=== PATIENT | female | born 1955 | race Caucasian/White ===

== ENCOUNTER → 2017-05-10 | Outpatient (CLI) | payer BC ==
[~2017-05-10] MED LIST: AMB5 PO; AMT25 PO; ASPI81TA28 PO; BSP15 PO; LSN40 PO; METO100T44 PO; MISCCAP80 PO; MULT-506 PO; NRV5 PO; SIMV80TA2 PO; VTMB12100 PO
--- NOTE | 2017-05-11 15:08 | MAMMOGRAPHY REPORT ---
UNILATERAL LEFT DIGITAL DIAGNOSTIC MAMMOGRAM TOMOSYNTHESIS AND TARGETED LEFT ULTRASOUND: 05/10/2017 CLINICAL HISTORY: 61-year-old woman with a personal history of right breast cancer status post mastec perla and implant reconstruction. Also reduction mammoplasty of the left breast. She presents for rst follow-up in the left breast after surgery. TECHNIQUE: Left breast CC and MLO 2-D and tomosynthesis images were obtained. COMPARISON: Comparison is made to exams dated: 03/03/2016 mammogram, 03/03/2016 stereotactic biopsy, 1 04/23/2015 mammogram, 02/02/2016 mammogram, 01/29/2015 mammogram, and 01/27/2014 mammogram - [facility]. BREAST COMPOSITION: There are scattered areas of fibroglandular density in the left breast. FINDINGS: There are postsurgical changes from interval reduction mammoplasty of the left breast. Sc ar markers overlie the periareolar and inferior left breast. There is a circumscribed oval 5 x 4.5 m m mass in the central, slightly lateral left breast for which further characterization with ultrasoun d was performed. There is a 7.7 mm asymmetry in the superior posterior left breast on the MLO view t hat effaces on the corresponding tomosynthesis images and could simply represent scar tissue or shahrzad l overlapping tissue. Further evaluation with ultrasound was also performed in the superior breast. This may project laterally based on the tomosynthesis localizer bar. Targeted ultrasound was performed throughout the left breast. In the 1:00 axis, 2 cm from the nipple , there is a fusiform versus oval parallel hypoechoic solid versus cystic circumscribed mass measurin g 6.7 x 2.6 x 11.9 mm. In the 1:30 left breast, 8 cm from the nipple, there is an oval parallel circ umscribed hypoechoic solid appearing mass measuring 10.7 x 4.1 x 6.4 mm. Although these masses have benign sonographic features, definitive characterization with ultrasound guided cyst aspiration versu s core needle biopsy is recommended. There are no suspicious spiculated or irregular masses to corre late with the asymmetry and questionable architectural distortion in the superior posterior left [address] on the MLO view. This could simply represent scar tissue which is appreciated in the 3:00 far lat eral left breast. No other discrete solid or cystic mass is seen in the upper outer upper inner quad rant of the left breast on targeted ultrasound. IMPRESSION: ACR BI-RADS CATEGORY 4: SUSPICIOUS, TARGETED ULTRASOUND ACR BI-RADS CATEGORY 4: SUSPICIO US 1. There has been interval left reduction mammoplasty. 2. 2 indeterminate hypoechoic solid versus cystic masses are identified in the left breast at 1:00 a nd 1:30 for which ultrasound-guided cyst aspiration versus core needle biopsy is recommended. Correl ation with post procedure mammograms is recommended to assess if the mass in the 1:30 left breast, 8 cm from the nipple, may correlate with the asymmetry seen in the superior posterior breast on the MLO view. These results and recommendation were discussed with the patient at the time of the exam. She tentat ively scheduled the left breast biopsies prior to leaving our department. Approximately 10% of breast cancers are not detected with mammography. A negative mammographic report should not delay biopsy if a clinically suggestive mass is present. Giselle Alex M.D. ay/:05/10/2017 15:29:41 Neuroradiologist: Eun Estes, [facility] letter sent: Abnormal 4/5 BI-RADS Code: ACR BI-RADS Category 4: Suspicious Ultrasound BI-RADS: ACR BI-RADS Category 4: Suspici ous
== END | disposition home or self-care (01) ==
LOC: C.MAMM 14:08
PROVIDERS: ATTEND Surgery
DX: Z09 Encounter for follow-up examination after completed treatment for conditions other than malignant neoplasm (principal); R92.8 Other abnormal and inconclusive findings on diagnostic imaging of breast; Z98.890 Other specified postprocedural states; Z90.11 Acquired absence of right breast and nipple; Z85.3 Personal history of malignant neoplasm of breast

== ENCOUNTER → 2017-05-18 | Outpatient (CLI) | payer BC ==
--- NOTE | 2017-05-18 13:35 | Discharge Instructions ---
Discharge Instructions Procedure Procedure Date: May 18, 2017. Reason for visit: 2 Left Breast Masses. Discharge Discharge Date: May 18, 2017. Discharge Diagnosis: post left breast ultrasound guided core biopsy x 2 Instructions Activity Recommendations: Additional Limitations (see below) Return to School/Work: no limitations Recommended Home Diet: No Limitations Provider Instructions: ACTIVITY RECOMMENDATIONS: * No lifting, pushing, pulling or exercising the affected side for three days. RETURN TO SCHOOL/WORK: * You may return to work/school after the procedure, but do not perform any strenuous activities for 24 to 48 hours. MEDICATIONS: * Tylenol (two 325 mg) every four to six hours if needed for mild pain (if not allergic to Tylenol). DIET: * Resume previous diet. SPECIAL CARE INSTRUCTIONS: * Keep biopsy site dry for 24 hours. May shower after 24 hours, but do not soak (bathe) incision. * May remove Tegaderm (plastic patch) tomorrow AFTER showering. * Leave the steri-strips on for one week. Allow the steri-strips to fall off by themselves. If not off after one week, you may remove them. You may place a Bandaid crosswise over the strips, if desired. * Apply ice 10 minutes on and 10 minutes off as needed. * Wear a bra at bedtime to sleep more comfortably for 2-3 days. * Your referring physician should have the results after approximately 5 to 7 business days. * Call for unusual bleeding, fever, drainage, etc or if you have any questions call [phone] during normal business hours or after hours call Dr Alex, . FOLLOW UP VISIT: Follow-up with Referring Physician as scheduled. Allergies Coded Allergies: Clopidogrel (Verified Allergy, Intermediate, rash, 06/14/15) Fountain Oil (Unverified Allergy, Intermediate, STOMACH UPSET, 06/14/15) Ham (Unverified Allergy, Intermediate, STOMACH UPSET, 06/14/15) Leroy Child Recommendations: Call your doctor if: * Temperature above 101 degrees * Pain not relieved by pain medicine ordered * There is increased drainage or redness from any incision * You have any unanswered questions or concerns. Your Doctors Instructions noted above were prepared by provider Giselle Alex. Patient Signature Section: Patient Instructions Signature Page Saloni Pablo Patient (or Guardian) Signature/Date: I have read and understand the instructions given to me by my caregivers. Caregiver/RN/Doctor Signature/Date: The above-named patient and/or guardian has received patient instructions on this date. + Original Patient Signature Page (only) stays with chart. Please make copy for patient.
--- NOTE | 2017-05-18 14:02 | MAMMOGRAPHY REPORT ---
UNILATERAL LEFT DIGITAL DIAGNOSTIC MAMMOGRAM TOMOSYNTHESIS: 05/18/2017 CLINICAL HISTORY: Status post ultrasound guided core biopsy 2 in the left breast at 1:00 and 1:30. Patient has a history of right breast cancer status post mastectomy. Recent left reduction mammoplas ty. Please refer to the report from left breast ultrasound guided core biopsy performed at the same time for full detail. IMPRESSION: POST PROCEDURE IMAGING FOR MARKER PLACEMENT Please refer to the report from left breast ultrasound guided core biopsy performed at the same time for full detail. Approximately 10% of breast cancers are not detected with mammography. A negative mammographic report should not delay biopsy if a clinically suggestive mass is present. Giselle Alex M.D. ay/:05/18/2017 13:34:17 Structured Cabling Technician: Margaret CHRISTY)(M), [facility] BI-RADS Code: Post Procedure Imaging For Marker Placement
--- NOTE | 2017-05-19 14:41 | MAMMOGRAPHY REPORT ---
MULTIPLE ULTRASOUND GUIDED BIOPSIES LEFT BREAST: 05/18/2017 CLINICAL HISTORY: Two indeterminate circumscribed parallel hypoechoic solid appearing masses in the l eft breast at 1:00 and 1:30. Patient presents for ultrasound guided cyst aspiration versus core need le biopsy 2. Patient has a history of right breast cancer status post mastectomy, and recent left r eduction mammoplasty. COMPARISON: Comparison is made to exams dated: 05/10/2017 ultrasound, 05/10/2017 mammogram, 02/02/2016 mammogram, 01/29/2015 mammogram, 01/27/2014 mammogram, and 01/23/2013 mammogram - [facility]. PATIENT CONSENT: Procedures of ultrasound-guided cyst aspiration and ultrasound-guided core needle bi opsy were described to the patient. Both procedures risks and benefits were discussed with the patie nt and informed consent was obtained both verbally and in writing. Specific risks to this procedure include: bleeding, infection, puncture of adjacent structure, nontarget biopsy, sampling error, pain, metal allergy and medication reaction. PROCEDURE DESCRIPTION: First repeat targeted ultrasound was performed in the left breast at 1:00 and 1:30 to reevaluate the solid versus cystic masses seen on prior ultrasound. The fusiform parallel hy poechoic mass in the 1:00 left breast, 2 cm from the nipple is again identified. This is the first t argeted for attempted cyst aspiration versus core needle biopsy. The slightly larger oval circumscri bed parallel hypoechoic solid versus cystic mass in the 1:30 left breast, 8 cm from the nipple was al so identified. It appears more solid on the current exam and core needle biopsy will be attempted. A time out was performed and the left breast was agreed as the site of fine-needle aspiration versus core biopsy. The skin of the left breast was prepped and draped in the usual sterile fashion. Fusifo rm parallel mass in the 1:00 breast was identified and chosen as target for attempted cyst aspiration . 1% buffered lidocaine without epinephrine was administered as local anesthesia. A 22-gauge needle was advanced into the mass and aspiration was performed with multiple passes through the mass but it did not collapse, confirming solid nature. Therefore, core biopsy was performed. 3 core biopsy renny ples were obtained with a 14-gauge achieve biopsy device. A ribbon-shaped biopsy marker clip was anita jasmine within this mass after biopsy. Hemostasis was achieved after manual compression. The patient munir erated the procedure well and there was no immediate complication. Then the more solid appearing mass in the 1:30 left breast was identified and targeted for biopsy. A dditional 1% buffered lidocaine with and without epinephrine was administered as local anesthesia. A small skin incision was made. Through the incision, 2 samples were obtained with a 14-gauge achieve biopsy device. The third biopsy attempt was made but given the rapid 3 nature of this mass, a third core sample was not obtained and there was slight bleeding at the biopsy site. Therefore a wing sha ped metallic biopsy marker clip was placed in this mass, considering that the first 2 biopsy samples were considered adequate. Hemostasis was achieved after several minutes of manual compression. The patient tolerated the procedure well and there was no immediate complication. All of the samples wer e sent to the pathology department in an appropriately labeled containers. Postprocedure left CC, XCCL and ML tomosynthesis images were obtained. A new ribbon-shaped biopsy ma rker clip is identified in the 12:00 to 1:00 left breast, aligning with an oval mass seen mammographi radha. The possible second mass is less conspicuous and may have represented normal fibroglandular t issue. The wing shaped biopsy marker clip is seen on the MLO view. It does not align with the initi al asymmetry seen on 05/10/2017 although that asymmetry is less prominent and contiguous with conflue nt dense scar tissue on the current MLO view, suggesting it represented postsurgical scarring. IMPRESSION: ULTRASOUND GUIDED BIOPSY 1. Status post ultrasound guided core needle biopsy of 2 indeterminate solid masses in the left [address] at 1:00 and 1:30, with biopsy marker clips placed at each site. 2. Pending benign pathology results, would recommend follow-up left diagnostic tomosynthesis mammogr ams and possible ultrasound to ensure stability of probable scarring in the superior posterior left b reast on the MLO view, seen on the 05/10/2017 mammograms. The patient will receive notification of the biopsy results from her referring physician. Giselle Alex M.D. ay/:05/18/2017 14:22:53 Manager Strategy: Margaret CHRISTY)(Tam), [facility]
--- NOTE | 2017-05-19 14:41 | MAMMOGRAPHY REPORT ---
ULTRASOUND GUIDED BIOPSY: 05/18/2017 CLINICAL HISTORY: Two indeterminate circumscribed parallel hypoechoic solid appearing masses in the l eft breast at 1:00 and 1:30. Patient presents for ultrasound guided cyst aspiration versus core need le biopsy 2. Patient has a history of right breast cancer status post mastectomy, and recent left r eduction mammoplasty. Please refer to the report from left breast ultrasound guided core biopsy performed at the same time for full detail. IMPRESSION: ULTRASOUND GUIDED BIOPSY Please refer to the report from left breast ultrasound guided core biopsy performed at the same time for full detail. Giselle Alex M.D. ay/:05/18/2017 14:15:58 Clinic Business Manager: Margaret CHRISTY)(Tam), [facility]
== END | disposition home or self-care (01) ==
LOC: C.MAMM 12:40
PROVIDERS: ATTEND Surgery
DX: R92.0 Mammographic microcalcification found on diagnostic imaging of breast (principal); N63.10 Unspecified lump in the right breast, unspecified quadrant; N63.20 Unspecified lump in the left breast, unspecified quadrant

== ENCOUNTER 2021-03-27 16:51 | Inpatient (IN) ==
[~2021-03-27 16:51] MED LIST changes: -AMB5 PO; -AMT25 PO; -ASPI81TA28 PO; -BSP15 PO; +HEPARIN (PORCINE) 1000 UNIT/ML 10 ML (CATH LAB USE ONLY) ONE; -LSN40 PO; -METO100T44 PO; +MIDAZOLAM HCL 1 MG/ML 2ML VIAL ONE; -MISCCAP80 PO; -MULT-506 PO; +NITROGLYCERIN/D5W 100MCG/ML 20ML SYR ONE; -NRV5 PO; -SIMV80TA2 PO; -VTMB12100 PO; +fentaNYL citrate 100 MCG/2 ML VIAL ONE; +niCARdipine HCL INJ 2.5 MG/ML 10 ML AMP ONE
[2021-03-27] MEDS ORDERED: METOPROLOL TARTRATE 1 MG/ML VIAL IV STA (16:59)
[2021-03-27] MEDS ORDERED: SODIUM CHLORIDE 0.9% 500 ML IV ONE (17:02)
--- NOTE | 2021-03-27 17:03 | Emergency Department Note ---
Impression & Plan STEMI (ST elevation myocardial infarction), Chest pain, Elevated troponin, Abnormal EKG ED Provider Note NAME: CARISA DARBY AGE: 65 SEX: F : 1955 ARRIVES VIA: Ambulance INFORMANT: Patient ED PROVIDER(S): Tani Cohen DO CHIEF COMPLAINT: Chest pain HPI: Patient is a 65-year-old female with a past medical history of diabetes, hypertension and previous TX that presents to the ER for chest pain. Symptoms started after [employer] game she was walking around cleaning up the house and started to get midsternal chest pain. She admits to left arm pain associated with this. Denies any shortness of breath. Pain is currently a 1 out of 10. She is given 2 nitro and aspirin prior to arrival. She denies any belly pain but admits to some nausea. No vomiting or diarrhea. She was diaphoretic when this initially started. She called EMS and was brought in for further evaluation. ROS: See above HPI for pertinent positives & negatives. A total of 10 systems reviewed and were otherwise negative. PAST MEDICAL HISTORY:See Below PAST SURGICAL HISTORY:See Below FAMILY HISTORY:See Below SOCIAL HISTORY:See Below HOME MEDICATIONS:See Below ALLERGIES:See Below VITALS:See Below PHYSICAL EXAMINATION: GENERAL: Sitting up in bed, alert, anxious but disheveled EYE EXAM: normal conjunctiva. OROPHARYNX: no exudate, no erythema, lips, buccal mucosa, and tongue normal and mucous membranes are moist NECK: supple, no nuchal rigidity, no adenopathy, non-tender LUNGS: Clear to auscultation. Normal chest wall mechanics HEART: no murmurs, S1 normal and S2 normal ABDOMEN: abdomen soft, non-tender, normo-active bowel sounds, no masses, no rebound or guarding. UPPER EXTREMITIES: upper extremities are grossly normal. LOWER EXTREMITIES: No pitting edema. NEURO EXAM: Normal sensorium, cranial nerves II-XII grossly intact, normal speech, no gross weakness of arms, no gross weakness of legs. MEDICAL DECISION MAKING: Patient is a 65-year-old female who presents to the ER for chest pain. IV was established blood was obtained. Labs show no significant leukocytosis or anemia. INR was unremarkable. BMP on LFTs bilirubin was unremarkable. Troponin was elevated 1.6. Lipase is negative. EKGs do suggest STEMI. Heart alert was called. I received medical command and made it hard to let notification. Patient was given aspirin nitro prior to arrival. Pain was nearly completely abated upon arrival to the ER. Patient was placed on the monitor and pads were attached. Patient was evaluated by Dr. Karlo Chavira taken to the [facility] urgently. Did discuss with Karlo in regards to giving heparin and Brilinta while in the ER but he preferred to give it in the [facility] so as not to delay transfer. Triage Nursing notes reviewed. Limited review of prior medical records performed Vital Signs: reviewed and remarkable for HTN Differential diagnosis: Differential diagnoses includes but is not limited to acute coronary syndrome, myocardial infarction, pericarditis, pulmonary embolus, aortic dissection, pneumonia, pneumothorax, musculoskeletal, shingles, esophageal. ER treatment provided: See below Diagnostics interpreted by me: ECG: EKG #1 Per EMS sinus rhythm rate [address] segment elevations in V45 and 6 as well as the high lateral leads with ST depressions in the inferior leads EKG #2 ST segment elevations in the high lateral leads as well as V3 for with T wave inversion in V5 through V6 as well as the inferior leads with ST depressions EKG #3 performed here sinus rhythm [address] depressions in the inferior leads ST segment elevations in V1 through V4 QTC 556 New from old performed in 2019 Cardiac Monitoring: An order was placed for continuous cardiac monitoring. The monitor shows a rate of 95 with sinus rhythm. Laboratory studies: As stated above and show below. Imaging studies: See below Consultation(s): Patient was taken emergently to the [facility] by Dr. Karlo Chavira Procedures: none Critical Care: I have personally spent 31 minutes of critical care time in the direct management of this patient. This includes bedside care, interpretation of diagnostic studies, and testing, discussion with consultants, patient, and family members, and other required patient management activities. This 31 minutes is in excess of all separately billable procedures. Past Med/Surg History Medical History (Updated 03/27/21 @ 19:42 by Tani Cohen DO) DCIS (ductal carcinoma in situ) History of invasive breast cancer History of torn meniscus of left knee Hypertension Myocardial infarct Recurrent urinary tract infection Surgical History (Updated 09/26/18 @ 08:32 by Sheba Campbell, RN) H/O mastectomy H/O: hysterectomy History of reduction surgery of left breast S/P breast reconstruction, right Family History (Updated 09/26/18 @ 09:23 by Sheba Campbell RN) Mother , age 87 old age No problems noted. Father , age 90 CVA , also had H/o type 2 diabetes heart disease No problems noted. Brother Coronary heart disease Brother No problems noted. Brother No problems noted. Brother No problems noted. Daughter , 5 months trisomy 18 CHF No problems noted. Son No problems noted. Son No problems noted. Son No problems noted. 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 Other Information That Helps Us Care for You: No Feels Safe at Home: Yes Safety Concerns: Feels Safe At This Time Childhood Exposure to Second-Hand Smoke: Yes (once a week ) caffeine: Yes (fede occ) Dental Care, Regularly: Yes Physical Activity Frequency: Other Physical Activity Frequency Comment: rarely Sunscreen Use: Yes Assistive Devices: Glasses Allergies Allergies Allergy/AdvReac Type Severity Reaction Status Date / Time clopidogrel Allergy Intermediate rash Verified 01/30/19 17:33 corn Allergy Intermediate STOMACH Verified 01/30/19 17:33 UPSET Ham Allergy Intermediate STOMACH Uncoded 01/30/19 17:33 UPSET Home Meds Home Medications Medication Instructions Recorded Confirmed amitriptyline 25 mg tablet 25 mg PO HS 04/19/18 10/08/19 atorvastatin 40 mg tablet 40 mg PO HS 04/19/18 10/08/19 buspirone 15 mg tablet 15 mg PO BID 04/19/18 10/08/19 metoprolol succinate 100 mg 100 mg PO [facility] 04/19/18 10/08/19 tablet,extended release 24 hr aspirin 81 mg tablet,delayed 81 mg PO 04/24/18 10/08/19 release nitroglycerin 0.4 mg sublingual 0.4 mg SUBLINGUAL DIRECTED PRN 04/24/18 10/08/19 tablet cyanocobalamin (vitamin B-12) 1,000 mcg PO QAM 07/03/19 07/14/20 1,000 mcg capsule omeprazole 20 mg tablet,delayed 20 mg PO QAM 09/26/18 10/08/19 release bepotastine besilate 1.5 % eye 1 drops OPB TID PRN ml 10/15/18 10/08/19 drops (Bepreve) diltiazem HCl 120 mg 240 mg PO QAM 01/20/19 10/08/19 capsule,extended release 24 hr metoprolol succinate 100 mg 50 mg PO QPM 01/30/19 10/08/19 tablet,extended release 24 hr sacubitril 24 mg-valsartan 26 mg 1 tab PO BID 01/30/19 10/08/19 tablet (Entresto) Previous Rx's Medication Instructions Recorded lorazepam 0.5 mg tablet 0.5 mg SL TID PRN #9 tab 04/24/18 Results & Data (ED) Vital Signs Vital Signs - 24 hr 03/27/21 16:50 03/27/21 17:02 03/27/21 17:09 Temperature 36.8 C Temperature Source Oral Pulse Rate 96 H Pulse Rate [Apical] 88 Respiratory Rate 18 18 Blood Pressure 141/113 H Blood Pressure [Left Arm] 151/93 H Blood Pressure Mean 122 Blood Pressure Mean [Left Arm] 112 Pulse Oximetry 98 98 98 Oxygen Delivery Method Room Air Room Air Room Air Sepsis Recent Fever Within 48 Hours No Sepsis New/Unexplained Change in Mental Status No Sepsis Action Taken by Nursing No Action Required Laboratory Data Result diagrams: 03/27/21 16:25 03/27/21 16:25 Lab Results 03/27/21 03/27/21 03/27/21 Range/Units 16:25 16:25 16:25 WBC 6.97 (4.8-10.8) K/uL RBC 4.53 (4.2-5.4) M/uL Hgb 12.5 (12.0-16.0) g/dL Hct 39.2 (37-47) % MCV 86.5 (80-100) fL MCH 27.6 (25-34) pg MCHC 31.9 L (32-36) g/dL RDW Std Deviation 45.0 (36.4-46.3) fL RDW Coeff of Renard 14.2 (11.5-14.5) % Plt Count 306 (130-400) K/uL MPV 8.9 (7.4-10.4) fL Immature Gran % (Auto) 0.1 % Neut % (Auto) 52.6 % Lymph % (Auto) 35.4 % Dickens % (Auto) 7.7 % Eos % (Auto) 3.9 % Baso % (Auto) 0.3 % Neut # (Auto) 3.66 (1.4-6.5) K/uL Lymph # (Auto) 2.47 (1.2-3.4) K/uL Dickens # (Auto) 0.54 (0.11-0.59) K/uL Eos # (Auto) 0.27 (0-0.5) K/uL Baso # (Auto) 0.02 (0-0.2) K/uL Immature Gran # (Auto) 0.01 (0.00-0.02) K/uL PT 9.2 (9.0-12.0) Seconds INR 0.9 (0.9-1.1) APTT 21.9 (21.0-31.0) Seconds PTT Ratio 0.8 Sodium 138 (136-145) mmol/L Potassium 3.6 (3.5-5.1) mmol/L Chloride 105 (98-107) mmol/L Carbon Dioxide 30 (21-32) mmol/L Anion Gap 3.0 (3-11) BUN 13 (7-18) mg/dl Creatinine 0.98 (0.6-1.2) mg/dl Est Cr Clr Drug Dosing 71.7 ml/min Est GFR ( Amer) 70.2 ml/min Est GFR (Non-Af Amer) 60.5 ml/min BUN/Creatinine Ratio 13.5 (10-20) Glucose 141 H (70-99) mg/dl Calcium 9.6 (8.5-10.1) mg/dl Total Bilirubin 0.2 (0.2-1) mg/dl AST 21 (15-37) U/L ALT 36 (12-78) Alkaline Phosphatase 135 H (45-117) U/L Troponin I 1.640 H* (0-0.045) ng/ml Total Protein 7.7 (6.4-8.2) gm/dl Albumin 4.0 (3.4-5.0) gm/dl Globulin 3.7 (2.5-4.0) gm/dl Albumin/Globulin Ratio 1.1 (0.9-2) Lipase 136 (73-393) U/L SARS-CoV-2, RNA, NAAT (NEGATIVE) 03/27/21 Range/Units 16:50 WBC (4.8-10.8) K/uL RBC (4.2-5.4) M/uL Hgb (12.0-16.0) g/dL Hct (37-47) % MCV (80-100) fL MCH (25-34) pg MCHC (32-36) g/dL RDW Std Deviation (36.4-46.3) fL RDW Coeff of Renard (11.5-14.5) % Plt Count (130-400) K/uL MPV (7.4-10.4) fL Immature Gran % (Auto) % Neut % (Auto) % Lymph % (Auto) % Dickens % (Auto) % Eos % (Auto) % Baso % (Auto) % Neut # (Auto) (1.4-6.5) K/uL Lymph # (Auto) (1.2-3.4) K/uL Dickens # (Auto) (0.11-0.59) K/uL Eos # (Auto) (0-0.5) K/uL Baso # (Auto) (0-0.2) K/uL Immature Gran # (Auto) (0.00-0.02) K/uL PT (9.0-12.0) Seconds INR (0.9-1.1) APTT (21.0-31.0) Seconds PTT Ratio Sodium (136-145) mmol/L Potassium (3.5-5.1) mmol/L Chloride (98-107) mmol/L Carbon Dioxide (21-32) mmol/L Anion Gap (3-11) BUN (7-18) mg/dl Creatinine (0.6-1.2) mg/dl Est Cr Clr Drug Dosing ml/min Est GFR ( Amer) ml/min Est GFR (Non-Af Amer) ml/min BUN/Creatinine Ratio (10-20) Glucose (70-99) mg/dl Calcium (8.5-10.1) mg/dl Total Bilirubin (0.2-1) mg/dl AST (15-37) U/L ALT (12-78) Alkaline Phosphatase (45-117) U/L Troponin I (0-0.045) ng/ml Total Protein (6.4-8.2) gm/dl Albumin (3.4-5.0) gm/dl Globulin (2.5-4.0) gm/dl Albumin/Globulin Ratio (0.9-2) Lipase (73-393) U/L SARS-CoV-2, RNA, NAAT NEGATIVE (NEGATIVE) Administered Medications Heparin Sodium/Dextrose (Heparin Sodium/Dextrose) 25,000 units in 500 mls @ 29 mls/hr IV .[id number] [facility]; Protocol Stop: 04/26/21 18:29 Last Admin: 03/27/21 19:37 Dose: 1,450 units/hr, 29 mls/hr Documented by: [id number] Cosigned by: [id number] Discontinued Medications Adenosine (Adenosine Iv Soln 3 Mg/Ml 2 Ml Vial) Confirm Administered Dose 6 mg IV .STK-MED ONE Stop: 03/27/21 17:30 Last Admin: 03/27/21 19:11 Dose: Not Given Documented by: [id number] Fentanyl Citrate (Fentanyl Citrate 100 Mcg/2 Ml Vial) Confirm Administered Dose 100 mcg .ROUTE .STK-MED ONE Stop: 03/27/21 16:49 Last Admin: 03/27/21 19:10 Dose: Not Given Documented by: [id number] Heparin Sodium (Porcine) (Heparin (Porcine) 1000 Unit/Ml 10 Ml ([facility] Use Only)) Confirm Administered Dose 10,000 units .ROUTE .STK-MED ONE Stop: 03/27/21 16:49 Last Admin: 03/27/21 19:10 Dose: Not Given Documented by: [id number] Heparin Sodium/Dextrose (Heparin Iv Adult Wt-Based Standard *No* Bolus Protocol) 1 ea IV Q30M [facility]; Protocol Stop: 04/26/21 18:29 Last Admin: 03/27/21 19:16 Dose: Not Given Documented by: [id number] Heparin Sodium/Sodium Chloride (Heparin In Nss Infusion 1000 Unit/500 Ml (2 U/Ml) Bag) Confirm Administered Dose 3,000 units IV .STK-MED ONE Stop: 03/27/21 16:49 Last Admin: 03/27/21 19:10 Dose: Not Given Documented by: [id number] Sodium Chloride (Nss) 500 mls @ 999 mls/hr IV .Q31M ONE Stop: 03/27/21 17:32 Last Admin: 03/27/21 19:11 Dose: Not Given Documented by: [id number] Metoprolol Tartrate (Metoprolol Tartrate 1 Mg/Ml Vial) 2.5 mg IV NOW STA Stop: 03/27/21 17:00 Last Admin: 03/27/21 19:11 Dose: Not Given Documented by: [id number] Midazolam HCl (Midazolam Hcl 1 Mg/Ml 2ml Vial) Confirm Administered Dose 2 mg .ROUTE .STK-MED ONE Stop: 03/27/21 16:49 Last Admin: 03/27/21 19:10 Dose: Not Given Documented by: [id number] Nicardipine HCl (Nicardipine Hcl Inj 2.5 Mg/Ml 10 Ml Amp) Confirm Administered Dose 25 mg .ROUTE .STK-MED ONE Stop: 03/27/21 16:49 Last Admin: 03/27/21 19:10 Dose: Not Given Documented by: [id number] Nitroglycerin/Dextrose (Nitroglycerin/D5w 100mcg/Ml 20ml Syr) Confirm Administered Dose 2,000 mcg .ROUTE .STK-MED ONE Stop: 03/27/21 16:51 Last Admin: 03/27/21 19:11 Dose: Not Given Documented by: [id number] Imaging Data Radiologist's Impression: Chest X-Ray 03/27/21 16:40 XR chest 1V portable HISTORY: 65 years-old Female Chest Pain acute atypical chest pain COMPARISON: CTA chest 01/20/2019 TECHNIQUE: Portable AP view of the chest FINDINGS: Cardiomediastinal and hilar silhouettes are within normal limits. Asymmetric opacity of the right lung base is likely secondary to the right breast implant. No pneumothorax, pleural effusion, airspace consolidation or overt pulmonary edema. Degenerative changes of the shoulders and spine. IMPRESSION: No acute process. ACT 112: Negative or not required by law. The above report was generated using voice recognition software. It may contain grammatical, syntax or spelling errors. Electronically signed by: Hilton Adler M.D. 03/27/2021 5:06 PM Discharge Plan Visit Data Chief Complaint: Heart Alert ED Provider: Tani Cohen Discharge Problem: STEMI (ST elevation myocardial infarction), Chest pain, Elevated troponin, Abnormal EKG Discharge Instructions Interventions: ED Discharge Assessment Last Done: 03/27/21 17:09 Discharge Problem: STEMI (ST elevation myocardial infarction) Qualifiers: Involved coronary artery: unspecified coronary artery Qualified Code(s): I21.3 - ST elevation (STEMI) myocardial infarction of unspecified site Chest pain Qualifiers: Chest pain type: unspecified Qualified Code(s): R07.9 - Chest pain, unspecified
[2021-03-27 17:05] LABS: Basophils # (auto) 0.02 K/uL (0-0.2); Basophils % (auto) 0.3 %; Eosinophils # (auto) 0.27 K/uL (0-0.5); Eosinophils % (auto) 3.9 %; Hematocrit (blood only) 39.2 % (37-47); Hemoglobin 12.5 g/dL (12.0-16.0); Immature Granulocytes # (auto) 0.01 K/uL (0.00-0.02); Immature Granulocytes % (auto) 0.1 %; Lymphocytes # (auto) 2.47 K/uL (1.2-3.4); Lymphocytes % (auto) 35.4 %; Mean Corpuscular Hemoglobin 27.6 pg (25-34); Mean Corpuscular Hgb Conc 31.9 g/dL (32-36); Mean Corpuscular Volume 86.5 fL (80-100); Mean Platelet Volume 8.9 fL (7.4-10.4); Monocytes # (auto) 0.54 K/uL (0.11-0.59); Monocytes % (auto) 7.7 %; Neutrophils # (auto) 3.66 K/uL (1.4-6.5); Neutrophils % (auto) 52.6 %; Platelet Count 306 K/uL (130-400); RDW Coefficient of Variation 14.2 % (11.5-14.5); Red Blood Count 4.53 M/uL (4.2-5.4); White Blood Count 6.97 K/uL (4.8-10.8)
--- NOTE | 2021-03-27 17:08 | XRay Report ---
XR chest 1V portable HISTORY: 65 years-old Female Chest Pain acute atypical chest pain COMPARISON: CTA chest 01/20/2019 TECHNIQUE: Portable AP view of the chest FINDINGS: Cardiomediastinal and hilar silhouettes are within normal limits. Asymmetric opacity of the right maren g base is likely secondary to the right breast implant. No pneumothorax, pleural effusion, airspace c onsolidation or overt pulmonary edema. Degenerative changes of the shoulders and spine. IMPRESSION: No acute process. ACT 112: Negative or not required by law. The above report was generated using voice recognition software. It may contain grammatical, syntax o r spelling errors. Electronically signed by: Hilton Adler M.D. 03/27/2021 5:06 PM
[2021-03-27 17:24] LABS: BUN Creatinine Ratio 13.5 (10-20); Calcium 9.6 mg/dl (8.5-10.1); Creatinine Clr Calc Pharmacy 71.7 ml/min; Est GFR (African American) 70.2 ml/min; Est GFR (Non-African American) 60.5 ml/min; Potassium 3.6 mmol/L (3.5-5.1)
[2021-03-27] MEDS ORDERED: ADENOSINE IV SOLN 3 MG/ML 2 ML VIAL IV ONE (17:29)
[2021-03-27 17:38] LABS: Albumin Globulin Ratio 1.1 (0.9-2); Bilirubin,Total 0.2 mg/dl (0.2-1); Globulin 3.7 gm/dl (2.5-4.0); Total Protein 7.7 gm/dl (6.4-8.2); Troponin I 1.64 ng/ml (0-0.045)
--- NOTE | 2021-03-27 18:04 | Pre Anesthesia Assessment ---
Date of Service March 27, 2021 Pre Sedation Assessment Vital Signs Temp Pulse Pulse Resp BP BP Pulse Ox 03/27/21 17:09 88 18 151/93 H 98 03/27/21 17:02 98 03/27/21 16:50 98.2 F 96 H 18 141/113 H 98 Cardiovascular RRR, no murmur, no edema Respiratory normal respiratory effort, lungs clear to auscultation Pre-Sedation Airway Assessment Smoking Status: Never smoker Hx Sleep Apnea: No Hx Difficult Intubation: No Short, Thick Neck: No Thyromental Distance: > or= 3.5 Finger Breadths Oral Cavity: + WNL Mallampati Class: III ASA: ASA3 Procedure Planning Contraindications for Sedation: none Current Medications Reviewed: Yes Notes The planned sedation has been discussed with the patient. Informed Consent was obtained. I have identified the patient, determined the appropriateness of sedation and have assessed the patient immediately prior to the procedure. All medicine(s) and interventions are by my order.
--- NOTE | 2021-03-27 18:04 | Post Anesthesia Assessment ---
Date of Service March 27, 2021 Post Sedation Assessment Vital Signs Temp Pulse Pulse Resp BP BP Pulse Ox 03/27/21 17:09 88 18 151/93 H 98 03/27/21 17:02 98 03/27/21 16:50 98.2 F 96 H 18 141/113 H 98 Recovery Score Activity: Moves 4 extremities Respiration: Deep Breath/Cough Circulation: +/-20% PreAnes Value Consciousness: Fully Awake Oxygen Saturation: O2 needed for >90% Discharge Sedation Level of Care: Fast Track Phase II Post Sedation Plan On clinical assessment, the patient appears to have tolerated the sedation without complications. Patient is recovering as anticipated. Patient will continue to be monitored by nursing and may be discharged when sedation discharge criteria are met per below protocol. Upon Completions of procedure up to 15 minutes continue every 5 minute vital signs and the P.A.R. score; then discharge to a Phase I or Fast Track to Phase II per the following guidelines: * Discharge Patient to appropriate Phase II area if PAR is 8 or greater or return to pre- procedure baseline. The post - procedure orders will be as directed. * If PAR score is less than 8 or not return to pre-procedure baseline then patient will follow Phase I monitoring till PAR is reached for Phase II. The Phase I may be done in procedure room or may call to secure a Phase I area. * If naloxone or flumazenil are used for reversal, hold in Phase I for continued monitoring from when last reversal dose was given for a minimum of 60 minutes or longer pending the nurse and/or physician discretion of patient condition before discharge to Phase II. Please call the Sedation Physician to re-evaluate and complete post-note for discharge to Phase II area. Do NOT discharge from procedure sedation or Phase 1 until post- sedation evaluation note is complete by procedure /sedation MD Sedation Discharge Instructions to be given to the patient at discharge to home.
--- NOTE | 2021-03-27 18:08 | Cardiac Catheterization ---
[facility] Data: Supervisor Production Managing Cardiac Status Clinical evaluation leading to the procedure CAD Presenation: STEMI Anginal Classification: CCS IV Heart Failure: No Cardiogenic Shock within 24 Hours: No Cardiac Arrest within 24 Hours: No Imaging Studies Past 6 Months: No Stress Studies Past 6 Months: No Diagnostic Physicians Name: César Chavira MD Status: Emergency Closure Device Percutaneous Entry Location: Radial Closure Device: Radial Band Recommendations: Medical Therapy and/or Counseling Intraprocedure Events Significant Disection: No Perforation: No Cardiac Cath Procedure Full Procedure Date March 27, 2021 Pre-Procedure Diagnosis Pre-Procedure Diagnosis: STEMI AUC Score AUC Score: 9 Post-Procedure Diagnosis Post-Procedure Diagnosis: Moderate CAD and Elevated Intracardiac Pressures Procedure(s) Performed Procedure(s) Performed: Coronary Angiography, Left Heart Cath and LV Angiography Cargo Inspector César Chavira MD Dog Control Officer(s) Greg Estimated Blood Loss Estimated Blood Loss: 10 Medication(s) Medication(s): Adenosine, Fentanyl, Heparin, Lidocaine 1%, Nicardipine, Nitroglycerin and Versed Summary of Findings Indication: Acute chest pain with anterior ST elevations on ECG. History of prior apical LAD, cardiomyopathy. Access: 6 Fr right radial artery Catheters: [place], pigtail, EBU 3.5 guide Findings: LM -Short, normal caliber, no significant disease LAD -medium caliber, tortuous, diffuse moderate mid segment narrowing up to 40%, transient earlydistal distal segment narrowing/bridging 60 to 70%. Apical LAD normal caliber without disease wraps around apex. Moderate D1 without disease. Small bifurcating D2 with diffuse disease. LAD disease with minimal response to nitro, nicardipine. Distal LAD narrowing worse after adenosine but improved wi th time. Circumflex -moderate caliber, no significant disease. Medium caliber, tortuous OM 2 with diffuse proximal narrowing up to 70%. RCA -dominant, large caliber, no significant disease LVEDP -19 Arterial Closure: TR band Summary: 1. Moderate nonobstructive coronary artery disease -Diffuse mid to distal LAD up to 70%appearance most consistent with coronary vasospasm 70% narrowing proximal [id number] consistent with coronary vasospasm 2. Mildly elevated intracardiac filling pressure Recommendations: By time of catheterization patient chest pain-free, ST segments normal and had SINDY-3 flow throughout. Symptoms largely resolved with 2 sublingual nitroglycerin. Current images compared with coronary angiography from 09/2019. At that time essentially had clean coronaries with diffuse narrowing in apical LAD. Today has diffuse new narrowing in mid to distal LAD, small D2 and proximal OM2 (apical LAD appears normal). Appearance, history most consistent with coronary vasospasm. Recommend avoiding stenting at this time. Admit to telemetry Trend troponin, repeat echocardiogram in a.m. -- continue heparin drip. Responded to several nitroglycerin. Topical nitrates overnight further adjustment of outpatient coronary vasodilators for vasospasm per primary cardiology team Hemodynamics Rest Ao:: 156/104/142 Final Ao: 123/67/97 LV: 116/19 Recommendations Recommendations: Medical Therapy and/or Counseling Specimens Specimens: None Radiation Exposure (mGy) 1290 Contrast (mls) 135 Fluids (cc crystalloids) Fluids (cc crystalloids): 200 Drains Drains: none Anesthesia moderate [id number] Procedural Complication(s) None Disposition PCU I attest to the content of the Intraoperative Record and any orders documented therein. Any exceptions are noted below. [facility] Card Cath Procedure Codes Cardiac Catheterization Procedure 1: Cardiovascular Cath Procedures: 70688 Coronaries and LHC (+/-LV) Moderate Sedation Procedure 1: Sedation/Anesthesia: [id number] Mod Sedation by the same physician;Init15 Min Child Age 5 & Up PG Care Time/CCT Total # of Minutes Spent Total Time Spent with Patient: Total time spent is greater than 50% in coordination of care (as documented) at patient's floor/unit and/or counseling patient:
[2021-03-27] MEDS ORDERED: NITROGLYCERIN 2% OINTMENT 30GM TUBE EXT SCH (18:15)
[2021-03-27] MEDS ORDERED: Heparin IV Adult Wt-Based Standard *NO* Bolus Protocol IV SCH (18:30)
--- NOTE | 2021-03-27 19:03 | History & Physical Report ---
Date of Service March 27, 2021 Assessment & Plan (1) STEMI (ST elevation myocardial infarction): Plan: #. Chest pain #. STEMI Patient reports high anxiety going in the family in the last week due to family member starting Covid positive and she was anxious of getting Covid though she tested negative multiple times. Sudden onset chest pain at 3 PM after [place] came on 03/27 [on the day of arrival] Troponin elevated at presentation with acute ST and T changes in anterior and septal leads in the EKG Patient was STEMI alert, immediately taken to the cardiac cath, required no intervention Discussed with cardiology Dr. Chavira, likely due to spasm of LAD, could be contributed by high tension in the family as above, heparin drip and Nitropaste for overnight Cardiology consulted likely echo will defer to cardiology #. Other chronic medical conditions: HTN, HLD Resume home meds when able Heart healthy diet Full code Heparin drip Disposition: Likely discharge in next 1 to 2 days Admission and Anticipated Discharge Date Admission Date: March 27, 2021 History of Present Illness Chief Complaint: Chest pain Primary Care Provider: Ozzie Ann DO 65-year-old lady with past medical history of NH 2010 [no stent/surgery], recurrent right breast cancer [2016 diagnosis followed by mastectomy 2017; recurrence on the right side 2018 followed by chemo/surgery/radiation/immunotherapy 2019], HTN, HLD presented 03/27 to our ED with complaint of chest pain that onset 3 PM, sudden, radiating to left shoulder, relieved after receiving aspirin and nitro. Patient denies any fever/chills/palpitations/belly pain/acute changes in her bowel or bladder habits/other review of symptoms. Patient's troponin was elevated at presentation, there was acute ST or T changes in anterior/septal leads in the EKG, patient was taken to cardiac cath, no stents required/no intervention required. Per discussion with Dr. Chavira, likely spasm of LAD leading to elevation of troponin and EKG changes. For now continue to monitor in PCU with heparin drip and Nitropaste. Patient denies history of blood clot. No family history of cancer or blood clot. Family history of cardiac disease in father with multiple stents and bypass surgery. Patient does not smoke or drink alcohol or use illegal drug. Full code. Allergies Allergy/AdvReac Type Severity Reaction Status Date / Time clopidogrel Allergy Intermediate rash Verified 01/30/19 17:33 corn Allergy Intermediate STOMACH Verified 01/30/19 17:33 UPSET Ham Allergy Intermediate STOMACH Uncoded 01/30/19 17:33 UPSET Home Medications Medication Instructions Recorded Confirmed Type amitriptyline 25 mg tablet 25 mg PO HS 04/19/18 10/08/19 History atorvastatin 40 mg tablet 40 mg PO HS 04/19/18 10/08/19 History buspirone 15 mg tablet 15 mg PO BID 04/19/18 10/08/19 History metoprolol succinate 100 mg 100 mg PO QAM 04/19/18 10/08/19 History tablet,extended release 24 hr aspirin 81 mg tablet,delayed 81 mg PO HS 04/24/18 10/08/19 History release lorazepam 0.5 mg tablet 0.5 mg SL TID PRN #9 tab 04/24/18 10/08/19 Rx nitroglycerin 0.4 mg sublingual 0.4 mg SUBLINGUAL DIRECTED PRN 04/24/18 10/08/19 History tablet cyanocobalamin (vitamin B-12) 1,000 mcg PO QAM 09/26/18 10/08/19 History 1,000 mcg capsule omeprazole 20 mg tablet,delayed 20 mg PO QAM 09/26/18 10/08/19 History release bepotastine besilate 1.5 % eye 1 drops OPB TID PRN ml 10/15/18 10/08/19 History drops (Bepreve) diltiazem HCl 120 mg 240 mg PO QAM 01/20/19 10/08/19 History capsule,extended release 24 hr metoprolol succinate 100 mg 50 mg PO QPM 01/30/19 10/08/19 History tablet,extended release 24 hr sacubitril 24 mg-valsartan 26 mg 1 tab PO BID 01/30/19 10/08/19 History tablet (Entresto) Past Med/Surg History Medical History (Updated 03/27/21 @ 19:02 by lAisha Austin MD) DCIS (ductal carcinoma in situ) History of invasive breast cancer History of torn meniscus of left knee Hypertension Myocardial infarct Recurrent urinary tract infection Surgical History (Updated 09/26/18 @ 08:32 by Sheba Campbell RN) H/O mastectomy H/O: hysterectomy History of reduction surgery of left breast S/P breast reconstruction, right Family History (Updated 09/26/18 @ 09:23 by Sheba Campbell, RN) Mother , age 87 old age No problems noted. Father , age 90 CVA , also had H/o type 2 diabetes heart disease No problems noted. Brother Coronary heart disease Brother No problems noted. Brother No problems noted. Brother No problems noted. Daughter , 5 months trisomy 18 CHF No problems noted. Son No problems noted. Son No problems noted. Son No problems noted. 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 NAD, on RA. HEENT: No pallor, no icterus. Pupils equal, round and reactive to light. Oral mucosa moist. NECK: No JVD, no neck masses. HEART: S1 and S2 heard. Regular rate and rhythm. No murmur, no gallop. RESPIRATORY SYSTEM: Normal AP diameter. No accessory muscle use. No wheezing, no crackles. ABDOMEN: Soft, bowel sounds present, nontender, no distention. CENTRAL NERVOUS SYSTEM: No facial droop. Speech is clear. Obeys simple commands. Moves extremities. EXTREMITIES: No edema, no erythema seen. Results & Data Results & Data ([facility]) Vital Signs (Past 12 Hours) Vital Signs Temp Pulse Pulse Resp BP BP Pulse Ox 03/27/21 18:16 36.6 C 87 18 130/77 97 03/27/21 17:09 88 18 151/93 H 98 03/27/21 17:02 98 03/27/21 16:50 36.8 C 96 H 18 141/113 H 98 Code Status & VTE Plan VTE Prophylaxis Plan VTE Prophylaxis will be ordered: Yes
[2021-03-27 19:16] LABS: INR 0.9 (0.9-1.1); Partial Thromboplastin Ratio 0.8; Partial Thromboplastin Time 21.9 Seconds (21.0-31.0); Prothrombin Time 9.2 Seconds (9.0-12.0)
[2021-03-27] MEDS: HEPARIN SODIUM/DEXTROSE 25,000 UNITS/500 ML BAG IV SCH (19:37)
[2021-03-27] MEDS: ASPIRIN 81 MG ECTAB PO SCH (19:58)
[2021-03-27] MEDS: ATORVASTATIN 40 MG TAB PO SCH (19:58)
[2021-03-27] MEDS: NITROGLYCERIN 2% OINTMENT 30GM TUBE EXT SCH ×2 (19:59→23:41)
[2021-03-27] MEDS: VALSARTAN/SACUBITRIL 26/24MG TAB PO SCH (19:59)
[2021-03-27] MEDS: ACETAMINOPHEN 325 MG TAB PO PRN (20:56)
[2021-03-27] MEDS ORDERED: METOPROLOL SUCC 50MG EXT REL TAB PO SCH (21:00)
--- NOTE | 2021-03-27 22:39 | Cardiology Consultation ---
Date of Consultation March 27, 2021 Assessment & Plan (1) Chest pain: Presentation concerning for anterior STEMI and recommend proceeding with emergent cardiac catheterization and likely primary PCI. No apparent contraindications to procedure. Discussed risks, benefits, alternatives of procedure with patient and they are willing to proceed. Further recommendations pending findings of coronary angiography. History of Present Illness Attending Physician: Alisha Austin MD History of Present Illness 65-year-old woman here with acute chest pain and ECG concerning for acute LA. Patient seen emergently in the ED after heart alert activated en route. Past cardiac history remarkable for anterior STEMI in 2009 thought secondary to apical LAD occlusion managed medically, cardiomyopathy last EF 40% with apical wall motion abnormality, hypertension, dyslipidemia. Also with a history of type 2 diabetes, recurrent breast cancer. Reported clopidogrel allergy with rash. Last cardiac cath 09/2019 showed no significant obstructive disease although apical LAD was described to be very thin. Chest pain began approximately 1 hour prior to arrival while walking post [place]. Describes left-sided chest pain with severe left arm pain. Left arm pain more prominent than any pain she has had previously. Contacted EMS and ECG in route showed anterior ST elevations with ventricular ectopy/idioventricular rhythm. Given 2 sublingual nitro en route with chest pain down to a 1/10 at time of arrival. Allergies Allergy/AdvReac Type Severity Reaction Status Date / Time clopidogrel Allergy Intermediate rash Verified 01/30/19 17:33 corn Allergy Intermediate STOMACH Verified 01/30/19 17:33 UPSET Ham Allergy Intermediate STOMACH Uncoded 01/30/19 17:33 UPSET Home Medications Medication Instructions Recorded Confirmed Type amitriptyline 25 mg tablet 25 mg PO HS 04/19/18 10/08/19 History atorvastatin 40 mg tablet 40 mg PO HS 04/19/18 10/08/19 History buspirone 15 mg tablet 15 mg PO BID 04/19/18 10/08/19 History metoprolol succinate 100 mg 100 mg PO QAM 04/19/18 10/08/19 History tablet,extended release 24 hr aspirin 81 mg tablet,delayed 81 mg PO HS 04/24/18 10/08/19 History release lorazepam 0.5 mg tablet 0.5 mg SL TID PRN #9 tab 04/24/18 10/08/19 Rx nitroglycerin 0.4 mg sublingual 0.4 mg SUBLINGUAL DIRECTED PRN 04/24/18 10/08/19 History tablet cyanocobalamin (vitamin B-12) 1,000 mcg PO QAM 09/26/18 10/08/19 History 1,000 mcg capsule omeprazole 20 mg tablet,delayed 20 mg PO QAM 09/26/18 10/08/19 History release bepotastine besilate 1.5 % eye 1 drops OPB TID PRN ml 10/15/18 10/08/19 History drops (Bepreve) diltiazem HCl 120 mg 240 mg PO QAM 01/20/19 10/08/19 History capsule,extended release 24 hr metoprolol succinate 100 mg 50 mg PO QPM 01/30/19 10/08/19 History tablet,extended release 24 hr sacubitril 24 mg-valsartan 26 mg 1 tab PO BID 01/30/19 10/08/19 History tablet (Entresto) Patient History Medical History (Updated 03/27/21 @ 19:42 by Tani Cohen DO) DCIS (ductal carcinoma in situ) History of invasive breast cancer History of torn meniscus of left knee Hypertension Myocardial infarct Recurrent urinary tract infection Surgical History (Updated 09/26/18 @ 08:32 by Sheba Campbell, TIFF[place]) H/O mastectomy H/O: hysterectomy History of reduction surgery of left breast S/P breast reconstruction, right Family History (Updated 09/26/18 @ 09:23 by Sheba Campbell, TIFFANY) Mother , age 87 old age No problems noted. Father , age 90 CVA , also had H/o type 2 diabetes heart disease No problems noted. Brother Coronary heart disease Brother No problems noted. Brother No problems noted. Brother No problems noted. Daughter , 5 months trisomy 18 CHF No problems noted. Son No problems noted. Son No problems noted. Son No problems noted. 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 Other Information That Helps Us Care for You: No Feels Safe at Home: Yes Safety Concerns: Feels Safe At This Time Childhood Exposure to Second-Hand Smoke: Yes (once a week ) caffeine: Yes (fede occ) Dental Care, Regularly: Yes Physical Activity Frequency: Other Physical Activity Frequency Comment: rarely Sunscreen Use: Yes Assistive Devices: Glasses Review of Systems Review of Systems: not obtained in setting of emergent situation Physical Exam Constitutional: WD/WN, vitals as above Respiratory: normal respiratory effort, lungs clear to auscultation Cardiovascular: RRR, no murmur, no edema Skin: no rashes, warm and dry Psychiatric: A+Ox3, euthymic affect Results & Data ([facility]) Vital Signs (Past 12 Hours) Vital Signs Temp Pulse Pulse Resp BP BP Pulse Ox 03/27/21 22:00 97.9 F 87 17 127/79 96 03/27/21 20:57 97.9 F 86 19 135/67 96 03/27/21 19:57 97.7 F 82 18 133/81 96 03/27/21 19:27 97.9 F 83 18 132/70 98 03/27/21 19:10 98.1 F 82 17 133/82 97 03/27/21 18:57 82 18 120/71 98 03/27/21 18:27 98.1 F 87 18 134/68 98 03/27/21 18:16 97.9 F 87 18 130/77 97 03/27/21 17:09 88 18 151/93 H 98 03/27/21 17:02 98 03/27/21 16:50 98.2 F 96 H 18 141/113 H 98 PG Care Time/CCT Total # of Minutes Spent Total Time Spent with Patient: Total time spent is greater than 50% in coordination of care (as documented) at patient's floor/unit and/or counseling patient: Coding Level of Care Code 81233 Inpt Consult Level 3 Diagnoses Chest pain R07.9 Chest pain type: unspecified (1) Chest pain Chest pain type: unspecified Qualified Code(s): R07.9 - Chest pain, unspecified
[2021-03-28 02:13] LABS: Partial Thromboplastin Ratio 1.8; Partial Thromboplastin Time 46.1 Seconds (21.0-31.0)
[2021-03-28] MEDS ORDERED: traMADol HCL 50 MG TABLET PO PRN (04:19)
--- NOTE | 2021-03-28 04:20 | Communication Note ---
Date of Service: March 28, 2021 Nitropaste stopped as patient complaining of headache symptoms as per RN.
[2021-03-28] MEDS ORDERED: oxyCODONE HCL IR 5 MG TAB (IMMEDIATE RELEASE) PO PRN (04:22)
[2021-03-28] MEDS ORDERED: ACETAMINOPHEN W/CODEINE #3 1 TAB PO PRN (04:33)
[2021-03-28] MEDS ORDERED: HYDROmorphone HCL 2 MG TAB PO PRN (04:36)
[2021-03-28] MEDS: AMITRIPTYLINE HCL 25 MG TAB PO SCH ×2 (04:55→20:14)
--- NOTE | 2021-03-28 05:59 | CT Scan Report ---
CT SCAN OF THE BRAIN WITHOUT IV CONTRAST CLINICAL HISTORY: Headache. Dizziness. COMPARISON STUDY: CT of the brain dated 01/30/2019. TECHNIQUE: Unenhanced axial CT scan of the brain is performed from the vertex to the skull base. A d ose lowering technique was utilized adhering to the principles of ALARA. CT DOSE: 614.27 mGy.cm FINDINGS: Brain parenchyma: The brain parenchyma is normal in appearance. There is no hemorrhage, mass effect, or evidence of acute territorial ischemia by CT criteria. Mac-white matter differentiation is preser anatoly. No extra-axial fluid collection is seen. Ventricles, sulci, cisterns: Normal in configuration. Intracranial vasculature: The visualized intracranial vasculature at the skull base is normal in appe arance. Calvarium: Unremarkable. Sinuses and mastoids: There is mild mucosal thickening in the left frontal sinus. The remaining visua lized paranasal sinuses are clear. The mastoid air cells are well pneumatized. Orbits: The bony orbits are grossly intact. IMPRESSION: There is no hemorrhage, mass effect, or evidence of acute territorial ischemia by CT kol[place] bee. ACT 112: Negative or not required by law. Electronically signed by: Dick Go M.D. 03/28/2021 5:58 AM
[2021-03-28 06:58] LABS: Hematocrit (blood only) 36.3 % (37-47); Hemoglobin 11.5 g/dL (12.0-16.0); Mean Corpuscular Hemoglobin 26.9 pg (25-34); Mean Corpuscular Hgb Conc 31.7 g/dL (32-36); Mean Platelet Volume 8.6 fL (7.4-10.4); Platelet Count 257 K/uL (130-400); RDW Coefficient of Variation 14.2 % (11.5-14.5); Red Blood Count 4.27 M/uL (4.2-5.4); White Blood Count 9.36 K/uL (4.8-10.8)
[2021-03-28 07:31] LABS: BUN Creatinine Ratio 13.9 (10-20); Calcium 9.4 mg/dl (8.5-10.1); Creatinine Clr Calc Pharmacy 75.3 ml/min; Est GFR (African American) 76.7 ml/min; Est GFR (Non-African American) 66.2 ml/min; Magnesium 1.9 mg/dl (1.8-2.4); Potassium 3.9 mmol/L (3.5-5.1)
[2021-03-28] MEDS: VALSARTAN/SACUBITRIL 26/24MG TAB PO SCH ×2 (08:01→20:14)
[2021-03-28] MEDS: METOPROLOL SUCC 50MG EXT REL TAB PO SCH (08:01)
[2021-03-28] MEDS ORDERED: METOPROLOL SUCC 50MG EXT REL TAB PO SCH ×2 (09:00)
--- NOTE | 2021-03-28 09:07 | Cardiology Consultation ---
Date of Consultation March 28, 2021 Assessment & Plan (1) Chest pain: (2) Elevated troponin: (3) STEMI (ST elevation myocardial infarction): (4) Abnormal EKG: (5) Malignant neoplasm of lower-outer quadrant of right breast of female, estrogen receptor negative: The patient indicates to me that after her treatment for breast cancer, her chemotherapy was stopped because of a low ejection fraction. I will obtain an echocardiogram this admission. She continues to have mild left arm dis comfort but no additional chest pain. Going to place her on Imdur 30 mg daily and stop her Nitropaste. I think we should continue her heparin through today. History of Present Illness Attending Physician: Alisha Austin MD History of Present Illness This is a 65-year-old female who usually is followed by Dr. Howard and Terry Dunbar through our clinic. She has a history of coronary artery disease and in March [address] with an [address] segment elevation myocardial infarction and underwent a cardiac catheterization that showed an occluded distal LAD. Medical management was recommended. She has a history of a cardiomyopathy felt possibly due to ischemic or chemotherapy for breast cancer. She does have segmental wall motion abnormalities of the apex which would go along with her history. Her estimated left ventricular ejection fraction is 40%. She had a second heart catheterization in September 2019 where the LAD is described as being thin distally. Otherwise she had nonobstructive disease. According to our clinic records she has been doing well and exercising regularly. Yesterday she decided to go for a walk after the [place] game and began to have chest pain. She came into the emergency department and was noted to have ST segment eleva tion in the anterior precordial leads was taken to the cardiac catheterization lab. The findings were essentially unchanged in the previous cardiac catheterization and her clinical presentation was felt to be possibly due to coronary spasm or [place]'s. Medical management was recommended. Allergies Allergy/AdvReac Type Severity Reaction Status Date / Time clopidogrel Allergy Intermediate rash Verified 01/30/19 17:33 codeine AdvReac Mild GI upset Verified 03/28/21 04:36 oxycodone AdvReac gi upset Verified 03/28/21 04:33 Ham Allergy Intermediate STOMACH Uncoded 01/30/19 17:33 UPSET Home Medications Medication Instructions Recorded Confirmed Type amitriptyline 25 mg tablet 25 mg PO HS 04/19/18 10/08/19 History atorvastatin 40 mg tablet 40 mg PO HS 04/19/18 10/08/19 History buspirone 15 mg tablet 15 mg PO BID 04/19/18 10/08/19 History metoprolol succinate 100 mg 100 mg PO QAM 04/19/18 10/08/19 History tablet,extended release 24 hr aspirin 81 mg tablet,delayed 81 mg PO HS 04/24/18 10/08/19 History release lorazepam 0.5 mg tablet 0.5 mg SL TID PRN #9 tab 04/24/18 10/08/19 Rx nitroglycerin 0.4 mg sublingual 0.4 mg SUBLINGUAL DIRECTED PRN 04/24/18 10/08/19 History tablet cyanocobalamin (vitamin B-12) 1,000 mcg PO QAM 09/26/18 10/08/19 History 1,000 mcg capsule omeprazole 20 mg tablet,delayed 20 mg PO QAM 09/26/18 10/08/19 History release bepotastine besilate 1.5 % eye 1 drops OPB TID PRN ml 10/15/18 10/08/19 History drops (Bepreve) diltiazem HCl 120 mg 240 mg PO QAM 01/20/19 10/08/19 History capsule,extended release 24 hr metoprolol succinate 100 mg 50 mg PO QPM 01/30/19 10/08/19 History tablet,extended release 24 hr sacubitril 24 mg-valsartan 26 mg 1 tab PO BID 01/30/19 10/08/19 History tablet (Entresto) Patient History Medical History DCIS (ductal carcinoma in situ) History of invasive breast cancer History of torn meniscus of left knee Hypertension Myocardial infarct Recurrent urinary tract infection Surgical History H/O mastectomy H/O: hysterectomy History of reduction surgery of left breast S/P breast reconstruction, right Family History Mother , age 87 old age No problems noted. Father , age 90 CVA , also had H/o type 2 diabetes heart disease No problems noted. Brother Coronary heart disease Brother No problems noted. Brother No problems noted. Brother No problems noted. Daughter , 5 months trisomy 18 CHF No problems noted. Son No problems noted. Son No problems noted. Son No problems noted. 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 All other 10 point review of systems are negative. Physical Exam Physical Exam: General: no acute distress and stated age Head: normocephalic, no masses, lesions, tenderness or abnormalities Eyes: conjunctiva are pink and non-injected, sclera clear Neck: supple, no adenopathy, no bruits, normal jugular venous pulse, no hepatoju gular reflux Chest: normal shape and normal respiratory effort Lungs: clear to auscultation and percussion Cardiac Exam: - regular rate & rhythm, no murmurs gallops or rubs - normal S1, normal S2 Pulses: 2(+) throughout Abdomen: abdomen soft, non-tender, no abnormal masses and no hepatosplenomegaly Musculoskeletal: no gait disturbance, no joint inflammation, no deforming arthritis Extremities: no edema and no cyanosis Neuro: grossly normal exam Results & Data ([facility]) Vital Signs (Past 12 Hours) Vital Signs Temp Pulse Pulse Resp BP Pulse Ox 03/28/21 07:08 36.9 C 85 17 131/80 95 03/28/21 04:05 36.3 C L 94 H 17 132/73 95 03/28/21 01:59 36.8 C 90 17 132/78 96 03/27/21 23:57 36.7 C 85 20 118/77 96 03/27/21 23:09 84 03/27/21 22:57 36.8 C 84 18 122/74 95 03/27/21 22:00 36.6 C 87 17 127/79 96 Laboratory Results Laboratory Results - last 24 hr 03/27/21 03/27/21 03/27/21 16:25 16:25 16:25 WBC 6.97 RBC 4.53 Hgb 12.5 Hct 39.2 MCV 86.5 MCH 27.6 MCHC 31.9 L RDW Std Deviation 45.0 RDW Coeff of Renard 14.2 Plt Count 306 MPV 8.9 Immature Gran % (Auto) 0.1 Neut % (Auto) 52.6 Lymph % (Auto) 35.4 [place] % (Auto) 7.7 Eos % (Auto) 3.9 Baso % (Auto) 0.3 Neut # (Auto) 3.66 Lymph # (Auto) 2.47 [place] # (Auto) 0.54 Eos # (Auto) 0.27 Baso # (Auto) 0.02 Immature Gran # (Auto) 0.01 PT 9.2 INR 0.9 APTT 21.9 PTT Ratio 0.8 Sodium 138 Potassium 3.6 Chloride 105 Carbon Dioxide 30 Anion Gap 3.0 BUN 13 Creatinine 0.98 Est Cr Clr Drug Dosing 71.7 Est GFR ( Amer) 70.2 Est GFR (Non-Af Amer) 60.5 BUN/Creatinine Ratio 13.5 Glucose 141 H Calcium 9.6 Magnesium Total Bilirubin 0.2 AST 21 ALT 36 Alkaline Phosphatase 135 H Troponin I 1.640 H* Total Protein 7.7 Albumin 4.0 Globulin 3.7 Albumin/Globulin Ratio 1.1 Lipase 136 SARS-CoV-2, RNA, NAAT 03/27/21 03/28/21 03/28/21 16:50 01:34 06:18 WBC 9.36 RBC 4.27 Hgb 11.5 L Hct 36.3 L MCV 85.0 MCH 26.9 MCHC 31.7 L RDW Std Deviation 44.0 RDW Coeff of Renard 14.2 Plt Count 257 MPV 8.6 Immature Gran % (Auto) Neut % (Auto) Lymph % (Auto) [place] % (Auto) Eos % (Auto) Baso % (Auto) Neut # (Auto) Lymph # (Auto) [place] # (Auto) Eos # (Auto) Baso # (Auto) Immature Gran # (Auto) PT INR APTT 46.1 H* PTT Ratio 1.8 Sodium Potassium Chloride Carbon Dioxide Anion Gap BUN Creatinine Est Cr Clr Drug Dosing Est GFR ( Amer) Est GFR (Non-Af Amer) BUN/Creatinine Ratio Glucose Calcium Magnesium Total Bilirubin AST ALT Alkaline Phosphatase Troponin I Total Protein Albumin Globulin Albumin/Globulin Ratio Lipase SARS-CoV-2, RNA, NAAT NEGATIVE 03/28/21 06:18 WBC RBC Hgb Hct MCV MCH MCHC RDW Std Deviation RDW Coeff of Renard Plt Count MPV Immature Gran % (Auto) Neut % (Auto) Lymph % (Auto) [place] % (Auto) Eos % (Auto) Baso % (Auto) Neut # (Auto) Lymph # (Auto) [place] # (Auto) Eos # (Auto) Baso # (Auto) Immature Gran # (Auto) PT INR APTT PTT Ratio Sodium 137 Potassium 3.9 Chloride 104 Carbon Dioxide 27 Anion Gap 6.0 BUN 13 Creatinine 0.91 Est Cr Clr Drug Dosing 75.3 Est GFR ( Amer) 76.7 Est GFR (Non-Af Amer) 66.2 BUN/Creatinine Ratio 13.9 Glucose 157 H Calcium 9.4 Magnesium 1.9 Total Bilirubin AST ALT Alkaline Phosphatase Troponin I Total Protein Albumin Globulin Albumin/Globulin Ratio Lipase SARS-CoV-2, RNA, NAAT Medications Administered Current Inpatient Medications Acetaminophen (Acetaminophen 325 Mg Tab) 650 mg PO Q6H PRN PRN Reason: Fever/pain Stop: 04/26/21 20:22 Last Admin: 03/27/21 20:56 Dose: 650 mg Documented by: Amitriptyline HCl (Amitriptyline Hcl 25 Mg Tab) 25 mg PO [facility] Stop: 04/27/21 04:24 Last Admin: 03/28/21 04:55 Dose: 25 mg Documented by: Aspirin (Aspirin 81 Mg Ectab) 81 mg PO [facility] Stop: 04/26/21 20:59 Last Admin: 03/27/21 19:58 Dose: 81 mg Documented by: Atorvastatin Calcium (Atorvastatin 40 Mg Tab) 40 mg PO [facility] Stop: 04/26/21 20:59 Last Admin: 03/27/21 19:58 Dose: 40 mg Documented by: Hydromorphone HCl (Hydromorphone Hcl 2 Mg Tab) 2 mg PO QID PRN PRN Reason: Pain Stop: 04/11/21 04:35 Last Admin: 03/28/21 04:59 Dose: 2 mg Documented by: Heparin Sodium/Dextrose (Heparin Sodium/Dextrose) 25,000 units in 500 mls @ 29 mls/hr IV .[id number] [facility]; Protocol Stop: 04/26/21 18:29 Last Titration: 03/28/21 06:24 Dose: 1,450 units/hr, 29 mls/hr Documented by: Magnesium Oxide (Magnesium Oxide 400 Mg Tab) 400 mg PO BID [facility] Stop: 03/29/21 21:01 Metoprolol Succinate (Metoprolol Succ 50mg Ext Rel Tab) 225 mg PO QAM [facility] Stop: 04/27/21 08:59 Last Admin: 03/28/21 08:01 Dose: 225 mg Documented by: Nitroglycerin (Nitroglycerin 2% Ointment 30gm Tube) 1 inch EXT Q6H [facility] Stop: 04/26/21 18:14 Last Admin: 03/27/21 23:41 Dose: 1 inch Documented by: Sacubitril/Valsartan (Valsartan/Sacubitril 26/24mg Tab) 1 tab PO BID [facility] Stop: 04/26/21 20:59 Last Admin: 03/28/21 08:01 Dose: 1 tab Documented by: (1) STEMI (ST elevation myocardial infarction) Involved coronary artery: unspecified coronary artery Qualified Code(s): I21.3 - ST elevation (STEMI) myocardial infarction of unspecified site (2) Chest pain Chest pain type: unspecified Qualified Code(s): R07.9 - Chest pain, unspecified
--- NOTE | 2021-03-28 12:22 | Hospitalist Progress Note ---
Date of Service March 28, 2021 Assessment & Plan (1) STEMI (ST elevation myocardial infarction): Plan: 65-year-old lady with past medical history of NH 2010 [no stent/surgery], recurrent right breast cancer [2016 diagnosis followed by mastectomy 2017; recurrence on the right side 2018 followed by chemo/surgery/radiation/immunotherapy 2019], HTN, HLD presented 03/27 to our ED with complaint of chest pain that onset 3 PM the day of arrival 03/27/20, sudden, radiating to left shoulder, relieved after receiving aspirin and nitro. She is being managed for the following: #. Chest pain #. STEMI #. Likely Patient reports high anxiety going in the family in the last week due to family member starting Covid positive and she was anxious of getting Covid though she tested negative multiple times. Sudden onset chest pain at 3 PM after [place] came on 03/27 [on the day of arrival] Troponin elevated at presentation with acute ST and T changes in anterior and septal leads in the EKG Patient was STEMI alert, immediately taken to the cardiac cath, required no intervention 03/27/[address] Chavira, likely due to spasm of LAD, could be contributed by high tension in the family as above, heparin drip and Nitropaste for overnight 03/28 echo: EF 40 to 45%, septal akinesis, apical akinesis, no significant valvular pathology. Patient had headache from nitro paste, currently Imdur 30 mg daily started. Continue with heparin. Complains of mild left arm pain, no further chest pain. Cardiology on board, appreciate recommendation. Continue telemetry monitoring. #. Other chronic medical conditions: HTN, HLD Resume home meds when able Heart healthy diet Full code Heparin drip Disposition: Likely discharge tomorrow with card recs. Admission and Anticipated Discharge Date Admission Date: March 27, 2021 Subjective Patient was lying in bed, on room air, NAD, overnight patient had headache from Nitropaste and hence it was discontinued. Patient also complained of left arm pain which was relieved with Dilaudid. At bedside, patient denies any further headache, also denies fever/chills/chest pain/palpitations/belly pain/other review of symptoms. Patient reports eating and moving bowels okay. Physical Exam 2 Physical Exam: GENERAL: Alert and oriented x3. NAD, on RA. HEENT: No pallor, no icterus. Pupils equal, round and reactive to light. Oral mucosa moist. NECK: No JVD, no neck masses. HEART: S1 and S2 heard. Regular rate and rhythm. No murmur, no gallop. RESPIRATORY SYSTEM: Normal AP diameter. No accessory muscle use. No wheezing, no crackles. ABDOMEN: Soft, bowel sounds present, nontender, no distention. CENTRAL NERVOUS SYSTEM: No facial droop. Speech is clear. Obeys simple commands. Moves extremities. EXTREMITIES: No edema, no erythema seen. Results & Data Results & Data ([facility]) Vital Signs (Past 12 Hours) Vital Signs Temp Pulse Resp BP Pulse Ox 03/28/21 10:21 36.8 C 76 19 114/70 96 03/28/21 07:08 36.9 C 85 17 131/80 95 03/28/21 04:05 36.3 C L 94 H 17 132/73 95 03/28/21 01:59 36.8 C 90 17 132/78 96 (1) STEMI (ST elevation myocardial infarction) Involved coronary artery: unspecified coronary artery Qualified Code(s): I21.3 - ST elevation (STEMI) myocardial infarction of unspecified site
[2021-03-28] MEDS: MAGNESIUM OXIDE 400 MG TAB PO SCH ×2 (12:26→20:14)
[2021-03-28 12:32] LABS: Partial Thromboplastin Ratio 1.5; Partial Thromboplastin Time 40.6 Seconds (21.0-31.0)
[2021-03-28] MEDS: ISOSORBIDE MONO EXTENDED REL 30 MG TABCR PO SCH (12:58)
[2021-03-28] MEDS: HEPARIN SODIUM/DEXTROSE 25,000 UNITS/500 ML BAG IV SCH (13:02)
[2021-03-28] MEDS: ATORVASTATIN 40 MG TAB PO SCH (20:14)
[2021-03-28] MEDS: ASPIRIN 81 MG ECTAB PO SCH (20:14)
[2021-03-28 20:25] LABS: Partial Thromboplastin Ratio 1.9
[2021-03-28 20:29] LABS: Partial Thromboplastin Time 50.7 Seconds (21.0-31.0)
[2021-03-29] MEDS: HEPARIN SODIUM/DEXTROSE 25,000 UNITS/500 ML BAG IV SCH (04:49)
--- NOTE | 2021-03-29 07:32 | Electrocardiogram Report ---
Test Reason : Blood Pressure : / mmHG Vent. Rate : 092 BPM Atrial Rate : 088 BPM P-R Int : 000 ms QRS Dur : 148 ms QT Int : 450 ms P-R-T Axes : 000 125 -37 degrees QTc Int : 556 ms Junctional rhythm Right bundle branch block Left posterior fascicular block Bifascicular block Anteroseptal infarct , possibly acute ACUTE RI / STEMI Abnormal ECG When compared with ECG of 30-JAN-2019 16:28, Anteroseptal infarct is new Confirmed by Jose Tello ([id number]) on 03/29/2021 7:32:35 AM Referred By: REFERRED SELF Confirmed By:Jsoe Tello
[2021-03-29 07:33] LABS: Partial Thromboplastin Ratio 2.1
[2021-03-29] MEDS: MAGNESIUM OXIDE 400 MG TAB PO SCH (08:14)
[2021-03-29] MEDS: METOPROLOL SUCC 50MG EXT REL TAB PO SCH (08:14)
[2021-03-29] MEDS: ISOSORBIDE MONO EXTENDED REL 30 MG TABCR PO SCH (08:14)
[2021-03-29] MEDS: ACETAMINOPHEN 325 MG TAB PO PRN (08:14)
[2021-03-29] MEDS: VALSARTAN/SACUBITRIL 26/24MG TAB PO SCH (08:15)
[2021-03-29 09:04] LABS: BUN Creatinine Ratio 17.6 (10-20); Calcium 9.3 mg/dl (8.5-10.1); Creatinine Clr Calc Pharmacy 68.2 ml/min; Est GFR (African American) 66.8 ml/min; Est GFR (Non-African American) 57.7 ml/min
[2021-03-29 10:52] VITALS: BP 108/68; PULSE 78; TEMP 97.9; O2SAT 96
--- NOTE | 2021-03-29 12:49 | Cardiology Progress Note ---
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 Howard who indicated that the patient does not do well if she is not on a calcium channel willa. She has episodes of coronary spasm which are helped by a CCB. Previously she had been on diltiazem and according to the patient it was stopped several months ago I believe during her chemotherapy. She did find some relief in her chest pain with the Imdur however isosorbide mono nitrate can be limited in that the patient can develop tolerance. I do not believe that diltiazem is a good drug for her due to her cardiomyopathy. She had taken amlodipine in the past but as the dosage was titrated she developed some lower extremity edema and this medication was discontinued. She is however willing to start amlodipine at a lower dose and today I started amlodipine 5 mg daily. I will discontinue her heparin. If everyone is in agreement I think that she can be discharged to outpatient follow-up. Admission and Anticipated Discharge Date Admission Date: March 27, 2021 Subjective The patient had an uneventful night. No additional chest pain. Review of Systems Review of Systems: Review of Systems: See HPI for pertinent positives. All other 10 point review of systems are negative. Physical Exam Physical Exam: General: no acute distress and stated age Head: normocephalic, no masses, lesions, tenderness or abnormalities Eyes: conjunctiva are pink and non-injected, sclera clear Neck: supple, no adenopathy, no bruits, normal jugular venous pulse, no hepatojugular reflux Chest: normal shape and normal respiratory effort Lungs: clear to auscultation and percussion Cardiac Exam: - regular rate & rhythm, no murmurs gallops or rubs - normal S1, normal S2 Pulses: 2(+) throughout Abdomen: abdomen soft, non-tender, no abnormal masses and no hepatosplenomegaly Musculoskeletal: no gait disturbance, no joint inflammation, no deforming arthritis Extremities: no edema and no cyanosis Neuro: grossly normal exam Results & Data ([facility]) Vital Signs (Past 12 Hours) Vital Signs Temp Pulse Pulse Resp BP Pulse Ox 03/29/21 10:52 36.6 C 78 19 108/68 96 03/29/21 08:00 80 03/29/21 07:36 36.7 C 84 19 106/65 95 03/29/21 03:38 37.1 C 83 18 113/73 94 Laboratory Results Laboratory Results - last 24 hr 03/28/21 03/28/21 03/29/21 11:53 19:32 06:32 APTT 50.7 H* PTT Ratio 1.9 Sodium 136 Potassium 4.0 Chloride 102 Carbon Dioxide 25 Anion Gap 9.0 BUN 18 Creatinine 1.02 Est Cr Clr Drug Dosing 68.2 Est GFR ( Amer) 66.8 Est GFR (Non-Af Amer) 57.7 BUN/Creatinine Ratio 17.6 Glucose 141 H Calcium 9.3 Troponin I 44.200 H* 03/29/21 06:32 APTT 56.0 H* PTT Ratio 2.1 Sodium Potassium Chloride Carbon Dioxide Anion Gap BUN Creatinine Est Cr Clr Drug Dosing Est GFR ( Amer) Est GFR (Non-Af Amer) BUN/Creatinine Ratio Glucose Calcium Troponin I Medications Administered Current Inpatient Medications Acetaminophen (Acetaminophen 325 Mg Tab) 650 mg PO Q6H PRN PRN Reason: Fever/pain Stop: 04/26/21 20:22 Last Admin: 03/29/21 08:14 Dose: 650 mg Documented by: Amitriptyline HCl (Amitriptyline Hcl 25 Mg Tab) 25 mg PO [facility] Stop: 04/27/21 04:24 Last Admin: 03/28/21 20:14 Dose: 25 mg Documented by: Amlodipine Besylate (Amlodipine Besylate 5 Mg Tab) 5 mg PO [facility] Stop: 04/29/21 08:59 Aspirin (Aspirin 81 Mg Ectab) 81 mg PO [facility] Stop: 04/26/21 20:59 Last Admin: 03/28/21 20:14 Dose: 81 mg Documented by: Atorvastatin Calcium (Atorvastatin 40 Mg Tab) 40 mg PO [facility] Stop: 04/26/21 20:59 Last Admin: 03/28/21 20:14 Dose: 40 mg Documented by: Hydromorphone HCl (Hydromorphone Hcl 2 Mg Tab) 2 mg PO QID PRN PRN Reason: Pain Stop: 04/11/21 04:35 Last Admin: 03/28/21 04:59 Dose: 2 mg Documented by: Magnesium Oxide (Magnesium Oxide 400 Mg Tab) 400 mg PO BID [facility] Stop: 03/29/21 21:01 Last Admin: 03/29/21 08:14 Dose: 400 mg Documented by: Metoprolol Succinate (Metoprolol Succ 50mg Ext Rel Tab) 225 mg PO QAM [facility] Stop: 04/27/21 08:59 Last Admin: 03/29/21 08:14 Dose: 225 mg Documented by: Sacubitril/Valsartan (Valsartan/Sacubitril 26/24mg Tab) 1 tab PO BID [facility] Stop: 04/26/21 20:59 Last Admin: 03/29/21 08:15 Dose: 1 tab Documented by: (1) Chest pain Chest pain type: unspecified Qualified Code(s): R07.9 - Chest pain, unspecified (2) STEMI (ST elevation myocardial infarction) Involved coronary artery: unspecified coronary artery Qualified Code(s): I21.3 - ST elevation (STEMI) myocardial infarction of unspecified site
--- NOTE | 2021-03-29 13:54 | Discharge Summary ---
Date of Service March 29, 2021 Admission HPI Per Admitting Provider 65-year-old lady with past medical history of MS 2010 [no stent/surgery], recurrent right breast cancer [2016 diagnosis followed by mastectomy 2017; recurrence on the right side 2018 followed by chemo/surgery/radiation /immunotherapy 2019], HTN, HLD presented 03/27 to our ED with complaint of chest pain that onset 3 PM, sudden, radiating to left shoulder, relieved after receiving aspirin and nitro. Patient denies any fever/chills/palpitations/belly pain/acute changes in her bowel or bladder habits/other review of symptoms. Patient's troponin was elevated at presentation, there was acute ST or T changes in anterior/septal leads in the EKG, patient was taken to cardiac cath, no stents required/no intervention required. Per discussion with Dr. Chavira, likely spasm of LAD leading to elevation of troponin and EKG changes. For now continue to monitor in PCU with heparin drip and Nitropaste. Patient denies history of blood clot. No family history of cancer or blood clot. Family history of cardiac disease in father with multiple stents and bypass surgery. Patient does not smoke or drink alcohol or use illegal drug. Full code. Admission Exam Per Admitting Provider GENERAL: Alert and oriented x3. NAD, on RA. HEENT: No pallor, no icterus. Pupils equal, round and reactive to light. Oral mucosa moist. NECK: No JVD, no neck masses. HEART: S1 and S2 heard. Regular rate and rhythm. No murmur, no gallop. RESPIRATORY SYSTEM: Normal AP diameter. No accessory muscle use. No wheezing, no crackles. ABDOMEN: Soft, bowel sounds present, nontender, no distention. CENTRAL NERVOUS SYSTEM: No facial droop. Speech is clear. Obeys simple commands. Moves extremities. EXTREMITIES: No edema, no erythema seen. Principal Diagnosis Chest pain STEMI Discharge Exam GENERAL: Alert and oriented x3. NAD, on RA. HEENT: No pallor, no icterus. Pupils equal, round and reactive to light. Oral mucosa moist. NECK: No JVD, no neck masses. HEART: S1 and S2 heard. Regular rate and rhythm. No murmur, no gallop. RESPIRATORY SYSTEM: Normal AP diameter. No accessory muscle use. No wheezing, no crackles. ABDOMEN: Soft, bowel sounds present, nontender, no distention. CENTRAL NERVOUS SYSTEM: No facial droop. Speech is clear. Obeys simple commands. Moves extremities. EXTREMITIES: No edema, no erythema seen. Discharge Data Allergies Allergy/AdvReac Type Severity Reaction Status Date / Time clopidogrel Allergy Intermediate rash Verified 01/30/19 17:33 codeine AdvReac Mild GI upset Verified 03/28/21 04:36 oxycodone AdvReac gi upset Verified 03/28/21 04:33 Ham Allergy Intermediate STOMACH Uncoded 01/30/19 17:33 UPSET Consultations 03/27/21 17:24 ED Decision to Admit Stat 03/27/21 23:10 Consult Cardiology Routine Procedures Performed Operation Date: 03/27/21 17:00 Actual Procedures p Cath, Left with Cors and Vent - Prasanna Chavira MD Ordered Studies 03/27/21 16:40 CL Cath Imgs for PACS use only Stat 03/28/21 04:19 CT head/brain wo con Urgent Hospital Course (1) STEMI (ST elevation myocardial infarction): 65-year-old lady with past medical history of MS 2010 [no stent/surgery], recurrent right breast cancer [2016 diagnosis followed by mastectomy 2017; recurrence on the right side 2018 followed by chemo/surge ry/radiation/immunotherapy 2019], HTN, HLD presented 03/27 to our ED with complaint of chest pain that onset 3 PM the day of arrival 03/27/20, sudden, radiating to left shoulder, relieved after receiving aspirin and nitro. She was managed for the following: #. Chest pain #. STEMI #. Likely Patient reports high anxiety going in the family in the last week due to family member starting Covid positive and she was anxious of getting Covid though she tested negative multiple times. Sudden onset chest pain at 3 PM after [place] came on 03/27 [on the day of arrival] Troponin elevated at presentation with acute ST and T changes in anterior and septal leads in the EKG Patient was STEMI alert, immediately taken to the cardiac cath, required no intervention 03/27/[address] Chavira, likely due to spasm of LAD, could be contributed by high tension in the family as above, heparin drip and Nitropaste for overnight /2 echo: EF 40 to 45%, septal akinesis, apical akinesis, no significant valvular pathology. Patient was on diltiazem in the past which helped her with chest pain, which was stopped during her chemotherapy in the recent past. Patient had headache from nitro paste, patient was transiently on Imdur and was chest pain-free while in hospital. Patient is being discharged on amlodipine per cardiology. Imdur being discontinued at discharge. Cardiology okay with discharging patient. #. Other chronic medical conditions: HTN, HLD Resume home meds when able Heart healthy diet Full code Patient being discharged home with following instruction at the point of discharge Follow-up with your primary care physician within a week time. Follow-up with your cardiology in 1 to 2 weeks time. Cardiology evaluated you while inpatient. You have been started on low-dose of amlodipine. If you have any further chest pain, contact your primary care physician or emergency immediately. Total Time Total Time Spent Total Time Spent (In Minutes): 35 Discharge Plan Discharge Items Patient Disposition: Home - Self-Care Reason For Visit: CHEST PAIN Discharge Diagnosis: Chest pain STEMI Activity: Resume your previous activity Non-emergency contact: Primary Care Provider Call non-emergency contact if: you have any medication questions, your symptoms worsen, your pain is not controlled, your pain is worsening, your pain is unusual for you, your pain is concerning for you and your temperature is above 101 Follow-up/Referrals: Heron Lemus DO [Boardinghouse Keeper] - (Date & Time 03/30/2021 4:00 PM Provider Heron Lemus DO Department Cardiology, [facility] ) Ozzie Ann DO [Primary Care Provider] - (Date & Time 04/02/2021 12:20 PM Provider Mattie Flores PA-C Department [facility] ) Diet: Heart Healthy Addtl Attending Provider Instructions: Follow-up with your primary care physician within a week time. Follow-up with your cardiology in 1 to 2 weeks time. Cardiology evaluated you while inpatient. You have been started on low-dose of amlodipine. If you have any further chest pain, contact your primary care physician or emergency immediately. Pending Studies at Discharge: No Stand-Alone Forms: [employer], Smoking Cessation Medications and DC Order Prescriptions: New metoprolol succinate 50 mg Tablet Extended Release 24 Hr 225 mg PO QAM Qty: 135 RF: 0 amlodipine [Norvasc] 5 mg Tablet 5 mg PO QAM Qty: 30 RF: 0 Continued omeprazole 20 mg tablet,delayed release (DR/EC) 20 mg PO QAM RF: 0 cyanocobalamin (vitamin B-12) 1,000 mcg capsule 1,000 mcg PO QAM RF: 0 Bepreve 1.5 % drops 1 drops OPB TID PRN (Reason: Itching eyes) RF: 0 Entresto 24-26 mg tablet 1 tab PO BID RF: 0 atorvastatin 40 mg Tablet 40 mg PO HS RF: 0 amitriptyline 25 mg Tablet 25 mg PO HS RF: 0 buspirone 15 mg Tablet 15 mg PO BID RF: 0 aspirin 81 mg Tablet,Delayed Release (Dr/Ec) 81 mg PO HS RF: 0 nitroglycerin 0.4 mg Tablet, Sublingual 0.4 mg Sublingual DIRECTED PRN (Reason: Chest Pain) RF: 0 lorazepam 0.5 mg tablet 0.5 mg SL TID PRN (Reason: anxiety) Qty: 9 RF: 0 Discontinued metoprolol succinate 100 mg tablet extended release 24 hr 50 mg PO QPM RF: 0 metoprolol succinate 100 mg Tablet Extended Release 24 Hr 100 mg PO QAM RF: 0 diltiazem HCl 120 mg capsule,extended release 24hr 240 mg PO QAM RF: 0 Discharge Orders: Discharge Order (Routine); Ordered 03/29/21 Ordered By: Alisha Austin Admission Data Admit Date/Time: 03/27/21 18:06 Attending Provider: Alisha Austin Admit Provider: Alisha Austin Primary Care Provider: Ozzie Ann Other Providers: Faby Sorto ; Gunnar Dodd
[2021-03-30] MEDS ORDERED: amLODIPine BESYLATE 5 MG TAB PO SCH (09:00)
== END 2021-03-29 15:35 | disposition home or self-care (01) | DRG 282 ==
LOC: ED 16:51 → CC 17:09 → 2S 17:09

== ENCOUNTER 2023-05-18 20:17 | Observation (INO) ==
[2023-05-18 21:26] LABS: Albumin Globulin Ratio 1.5 (0.9-2); Albumin Level 4.6 gm/dl (3.4-5.0); BUN Creatinine Ratio 26.6 (10-20); Bilirubin,Total 0.4 mg/dl (0.2-1.0); Creatinine Clr Calc Pharmacy 83.3 ml/min; Est GFR (African American) 89.8 ml/min; Est GFR (Non-African American) 77.5 ml/min; Globulin 3.1 gm/dl (2.5-4.0); Potassium 3.6 mmol/L (3.5-5.1); Total Protein 7.7 gm/dl (6.0-8.3)
[2023-05-18 21:31] LABS: Troponin I High Sensitivity 11.3 pg/ml (0-14)
[2023-05-18 21:36] LABS: Appearance Urine Clear (Clear); Bacteria Urine Automated 1+ (Negative); Bilirubin Urine Negative (Negative); Blood Urine Trace (Negative); Cast Urine Automated 0 /lpf (0-5); Color Urine Yellow; Epithelial Cell Urine Auto 20-30 /lpf (0-5); Glucose Urine UA 3+ (Negative); Ketones Urine Trace (Negative); Leukocyte Esterase Urine Negative (Negative); Nitrite Urine Negative (Negative); Protein Urine Trace (Negative); Specific Gravity Urine 1.032 (1.000-1.030); Urobilinogen Urine Negative (Negative); pH Urine 6.5 (4.5-7.5)
[2023-05-18 21:41] LABS: INR 0.9 (0.9-1.1); Partial Thromboplastin Time 27 Seconds (21-31); Prothrombin Time 10.1 Seconds (9.0-12.0)
[2023-05-18 22:01] LABS: Basophils # (auto) 0.04 K/uL (0.00-0.20); Basophils % (auto) 0.4 %; Eosinophils # (auto) 0.21 K/uL (0.00-0.50); Hematocrit (blood only) 45.6 % (37.0-47.0); Hemoglobin 14.7 g/dl (12.0-16.0); Immature Granulocytes # (auto) 0.04 K/uL (0.01-0.20); Immature Granulocytes % (auto) 0.4 %; Lymphocytes % (auto) 15.5 %; Mean Corpuscular Hemoglobin 27.6 pg (25.0-34.0); Mean Corpuscular Hgb Conc 32.2 g/dL (32.0-36.0); Mean Corpuscular Volume 85.7 fL (80.0-100.0); Mean Platelet Volume 9.2 fL (9.4-12.4); Monocytes # (auto) 0.41 K/uL (0.11-0.59); Neutrophils # (auto) 8.02 K/uL (1.40-6.50); Neutrophils % (auto) 77.7 %; Platelet Count 276 K/uL (130-400); RDW Coefficient of Variation 13.5 % (11.5-14.5); RDW Standard Deviation 41.6 fL (36.4-46.3); Red Blood Count 5.32 M/uL (4.20-5.40); White Blood Count 10.32 K/ul (4.8-10.8)
--- NOTE | 2023-05-18 23:19 | Emergency Department Note ---
Impression & Plan RUQ abdominal pain, Nausea, Gall stones, Biliary colic ED Provider Note NAME: CARISA DARBY AGE: 67 SEX: F : 1955 ARRIVES VIA: Walk-In INFORMANT: [Patient] ED PROVIDER(S): [Dick Tarango MD] CHIEF COMPLAINT: Abdominal pain HISTORY OF PRESENT ILLNESS: The patient is a 67-year-old female who noticed some left upper quadrant abdominal pain intermittently a few days ago. It was minimal discomfort and she did discuss the pain with her oncologist. Several hours ago, she suddenly developed pain in the upper abdomen that was diffuse and intense and fairly severe. She does think the pain has improved some since arriving at the ER. The patient was nauseated, no vomiting. There has been no chest pain or shortness of breath. No cough or cold or congestion. No diarrhea, no fever. She has had no urinary complaints. PMHx/PSHx/Social Hx: See Below PHYSICAL EXAM: GENERAL: Patient is in no acute distress. HEENT: No acute trauma, normocephalic atraumatic, mucous membranes moist, no nasal congestion. NECK: No stridor, no adenopathy, no meningismus, trachea is midline. LUNGS: Clear to auscultation bilaterally, no wheeze, no rhonchi, breath sounds equal. HEART: Without murmurs gallops or rubs, regular rate and rhythm. ABDOMEN: Soft, moderately tender in the right upper quadrant. No lower abdominal tenderness. EXTREMITIES: No cyanosis, full range of motion of all the joints without pain or difficulty. NEUROLOGIC: Oriented x 3, no acute motor or sensory deficits, no focal weakness. SKIN: No jaundice, no diaphoresis. DIFFERENTIAL DIAGNOSIS: Biliary colic, pancreatitis, gastritis, ulcer, renal colic, UTI, diverticulitis, bowel obstruction, among others. EMERGENCY DEPARTMENT PROCEDURES: MEDICAL DECISION MAKING: There is no leukocytosis or concerning anemia. There is a normal platelet count. No coagulopathy. No renal failure or significant electrolyte abnormality. No concerning liver enzyme elevation. No evidence for pancreatitis. ECG shows a normal sinus rhythm, no obvious acute ischemia. Cardiac enzyme testing x 1 was not consistent with acute cardiac injury. Urinalysis shows some glucose, no obvious infection. Chest film does not show mediastinal widening, pneumonia or free air. Abdominal and pelvis CT shows gallstones without findings of acute cholecystitis or ductal dilatation. On exam, the patient was tender in the right upper quadrant. She was not febrile or toxic. Patient was given IV saline for hydration. She received IV Zofran for nausea, she was written for IV morphine for pain. She was ordered for IV Pepcid and IV Tylenol. The patient has persistent right upper quadrant discomfort on exam. She feels better than she felt when the pain first began however, the pain has not completely resolved. I spoke with general surgery. Patient will be hospitalized, she likely will have gallbladder surgery tomorrow. I did speak with the patient and case management, the on-call hospitalist was consulted. Prior/Outside records/notes reviewed: None. ECG per my interpretation: Indication was upper abdominal pain. The ECG shows a normal sinus rhythm with a rate of 86. There is evidence for an old lateral infarct. LVH is present. There is no acute ST elevation. No PVCs. QTc is 490. Continuous Cardiac Monitoring per my interpretation: An order was placed for continuous cardiac monitoring. The monitor shows a rate of 71 with normal sinus rhythm. Imaging/x-ray results per my interpretation: Chest x-ray does not show free air, pneumonia or pneumothorax. There was no mediastinal widening. Chronic Medical/Social conditions affecting care: History of breast cancer Care/Management discussed with: General surgery-Dr. Burleson. Case management and the on-call hospitalist. Level of care consideration(s): After review of the information above and other included data: --I believe the patient requires escalation of care to admission DISPOSITION: Admission Past Med/Surg History Medical History History of torn meniscus of left knee Recurrent urinary tract infection Myocardial infarct Hypertension History of invasive breast cancer DCIS (ductal carcinoma in situ) Surgical History H/O mastectomy H/O: hysterectomy History of reduction surgery of left breast S/P breast reconstruction, right Family History Mother , age 87 old age No problems noted. Father , age 90 CVA , also had H/o type 2 diabetes heart disease No problems noted. Brother Coronary heart disease Brother No problems noted. Brother No problems noted. Brother No problems noted. Daughter , 5 months trisomy 18 CHF No problems noted. Son No problems noted. Son No problems noted. Son No problems noted. Other No significant family history Social History Smoking Status: Never smoker Hx Alcohol Use: No Hx Substance Use: No Preferred Language: Omani Communication Ability: Effective Visual Impairment: No Limitations Hearing Ability: Normal Playground Monitor Required: No Beliefs That Will Affect Care: None marital status: Current Living Situation: Spouse Current Living Situation Comment: Lives with current occupation: Retired Feels Safe at Home: Yes Childhood Exposure to Second-Hand Smoke: Yes (once a week ) caffeine: Yes (fede occ) Dental Care, Regularly: Yes Physical Activity Frequency: Other Physical Activity Frequency Comment: rarely Sunscreen Use: Yes Assistive Devices: None Allergies Allergies Allergy/AdvReac Type Severity Reaction Status Date / Time clopidogrel Allergy Intermediate rash Verified 01/30/19 17:33 codeine AdvReac Mild GI upset Verified 03/28/21 04:36 oxycodone AdvReac gi upset Verified 03/28/21 04:33 Ham Allergy Intermediate STOMACH Uncoded 01/30/19 17:33 UPSET Home Meds Home Medications Medication Instructions Recorded Confirmed amitriptyline 25 mg tablet 25 mg PO HS 04/19/18 10/08/19 atorvastatin 40 mg tablet 40 mg PO HS 04/19/18 10/08/19 buspirone 15 mg tablet 15 mg PO BID 04/19/18 10/08/19 aspirin 81 mg tablet,delayed 81 mg PO HS 04/24/18 10/08/19 release nitroglycerin 0.4 mg sublingual 0.4 mg sublingual DIRECTED PRN 04/24/18 10/08/19 tablet Chest Pain cyanocobalamin (vitamin B-12) 1,000 mcg PO QAM 09/26/18 10/08/19 1,000 mcg capsule omeprazole 20 mg tablet,delayed 20 mg PO QAM 09/26/18 10/08/19 release bepotastine besilate 1.5 % eye 1 drops OPB TID PRN Itching eyes 10/15/18 10/08/19 drops (Bepreve) sacubitril 24 mg-valsartan 26 mg 1 tab PO BID 01/30/19 10/08/19 tablet (Entresto) Previous Rx's Medication Instructions Recorded lorazepam 0.5 mg tablet 0.5 mg sublingual TID PRN anxiety 04/24/18 #9 tabs metoprolol succinate 50 mg 225 mg (4.5 x 50 mg) PO QAM #135 03/29/21 tablet,extended release 24 hr tabs Results & Data (ED) Vital Signs Vital Signs - 24 hr 05/18/23 20:23 05/18/23 20:56 05/18/23 21:20 Temperature 36.5 C Temperature Source Temporal Artery Scan Pulse Rate 87 79 Pulse Rate [Apical] Respiratory Rate 16 Respiratory Effort / Characteristics Non-Labored Spontaneous Respiratory Depth Normal Blood Pressure 146/87 H Blood Pressure [Right Arm] Blood Pressure Mean 106 Blood Pressure Mean [Right Arm] Blood Pressure Position Sitting Pulse Oximetry 96 95 Oxygen Delivery Method Room Air Room Air Sepsis Recent Fever Within 48 Hours No Sepsis New/Unexplained Change in Mental Status N/A Sepsis Action Taken by Nursing No Action Required 05/18/23 23:01 05/19/23 00:52 Temperature Temperature Source Pulse Rate Pulse Rate [Apical] 71 95 H Respiratory Rate 15 14 Respiratory Effort / Characteristics Non-Labored Spontaneous Non-Labored Spontaneous Respiratory Depth Normal Normal Blood Pressure Blood Pressure [Right Arm] 142/102 H 130/79 Blood Pressure Mean Blood Pressure Mean [Right Arm] 115 96 Blood Pressure Position Pulse Oximetry 95 98 Oxygen Delivery Method Room Air Room Air Sepsis Recent Fever Within 48 Hours Sepsis New/Unexplained Change in Mental Status Sepsis Action Taken by [place] Medications Current Medication List: was personally reviewed by me Laboratory Data Attestation: I reviewed the patient's lab results. 05/18/23 20:39 05/18/23 20:39 Lab Results 05/18/23 05/18/23 Range/Units 20:39 20:41 WBC 10.32 (4.8-10.8) K/ul RBC 5.32 (4.20-5.40) M/uL Hgb 14.7 (12.0-16.0) g/dl Hct 45.6 (37.0-47.0) % MCV 85.7 (80.0-100.0) fL MCH 27.6 (25.0-34.0) pg MCHC 32.2 (32.0-36.0) g/dL RDW Std Deviation 41.6 (36.4-46.3) fL RDW Coeff of Renard 13.5 (11.5-14.5) % Plt Count 276 (130-400) K/uL MPV 9.2 L (9.4-12.4) fL Immature Gran % (Auto) 0.4 % Neut % (Auto) 77.7 % Lymph % (Auto) 15.5 % [place] % (Auto) 4.0 % Eos % (Auto) 2.0 % Baso % (Auto) 0.4 % Neut # (Auto) 8.02 H (1.40-6.50) K/uL Lymph # (Auto) 1.60 (1.20-3.40) K/uL [place] # (Auto) 0.41 (0.11-0.59) K/uL Eos # (Auto) 0.21 (0.00-0.50) K/uL Baso # (Auto) 0.04 (0.00-0.20) K/uL Immature Gran # (Auto) 0.04 (0.01-0.20) K/uL PT 10.1 (9.0-12.0) Seconds INR 0.9 (0.9-1.1) APTT 27 (21-31) Seconds PTT Ratio 1.0 Sodium 137 (136-145) mmol/L Potassium 3.6 (3.5-5.1) mmol/L Chloride 102 (98-107) mmol/L Carbon Dioxide 27 (21-32) mmol/L Anion Gap 8 (3-11) BUN 21 (6-23) mg/dl Creatinine 0.79 (0.6-1.2) mg/dl Est Cr Clr Drug Dosing 83.3 ml/min Est GFR ( Amer) 89.8 ml/min Est GFR (Non-Af Amer) 77.5 ml/min BUN/Creatinine Ratio 26.6 H (10-20) Glucose 172 H (70-99(Fasting)) mg/dl Calcium 10.0 (8.6-10.3) mg/dl Total Bilirubin 0.4 (0.2-1.0) mg/dl AST 21 (13-39) U/L ALT 26 (7-52) U/L Alkaline Phosphatase 110 H (34-104) U/L Troponin I High Sens 11.3 (0-14) pg/ml Total Protein 7.7 (6.0-8.3) gm/dl Albumin 4.6 (3.4-5.0) gm/dl Globulin 3.1 (2.5-4.0) gm/dl Albumin/Globulin Ratio 1.5 (0.9-2) Lipase 8 L (11-82) U/L Urine Color Yellow Urine Appearance Clear (Clear) Urine pH 6.5 (4.5-7.5) Ur Specific [place] 1.032 H (1.000-1.030) Urine Protein Trace H (Negative) Urine Glucose (UA) 3+ H (Negative) Urine Ketones Trace H (Negative) Urine Blood Trace H (Negative) Urine Nitrite Negative (Negative) Urine Bilirubin Negative (Negative) Urine Urobilinogen Negative (Negative) Ur Leukocyte Esterase Negative (Negative) Urine WBC (Auto) 1-5 (0-5) /hpf Urine RBC (Auto) 5-10 H (0-4) /hpf U Hyaline Cast (Auto) 0 (0-5) /lpf U Epithel Cells (Auto) 20-30 H (0-5) /lpf Urine Bacteria (Auto) 1+ H (Negative) Administered Medications Sodium Chloride (Nss) 1,000 mls @ 100 mls/hr IV .Q10H ONE Stop: 05/19/23 10:32 Last Admin: 05/19/23 00:41 Dose: 999 mls/hr Documented By: ROMAN Discontinued Medications Acetaminophen (Ofirmev) 1,000 mg in 100 mls @ 400 mls/hr IV NOW STA Stop: 05/19/23 00:38 Last Infusion: 05/19/23 01:00 Dose: Infused Documented By: Admin: 05/19/23 00:41 Dose: 400 mls/hr Documented By: ROMAN Famotidine (Pepcid 20mg Iv Push) 20 mg in 5 mls @ 2.5 mls/min IV NOW STA Stop: 05/19/23 00:26 Last Admin: 05/19/23 00:41 Dose: 2.5 mls/min Documented By: ROMAN Ioversol (Optiray 320 500ml) 100 ml IV ONCE ONE Stop: 05/18/23 23:31 Last Admin: 05/18/23 23:30 Dose: 85 ml Documented By: RACHEL Ondansetron HCl (Ondansetron Inj 2 Mg/Ml 2 Ml Vial) 4 mg IV NOW STA Stop: 05/19/23 00:25 Last Admin: 05/19/23 00:41 Dose: 4 mg Documented By: ROMAN Imaging Data Radiologist's Impression: Abdomen/Pelvis CT 05/18/23 23:12 Exam(s): CT ABDOMEN + PELVIS With Contrast IV Amt: 85 ML OPTIRAY 320 EXAM: CT Abdomen and Pelvis With Intravenous Contrast CLINICAL HISTORY: Upper Abdominal pain. TECHNIQUE: Axial computed tomography images of the abdomen and pelvis with intravenous contrast. CTDI is 27.14 mGy and DLP is 1405.55 mGy-cm. Automated exposure control was utilized for the study. A dose lowering technique was utilized adhering to the principles of ALARA. CONTRAST: Patient received 85 ML OPTIRAY 320 of IV contrast COMPARISON: CT abdomen and pelvis 04/05/2018 FINDINGS: Lung bases: Unremarkable. No mass. No consolidation. ABDOMEN: Liver: Unremarkable. No mass. Gallbladder and bile ducts: Cholelithiasis. No ductal dilation. Pancreas: Unremarkable. No mass. No ductal dilation. Spleen: Unremarkable. No splenomegaly. Adrenals: Unremarkable. No mass. Kidneys and ureters: Unremarkable. No solid mass. No hydronephrosis. Stomach and bowel: Diverticulosis. No obstruction. No mucosal thickening. PELVIS: Appendix: Normal appendix. Bladder: Unremarkable. No mass. Reproductive: Unremarkable as visualized. ABDOMEN and PELVIS: Intraperitoneal space: Unremarkable. No free air. No significant fluid collection. Bones/joints: There are degenerative changes of the spine. No acute fracture. No dislocation. Soft tissues: Unremarkable. Vasculature: Mild atherosclerosis. No abdominal aortic aneurysm. Lymph nodes: Unremarkable. No enlarged lymph nodes. IMPRESSION: Cholelithiasis. Electronically signed by: Trista Munguia MD 05/18/23 23:59 PM Discharge Plan Visit Data Chief Complaint: Abdominal Pain Stated Complaint: ABD PAIN ED Provider: Dick Tarango Discharge Problem: RUQ abdominal pain, Nausea, Gall stones, Biliary colic Patient Disposition: Admitted As Inpatient Condition: Fair Forms Stand Alone Forms: [facility] [employer] Prescriptions Prescriptions: No Action omeprazole 20 mg tablet,delayed release (DR/EC) 20 mg PO QAM cyanocobalamin (vitamin B-12) 1,000 mcg capsule 1,000 mcg PO QAM Patient Comments: 100 mcg PO DAILY; Bepreve 1.5 % drops 1 drops OPB TID PRN (Reason: Itching eyes) Entresto 24-26 mg tablet 1 tab PO BID atorvastatin 40 mg Tablet 40 mg PO HS amitriptyline 25 mg Tablet 25 mg PO HS buspirone 15 mg Tablet 15 mg PO BID aspirin 81 mg Tablet,Delayed Release (Dr/Ec) 81 mg PO HS nitroglycerin 0.4 mg Tablet, Sublingual 0.4 mg Sublingual DIRECTED PRN (Reason: Chest Pain) Rx Instructions: take 1 tab under the tongue as needed for chest pain may repeat x 3 if chest pain continues call 911 lorazepam 0.5 mg tablet 0.5 mg SL TID PRN (Reason: anxiety) Qty: 9 0RF metoprolol succinate 50 mg Tablet Extended Release 24 Hr 225 mg PO QAM Qty: 135 0RF Rx Instructions: take 225 mg tablet daily. Referrals Referrals: Ozzie Ann DO [Primary Care Provider] -
[2023-05-18] MEDS: OPTIRAY 320 500ml IV ONE (23:30)
--- NOTE | 2023-05-19 | CT Scan Report ---
Exam(s): CT ABDOMEN + PELVIS With Contrast IV Amt: 85 ML OPTIRAY 320 EXAM: CT Abdomen and Pelvis With Intravenous Contrast CLINICAL HISTORY: Upper Abdominal pain. TECHNIQUE: Axial computed tomography images of the abdomen and pelvis with intravenous contrast. CTDI is 27.14 mGy and DLP is 1405.55 mGy-cm. Automated exposure control was utilized for the study. A dose lowering technique was utilized adhering to the principles of ALARA. CONTRAST: Patient received 85 ML OPTIRAY 320 of IV contrast COMPARISON: CT abdomen and pelvis 04/05/2018 FINDINGS: Lung bases: Unremarkable. No mass. No consolidation. ABDOMEN: Liver: Unremarkable. No mass. Gallbladder and bile ducts: Cholelithiasis. No ductal dilation. Pancreas: Unremarkable. No mass. No ductal dilation. Spleen: Unremarkable. No splenomegaly. Adrenals: Unremarkable. No mass. Kidneys and ureters: Unremarkable. No solid mass. No hydronephrosis. Stomach and bowel: Diverticulosis. No obstruction. No mucosal thickening. PELVIS: Appendix: Normal appendix. Bladder: Unremarkable. No mass. Reproductive: Unremarkable as visualized. ABDOMEN and PELVIS: Intraperitoneal space: Unremarkable. No free air. No significant fluid collection. Bones/joints: There are degenerative changes of the spine. No acute fracture. No dislocation. Soft tissues: Unremarkable. Vasculature: Mild atherosclerosis. No abdominal aortic aneurysm. Lymph nodes: Unremarkable. No enlarged lymph nodes. IMPRESSION: Cholelithiasis. Electronically signed by: Trista Munguia MD 05/18/23 23:59 PM
[2023-05-19] MEDS ORDERED: MoRPHine SULFATE 2 MG/ML CARP IV PRN ×2 (00:24→14:40)
[2023-05-19] MEDS: SODIUM CHLORIDE 0.9% 1,000 ML IV ONE (00:41)
[2023-05-19] MEDS: ONDANSETRON INJ 2 MG/ML 2 ML VIAL IV STA (00:41)
[2023-05-19] MEDS: FAMOTIDINE 20MG IV PUSH 20 MG/5 ML SYR IV STA (00:41)
[2023-05-19] MEDS: ACETAMINOPHEN 1,000 MG/100 ML VIAL IV STA (00:41)
[2023-05-19] MEDS ORDERED: PROMETHAZINE HCL 12.5 MG in SODIUM CHLORIDE 0.9% 50 ML IV PRN (00:51)
[2023-05-19] MEDS ORDERED: MoRPHine SULFATE 4 MG/ML 1 ML CARP\\VIAL IV PRN ×2 (00:51→14:40)
[2023-05-19] MEDS ORDERED: LORazepam 0.5 MG TAB PO PRN (00:52)
--- NOTE | 2023-05-19 01:32 | History & Physical Report ---
Date of Service May 19, 2023 Assessment & Plan (1) Biliary colic: Plan: No sepsis for now Left-sided abdominal subcutaneous tumor possible neuroma chronic systolic heart failure (EF 40%, TTE 2022), patient euvolemic hx nonobstructive CAD hypertension, stable hyperlipidemia, on statin Rx recurrent breast cancer right status post surgery/reconstruction/chemoradiation, currently in remission DM 2 on oral medications, reasonable control as of recent hemoglobin A1c of 7.28 January 2023 anxiety/mood disorder, at baseline OBS [facility] General Surgery consult Re: Biliary colic and left-sided abdominal subcutaneous tumor (ER provider already in touch with Dr. Burleson who recommends n.p.o. status in anticipation of cholecystectomy in a.m.) Basal bolus insulin adjusted for n.p.o. status, ISS BSG goal 1 10-1 40 DVT prophylaxis. SCDs Re: Possible surgery Recommend pharmacologic anticoagulation with Lovenox SQ once bleeding risk is deemed to be minimal and negligible following General surgery evaluation. Full code Text document was generated using Replise voice recognition software. It may contain grammatical or spelling errors. Kindly contact undersigned for clarification of any documentation item in question. History of Present Illness Chief Complaint: Abdominal pain Primary Care Provider: Ozzie Ann DO History obtained from patient and records. Medical history significant for chronic systolic heart failure (EF 40%, TTE 2022), nonobstructive CAD, hypertension, hyperlipidemia, recurrent breast cancer right status post surgery/reconstruction/chemoradiation, DM 2 on oral medications, anxiety/mood disorder, fibromyalgia. Last confinement March 2021 for STEMI attributed to LAD vasospasm. Nonocclusive CAD on cardiac catheterization. EF 40 to 45% on echo. Patient noted a painful small lump on the left abdomen about 2 days ago. No recollection of trauma. No fever, no chills. No other symptoms. Patient mentioned left abdominal lump to [facility] Oncology provider on follow-up yesterday. Outpatient CT abdomen pelvis requested. Patient noted achy right-sided abdominal pain with nausea symptoms after a cheese sandwich and chips meal yesterday. No fever, no chills. No chest pain, no SOB. No prior episodes. Patient consulted ER for evaluation. 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 Allergies Allergy/AdvReac Type Severity Reaction Status Date / Time clopidogrel Allergy Intermediate rash Verified 01/30/19 17:33 Pork/Porcine Containing AdvReac Intermediate ham causes Verified 05/19/23 01:15 Products GI upset codeine AdvReac Mild GI upset Verified 03/28/21 04:36 oxycodone AdvReac gi upset Verified 03/28/21 04:33 Home Medications Medication Instructions Recorded Confirmed Type amitriptyline 25 mg tablet 25 mg PO HS 04/19/18 05/19/23 History atorvastatin 40 mg tablet 40 mg PO QAM 04/19/18 05/19/23 History buspirone 15 mg tablet 15 mg PO AMHS 04/19/18 05/19/23 History aspirin 81 mg tablet,delayed 81 mg PO HS 04/24/18 05/19/23 History release nitroglycerin 0.4 mg sublingual 0.4 mg sublingual DIRECTED PRN 04/24/18 05/19/23 History tablet Chest Pain omeprazole 20 mg tablet,delayed 20 mg PO QAM 09/26/18 05/19/23 History release sacubitril 24 mg-valsartan 26 mg 1 tab PO AMHS 01/30/19 05/19/23 History tablet (Entresto) amlodipine 2.5 mg tablet 2.5 mg PO AMHS 05/19/23 05/19/23 History cholecalciferol (vitamin D3) 50 50 mcg PO QDD 05/19/23 05/19/23 History mcg (2,000 unit) tablet (Vitamin D3) cyanocobalamin (vitamin B-12) 100 100 mcg PO DAILY 05/19/23 05/19/23 History mcg tablet docusate sodium 100 mg capsule 100 mg PO HS 05/19/23 05/19/23 History empagliflozin 10 mg tablet 10 mg PO QAM 05/19/23 05/19/23 History (Jardiance) iron,carbonyl 65 mg-vitamin C 125 1 tab PO 3XWK 05/19/23 05/19/23 History mg tablet,delayed release (Vitron-C) metoprolol succinate 200 mg 200 mg PO QAM 05/19/23 05/19/23 History tablet,extended release 24 hr metoprolol succinate 25 mg 25 mg PO QAM 05/19/23 05/19/23 History tablet,extended release 24 hr spironolactone 25 mg tablet 12.5 mg PO 3XWK 05/19/23 05/19/23 History Past Med/Surg History Medical History History of torn meniscus of left knee Recurrent urinary tract infection Myocardial infarct Hypertension History of invasive breast cancer DCIS (ductal carcinoma in situ) Surgical History H/O mastectomy H/O: hysterectomy History of reduction surgery of left breast S/P breast reconstruction, right Family History Mother , age 87 old age No problems noted. Father , age 90 CVA , also had H/o type 2 diabetes heart disease No problems noted. Brother Coronary heart disease Brother No problems noted. Brother No problems noted. Brother No problems noted. Daughter , 5 months trisomy 18 CHF No problems noted. Son No problems noted. Son No problems noted. Son No problems noted. 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 Beliefs That Will Affect Care: None marital status: Current Living Situation: Spouse Current Living Situation Comment: Lives with current occupation: Retired Feels Safe at Home: Yes Childhood Exposure to Second-Hand Smoke: Yes (once a week ) caffeine: Yes (fede occ) Dental Care, Regularly: Yes Physical Activity Frequency: Other Physical Activity Frequency Comment: rarely Sunscreen Use: Yes Assistive Devices: None Review of Systems Review of Systems: As per HPI, all other systems reviewed and negative Physical Exam Physical Exam: GENERAL: Comfortable, obese, pleasant, no respiratory distress SKIN: Normal color, warm HEENT: [place] palpebral conjunctivae, no ptosis, dry buccal mucosa NECK : Supple, no tenderness CHEST : CTA, no tenderness HEART : RRR, no obvious murmurs ABDOMEN: Some distention, minimal right upper quadrant tenderness, tender movable nodule left upper quadrant EXTREMITIES : Bilateral LE swelling, no LE tenderness, no other conspicuous deformities noted NEUROLOGIC : Coherent, no facial asymmetry, no other gross focality Results & Data Results & Data Vital Signs (Past 12 Hours) Vital Signs Temp Pulse Pulse Resp BP BP Pulse Ox 05/19/23 00:52 95 H 14 130/79 98 05/18/23 23:01 71 15 142/102 H 95 05/18/23 21:20 79 05/18/23 20:56 95 05/18/23 20:23 36.5 C 87 16 146/87 H 96 O2 Del Method 05/19/23 00:52 Room Air 05/18/23 23:01 Room Air 05/18/23 21:20 05/18/23 20:56 Room Air 05/18/23 20:23 Room Air Laboratory Results Laboratory Results WBC 10.32 K/ul (4.8-10.8) 05/18/23 20:39 RBC 5.32 M/uL (4.20-5.40) 05/18/23 20:39 Hgb 14.7 g/dl (12.0-16.0) 05/18/23 20:39 Hct 45.6 % (37.0-47.0) 05/18/23 20:39 MCV 85.7 fL (80.0-100.0) 05/18/23 20:39 MCH 27.6 pg (25.0-34.0) 05/18/23 20:39 MCHC 32.2 g/dL (32.0-36.0) 05/18/23 20:39 RDW Std Deviation 41.6 fL (36.4-46.3) 05/18/23 20:39 RDW Coeff of Renard 13.5 % (11.5-14.5) 05/18/23 20:39 Plt Count 276 K/uL (130-400) 05/18/23 20:39 MPV 9.2 fL (9.4-12.4) L 05/18/23 20:39 Immature Gran % (Auto) 0.4 % 05/18/23 20:39 Neut % (Auto) 77.7 % 05/18/23 20:39 Lymph % (Auto) 15.5 % 05/18/23 20:39 [place] % (Auto) 4.0 % 05/18/23 20:39 Eos % (Auto) 2.0 % 05/18/23 20:39 Baso % (Auto) 0.4 % 05/18/23 20:39 Neut # (Auto) 8.02 K/uL (1.40-6.50) H 05/18/23 20:39 Lymph # (Auto) 1.60 K/uL (1.20-3.40) 05/18/23 20:39 [place] # (Auto) 0.41 K/uL (0.11-0.59) 05/18/23 20:39 Eos # (Auto) 0.21 K/uL (0.00-0.50) 05/18/23 20:39 Baso # (Auto) 0.04 K/uL (0.00-0.20) 05/18/23 20:39 Immature Gran # (Auto) 0.04 K/uL (0.01-0.20) 05/18/23 20:39 PT 10.1 Seconds (9.0-12.0) 05/18/23 20:39 INR 0.9 (0.9-1.1) 05/18/23 20:39 APTT 27 Seconds (21-31) 05/18/23 20:39 PTT Ratio 1.0 05/18/23 20:39 Sodium 137 mmol/L (136-145) 05/18/23 20:39 Potassium 3.6 mmol/L (3.5-5.1) 05/18/23 20:39 Chloride 102 mmol/L (98-107) 05/18/23 20:39 Carbon Dioxide 27 mmol/L (21-32) 05/18/23 20:39 Anion Gap 8 (3-11) 05/18/23 20:39 BUN 21 mg/dl (6-23) 05/18/23 20:39 Creatinine 0.79 mg/dl (0.6-1.2) 05/18/23 20:39 Est Cr Clr Drug Dosing 83.3 ml/min 05/18/23 20:39 Est GFR ( Amer) 89.8 ml/min 05/18/23 20:39 Est GFR (Non-Af Amer) 77.5 ml/min 05/18/23 20:39 BUN/Creatinine Ratio 26.6 (10-20) H 05/18/23 20:39 Glucose 172 mg/dl (70-99(Fasting)) H 05/18/23 20:39 Calcium 10.0 mg/dl (8.6-10.3) 05/18/23 20:39 Total Bilirubin 0.4 mg/dl (0.2-1.0) 05/18/23 20:39 AST 21 U/L (13-39) 05/18/23 20:39 ALT 26 U/L (7-52) 05/18/23 20:39 Alkaline Phosphatase 110 U/L (34-104) H 05/18/23 20:39 Troponin I High Sens 11.3 pg/ml (0-14) 05/18/23 20:39 Total Protein 7.7 gm/dl (6.0-8.3) 05/18/23 20:39 Albumin 4.6 gm/dl (3.4-5.0) 05/18/23 20:39 Globulin 3.1 gm/dl (2.5-4.0) 05/18/23 20:39 Albumin/Globulin Ratio 1.5 (0.9-2) 05/18/23 20:39 Lipase 8 U/L (11-82) L 05/18/23 20:39 Urine Color Yellow 05/18/23 20:41 Urine Appearance Clear (Clear) 05/18/23 20:41 Urine pH 6.5 (4.5-7.5) 05/18/23 20:41 Ur Specific [place] 1.032 (1.000-1.030) H 05/18/23 20:41 Urine Protein Trace (Negative) H 05/18/23 20:41 Urine Glucose (UA) 3+ (Negative) H 05/18/23 20:41 Urine Ketones Trace (Negative) H 05/18/23 20:41 Urine Blood Trace (Negative) H 05/18/23 20:41 Urine Nitrite Negative (Negative) 05/18/23 20:41 Urine Bilirubin Negative (Negative) 05/18/23 20:41 Urine Urobilinogen Negative (Negative) 05/18/23 20:41 Ur Leukocyte Esterase Negative (Negative) 05/18/23 20:41 Urine WBC (Auto) 1-5 /hpf (0-5) 05/18/23 20:41 Urine RBC (Auto) 5-10 /hpf (0-4) H 05/18/23 20:41 U Hyaline Cast (Auto) 0 /lpf (0-5) 05/18/23 20:41 U Epithel Cells (Auto) 20-30 /lpf (0-5) H 05/18/23 20:41 Urine Bacteria (Auto) 1+ (Negative) H 05/18/23 20:41 Impressions Abdomen/Pelvis CT 05/18/23 23:12 Exam(s): CT ABDOMEN + PELVIS With Contrast IV Amt: 85 ML OPTIRAY 320 EXAM: CT Abdomen and Pelvis With Intravenous Contrast CLINICAL HISTORY: Upper Abdominal pain. TECHNIQUE: Axial computed tomography images of the abdomen and pelvis with intravenous contrast. CTDI is 27.14 mGy and DLP is 1405.55 mGy-cm. Automated exposure control was utilized for the study. A dose lowering technique was utilized adhering to the principles of ALARA. CONTRAST: Patient received 85 ML OPTIRAY 320 of IV contrast COMPARISON: CT abdomen and pelvis 04/05/2018 FINDINGS: Lung bases: Unremarkable. No mass. No consolidation. ABDOMEN: Liver: Unremarkable. No mass. Gallbladder and bile ducts: Cholelithiasis. No ductal dilation. Pancreas: Unremarkable. No mass. No ductal dilation. Spleen: Unremarkable. No splenomegaly. Adrenals: Unremarkable. No mass. Kidneys and ureters: Unremarkable. No solid mass. No hydronephrosis. Stomach and bowel: Diverticulosis. No obstruction. No mucosal thickening. PELVIS: Appendix: Normal appendix. Bladder: Unremarkable. No mass. Reproductive: Unremarkable as visualized. ABDOMEN and PELVIS: Intraperitoneal space: Unremarkable. No free air. No significant fluid collection. Bones/joints: There are degenerative changes of the spine. No acute fracture. No dislocation. Soft tissues: Unremarkable. Vasculature: Mild atherosclerosis. No abdominal aortic aneurysm. Lymph nodes: Unremarkable. No enlarged lymph nodes. IMPRESSION: Cholelithiasis. Electronically signed by: Trista Munguia MD 05/18/23 23:59 PM Diagnostic Findings EKG as per my interpretation : Rate 85, NSR, LAD, LAFB, LVH, no ischemia
[2023-05-19] MEDS ORDERED: DEXTROSE 50% 50 ML SYRINGE IV PRN (01:35)
[2023-05-19] MEDS ORDERED: GLUCOSE 40% GEL 15 GM TUBE PO PRN (01:35)
[2023-05-19] MEDS ORDERED: GLUCAGON FOR INJ 1 MG VIAL SQ PRN (01:35)
[2023-05-19] MEDS ORDERED: GLUCOSE 10 TAB/TUBE PO PRN (01:35)
[2023-05-19] MEDS ORDERED: CARBOHYDRATES FOR HYPOGLYCEMIA PO PRN (01:35)
[2023-05-19] MEDS: INSULIN ASPART PER UNIT CHARGE SC SCH ×2 (02:40→17:27)
[2023-05-19] MEDS ORDERED: NITROGLYCERIN SL 0.4 MG/TAB TAB SL PRN (02:59)
--- NOTE | 2023-05-19 07:07 | XRay Report ---
XR chest 1V portable CLINICAL HISTORY: Chest pain, nonspecific. COMPARISON STUDY: Chest CT January 20, 2019. Chest radiograph March 27, 2021. FINDINGS: Lung volumes are normal. Lungs are clear. There is no pneumothorax or pleural effusion. Car diac size is normal. Mediastinal contours are normal. There is no evidence for pulmonary edema. IMPRESSION: No acute cardiopulmonary findings. ACT 112: Negative or not required by law. Electronically signed by: Armando Khanna M.D. 05/19/2023 7:06 AM
[2023-05-19 07:32] LABS: Basophils # (auto) 0.03 K/uL (0.00-0.20); Basophils % (auto) 0.4 %; Eosinophils # (auto) 0.24 K/uL (0.00-0.50); Eosinophils % (auto) 3.1 %; Hematocrit (blood only) 38.4 % (37.0-47.0); Hemoglobin 12.6 g/dl (12.0-16.0); Immature Granulocytes # (auto) 0.02 K/uL (0.01-0.20); Immature Granulocytes % (auto) 0.3 %; Lymphocytes # (auto) 2.27 K/uL (1.20-3.40); Lymphocytes % (auto) 29.4 %; Mean Corpuscular Hemoglobin 27.5 pg (25.0-34.0); Mean Corpuscular Hgb Conc 32.8 g/dL (32.0-36.0); Mean Corpuscular Volume 83.7 fL (80.0-100.0); Mean Platelet Volume 9.1 fL (9.4-12.4); Monocytes # (auto) 0.59 K/uL (0.11-0.59); Monocytes % (auto) 7.7 %; Neutrophils # (auto) 4.56 K/uL (1.40-6.50); Neutrophils % (auto) 59.1 %; Platelet Count 219 K/uL (130-400); RDW Coefficient of Variation 13.6 % (11.5-14.5); RDW Standard Deviation 41.5 fL (36.4-46.3); Red Blood Count 4.59 M/uL (4.20-5.40); White Blood Count 7.71 K/ul (4.8-10.8)
[2023-05-19 07:55] LABS: Albumin Globulin Ratio 1.6 (0.9-2); Albumin Level 3.9 gm/dl (3.4-5.0); BUN Creatinine Ratio 26.1 (10-20); Bilirubin,Total 0.5 mg/dl (0.2-1.0); Calcium 8.9 mg/dl (8.6-10.3); Creatinine Clr Calc Pharmacy 94.9 ml/min; Est GFR (African American) 104.4 ml/min; Est GFR (Non-African American) 90.1 ml/min; Globulin 2.4 gm/dl (2.5-4.0); Potassium 3.5 mmol/L (3.5-5.1); Total Protein 6.3 gm/dl (6.0-8.3)
[2023-05-19] MEDS: CYANOCOBALAMIN (B-12) 100 MCG TABLET PO SCH (07:57)
[2023-05-19] MEDS: busPIRone 15 MG TAB PO SCH (07:58)
[2023-05-19] MEDS: amLODIPine BESYLATE 5 MG TAB PO SCH (07:58)
[2023-05-19] MEDS: VALSARTAN/SACUBITRIL 26/24MG TAB PO SCH (07:58)
[2023-05-19] MEDS: PANTOprazole 40 MG TAB PO SCH (07:58)
[2023-05-19] MEDS: METOPROLOL SUCC 50MG EXT REL TAB PO SCH (07:58)
[2023-05-19] MEDS: METOPROLOL SUCC 25MG EXT REL TAB PO SCH (07:59)
[2023-05-19] MEDS: EMPAGLIFLOZIN 10 MG TAB PO SCH (07:59)
--- NOTE | 2023-05-19 07:59 | Electrocardiogram Report ---
Test Reason : Blood Pressure : / mmHG Vent. Rate : 086 BPM Atrial Rate : 086 BPM P-R Int : 136 ms QRS Dur : 112 ms QT Int : 410 ms P-R-T Axes : 038 -40 057 degrees QTc Int : 490 ms Normal sinus rhythm Left axis deviation Moderate voltage criteria for LVH, may be normal variant Poor R wave progression, consider anterior IA vs. lead placement vs. LVH Abnormal ECG When compared with ECG of 27-MAR-2021 16:55, Sinus rhythm has replaced Junctional rhythm (RBBB and left posterior fascicular block) is no longer Present Confirmed by César Wong ([id number]) on 05/19/2023 7:58:41 AM Referred By: REFERRED SELF Confirmed By:Edin Wong
[2023-05-19] MEDS ORDERED: Nursing to Pharmacy Communication SCH ×2 (08:15→15:30)
--- NOTE | 2023-05-19 08:28 | Anesthesiology Consultation ---
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 History Surgery Operation Date: 05/19/23 08:25 Proposed Procedures p Laparoscopic Cholecystectomy - Gunnar Burleson MD Height/Weight Height: 5 ft 8 in Weight: 94.2 kg Allergies Allergy/AdvReac Type Severity Reaction Status Date / Time clopidogrel Allergy Intermediate rash Verified 01/30/19 17:33 Pork/Porcine Containing AdvReac Intermediate ham causes Verified 05/19/23 01:15 Products GI upset codeine AdvReac Mild GI upset Verified 03/28/21 04:36 oxycodone AdvReac gi upset Verified 03/28/21 04:33 Medications Home Medications Medication Instructions Recorded Confirmed Last Taken amitriptyline 25 mg tablet 25 mg PO HS 04/19/18 05/19/23 01/29/19 atorvastatin 40 mg tablet 40 mg PO QAM 04/19/18 05/19/23 01/29/19 buspirone 15 mg tablet 15 mg PO [facility] 04/19/18 05/19/23 01/30/19 aspirin 81 mg tablet,delayed 81 mg PO HS 04/24/18 05/19/23 01/29/19 release nitroglycerin 0.4 mg sublingual 0.4 mg sublingual DIRECTED PRN 04/24/18 05/19/23 Unknown tablet Chest Pain omeprazole 20 mg tablet,delayed 20 mg PO QAM 09/26/18 05/19/23 01/30/19 release sacubitril 24 mg-valsartan 26 mg 1 tab PO AMHS 01/30/19 05/19/23 01/30/19 tablet (Entresto) amlodipine 2.5 mg tablet 2.5 mg PO [facility] 05/19/23 05/19/23 Unknown cholecalciferol (vitamin D3) 50 50 mcg PO QDD 05/19/23 05/19/23 Unknown mcg (2,000 unit) tablet (Vitamin D3) cyanocobalamin (vitamin B-12) 100 100 mcg PO DAILY 05/19/23 05/19/23 Unknown mcg tablet docusate sodium 100 mg capsule 100 mg PO HS 05/19/23 05/19/23 Unknown empagliflozin 10 mg tablet 10 mg PO QAM 05/19/23 05/19/23 Unknown (Jardiance) iron,carbonyl 65 mg-vitamin C 125 1 tab PO 3XWK 05/19/23 05/19/23 Unknown mg tablet,delayed release (Vitron-C) metoprolol succinate 200 mg 200 mg PO QAM 05/19/23 05/19/23 Unknown tablet,extended release 24 hr metoprolol succinate 25 mg 25 mg PO QAM 05/19/23 05/19/23 Unknown tablet,extended release 24 hr spironolactone 25 mg tablet 12.5 mg PO 3XWK 05/19/23 05/19/23 Unknown Active Medications Generic Name Dose Route Start Last Admin Trade Name Jamesq PRN Reason Stop Dose Admin Amlodipine Besylate 2.5 mg 05/19/23 09:00 05/19/23 07:58 Amlodipine Besylate 5 Mg Tab PO 06/18/23 08:59 2.5 mg AMHS GLORIA Administration Buspirone HCl 15 mg 05/19/23 09:00 05/19/23 07:58 Buspirone 15 Mg Tab PO 06/18/23 08:59 15 mg AMHS GLORIA Administration Cyanocobalamin 100 mcg 05/19/23 09:00 05/19/23 07:57 Cyanocobalamin (B-12) 100 Mcg Tablet PO 06/18/23 08:59 100 mcg DAILY GLORIA Administration Empagliflozin 10 mg 05/19/23 09:00 05/19/23 07:59 Empagliflozin 10 Mg Tab PO 06/18/23 08:59 10 mg QAM GLORIA Administration Sodium Chloride 1,000 mls @ 100 mls/hr 05/19/23 00:33 05/19/23 02:03 Nss IV 05/19/23 10:32 Infused .Q10H ONE Infusion Insulin Aspart 0 units 05/19/23 02:00 05/19/23 06:27 Insulin Aspart Per Unit Charge SC 06/18/23 01:59 Not Given Q6 GLORIA Metoprolol Succinate 200 mg 05/19/23 09:00 05/19/23 07:58 Metoprolol Succ 50mg Ext Rel Tab PO 06/18/23 08:59 200 mg QAM GLORIA Administration Metoprolol Succinate 25 mg 05/19/23 09:00 05/19/23 07:59 Metoprolol Succ 25mg Ext Rel Tab PO 06/18/23 08:59 25 mg QAM GLORIA Administration Pantoprazole Sodium 40 mg 05/19/23 09:00 02/23/24 07:58 Pantoprazole 40 Mg Tab PO 06/18/23 08:59 40 mg QAM GLORIA Administration Sacubitril/Valsartan 1 tab 05/19/23 09:00 05/19/23 07:58 Valsartan/Sacubitril 26/24mg Tab PO 06/18/23 08:59 1 tab AMHS GLORIA Administration Past Medical History Medical History History of torn meniscus of left knee Recurrent urinary tract infection Myocardial infarct Hypertension History of invasive breast cancer DCIS (ductal carcinoma in situ) Past Family History Family History Mother , age 87 old age No problems noted. Father , age 90 CVA , also had H/o type 2 diabetes heart disease No problems noted. Brother Coronary heart disease Brother No problems noted. Brother No problems noted. Brother No problems noted. Daughter , 5 months trisomy 18 CHF No problems noted. Son No problems noted. Son No problems noted. Son No problems noted. Other No significant family history Past Surgical History Surgical History History of reduction surgery of left breast S/P breast reconstruction, right H/O mastectomy H/O: hysterectomy Social History Smoking Status: Never smoker Hx Alcohol Use: No Hx Substance Use: No substance use type: does not use Physical Exam Vital Signs Last Vital Signs Temp 97.7 F 05/19/23 06:04 Pulse 77 05/19/23 07:51 Resp 16 05/19/23 06:04 BP 116/72 05/19/23 07:51 Pulse Ox 94 05/19/23 06:04 O2 Del Method Room Air 05/19/23 06:04 Testing Laboratory Results 05/19/23 06:56 05/19/23 06:56 PT 10.1 Seconds (9.0-12.0) 05/18/23 20:39 INR 0.9 (0.9-1.1) 05/18/23 20:39 APTT 27 Seconds (21-31) 05/18/23 20:39 Urine Color Yellow 05/18/23 20:41 Urine Appearance Clear (Clear) 05/18/23 20:41 Urine pH 6.5 (4.5-7.5) 05/18/23 20:41 Ur Specific [place] 1.032 (1.000-1.030) H 05/18/23 20:41 Urine Protein Trace (Negative) H 05/18/23 20:41 Urine Glucose (UA) 3+ (Negative) H 05/18/23 20:41 Urine Ketones Trace (Negative) H 05/18/23 20:41 Urine Nitrite Negative (Negative) 05/18/23 20:41 Ur Leukocyte Esterase Negative (Negative) 05/18/23 20:41 Urine WBC (Auto) 1-5 /hpf (0-5) 05/18/23 20:41 Urine RBC (Auto) 5-10 /hpf (0-4) H 05/18/23 20:41 U Hyaline Cast (Auto) 0 /lpf (0-5) 05/18/23 20:41 U Epithel Cells (Auto) 20-30 /lpf (0-5) H 05/18/23 20:41 Urine Bacteria (Auto) 1+ (Negative) H 05/18/23 20:41 05/19/23 05/19/23 06:19 02:08 POC Glucose 103 H 105 H Electrocardiogram Date: 05/18/23 Normal sinus rhythm, rate 86 bpm Left axis deviation Moderate voltage criteria for LVH, may be normal variant Poor R wave progression, consider anterior NM vs. lead placement vs. LVH Abnormal ECG When compared with ECG of 27-MAR-2021 16:55, Sinus rhythm has replaced Junctional rhythm (RBBB and left posterior fascicular block) is no longer Present Confirmed by César Wong ([id number]) on 05/19/2023 7:58:41 AM Chest X-Ray Date: 05/18/23 Findings: + NAD Echocardiogram Date: 05/18/23 No significant valvular pathology LV is normal in size There is septal akinesis/apical akinesis EF 40-45% RV systolic function is normal LA/RA size is normal
[2023-05-19] MEDS ORDERED: ATORVASTATIN 40 MG TAB PO SCH (09:00)
[2023-05-19] MEDS: cefTRIAXone SODIUM 2,000 MG in DEXTROSE 5 % MINI-B 50 ML IV SCH (10:35)
[2023-05-19] MEDS: SODIUM CHLORIDE 0.9% 1,000 ML IV SCH (10:36)
--- NOTE | 2023-05-19 10:38 | Surgery Consultation ---
Date of Consultation May 19, 2023 Assessment & Plan (1) Gall stones: persistent pain will plan lap emiliano this AM risks explained and consent obtained History of Present Illness Attending Physician: Taj Fields MD History of Present Illness This is a 67YO female admitted with persistent abdominal pain after ED interventions for symptomatic cholelithiasis. She has had nausea but no vomiting. CT scan shows gallstones without signs of obvious inflammation. Allergies Allergy/AdvReac Type Severity Reaction Status Date / Time clopidogrel Allergy Intermediate rash Verified 01/30/19 17:33 Pork/Porcine Containing AdvReac Intermediate ham causes Verified 05/19/23 01:15 Products GI upset codeine AdvReac Mild GI upset Verified 03/28/21 04:36 oxycodone AdvReac gi upset Verified 03/28/21 04:33 Home Medications Medication Instructions Recorded Confirmed Type amitriptyline 25 mg tablet 25 mg PO HS 04/19/18 05/19/23 History atorvastatin 40 mg tablet 40 mg PO QAM 04/19/18 05/19/23 History buspirone 15 mg tablet 15 mg PO AMHS 04/19/18 05/19/23 History aspirin 81 mg tablet,delayed 81 mg PO HS 04/24/18 05/19/23 History release nitroglycerin 0.4 mg sublingual 0.4 mg sublingual DIRECTED PRN 04/24/18 05/19/23 History tablet Chest Pain omeprazole 20 mg tablet,delayed 20 mg PO QAM 09/26/18 05/19/23 History release sacubitril 24 mg-valsartan 26 mg 1 tab PO AMHS 01/30/19 05/19/23 History tablet (Entresto) amlodipine 2.5 mg tablet 2.5 mg PO AMHS 05/19/23 05/19/23 History cholecalciferol (vitamin D3) 50 50 mcg PO QDD 05/19/23 05/19/23 History mcg (2,000 unit) tablet (Vitamin D3) cyanocobalamin (vitamin B-12) 100 100 mcg PO DAILY 05/19/23 05/19/23 History mcg tablet docusate sodium 100 mg capsule 100 mg PO HS 05/19/23 05/19/23 History empagliflozin 10 mg tablet 10 mg PO QAM 05/19/23 05/19/23 History (Jardiance) iron,carbonyl 65 mg-vitamin C 125 1 tab PO 3XWK 05/19/23 05/19/23 History mg tablet,delayed release (Vitron-C) metoprolol succinate 200 mg 200 mg PO QAM 05/19/23 05/19/23 History tablet,extended release 24 hr metoprolol succinate 25 mg 25 mg PO QAM 05/19/23 05/19/23 History tablet,extended release 24 hr spironolactone 25 mg tablet 12.5 mg PO 3XWK 05/19/23 05/19/23 History Patient History Medical History History of torn meniscus of left knee Recurrent urinary tract infection Myocardial infarct Hypertension History of invasive breast cancer DCIS (ductal carcinoma in situ) Surgical History History of reduction surgery of left breast S/P breast reconstruction, right H/O mastectomy H/O: hysterectomy Family History Mother , age 87 old age No problems noted. Father , age 90 CVA , also had H/o type 2 diabetes heart disease No problems noted. Brother Coronary heart disease Brother No problems noted. Brother No problems noted. Brother No problems noted. Daughter , 5 months trisomy 18 CHF No problems noted. Son No problems noted. Son No problems noted. Son No problems noted. Other No significant family history Social History Smoking Status: Never smoker Hx Alcohol Use: No Hx Substance Use: No Preferred Language: Kyrgyz Communication Ability: Effective Visual Impairment: No Limitations Hearing Ability: Normal Plastics Scientist Required: No Beliefs That Will Affect Care: None marital status: Current Living Situation: Spouse Current Living Situation Comment: with current occupation: Retired Other Information That Helps Us Care for You: No Feels Safe at Home: Yes Safety Concerns: Feels Safe At This Time Childhood Exposure to Second-Hand Smoke: Yes (once a week ) caffeine: Yes (fede occ) Dental Care, Regularly: Yes Physical Activity Frequency: Other Physical Activity Frequency Comment: rarely Sunscreen Use: Yes Assistive Devices: None Review of Systems Constitutional: + anorexia; no fever and no chills Eyes: no problem reported Ear, Nose, Mouth, Throat: no problem reported Respiratory: no cough and no dyspnea Cardiovascular: no chest pain Gastrointestinal: + abdominal pain and + nausea; no vomiti ng and no change in bowel habits Genitourinary: no dysuria Musculoskeletal: no back pain Neurologic: no localized weakness and no generalized weakness Psychiatric: no behavioral changes Hematologic / Lymphatic: no easy bleeding and no easy bruising Physical Exam Constitutional: WD/WN, vitals as above Eyes: PERRL, conjunctivae normal, anicteric sclerae Neck: trachea midline Respiratory: normal respiratory effort, lungs clear to auscultation Cardiovascular: RRR, no murmur, no edema Gastrointestinal (Abdomen): Inspection/Auscultation: abdomen normal to inspection and normal bowel sounds; abdomen not distended Percussion/Palpation: + abdomen tender and abdomen soft; no guarding and abdomen not rigid Musculoskeletal: Head/Neck/Chest: normocephalic and head atraumatic Skin: no rashes, warm and dry Results & Data Vital Signs (Past 12 Hours) Vital Signs Temp Pulse Pulse Pulse Resp BP BP 05/19/23 08:15 05/19/23 07:51 77 116/72 05/19/23 06:04 36.5 C 75 16 05/19/23 03:30 36.7 C 73 16 05/19/23 03:00 91 H 16 131/66 05/19/23 01:47 78 05/19/23 00:52 95 H 14 05/18/23 23:01 71 15 BP Pulse Ox O2 Del Method 05/19/23 08:15 Room Air 05/19/23 07:51 05/19/23 06:04 96/65 L 94 Room Air 05/19/23 03:30 123/80 95 Room Air 05/19/23 03:00 98 Room Air 05/19/23 01:47 05/19/23 00:52 130/79 98 Room Air 05/18/23 23:01 142/102 H 95 Room Air Laboratory Results EXAM: CT Abdomen and Pelvis With Intravenous Contrast CLINICAL HISTORY: Upper Abdominal pain. TECHNIQUE: Axial computed tomography images of the abdomen and pelvis with intravenous contrast. CTDI is 27.14 mGy and DLP is 1405.55 mGy-cm. Automated exposure control was utilized for the study. A dose lowering technique was utilized adhering to the principles of ALARA. CONTRAST: Patient received 85 ML OPTIRAY 320 of IV contrast COMPARISON: CT abdomen and pelvis 04/05/2018 FINDINGS: Lung bases: Unremarkable. No mass. No consolidation. ABDOMEN: Liver: Unremarkable. No mass. Gallbladder and bile ducts: Cholelithiasis. No ductal dilation. Pancreas: Unremarkable. No mass. No ductal dilation. Spleen: Unremarkable. No splenomegaly. Adrenals: Unremarkable. No mass. Kidneys and ureters: Unremarkable. No solid mass. No hydronephrosis. Stomach and bowel: Diverticulosis. No obstruction. No mucosal thickening. PELVIS: Appendix: Normal appendix. Bladder: Unremarkable. No mass. Reproductive: Unremarkable as visualized. ABDOMEN and PELVIS: Intraperitoneal space: Unremarkable. No free air. No significant fluid collection. Bones/joints: There are degenerative changes of the spine. No acute fracture. No dislocation. Soft tissues: Unremarkable. Vasculature: Mild atherosclerosis. No abdominal aortic aneurysm. Lymph nodes: Unremarkable. No enlarged lymph nodes. IMPRESSION: Cholelithiasis.
[2023-05-19] MEDS ORDERED: ONDANSETRON INJ 2 MG/ML 2 ML VIAL IV PRN ×2 (11:12→14:40)
[2023-05-19] MEDS ORDERED: ATROPINE SULFATE 0.1 MG/ML 10ML SYR IV PRN (11:12)
[2023-05-19] MEDS ORDERED: fentaNYL citrate PF 100 MCG/2 ML VIAL IV PRN (11:12)
[2023-05-19] MEDS ORDERED: ePHEDrine sulfate 50 MG/ML AMP IV PRN (11:12)
[2023-05-19] MEDS: SCOPOLAMINE 1 MG TDSY TD ONE (11:21)
[2023-05-19] MEDS ORDERED: ROCURONIUM BROMIDE 10 MG/ML 5 ML VIAL IV ONE (11:51)
[2023-05-19] MEDS ORDERED: fentaNYL citrate PF 100 MCG/2 ML VIAL ONE (11:51)
[2023-05-19] MEDS ORDERED: GLYCOPYRROLATE 0.2 MG/ML VIAL ONE (11:51)
[2023-05-19] MEDS ORDERED: LIDOCAINE 2% 2 ML VIAL/AMP(20MG/ML) INFIL ONE (11:51)
[2023-05-19] MEDS ORDERED: DEXAMETHASONE SOD INJ 4 MG/ML VIAL ONE (11:51)
[2023-05-19] MEDS ORDERED: NEOSTIGMINE METHYLSULFATE 1 MG/ML 10ML VIAL ONE (11:51)
[2023-05-19] MEDS ORDERED: ONDANSETRON INJ 2 MG/ML 2 ML VIAL ONE (11:51)
[2023-05-19] MEDS ORDERED: PROPOFOL IV EMULSION 10 MG/ML 20 ML VIAL IV ONE (11:51)
[2023-05-19] MEDS ORDERED: MIDAZOLAM HCL 1 MG/ML 2ML VIAL ONE (11:52)
[2023-05-19] MEDS ORDERED: SUGAMMADEX SODIUM 200 MG/2 ML VIAL IV ONE (13:07)
[2023-05-19] MEDS: BUPIVACAINE/EPINEPHRINE 0.5% MPF 1:200,000 30 ML VIAL ONE (13:11)
--- NOTE | 2023-05-19 13:22 | Post Operative Brief Note ---
Immediate Post Op Note v1 Date of Surgery May 19, 2023 Pre & Post Diagnosis Operation Date: 05/19/23 08:25 Pre-Op Diagnosis: Gall Stones Post-Op Diagnosis: Gall Stones I identified the patient and participated in the time-out.: Yes Procedure Operation Date: 05/19/23 08:25 Actual Procedures p Laparoscopic Cholecystectomy(Not Applicable) - Gunnar Burleson MD Surgeon Gunnar Burleson MD Head Buyer Tobacco none Estimated Blood Loss 10 Findings Consistent with Post-Op Diagnosis
--- NOTE | 2023-05-19 13:26 | Operative Report ---
Post Operative Report Pre & Post Diagnosis Operation Date: 05/19/23 08:25 Pre-Op Diagnosis: Gall Stones Post-Op Diagnosis: Gall Stones I identified the patient and participated in the time-out.: Yes Procedure Operation Date: 05/19/23 08:25 Actual Procedures p Laparoscopic Cholecystectomy(Not Applicable) - Gunnar Burleson MD Surgeon Gunnar Burleson MD Research Laboratory Technician none Estimated Blood Loss 10 Findings Consistent with Post-Op Diagnosis Mild inflammatory changes of the gallbladder. Specimens Gallbladder to pathology. Drains None Anesthesia Type General Complications None. Indications This is a 67-year-old female admitted to the ED with acute right abdominal pain. She had a CT scan showing gallstones. Her pain could not be controlled she was therefore admitted. I talked in detail about these findings and recommended laparoscopic cholecystectomy. We over the risks in detail and obtained consent for the surgery. Description of Procedure The patient was taken the OR and underwent excellent general endotracheal anesthesia. Their abdomen is prepped and draped normal sterile fashion. Transverse supraumbilical incision was made and dissection was taken down to identify the anterior fascia. Two Vicryl's were placed on either side of the midline and his midline was then incised. The peritoneal cavity was entered bluntly with Trinidad clamp. A 12mm East trocar was then inserted and secured. Good pneumoperitoneum was achieved to 15 mmHg pressure. Patient is placed in head up and rolled to the left. A 11mm subxiphoid and two 5mm lateral ports were placed in the normal fashion. The gallbladder was identified was acutely inflamed. The fundus of the gallbladder was then retracted superiorly. The neck of the gallbladder was grasped and then retracted laterally. This splayed open the Hepatocystic triangle. Attention was then to taking down the peritoneal attachments to identify the cystic duct and cystic artery. Once these were skeletonized and a medial and lateral window was created between the gallbladder fossa and the duct, thereby ensuring the critical view. Three clips were then placed distally on cystic duct 1 proximally the cystic duct was transected. Two clips were then placed approximately cystic artery one distally, the cystic artery was transected. An electrocautery hook was then used to move the gallbladder off the gallbladder fossa. There was some bile spillage but no stones were spilled. The gallbladder was then placed into an Endobag and brought out through the supraumbilical incision. The pneumoperitoneum was re- established and abdomen was irrigated out until the suction fluid was clear. There were some areas on the gallbladder fossa which were raw and were cauterize d. No bleeding was seen at the end of the procedure. The ports were then removed and the abdomen decompressed. The fascia of the supraumbilical incision was closed with Vicryls. 0.5% Marcaine with epinephrine local was to create a local field block. Interrupted Vicryl was used to close the skin. Steri-Strips and benzoin were used to reinforce the incisions. Sterile dressings were applied. Patient tolerated the procedure without complication and sent to the postop recovery period of observation. She will then be sent to the floor for the rest of his care. I attest to the content of the Intraoperative Record and any orders documented therein. Any exceptions are noted below.
[2023-05-19] MEDS: DROPERIDOL 5 MG/2 ML VIAL IV PRN (13:58)
[2023-05-19] MEDS: DROPERIDOL 5 MG/2 ML VIAL ONE (13:58)
--- NOTE | 2023-05-19 14:18 | Anesthesiology Progress Note ---
Date of Service May 19, 2023 Anesthesia Post Procedure Vital Signs Vital Signs: Temp Pulse Pulse Pulse Resp BP BP 05/19/23 14:05 36.7 C 70 9 L 107/61 05/19/23 13:55 36.7 C 71 16 118/64 05/19/23 13:45 70 15 120/68 05/19/23 13:35 66 17 126/70 05/19/23 13:25 36.0 C L 75 8 L 118/64 05/19/23 10:59 37.1 C 68 20 112/68 05/19/23 08:15 05/19/23 07:51 77 116/72 05/19/23 06:04 36.5 C 75 16 05/19/23 03:30 36.7 C 73 16 05/19/23 03:00 91 H 16 131/66 05/19/23 01:47 78 05/19/23 00:52 95 H 14 05/18/23 23:01 71 15 05/18/23 21:20 79 05/18/23 20:56 05/18/23 20:23 36.5 C 87 16 146/87 H BP Pulse Ox O2 Del Method O2 Flow Rate 05/19/23 14:05 98 Nasal Cannula 2 05/19/23 13:55 95 Nasal Cannula 2 05/19/23 13:45 96 Oxymask 1 05/19/23 13:35 98 Oxymask 3 05/19/23 13:25 93 Oxymask 5 05/19/23 10:59 97 Room Air 05/19/23 08:15 Room Air 05/19/23 07:51 05/19/23 06:04 96/65 L 94 Room Air 05/19/23 03:30 123/80 95 Room Air 05/19/23 03:00 98 Room Air 05/19/23 01:47 05/19/23 00:52 130/79 98 Room Air 05/18/23 23:01 142/102 H 95 Room Air 05/18/23 21:20 05/18/23 20:56 95 Room Air 05/18/23 20:23 96 Room Air Transfer of Care Handoff Completed per policy Notes Mental Status: alert / awake / arousable Patient Amnestic to Procedure: Yes Nausea / Vomiting: adequately controlled Pain: adequately controlled Airway Patency, RR, SpO2: stable & adequate BP & HR: stable & adequate Hydration State: stable & adequate Anesthetic Complications: no major complications apparent
[2023-05-19] MEDS ORDERED: HYDROmorphone HCL 2 MG TAB PO PRN (14:40)
--- NOTE | 2023-05-19 15:26 | Hospitalist Progress Note ---
Date of Service May 19, 2023 Assessment & Plan (1) Biliary colic: Plan: Symptomatic cholelithiasis Biliary colic --S/P laparoscopic cholecystectomy by Dr. York on 05/19/2023 --CT ABD: Showed cholelithiasis, no ductal dilatation, unremarkable liver, pa ncreas, spleen, adrenals, kidneys and ureters. Diverticulosis noted. Normal LFTs Clear liquid diet Pain control Appreciate surgery input Abnormal urinalysis Rule out UTI Urine culture pending Empirically on IV Rocephin Left-sided abdominal subcutaneous tumor Possible neuroma Follow-up as outpatient Chronic systolic heart failure EF 40%, TTE 2022 Patient euvolemic Continue metoprolol, Entresto Also on Jardiance Resume Aldactone as able Nonobstructive CAD Continue aspirin, statin, metoprolol Hypertension Continue home medications with holding parameters Monitor BP Hyperlipidemia on statin Recurrent R breast cancer S/P surgery/reconstruction/chemoradiation, currently in remission DM II Last HbA1c 7.4 Hold p.o. medications Continue insulin while hospitalized Monitor BGs Anxiety/mood disorder Continue home medication DVT Px: SCDs for now Code Status Full code Admission and Anticipated Discharge Date Admission Date: May 19, 2023 Subjective Patient is seen and examined at bedside States having abdominal discomfort at surgical site Also reports nausea but no vomiting Denies any chest pain, dyspnea, dizziness No other complaints Review of Systems Review of Systems: All systems reviewed & are unremarkable except as noted in Subjective Physical Exam Physical Exam: Physical Exam: Vitals signs as noted above General Appearance:Obese, no apparent distress Head: normocephalic, Atraumatic Eyes: normal inspection, EOMI Neck: supple, Trachea midline Respiratory/Chest: Normal breath sounds, CTA, No accessory muscle use Cardiovascular: S1, S2, No murmur Abdomen/GI:Soft, mild tender, protuberant, surgical site in dressing, bowel sounds present Extremities/Musculoskeletal:normal inspection, Trace edema Neurologic/Psych:AAOX3, grossly no focal neurological deficits Skin: normal color, warm Results & Data Results & Data Vital Signs (Past 12 Hours) Vital Signs Temp Pulse Pulse Resp BP BP Pulse Ox 05/19/23 15:01 36.5 C 66 15 106/68 96 05/19/23 14:30 36.4 C L 66 14 101/60 96 05/19/23 14:15 36.7 C 64 22 112/64 98 05/19/23 14:05 36.7 C 70 9 L 107/61 98 05/19/23 13:55 36.7 C 71 16 118/64 95 05/19/23 13:45 70 15 120/68 96 05/19/23 13:35 66 17 126/70 98 05/19/23 13:25 36.0 C L 75 8 L 118/64 93 05/19/23 10:59 37.1 C 68 20 112/68 97 05/19/23 08:15 05/19/23 07:51 77 116/72 05/19/23 06:04 36.5 C 75 16 96/65 L 94 05/19/23 03:30 36.7 C 73 16 123/80 95 O2 Del Method O2 Flow Rate 05/19/23 15:01 Room Air, Nasal Cannula 2 05/19/23 14:30 Room Air, Nasal Cannula 2 05/19/23 14:15 Nasal Cannula 2 05/19/23 14:05 Nasal Cannula 2 05/19/23 13:55 Nasal Cannula 2 05/19/23 13:45 Oxymask 1 05/19/23 13:35 Oxymask 3 05/19/23 13:25 Oxymask 5 05/19/23 10:59 Room Air 05/19/23 08:15 Room Air 05/19/23 07:51 05/19/23 06:04 Room Air 05/19/23 03:30 Room Air Laboratory Results Short CBC 05/18/23 05/19/23 Range/Units 20:39 06:56 WBC 10.32 7.71 (4.8-10.8) K/ul Hgb 14.7 12.6 (12.0-16.0) g/dl Hct 45.6 38.4 (37.0-47.0) % Plt Count 276 219 (130-400) K/uL BMP 05/18/23 05/19/23 20:39 06:56 Sodium 137 139 Potassium 3.6 3.5 Chloride 102 107 Carbon Dioxide 27 27 BUN 21 18 Creatinine 0.79 0.69 Glucose 172 H 113 H Calcium 10.0 8.9 Liver Function 05/18/23 05/19/23 Range/Units 20:39 06:56 Total Bilirubin 0.4 0.5 (0.2-1.0) mg/dl AST 21 15 (13-39) U/L ALT 26 19 (7-52) U/L Alkaline Phosphatase 110 H 84 (34-104) U/L Albumin 4.6 3.9 (3.4-5.0) gm/dl Urine 05/18/23 Range/Units 20:41 Urine Color Yellow Urine Appearance Clear (Clear) Urine pH 6.5 (4.5-7.5) Ur Specific [place] 1.032 H (1.000-1.030) Urine Protein Trace H (Negative) Urine Glucose (UA) 3+ H (Negative)
[2023-05-19] MEDS: CHECK SCOPOLAMINE PATCH PLACEMENT SCH (15:27)
[2023-05-19] MEDS: traMADol HCL 50 MG TABLET PO PRN (15:57)
[2023-05-19] MEDS: AMITRIPTYLINE HCL 25 MG TAB PO SCH (20:20)
[2023-05-19] MEDS: DOCUSATE SODIUM 100 MG CAP PO SCH (20:23)
[2023-05-19] MEDS: ASPIRIN 81 MG ECTAB PO SCH (20:24)
[2023-05-19] MEDS: ATORVASTATIN 40 MG TAB PO SCH (20:24)
[2023-05-19] MEDS: ACETAMINOPHEN 325 MG TAB PO PRN (23:14)
--- OUTSIDE RECORDS SUMMARY | 2023-05-19 23:40 | External Medical Summary ---
Author Name Unknown Address Unknown Organization [id number]:[facility] [place] [address] Laboratory Report Ordering Provider Test Date Status SCOTT ZUÑIGA 05/15/2023 14:53:04 Final Observation Date Value Abnormality Reference (Units ) Status WBC, Total 05/15/2023 14:53:04 7.79 4.00-10.8 0 (K/uL) Final RBC 05/15/2023 14:53:04 4.85 3.85-5.15 (M/uL) Final Hemoglobin 05/15/2023 14:53:04 13.4 12.0-15.3 (g/dL) Final HCT 05/15/2023 14:53:04 42.4 36.0-45.2 (%) Final MCV 05/15/2023 14:53:04 87.4 81.5-97.5 (fL) Final MCH 05/15/2023 14:53:04 27.6 27.0-34.0 (pg) Final MCHC 05/15/2023 14:53:04 31.6 32.0-36.0 (g/dL) Final RDW 05/15/2023 14:53:04 13.9 11.5-15.5 (%) Final Platelets 05/15/2023 14:53:04 240 140-400 (K /uL) Final MPV 05/15/2023 14:53:04 8.6 6.6-11.1 ( fL) Final Performing Location [facility] [place] [address]
--- OUTSIDE RECORDS SUMMARY | 2023-05-19 23:40 | External Medical Summary | Summary of Care ---
Author Name Unknown Organization [facility] Address [address] [place] [address] Phone [phone] Care Team Providers Care Port Captain Name Role Phone Ozzie Ann DO Primary Care Provider [phone] Reason for Visit * Reason Onset Date Comments Health Maintenance 04/28/2023 Encounter Details Date Type Department Care Team (Late st Contact Info) Description 04/28/2023 Telephone Family Practice [facility] [address] [place] [address] Ozzie Ann DO [address] [place] [address] Health Maintenance Allergies Active Allergy Reactions Criticality Noted Date Comments [place] Oil High 01/30/2019 Other reaction(s): STOMACH UPSET It is not corn oil--- Just plain [place] Ham High 02/13/2019 Other reaction(s): STOMACH UPSET Clopidogrel Bisulfate Rash 04/22/2009 Rash on Plavix-per Dr. Eldridge documented as of this encounter (statuses as of 04/28/2023) Medications Medication Sig Dispensed Refills Start Date End Date Status ASPIRIN EC 81 MG PO TBECIndications:Acute anterolateral myocardial infarction (HCC) Take by mouth at bedtime. 100 3 0 Active Cyanocobalamin (B-12) 100 MCG TABS Take by mouth 1 Tablet daily . 0 6 Active triamcinolone acetonide (ARISTOCORT) 0.1 % ointmentIndications:Folli culitis Apply topically to affected area 2 times a day. To affected area. 15 g 5 9 Active Docusate Sodium 100 MG Oral Capsule Take 1 Capsule by mouth at bedtime. 0 Active Ventolin HFA 108 (90 Base) MCG/ACT Inhalation Aerosol SolutionIndications:Cough Inhale 2 Puffs by mouth 4 times a day as needed for Wheezing. 18 g 1 1 Active Nitroglycerin 0.4 MG Sublingual Tablet Sublingual (Nitrostat) One tablet under tongue if needed for chest pain. May repeat 3 times. If chest pain continues, call 911 25 Tablet 11 2 Active Additional Information Patient not taking.Reported on 11/23/2022 Iron-Vitamin C 65-125 MG Oral Tablet Take 1 Tablet by mouth once a day on Monday, , and Monday only. evenings 0 Active OneTouch Ultra 2 w/Device KitIndications:Diabetes mellitus without complication (HCC) Use to check blood sugar once daily. 1 Kit 0 2 Active Vitamin D3 50 MCG (2000 UT) Oral Capsule Take 1 Capsule by mouth daily with dinner. 0 Active Benzonatate 100 MG Oral CapsuleIndications:Acute non-recurrent maxillary sinusitis Take 1 Capsule by mouth 3 times a day as needed for Cough. 30 Capsule 1 3 Active Omeprazole 20 MG Oral Capsule Delayed Release (PriLOSEC)Indications:Gas troesophageal reflux disease with esophagitis without hemorrhage Take 1 Capsule by mouth in the morning. 90 Capsule 3 3 Active Spironolactone 25 MG Oral Tablet (Aldactone)Indications:HT N, goal below 140/90 Take 0.5 Tablets by mouth once a day on Monday, Monday, and Monday only. 45 Tablet 3 3 Active amLODIPine Besylate 2.5 MG Oral Tablet (Norvasc)Indications:HTN, goal below 140/90,History of [place] (myocardial infarction),Acute ST elevation myocardial infarction (STEMI) of anterolateral wall (HCC),Coronary artery disease involving [place] heart without angina pectoris, unspecified vessel or lesion type Take 1 Tablet by mouth in the morning and 1 Tablet before bedtime. 180 Tablet 3 3 Active Amitriptyline HCl 25 MG Oral Tablet (Elavil)Indications:Anxie ty state Take 1 Tablet by mouth at bedtime. 90 Tablet 3 06/12/202 3 Active OneTouch Ultra In Vitro Strip (Glucose Blood)Indications:Diabete s mellitus without complication (HCC) Use to test blood sugar once daily 100 Strip 3 3 Active OneTouch Delica Lancets 33GIndications:Diabetes mellitus without complication (HCC) Use to check blood sugar once daily. 100 Each 3 3 Active Atorvastatin Calcium 40 MG Oral Tablet (Lipitor)Indications:Card iomyopathy, unspecified type (HCC),Pure hypercholesterolemia Take 1 Tablet by mouth in the morning. 90 Tablet 3 3 Active Entresto 24-26 MG Oral Tablet (sacubitril-valsartan 24-26 mg per tab)Indications:HTN, goal below 140/90,History of [place] (myocardial infarction) Take 1 Tablet by mouth in the morning and 1 Tablet before bedtime. 180 Tablet 3 3 Active Empagliflozin 10 MG Oral Tablet (Jardiance) Take 1 Tablet by mouth in the morning. 90 Tablet 3 3 Active busPIRone HCl 15 MG Oral Tablet (Buspar)Indications:Anxie ty state Take 1 Tablet by mouth in the morning and 1 Tablet before bedtime. 180 Tablet 1 3 Active Metoprolol Succinate ER 25 MG Oral Tablet Extended Release 24 Hour (Toprol XL) Take 1 Tablet by mouth in the morning. Take in addition to 200mg tablet for total dose of 225mg/day.. 90 Tablet 1 3 Active Metoprolol Succinate ER 200 MG Oral Tablet Extended Release 24 HourIndications:Cardiomyo sara secondary to drug (HCC),HTN, goal below 140/90,Coronary artery disease involving [place] heart without angina pectoris, unspecified vessel or lesion type,Acute ST elevation myocardial infarction (STEMI) of anterolateral wall (HCC) Take 1 Tablet by mouth in the morning. 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 History of breast cancer 01/31/2019 Pure hypercholesterolemia 12/21/2017 History of [place] (myocardial infarction) 03/10/2017 Transient global amnesia 03/02/2016 HTN, goal below 140/90 12/16/2005 DIFFUS CYSTIC MASTOPATHY 10/10/2001 FIBROMYALGIA 04/04/1997 documented as of this encounter (statuses as of 04/28/2023) Resolved Problems Problem Noted Date Diagnosed Date Resolved Date Type 2 diabetes mellitus wit h stage 3a chronic kidney disease, without long-term current use of insulin 05/09/2022 03/08/2023 Type 2 diabetes mellitus wit h stage 3a chronic kidney disease, without long-term current use of insulin 04/02/2021 04/08/2021 ST elevation myocardial infarction (STEMI) 04/02/2021 09/16/2021 Overview: H/O Chronic kidney disease, stage 3a 09/08/2020 03/08/2023 Overview: Per CKD protocol Type 2 diabetes mellitus wit h stage 3a chronic kidney disease 08/04/2020 03/08/2023 Overview: Per CKD protocol Diabetes mellitus with stage 3 chronic kidney disease 02/03/2020 08/06/2020 Overview: Per CKD protocol Recurrent breast cancer, right 04/12/2019 01/25/2022 Gastroesophageal reflux dise ase without esophagitis 04/12/2019 01/25/2022 Malignant neoplasm of lower- outer quadrant of right breast of female, estrogen receptor negative 03/30/2018 09/16/2021 Cancer Staging:Clinical stage from 05/29/2018:Stage IIA(cT2, cN0, cM0, G2, ER: Negative, FL: Negative, HER2: Positive) - Signed by Jamil Marques MD on 05/29/2018 Overview: H/O 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 Goiter 06/06/2002 01/20/2021 PREMENSTRUAL TENSION 04/04/1997 019 documented as of this encounter (statuses as of 04/28/2023) Immunizations Name Administration Dates Next Due COVID-19 mRNA, LNP-s, No Pre serve, 2-Dose Series (Moderna) 12/24/2022,01/22/2021,06/01/2020,04/28 COVID-19, mRNA, LNP-s, PF, B ooster, 100mcg/0.5mg (Moderna) 10/08/2021 COVID-19, mRNA, LNR-S, Bival ent, PF, 10mcg/0.2 ml (Moderna) 6m to 5 years 03/01/2022 H1N1 2009 Influenza, IM 07/28/2009 Pneumococcal Conjugate Vacci ne, 20-valent ([id number]) 01/25/2022 Pneumococcal Polysaccharide PPV23 (Pneumovax) 07/20/2020,04/01/2009 Seasonal Influenza, PF, 6 M & above, IM , (FluLaval or Fluzone) 01/17/2020,12/24/2018,12/21/2017,03/10 Seasonal Influenza, Quadriva lent Hd (Fluzone Hd) 12/21/2022,01/25/2022,12/30/2020 Seasonal Influenza, Quadriva lent, No Preserve, IM 03/02/2016 Seasonal Influenza, Split, I IV3, With Preserve, Inj 04/15/2014,03/08/2013,02/23/2012,02/07,02/04/2010 TDAP (age 10 and older)(Boostrix) 07/20/2020 TDAP (age 11 and older)(Adacel) 02/04/2010 Varicella Zoster Vaccine (Adult) 03/10/2017 documented as of this encounter Social History Tobacco Use Types Packs/Day Years Used Date Smoking Tobacco: Never Smokeless Tobacco: Never Alcohol Use Standard Drinks/Week Comments No 0 (1 standard drink = 0.6 oz pur e alcohol) PHQ-2 Answer Date Recorded PHQ-2 Score 2 04/12/2019 Hunger Vital Sign Answer Date Recorded Worried About Running Out of Food in the Last Ye ar Never true 11/02/2018 Ran Out of Food in the Last Year Never true 11/02/2018 Sex and Gender Information Value Date Recorded Sex Assigned at Female 11/02/2018 3:27 PM EDT Gender Identity Female 11/02/2018 3:27 PM EDT Sexual Orientation Straight 11/02/2018 3: 27 PM EDT Job Start Date Occupation Industry Not on file Not on file Not on file documented as of this encounter Miscellaneous Notes * Telephone Encounter - Nell Bojorquez LPN - 04/28/2023 2:32 PM EST Care Gaps Comprehensive Care Outreach Last Office/Telemedicine Visit: 03/08/2023 (in office), 08/29/2019 (telemedicine) Next Office Visit: 10/04/2023 Hemoglobin AIC Results: Lab Results Component Value Date/Time HEMOGLOBIN A1C - [facility] 7.4 (H) 03/06/2023 11:30 AM HEMOGLOBIN A1C - [facility] 6.8 (H) 08/03/2022 10:56 AM HEMOGLOBIN A1C - [facility] 6.8 (H) 01/14/2022 11:15 AM HEMOGLOBIN A1C - [facility] 6.8 (H) 01/15/2020 11:40 AM HEMOGLOBIN A1C - [facility] 7.3 (H) 08/26/2019 11:27 AM BP Readings from Last 1 Encounters: 04/06/23 135/72 Reviewed Health Maintenance below: Health Maintenance Topic Date Due Hepatitis B (1 of 3 - Risk 3-dose series) Never done Zoster Vaccines (2 of 3) 05/05/2017 Depression Screening 04/12/2020 COVID-19 Vaccine ( season) 2023 Diabetic Eye Exam 05/02/2023 DXA Scan 05/26/2023 Albumin/Creatinine Ratio 08/04/2023 B-12 08/04/2023 HbA1c 09/05/2023 Awv scheduled Eye nittany eye requested Dexa may scheduled Labs summer add b12 Care Gap Outreach Action Taken: Spoke to patient documented in this encounter Plan of Treatment Upcoming Encounters Date Type Department Care Team (Late st Contact Info) Description 05/18/2023 2:00 PM EST Office Visit Hematology/Oncology [facility] [address] [place] [address] Martha Elizabeth CRNP [address] [place] [address] 05/22/2023 2:00 PM EST Nurse Only Ancillary [facility] [address] [facility] [place] [address] Im, Nurse Annual Wellness [facility] [address] [facility] [place] [address] 07/31/2023 3:30 PM EDT Imaging Radiology, [address] [place] [address] 10/04/2023 10:20 AM EDT Office Visit Family Practice [facility] [address] [facility] [place] [address] Ozzie Ann, DO [address] [facility] [place] [address] 04/01/2024 10:00 AM EST Imaging Radiology [address] [facility] [place] [address] Scheduled Orders Name Type Priority Associated Diagnoses Orde r Schedule DEXA SCAN/BONE MINERAL AXIAL Medical Imaging Routine Osteoporosis Expected: 04/28/2023, Expires: 04/28/2024 VITAMIN B12 Lab Routine On longterm drug therapy Expected: 08/26/2023, Expires: 04/28/2024 Scheduled Procedures Name Priority Associated Diagnoses Date/Ti me COLONOSCOPY FLEXIBLE PROXIMA L DIAGNOSTIC Recall Family history of colon cancer History of breast cancer Health Maintenance Due Date Last Done Comments Hepatitis B (1 of 3 - Risk 3-dose series) 2015 Zoster Vaccines (2 of 3) 05/05/2017 03/10/2017 Depression Screening 04/12/2020 04/12/2019 COVID-19 Vaccine ( - 2022-24 season) 2023 12/24/2022, 03/01/2022, 10/08/2021, Additional history exists Diabetic Eye Exam 05/02/2023 05/02/2022, , 04/01/2020 DXA Scan 05/26/2023 05/25/2016, 02/22/2011 Albumin/Creatinine Ratio 08/04/2023 023, 07/21/2021, 05/22/2020 B-12 08/04/2023 08/03/2022, 01/13/2021 HbA1c 09/05/2023 03/06/2023, 07/25, 01/14/2022, Additional history exists GFR 03/06/2024 03/06/2023, 01/25, 08/03/2022, Additional history exists Diabetic Foot Exam 03/08/2024 03/08/2023, 09/24/2021 COLONOSCOPY-EVERY 5 YRS AGES 18-100 12/24/2024 12/25/2019, 12/25/2019, 11/27/2013, Additional history exists DTaP,Tdap,and Td Vaccines (3 - Td or Tdap) 07/20/2030 07/20/2020, 02/04/2010, 08/26/2004, Additional history exists Pneumococcal Vaccine: 65+ Years Completed 01/25/2022, 07/20/2020, 04/01/2009 Influenza Vaccine (FLU shot) Completed , 01/25/2022, 01/25/2022, Additional history exists GARDASIL-HPV IMMUNIZATION SERIES Aged Out No longer eligible based on patient's age to complete this topic MENINGOCOCCAL (MENACTRA/MENVEO) Aged Out No longer eligible based on patient's age to complete this topic documented as of this encounter Medical Devices Implanted Type Area Business Services Manager Device Identifier Shelf Expiration Date Model / Serial / Lot Cpx 4 Med Height Paint Pourer Implanted:Qty: 1 on 04/13/2016 by César Oro MD at OR [facility] Right: Breast MENTOR KEE 04/13/2016 [id number] / [id number] / [id number] Breast Implant Smooth Round Moderate Profile Implanted:Qty: 1 on 11/15/2016 by César Oro MD at OR [facility] [employer]ERGAN 05/05/2021 [facility]-685 / [id number] / [id number] Port Power Mri W/8fr Cath - [id number] Implanted:Qty: 1 on 04/04/2018 by Janis Brito MD at OR [facility] Left: Chest CR BARD : PERIPHERAL VASCULAR 04/26/2019 [id number] / / [id number] Description:left subclavian documented as of this encounter Visit Diagnoses Diagnosis Osteoporosis- Primary Osteoporosis, unspecified On longterm drug therapy documented in this encounter Advance Directives Latest Code Status on File Code Status Date Activated Date Inactivated Comments Full Code 10/19/2022 7:58 AM 10/19/2022 4:37 PM This order reflects the patients wishes and were consensually agreed upon. Question Answer Comments Discussion of Advance Directives occurred with: Patient Does the patient have a Living Will? No Does the patient have Health Care Power of Breakfast Bar Attendant? No Code Status History Code Status Date Activated Date Inactivated Comments Full Code 11/15/2016 8:29 AM 11/16/2016 3:18 PM Question Answer Comments Discussion of Advance Directives occurred with: Not Discussed Full Code 04/13/2016 10:29 AM 04/15/2016 4:08 PM This order reflects the patients wishes and were consensually agreed upon. Care Teams Port Captain Relationship Specialty Start Date End Date Ozzie Ann DO [address] [facility], [place] [address] PCP - General Family Medicine 09/09/16 documented as of this encounter
--- OUTSIDE RECORDS SUMMARY | 2023-05-19 23:40 | External Medical Summary ---
Author Name Unknown Address Unknown Organization K09:[facility] [address] [place] [address] Laboratory Report Ordering Provider Test Date Status SCOTT ZUÑIGA 05/15/2023 14:53:04 Final Observation Date Value Abnormality Reference (Units ) Status BUN 05/15/2023 14:53:04 23 Above high normal 6-20 (mg/dL) Final Creatinine 05/15/2023 14:53:04 0.8 0.5-1.0 (mg/dL) Final Glomerular filtration rate/1.73 sq M.predicted [Volume Rate/Area] in Serum, Plasma or Blood by Creatinine-based formula (CKD-EPI) 05/15/2023 14:53:04 78 >=60 (mL/min) Final eGFR is calculated based on the CKD-EPI 2020 equation SODIUM 05/15/2023 14:53:04 139 135-146 (m mol/L) Final Potassium 05/15/2023 14:53:04 3.8 3.5-5.1 (m mol/L) Final Cl 05/15/2023 14:53:04 102 98-107 (mm ol/L) Final CO2 05/15/2023 14:53:04 25 22-32 (mmo l/L) Final Anion gap 05/15/2023 14:53:04 12 7-15 (mmol /L) Final Glucose 05/15/2023 14:53:04 132 Above high normal 70 -120 (mg/dL) Final Albumin 05/15/2023 14:53:04 4.2 3.8-5.0 (g /dL) Final AST (Aspartate aminotransferase) 05/15/2023 14:53:04 20 10-35 (U/L) Fin al Alk Phos 05/15/2023 14:53:04 106 35-130 (U/ L) Final Bilirubin, Total 05/15/2023 14:53:04 0.3 <=1 .2 (mg/dL) Final Calcium 05/15/2023 14:53:04 10.0 8.4-10.2 ( mg/dL) Final Protein 05/15/2023 14:53:04 6.8 6.0-8.3 (g /dL) Final ALT (Alanine aminotransferase) 05/15/2023 14:53:04 18 10-35 (U/L) Qasim dunn Performing Location [facility] [address] [place] [address]
--- OUTSIDE RECORDS SUMMARY | 2023-05-19 23:40 | External Medical Summary | Summary of Care ---
Author Name Unknown Organization [facility] Address [address] [place] [facility] [place] [address] Phone [phone] Care Team Providers Care Planner Scheduler Name Role Phone Ozzie Ann DO Primary Care Provider [phone] Encounter Details Date Type Department Care Team (Late st Contact Info) Description 05/02/2023 Orders Only Family Practice [facility] [address] [place] [address] Ozzie Ann DO [address] [place] [address] Allergies Active Allergy Reactions Criticality Noted Date Comments [place] Oil High 01/30/2019 Other reaction(s): STOMACH UPSET It is not corn oil--- Just plain [place] Ham High 02/13/2019 Other reaction(s): STOMACH UPSET Clopidogrel Bisulfate Rash 04/22/2009 Rash on Plavix-per Dr. Eldridge documented as of this encounter (statuses as of 05/02/2023) Medications Medication Sig Dispensed Refills Start Date [...] , and Monday only. evenings 0 Active Vubiquity Ultra 2 w/Device KitIndications:Diabetes mellitus without complication [...] Oral Tablet (Norvasc)Indications:HTN, goal below 140/90,History of [place] (myocardial infarction),Acute ST elevation myocardial infarction (STEMI) of anterolateral wall (HCC),Coronary artery disease involving [place] heart without angina pectoris, unspecified vessel or lesion type Take 1 Tablet by mouth in the morning and 1 Tablet before bedtime. 180 Tablet 3 3 Active Amitriptyline HCl 25 MG Oral Tablet (Elavil)Indications:Anxie ty state Take 1 Tablet by mouth at bedtime. 90 Tablet 3 3 Active OneTouch Ultra In Vitro Strip [...] mg per tab)Indications:HTN, goal below 140/90,History of [place] (myocardial infarction) Take 1 Tablet by mouth [...] (HCC),HTN, goal below 140/90,Coronary artery disease involving [place] heart without angina pectoris, unspecified vessel or lesion type,Acute ST elevation myocardial infarction (STEMI) of anterolateral wall (HCC) Take 1 Tablet by mouth in the morning. 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 History of breast cancer 01/31/2019 Pure hypercholesterolemia 12/21/2017 History of [place] (myocardial infarction) 03/10/2017 Transient global amnesia 03/02/2016 HTN, goal below 140/90 12/16/2005 DIFFUS CYSTIC MASTOPATHY 10/10/2001 FIBROMYALGIA 04/04/1997 documented as of this encounter (statuses as of 05/02/2023) Resolved Problems Problem Noted Date Diagnosed Date [...] 05/29/2018:Stage IIA(cT2, cN0, cM0, G2, ER: Negative, MD: Negative, HER2: Positive) - Signed by Jamil Marques MD on 05/29/2018 Overview: 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 Goiter 06/06/2002 01/20/2021 PREMENSTRUAL TENSION 04/04/1997 019 documented as of this encounter (statuses as of 05/02/2023) Immunizations Name Administration Dates Next Due COVID-19 mRNA, LNP-s, No Pre serve, 2-Dose Series (Moderna) 12/24/2022,01/22/2021,06/01/2020,04/28 COVID-19, mRNA, LNP-s, PF, B ooster, 100mcg/0.5mg (Moderna) 10/08/2021 COVID-19, mRNA, LNR-S, Bival ent, PF, 10mcg/0.2 ml (Moderna) 6m to 5 years 03/01/2022 H1N1 2009 Influenza, IM 07/28/2009 Pneumococcal Conjugate Vacci ne, 20-valent ([id number]) 01/25/2022 Pneumococcal Polysaccharide PPV23 (Pneumovax) 07/20/2020,04/01/2009 Seasonal [...] on file documented as of this encounter Plan of Treatment Upcoming Encounters Date Type Department Care Team (Late st Contact Info) Description 05/18/2023 2:00 PM EST Office Visit Hematology/Oncology [facility] 200 [facility] [place] [address] Martha Elizabeth CRNP [address] [facility] [place] [address] 05/22/2023 2:00 PM EST Nurse Only Ancillary [facility] [address] [place] [address] Im, Nurse Annual Wellness [facility] [address] [place] [address] 07/31/2023 3:30 PM EDT Imaging Radiology[address] [place] [address] 10/04/2023 10:20 AM EDT Office Visit Family Practice [facility] [address] [place] [address] Ozzie Ann, DO [address] [facility] [place] [address] 04/01/2024 10:00 AM EST Imaging Radiology [address] [facility] [place] [address] Scheduled Procedures Name Priority Associated Diagnoses Date/Ti me COLONOSCOPY FLEXIBLE PROXIMA L DIAGNOSTIC Recall Family history of colon cancer History of breast cancer Health Maintenance Due Date Last Done Comments Hepatitis B (1 of 3 - Risk 3-dose series) 2015 Zoster Vaccines (2 of 3) 05/05/2017 03/10/2017 Depression Screening 04/12/2020 04/12/2019 COVID-19 Vaccine ( - season) 2023 12/24/2022, 03/01/2022, 10/08/2021, Additional history exists DXA Scan 05/26/2023 05/25/2016, 02/22/2011 Albumin/Creatinine Ratio 08/04/2023 023, 07/21/2021, 05/22/2020 B-12 08/04/2023 08/03/2022, 01/13/2021 HbA1c 09/05/2023 03/06/2023, 07/25, 01/14/2022, Additional history exists GFR 03/06/2024 03/06/2023, 01/25, 08/03/2022, Additional history exists Diabetic Foot Exam 03/08/2024 03/08/2023, 09/24/2021 Diabetic Eye Exam 05/02/2024 05/02/2022, , 04/29/2021, Additional history exists COLONOSCOPY-EVERY 5 YRS AGES 18-100 12/24/2024 12/25/2019, [...] this encounter Medical Devices Implanted Type Area Human Relations Professor Device Identifier Shelf Expiration Date Model / Serial / Lot Cpx 4 Med Height Pari Mutuel Ticket Cashier Implanted:Qty: 1 on 04/13/2016 by César Oro MD at OR [facility] Right: Breast MENTOR KEE 04/13/2016 [id number] / [id number] / [id number] Breast Implant Smooth Round Moderate Profile Implanted:Qty: 1 on 11/15/2016 by César Oro MD at OR [facility] [employer]ERGAN 05/05/2021 [id number]-685 / [id number] / [id number] Port Power Mri W/8fr Cath - [id number] Implanted:Qty: 1 on 04/04/2018 by Janis Brito MD at OR [facility] Left: Chest CR BARD : PERIPHERAL VASCULAR 04/26/2019 [id number] / / [id number] Description:left subclavian documented as of this encounter Procedures Procedure Name Priority Date/Time Associated Diagnosis Comments DIABETIC EYE EXAM Routine 05/02/2022 documented in this encounter Results * DIABETIC EYE EXAM (05/02/2022) 05/02/2022 Cassidy Ioana Pedro PADILLA OTHER OUTSIDE LAB (SEE SCANNED REPORT) documented in this encounter Advance Directives Latest Code Status on File Code Status Date Activated Date Inactivated Comments Full Code 10/19/2022 7:58 AM 10/19/2022 4:37 PM This order reflects the patients wishes and were consensually agreed upon. Question Answer Comments Discussion of Advance Directives occurred with: Patient Does the patient have a Living Will? No Does the patient have Health Care Power of Feather Separator? No Code Status History Code Status Date Activated Date Inactivated Comments Full Code 11/15/2016 8:29 AM 11/16/2016 3:18 PM Question Answer Comments Discussion of Advance Directives occurred with: Not Discussed Full Code 04/13/2016 10:29 AM 04/15/2016 4:08 PM This order reflects the patients wishes and were consensually agreed upon. Care Teams Planner Scheduler Relationship Specialty Start Date End Date Ozzie Ann DO [address] [facility] [place] [address] PCP - General Family Medicine 09/09/16 documented as of this encounter
--- OUTSIDE RECORDS SUMMARY | 2023-05-19 23:40 | External Medical Summary | Summary of Care ---
Author Name Unknown Organization [facility] Address [address] [place] [address] Phone [phone] Care Team Providers Care Neighborhood Planner Name Role Phone Seth Ozzie Chang DO Primary Care Provider [phone] Reason for Visit * Reason Comments Outpatient Testing Encounter Details Date Type Department Care Team (Late st Contact Info) Description 05/15/2023 2:40 PM EST Laboratory Laboratory [facility] [address] [place] [address] [facility] [address] [place] [address] History of breast cancer Allergies Active Allergy Reactions Criticality Noted Date Comments [place] Oil High 01/30/2019 Other reaction(s): STOMACH UPSET It is not corn oil--- Just plain [place] Ham High 02/13/2019 Other reaction(s): STOMACH UPSET Clopidogrel Bisulfate Rash 04/22/2009 Rash on Plavix-per Dr. Eldridge documented as of this encounter (statuses as of 05/15/2023) Medications Medication Sig Dispensed Refills Start Date [...] Oral Tablet (Norvasc)Indications:HTN, goal below 140/90,History of [place] (myocardial infarction),Acute ST elevation myocardial infarction (STEMI) of anterolateral wall (HCC),Coronary artery disease involving cowl[place] heart without angina pectoris, unspecified vessel or [...] mg per tab)Indications:HTN, goal below 140/90,History of [place] (myocardial infarction) Take 1 Tablet by mouth [...] (HCC),HTN, goal below 140/90,Coronary artery disease involving cowl[place] heart without angina pectoris, unspecified vessel or lesion type,Acute ST elevation myocardial infarction (STEMI) of anterolateral wall (HCC) Take 1 Tablet by mouth in the morning. 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 History of breast cancer 01/31/2019 Pure hypercholesterolemia 12/21/2017 History of [place] (myocardial infarction) 03/10/2017 Transient global amnesia 03/02/2016 HTN, goal below 140/90 12/16/2005 DIFFUS CYSTIC MASTOPATHY 10/10/2001 FIBROMYALGIA 04/04/1997 documented as of this encounter (statuses as of 05/15/2023) Resolved Problems Problem Noted Date Diagnosed Date [...] 05/29/2018:Stage IIA(cT2, cN0, cM0, G2, ER: Negative, SD: Negative, HER2: Positive) - Signed by Jamil Marques MD on 05/29/2018 Overview: 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 Goiter 06/06/2002 01/20/2021 PREMENSTRUAL TENSION 04/04/1997 019 documented as of this encounter (statuses as of 05/15/2023) Immunizations Name Administration Dates Next Due COVID-19 mRNA, LNP-s, No Pre serve, 2-Dose Series (Moderna) 12/24/2022,01/22/2021,06/01/2020,04/28 COVID-19, mRNA, LNP-s, PF, B ooster, 100mcg/0.5mg (Moderna) 10/08/2021 COVID-19, mRNA, LNR-S, Bival ent, PF, 10mcg/0.2 ml (Moderna) 6m to 5 years 03/01/2022 H1N1 2009 Influenza, IM 07/28/2009 Pneumococcal Conjugate Vacci ne, 20-valent ([id number]) 01/25/2022 Pneumococcal Polysaccharide PPV23 (Pneumovax) 07/20/2020,04/01/2009 Seasonal [...] 05/18/2023 2:00 PM EST Office Visit Hematology/Oncology [facility] [address] [place] [phone] Martha Elizabeth CRNP [address] [place] [address] [place] [address] 05/22/2023 2:00 PM EST Nurse Only Ancillary [facility] [address] [place] [address] Im, Nurse Annual Wellness [facility] [address] [place] [address] 07/31/2023 3:30 PM EDT Imaging Radiology[address] [place] [address] 10/04/2023 10:20 AM EDT Office Visit Family Practice [facility] Sabrina [place] [address] [place] [address] Ozzie Ann, [address] [facility] [place] [address] 04/01/2024 10:00 AM EST Imaging Radiology [address] [facility] [place] [address] Pending Results Name Type Priority Associated Diagnoses Date /Time COMPREHENSIVE METABOLIC PANEL Lab STAT History of breast cancer 05/15/2023 2:53 PM EST Scheduled Procedures Name Priority Associated Diagnoses Date/Ti me COLONOSCOPY FLEXIBLE PROXIMA L DIAGNOSTIC Recall Family history of colon cancer History of breast cancer Health Maintenance Due Date Last Done Comments Zoster Vaccines (2 of 3) 05/05/2017 03/10/2017 Depression Screening 04/12/2020 04/12/2019 COVID-19 Vaccine ( season) 2023 12/24/2022, 03/01/2022, 10/08/2021, Additional history exists Diabetic Eye Exam 05/02/2023 05/02/2022, , 04/29/2021, Additional history exists DXA Scan 05/26/2023 05/25/2016, [...] on patient's age to complete this topic Hepatitis B Aged Out No longer eligi ble based on patient's age to complete this topic MENINGOCOCCAL (MENACTRA/MENVEO) Aged Out No longer eligible based on patient's age to complete this topic documented as of this encounter Medical Devices Implanted Type Area Liner Helper Device Identifier Shelf Expiration Date Model / Serial / Lot Graft Allomax 1.0 8x16cm - [id number] - [id number] Implanted:Qty: 1 on 04/13/2016 by César Oro MD at OR [facility] Right: Breast CR BARD : DAVOL 04/13/2016 [id number] / [id number] / [id number] Cpx 4 Med Height American History Teacher Implanted:Qty: 1 on 04/13/2016 by César Oro MD at OR [facility] Right: Breast MENTOR KEE 04/13/2016 [id number] / [id number] / [id number] Breast Implant Smooth Round Moderate Profile Implanted:Qty: 1 on 11/15/2016 by César Oro MD at OR [facility] ALLERGAN 05/05/2021 [id number] / [id number] / [id number] Port Power Mri W/8fr Cath - [id number] Implanted:Qty: 1 on 04/04/2018 by Janis Brito MD at OR [facility] Left: Chest CR BARD : PERIPHERAL VASCULAR 04/26/2019 [id number] / / [id number] Description:left subclavian documented as of this encounter Procedures Procedure Name Priority Date/Time Associated Diagnosis Comments DIFFERENTIAL, AUTOMATED STAT 05/15/2023 2:53 PM EST History of breast cancer CBC STAT 05/15/2023 2:53 PM EST History of breast cancer CBC STAT 05/15/2023 2:53 PM EST History of breast cancer documented in this encounter Results * DIFFERENTIAL, AUTOMATED (05/15/2023 2:53 PM EST) WBC 7.79 4.00 - 10.80 K/uL 05/15/2023 2:58 PM EST [facility] 56-02 Neutrophils % 64.6 40.0 - 75.0 % 05/15/2023 2:58 PM EST [facility] 56-02 Lymphocytes % 24.8 18.0 - 42.0 % 05/15/2023 2:58 PM EST [facility] 56-02 Monocytes % 6.3 1.0 - 11.0 % 05/15/2023 2:58 PM EST [facility] 56-02 Eosinophils % 4.0 0.0 - 6.0 % 05/15/2023 2:58 PM EST [facility] 56-02 Basophils % 0.3 0.0 - 2.0 % 05/15/2023 2:58 PM EST [facility] 56-02 Absolute Neutrophils 5.04 1.80 - 7.70 K/uL 05/15/2023 2:58 PM EST [facility] 56-02 Absolute Lymphocytes 1.93 1.00 - 4.80 K/ul 05/15/2023 2:58 PM EST [facility] 56-02 Absolute Monocytes 0.49 0.00 - 1.10 K/uL 05/15/2023 2:58 PM EST [facility] 56- Absolute Eosinophils 0.31 0.00 - 0.70 K/uL 05/15/2023 2:58 PM [facility] 56-02 Absolute Basophils 0.02 0.00 - 0.20 K/uL 05/15/2023 2:58 PM [facility] 56- Blood Venous blood specimen / Unknown Venipuncture / Unknown 05/15/2023 2:53 PM EST 05/15/2023 2:53 PM EST Martha CM LAB BLOOD ORDER CIRO [facility] [address]- [address] [place] [address] * CBC (05/15/2023 2:53 PM EST) [facility] WBC 7.79 4.00 - 10.80 K/uL 05/15/2023 2:58 PM EST [facility] 56-02 RBC 4.85 3.85 - 5.15 M/uL 05/15/2023 2:58 PM [facility] 56-02 HGB 13.4 12.0 - 15.3 g/dL 05/15/2023 2:58 PM [facility] 56- HCT 42.4 36.0 - 45.2 % 05/15/2023 2:58 PM EST [facility] 56- MCV 87.4 81.5 - 97.5 fL 05/15/2023 2:58 PM EST [facility] 56-02 MCH 27.6 27.0 - 34.0 pg 05/15/2023 2:58 PM EST [facility] 56-02 MCHC 31.6 32.0 - 36.0 g/dL 05/15/2023 2:58 PM EST [facility] 56- RDW 13.9 11.5 - 15.5 % 05/15/2023 2:58 PM EST [facility] 56- PLT 240 140 - 400 K/uL 05/15/2023 2:58 PM [facility] 56- MPV 8.6 6.6 - 11.1 fL 05/15/2023 2:58 PM EST [facility] 56-02 Blood Venous blood specimen / Unknown Venipuncture / Unknown 05/15/2023 2:53 PM EST 05/15/2023 2:53 PM EST Martha CM LAB BLOOD ORDER CIRO [facility] [address] [place] [address] documented in this encounter Visit Diagnoses Diagnosis History of breast cancer Personal history of malignant neoplasm of breast documented in this encounter Advance Directives Latest Code Status on File Code Status Date Activated Date Inactivated Comments Full Code 10/19/2022 7:58 AM 10/19/2022 4:37 PM This order reflects the patients wishes and were consensually agreed upon. Question Answer Comments Discussion of Advance Directives occurred with: Patient Does the patient have a Living Will? No Does the patient have Health Care Power of Yard Loader Operator? No Code Status History Code Status Date Activated Date Inactivated Comments Full Code 11/15/2016 8:29 AM 11/16/2016 3:18 PM Question Answer Comments Discussion of Advance Directives occurred with: Not Discussed Full Code 04/13/2016 10:29 AM 04/15/2016 4:08 PM This order reflects the patients wishes and were consensually agreed upon. Care Teams Neighborhood Planner Relationship Specialty Start Date End Date Ozzie Ann DO [address] [place] [address] PCP - General Family Medicine 09/09/16 documented as of this encounter
--- OUTSIDE RECORDS SUMMARY | 2023-05-19 23:40 | External Medical Summary | Summary of Care ---
Author Name Unknown Organization [facility] Address [address] [facility] [address] Phone [phone] Care Team Providers Care Engineering Aid Name Role Phone Ozzie Ann DO Primary Care Provider [phone] Encounter Details Date Type Department Care Team (Late st Contact Info) Description 05/16/2023 Orders Only Family Practice [facility] [address] [place] [address] Ozzie Ann DO [address] [place] [address] Allergies Active Allergy Reactions Criticality Noted Date Comments [place] Oil High 01/30/2019 Other reaction(s): STOMACH UPSET It is not corn oil--- Just plain [place] Ham High 02/13/2019 Other reaction(s): STOMACH UPSET Clopidogrel Bisulfate Rash 04/22/2009 Rash on Plavix-per Dr. Eldridge documented as of this encounter (statuses as of 05/16/2023) Medications Medication Sig Dispensed Refills Start Date [...] , and Monday only. evenings 0 Active [employer] Ultra 2 w/Device KitIndications:Diabetes mellitus without complication [...] Oral Tablet (Norvasc)Indications:HTN, goal below 140/90,History of [place] (myocardial infarction),Acute ST elevation myocardial infarction (STEMI) of anterolateral wall (HCC),Coronary artery disease involving lummi heart without angina pectoris, unspecified vessel or [...] mg per tab)Indications:HTN, goal below 140/90,History of [place] (myocardial infarction) Take 1 Tablet by mouth [...] (HCC),HTN, goal below 140/90,Coronary artery disease involving lummi heart without angina pectoris, unspecified vessel or lesion type,Acute ST elevation myocardial infarction (STEMI) of anterolateral wall (HCC) Take 1 Tablet by mouth in the morning. 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 History of breast cancer 01/31/2019 Pure hypercholesterolemia 12/21/2017 History of [place] (myocardial infarction) 03/10/2017 Transient global amnesia 03/02/2016 HTN, goal below 140/90 12/16/2005 DIFFUS CYSTIC MASTOPATHY 10/10/2001 FIBROMYALGIA 04/04/1997 documented as of this encounter (statuses as of 05/16/2023) Resolved Problems Problem Noted Date Diagnosed Date [...] 05/29/2018:Stage IIA(cT2, cN0, cM0, G2, ER: Negative, [place]: Negative, HER2: Positive) - Signed by Jamil Marques MD on 05/29/2018 Overview: 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 Goiter 06/06/2002 01/20/2021 PREMENSTRUAL TENSION 04/04/1997 019 documented as of this encounter (statuses as of 05/16/2023) Immunizations Name Administration Dates Next Due COVID-19 mRNA, LNP-s, No Pre serve, 2-Dose Series (Moderna) 12/24/2022,01/22/2021,06/01/2020,04/28 COVID-19, mRNA, LNP-s, PF, B ooster, 100mcg/0.5mg (Moderna) 10/08/2021 COVID-19, mRNA, LNR-S, Bival ent, PF, 10mcg/0.2 ml (Moderna) 6m to 5 years 03/01/2022 H1N1 2009 Influenza, IM 07/28/2009 Pneumococcal Conjugate Vacci ne, 20-valent ([id number]) 01/25/2022 Pneumococcal Polysaccharide PPV23 (Pneumovax) 07/20/2020,04/01/2009 Seasonal [...] 05/18/2023 2:00 PM EST Office Visit Hematology/Oncology [facility] [address] [place] [phone] Martha Elizabeth CRNP [address] [facility] [place] [address] 05/22/2023 2:00 PM EST Nurse Only Ancillary [facility] [address] [place] [address] Im, Nurse Annual Wellness [facility] [address] [place] [address] 07/31/2023 3:30 PM EDT Imaging Radiology[address] [place] [address] 10/04/2023 10:20 AM EDT Office Visit Family Practice [facility] [address] [place] [address] Ozzie Ann, DO [address] [place] [address] 04/01/2024 10:00 AM EST Imaging Radiology [address] 132 [facility] [place] [address] Scheduled Procedures Name Priority Associated Diagnoses Date/Ti me COLONOSCOPY FLEXIBLE PROXIMA L DIAGNOSTIC Recall Family history of colon cancer History of breast cancer Health Maintenance Due Date Last Done Comments Zoster Vaccines (2 of 3) 05/05/2017 03/10/2017 Depression Screening 04/12/2020 04/12/2019 COVID-19 Vaccine ( - 2022- season) 2023 12/24/2022, 03/01/2022, 10/08/2021, Additional history exists DXA Scan 05/26/2023 05/25/2016, 02/22/2011 Albumin/Creatinine Ratio 08/04/2023 023, 07/21/2021, 05/22/2020 B-12 08/04/2023 08/03/2022, 01/13/2021 HbA1c 09/05/2023 03/06/2023, 07/25, 01/14/2022, Additional history exists Diabetic Foot Exam 03/08/2024 03/08/2023, 09/24/2021 Diabetic Eye Exam 05/04/2024 05/04/2023, , 05/02/2022, Additional history exists GFR 05/15/2024 05/15/2023, 02/24, 02/07/2023, Additional history exists COLONOSCOPY-EVERY 5 YRS AGES [...] this encounter Medical Devices Implanted Type Area Straw Hat Brim Cutter Operator Device Identifier Shelf Expiration Date Model / Serial / Lot Graft Allomax 1.0 8x16cm - [id number] - [id number] Implanted:Qty: 1 on 04/13/2016 by César Oro MD at OR [facility] Right: Breast CR BARD : DAVOL 04/13/2016 [id number] / [id number] / [id number] Cpx 4 Med Height Section Maintainer Implanted:Qty: 1 on 04/13/2016 by César Oro MD at OR [facility] Right: Breast MENTOR KEE 04/13/2016 [id number] / [id number] / [id number] Breast Implant Smooth Round Moderate Profile Implanted:Qty: 1 on 11/15/2016 by César Oro MD at OR [facility] ALLERGAN 05/05/2021 SRM-685 / [id number] / [id number] Port Power Mri W/8fr Cath - [id number] Implanted:Qty: 1 on 04/04/2018 by Janis Brito MD at OR [facility] Left: Chest CR BARD : PERIPHERAL VASCULAR 04/26/2019 [id number] / / [id number] Description:left subclavian documented as of this encounter Procedures Procedure Name Priority Date/Time Associated Diagnosis Comments DIABETIC EYE EXAM Routine 05/04/2023 documented in this encounter Results * DIABETIC EYE EXAM (05/04/2023) 05/04/2023 Cassidy Ioana Vasquez OD OTHER OUTSIDE LAB (SEE SCANNED REPORT) documented [...] the patient have Health Care Power of Senior Sas Developer? No Code Status History Code Status Date Activated Date Inactivated Comments Full Code 11/15/2016 8:29 AM 11/16/2016 3:18 PM Question Answer Comments Discussion of Advance Directives occurred with: Not Discussed Full Code 04/13/2016 10:29 AM 04/15/2016 4:08 PM This order reflects the patients wishes and were consensually agreed upon. Care Teams Engineering Aid Relationship Specialty Start Date End Date Ozzie Ann DO [address] [place] [address] PCP - General Family Medicine 09/09/16 documented as of this encounter
--- OUTSIDE RECORDS SUMMARY | 2023-05-19 23:40 | External Medical Summary | Summary of Care ---
Author Name Unknown Organization [facility] Address [address] [place] [address] Phone [phone] Care Team Providers Care Dental Hygiene Teacher Name Role Phone GoodOzzie tellez Primary Care Provider [phone] Encounter Details Date Type Department Care Team (Late st Contact Info) Description 04/06/2023 Population Health External Data Unspecified Department Allergies Active Allergy Reactions Criticality Noted Date Comments [place] Oil High 01/30/2019 Other reaction(s): STOMACH UPSET It is not corn oil--- Just plain [place] Ham High 02/13/2019 Other reaction(s): STOMACH UPSET Clopidogrel Bisulfate Rash 04/22/2009 Rash on Plavix-per Dr. Eldridge documented as of this encounter (statuses as of 04/10/2023) Medications Medication Sig Dispensed Refills Start Date [...] , and Monday only. evenings 0 Active [employer] Ultra 2 w/Device KitIndications:Diabetes mellitus without complication (HCC) Use to check blood sugar once daily. 1 Kit 0 2 Active Vitamin D3 50 MCG (1999 [place]) Oral Capsule Take 1 Capsule by [...] Oral Tablet (Norvasc)Indications:HTN, goal below 140/90,History of [place] (myocardial infarction),Acute ST elevation myocardial infarction (STEMI) of anterolateral wall (HCC),Coronary artery disease involving [place]sp[place] heart without angina pectoris, unspecified vessel or lesion type Take 1 Tablet by mouth in the morning and 1 Tablet before bedtime. 180 Tablet 3 3 Active Amitriptyline HCl 25 MG Oral Tablet (Elavil)Indications:Anxie ty state Take 1 Tablet by mouth at bedtime. 90 Tablet 3 3 Active [employer] Ultra In Vitro Strip (Glucose Blood)Indications:Diabete s mellitus without complication (HCC) Use to test blood sugar once daily 100 Strip 3 3 Active Property[employer]Touch Delica Lancets 33GIndications:Diabetes mellitus without complication (HCC) Use to check blood sugar once daily. 100 Each 3 3 Active Atorvastatin Calcium 40 MG Oral Tablet (Lipitor)Indications:Card iomyopathy, unspecified type (HCC),Pure hypercholesterolemia Take 1 Tablet by mouth in the morning. 90 Tablet 3 3 Active Entresto 24-26 MG Oral Tablet (sacubitril-valsartan 24-26 mg per tab)Indications:HTN, goal below 140/90,History of [place] (myocardial infarction) Take 1 Tablet by mouth [...] (HCC),HTN, goal below 140/90,Coronary artery disease involving [place]-sparks heart without angina pectoris, unspecified vessel or lesion type,Acute ST elevation myocardial infarction (STEMI) of anterolateral wall (HCC) Take 1 Tablet by mouth in the morning. 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 03/03/2016 ACUTE ANTEROLATERAL MYOCARDI AL INFARCTION- 03/31/2009 04/01/2009 03/10/2017 ADVANCE DIRECTIVE INFORMATION 08/27/2008 03/10/2017 Overview: No, Advance Directive brochure given to patient. Goiter 06/06/2002 01/20/2021 PREMENSTRUAL TENSION 04/04/1997 019 documented as of this encounter (statuses as of 04/10/2023) Immunizations Name Administration Dates Next Due COVID-19 mRNA, LNP-s, No Pre serve, 2-Dose Series (Moderna) 12/24/2022,01/22/2021,06/01/2020,04/28 COVID-19, mRNA, LNP-s, PF, B ooster, 100mcg/0.5mg (Moderna) 10/08/2021 COVID-19, mRNA, LNR-S, Bival ent, PF, 10mcg/0.2 ml (Moderna) 6m to 5 years 03/01/2022 H1N1 2009 Influenza, IM 07/28/2009 Pneumococcal Conjugate Vacci ne, 20-valent ([id number]) 01/25/2022 Pneumococcal Polysaccharide PPV23 (Pneumovax) 07/20/2020,04/01/2009 Seasonal [...] 05/18/2023 2:00 PM EST Office Visit Hematology/Oncology [facility] [address] [facility] [place] [address] Martha Elizabeth CRNP [address] [facility] [place] [address] 10/04/2023 10:20 AM EDT Office Visit Family Practice [facility] [address] [facility] [place] [address] Ozzie Ann, [address] [facility] [place] [address] 04/01/2024 10:00 AM EST Imaging Radiology [address] 132 [facility] [place] [address] Scheduled Procedures Name Priority Associated Diagnoses Date/Ti me COLONOSCOPY FLEXIBLE PROXIMA L DIAGNOSTIC Recall Family history of colon cancer History of breast cancer Health Maintenance Due Date Last Done Comments Hepatitis B (1 of 3 - Risk 3-dose series) 2015 Zoster Vaccines (2 of 3) 05/05/2017 03/10/2017 Depression Screening 04/12/2020 04/12/2019 Diabetic Eye Exam 04/01/2021 04/01/2020 COVID-19 Vaccine ( season) 2023 12/24/2022, 03/01/2022, [...] this encounter Medical Devices Implanted Type Area Optimization Engineer Device Identifier Shelf Expiration Date Model / Serial / Lot Cpx 4 Med Height Tender Labor Implanted:Qty: 1 on 04/13/2016 by César Oro MD at [place] [facility] Right: Breast MENTOR KEE 04/13/2016 [id number] / [id number] / [id number] Breast Implant Smooth Round Moderate Profile Implanted:Qty: 1 on 11/15/2016 by César Oro MD at [place] [facility] ALLERGAN 05/05/2021 SRM-685 / [id number] / [id number] Port Power Mri W/8fr Cath - [id number] Implanted:Qty: 1 on 04/04/2018 by Janis Brito MD at OR [facility] Left: Chest CR BARD : PERIPHERAL VASCULAR 04/26/2019 [id number] / / [id number] Description:left subclavian documented as of this encounter Advance Directives Latest Code Status on File Code Status Date Activated Date Inactivated Comments Full Code 10/19/2022 7:58 AM 10/19/2022 4:37 PM This order reflects the patients wishes and were consensually agreed upon. Question Answer Comments Discussion of Advance Directives occurred with: Patient Does the patient have a Living Will? No Does the patient have Health Care Power of Bridge Crane Operator? No Code Status History Code Status Date Activated Date Inactivated Comments Full Code 11/15/2016 8:29 AM 11/16/2016 3:18 PM Question Answer Comments Discussion of Advance Directives occurred with: Not Discussed Full Code 04/13/2016 10:29 AM 04/15/2016 4:08 PM This order reflects the patients wishes and were consensually agreed upon. Care Teams Dental Hygiene Teacher Relationship Specialty Start Date End Date Ozzie Ann DO [address] [place] [address] PCP - General Family Medicine 09/09/16 documented as of this encounter
--- OUTSIDE RECORDS SUMMARY | 2023-05-19 23:40 | External Medical Summary | Summary of Care ---
Author Name Unknown Organization [facility] Address [address] [place] [address] Phone [phone] Care Team Providers Care Signal System Testing Maintainer Name Role Phone Ozzie Ann DO Primary Care Provider [phone] Reason for Visit * Reason Onset Date Comments Advice 04/14/2023 Encounter Details Date Type Department Care Team (Late st Contact Info) Description 04/14/2023 Telephone Family Practice [facility] [address] [place] [address] Ozzie Ann DO [address] [place] [address] Advice Allergies Active Allergy Reactions Criticality Noted Date Comments [place] Oil High 01/30/2019 Other reaction(s): STOMACH UPSET It is not corn oil--- Just plain [place] Ham High 02/13/2019 Other reaction(s): STOMACH UPSET Clopidogrel Bisulfate Rash 04/22/2009 Rash on Plavix-per Dr. Eldridge documented as of this encounter (statuses as of 04/14/2023) Medications Medication Sig Dispensed Refills Start Date [...] Oral Tablet (Norvasc)Indications:HTN, goal below 140/90,History of [place] (myocardial infarction),Acute ST elevation myocardial infarction (STEMI) of anterolateral wall (HCC),Coronary artery disease involving lime heart without angina pectoris, unspecified vessel or [...] mg per tab)Indications:HTN, goal below 140/90,History of [place] (myocardial infarction) Take 1 Tablet by mouth [...] (HCC),HTN, goal below 140/90,Coronary artery disease involving lime heart without angina pectoris, unspecified vessel or lesion type,Acute ST elevation myocardial infarction (STEMI) of anterolateral wall (HCC) Take 1 Tablet by mouth in the morning. 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 History of breast cancer 01/31/2019 Pure hypercholesterolemia 12/21/2017 History of [place] (myocardial infarction) 03/10/2017 Transient global amnesia 03/02/2016 HTN, goal below 140/90 12/16/2005 DIFFUS CYSTIC MASTOPATHY 10/10/2001 FIBROMYALGIA 04/04/1997 documented as of this encounter (statuses as of 04/14/2023) Resolved Problems Problem Noted Date Diagnosed Date [...] 05/29/2018:Stage IIA(cT2, cN0, cM0, G2, ER: Negative, [place]: Negative, HER2: Positive) - Signed by Jamil Marques MD on 05/29/2018 Overview: 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 Goiter 06/06/2002 01/20/2021 PREMENSTRUAL TENSION 04/04/1997 019 documented as of this encounter (statuses as of 04/14/2023) Immunizations Name Administration Dates Next Due COVID-19 mRNA, LNP-s, No Pre serve, 2-Dose Series (Moderna) 12/24/2022,01/22/2021,06/01/2020,04/28 COVID-19, mRNA, LNP-s, PF, B ooster, 100mcg/0.5mg (Moderna) 10/08/2021 COVID-19, mRNA, LNR-S, Bival ent, PF, 10mcg/0.2 ml (Moderna) 6m to 5 years 03/01/2022 H1N1 2009 Influenza, IM 07/28/2009 Pneumococcal Conjugate Vacci ne, 20-valent ([id number]) 01/25/2022 Pneumococcal Polysaccharide PPV23 (Pneumovax) 07/20/2020,04/01/2009 Seasonal [...] encounter Miscellaneous Notes * Telephone Encounter - Nadine Posada LPN - 04/14/2023 2:22 PM EST Patient called. Informed of message. Verbalized understanding. * Telephone Encounter - Ozzie Ann DO - 04/14/2023 11:48 AM EST Please call Saloni - if she does not feel very sick I would not recommend putting her on Paxlovid. Ihope she is all better soon. * Telephone Encounter - Charu Narayanan LPN - 04/14/2023 11:34 AM EST FYI * Telephone Encounter - Ajay Aragon OSA - 04/14/2023 11:14 AM EST Patient called into to inform her pcp that she has tested positive for covid. She isn't feeling sick just was being informative. Please follow up with the patient. documented in this encounter Plan of Treatment Upcoming Encounters Date Type Department Care Team (Late st Contact Info) Description 05/18/2023 2:00 PM EST Office Visit Hematology/Oncology [facility] [address] [facility] [place] [address] Martha Elizabeth CRNP [address] [facility] [place] [address] 10/04/2023 10:20 AM EDT Office Visit Family Practice [facility] [place] [address] [facility] [place] [address] Ozzie Ann DO [address] [facility] [place] [address] 04/01/2024 10:00 AM EST Imaging Radiology [address], [place] [address] [facility] [place] [address] Scheduled Procedures Name Priority Associated Diagnoses Date/Ti [...] this encounter Medical Devices Implanted Type Area Life Assurance Representative Device Identifier Shelf Expiration Date Model / Serial / Lot Cpx 4 Med Height Director Multimedia Implanted:Qty: 1 on 04/13/2016 by César Oro MD at [place] [facility] [place] Right: Breast MENTOR KEE 04/13/2016 [id number] / [id number] / [id number] Breast Implant Smooth Round Moderate Profile Implanted:Qty: 1 on 11/15/2016 by César Oro MD at [facility] [place] 05/05/2021 [id number]-685 / [id number] / [id number] Port Power Mri W/8fr Cath - [id number] Implanted:Qty: 1 on 04/04/2018 by Janis Brito MD at OR [facility] Left: Chest CR BARD : PERIPHERAL VASCULAR 04/26/2019 [id number] / / [id number] Description:left subclavian documented as of this encounter [...] the patient have Health Care Power of Channel Marketing Specialist? No Code Status History Code Status Date Activated Date Inactivated Comments Full Code 11/15/2016 8:29 AM 11/16/2016 3:18 PM Question Answer Comments Discussion of Advance Directives occurred with: Not Discussed Full Code 04/13/2016 10:29 AM 04/15/2016 4:08 PM This order reflects the patients wishes and were consensually agreed upon. Care Teams Signal System Testing Maintainer Relationship Specialty Start Date End Date Ozzie Ann DO [address] [place] [address] PCP - General Family Medicine 09/09/16 documented as of this encounter
--- OUTSIDE RECORDS SUMMARY | 2023-05-19 23:40 | External Medical Summary ---
Author Name Unknown Address Unknown Organization K09:[facility] [place] [address] Laboratory Report Ordering Provider Test Date Status SCOTT ZUÑIGA 05/15/2023 14:53:04 Final Observation Date Value Abnormality Reference (Units ) Status SYNC LEUKOCYTES IN BLOOD BY AUTOMATED COUNT 05/15/2023 14:53:04 7.79 4.00-10.80 (K/uL) Final Segs 05/15/2023 14:53:04 64.6 40.0-75.0 (%) Final Lymphs % 05/15/2023 14:53:04 24.8 18.0-42.0 (%) Final Monos 05/15/2023 14:53:04 6.3 1.0-11.0 (%) Final Eosinophils 05/15/2023 14:53:04 4.0 0.0-6.0 (%) Final Basos 05/15/2023 14:53:04 0.3 0.0-2.0 (%) Final Absolute Segs 05/15/2023 14:53:04 5.04 1.80-7.70 (K/uL) Final Lymphs, absolute 05/15/2023 14:53:04 1.93 1.00-4.80 (K/ul) Final Monos, Abs 05/15/2023 14:53:04 0.49 0.00-1.10 (K/uL) Final Eos, Abs 05/15/2023 14:53:04 0.31 0.00-0.70 (K/uL) Final Basos, Abs 05/15/2023 14:53:04 0.02 0.00-0.20 (K/uL) Final Performing Location [facility] [address]
--- OUTSIDE RECORDS SUMMARY | 2023-05-19 23:40 | External Medical Summary | Summary of Care ---
Author Name Unknown Organization [facility] Address [address] [place] [address] Phone [phone] Care Team Providers Care Automotive General Sales Manager Name Role Phone LoriOzzie bryson Primary Care Provider [phone] Encounter Details Date Type Department Care Team (Late st Contact Info) Description 05/16/2023 Population Health External Data Unspecified Department Allergies Active Allergy Reactions Criticality Noted Date Comments [place] Oil High 01/30/2019 Other reaction(s): STOMACH UPSET It is not corn oil--- Just plain [place] Ham High 02/13/2019 Other reaction(s): STOMACH UPSET Clopidogrel Bisulfate Rash 04/22/2009 Rash on Plavix-per Dr. Eldridge documented as of this encounter (statuses as of 05/17/2023) Medications Medication Sig Dispensed Refills Start Date [...] , and Monday only. evenings 0 Active [employer] Corporationuch Ultra 2 w/Device KitIndications:Diabetes mellitus without complication [...] Oral Tablet (Norvasc)Indications:HTN, goal below 140/90,History of [place] (myocardial infarction),Acute ST elevation myocardial infarction (STEMI) of anterolateral wall (HCC),Coronary artery disease involving [place] heart without angina pectoris, unspecified vessel or lesion type Take 1 Tablet by mouth in the morning and 1 Tablet before bedtime. 180 Tablet 3 3 Active Amitriptyline HCl 25 MG Oral Tablet (Elavil)Indications:Anxie ty state Take 1 Tablet by mouth at bedtime. 90 Tablet 3 3 Active Mapidy Ultra In Vitro Strip (Glucose Blood)Indications:Diabete s mellitus without complication (HCC) Use to test blood sugar once daily 100 Strip 3 3 Active [place]60.comTouch Delica Lancets 33GIndications:Diabetes mellitus without complication (HCC) Use to check blood sugar once daily. 100 Each 3 3 Active Atorvastatin Calcium 40 MG Oral Tablet (Lipitor)Indications:Card iomyopathy, unspecified type (HCC),Pure hypercholesterolemia Take 1 Tablet by mouth in the morning. 90 Tablet 3 3 Active Entresto 24-26 MG Oral Tablet (sacubitril-valsartan 24-26 mg per tab)Indications:HTN, goal below 140/90,History of [place] (myocardial infarction) Take 1 Tablet by mouth [...] (HCC),HTN, goal below 140/90,Coronary artery disease involving [place] heart without angina pectoris, unspecified vessel or lesion type,Acute ST elevation myocardial infarction (STEMI) of anterolateral wall (HCC) Take 1 Tablet by mouth in the morning. 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 History of breast cancer 01/31/2019 Pure hypercholesterolemia 12/21/2017 History of [place] (myocardial infarction) 03/10/2017 Transient global amnesia 03/02/2016 HTN, goal below 140/90 12/16/2005 DIFFUS CYSTIC MASTOPATHY 10/10/2001 FIBROMYALGIA 04/04/1997 documented as of this encounter (statuses as of 05/17/2023) Resolved Problems Problem Noted Date Diagnosed Date [...] 05/29/2018:Stage IIA(cT2, cN0, cM0, G2, ER: Negative, [place]: Negative, HER2: Positive) - Signed by Jamil Marques MD on 05/29/2018 Overview: 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 Goiter 06/06/2002 01/20/2021 PREMENSTRUAL TENSION 04/04/1997 019 documented as of this encounter (statuses as of 05/17/2023) Immunizations Name Administration Dates Next Due COVID-19 mRNA, LNP-s, No Pre serve, 2-Dose Series (Moderna) 12/24/2022,01/22/2021,06/01/2020,04/28 COVID-19, mRNA, LNP-s, PF, B ooster, 100mcg/0.5mg (Moderna) 10/08/2021 COVID-19, mRNA, LNR-S, Bival ent, PF, 10mcg/0.2 ml (Moderna) 6m to 5 years 03/01/2022 H1N1 2009 Influenza, IM 07/28/2009 Pneumococcal Conjugate Vacci ne, 20-valent (Kpriirf70) 01/25/2022 Pneumococcal Polysaccharide PPV23 (Pneumovax) 07/20/2020,04/01/2009 Seasonal [...] 05/18/2023 2:00 PM EST Office Visit Hematology/Oncology [facility] [address] [facility] [place] [address] Martha Elizabeth CRNP [address] [facility] [place] [address] 05/22/2023 2:00 PM EST Nurse Only Ancillary [facility] [address] [place] [address] Im, Nurse Annual Wellness [facility] [address] [facility] [place] [address] 07/31/2023 3:30 PM EDT Imaging Radiology, [facility] [address] [facility] [place] [address] 10/04/2023 10:20 AM EDT Office Visit Family Practice [facility] [address] [place] [address] Ozzie Ann, DO [address] [facility] [place] [address] 04/01/2024 10:00 AM EST Imaging Radiology [address] [facility] [place] [address] Scheduled Procedures Name Priority Associated Diagnoses Date/Ti [...] this encounter Medical Devices Implanted Type Area Men'S Custom Hair Piece Consultant Device Identifier Shelf Expiration Date Model / Serial / Lot Graft Allomax 1.0 8x16cm - [id number] - [id number] Implanted:Qty: 1 [place] 04/13/2016 [place]ésar [place] [facility] [facility] [place]: Breast CR BARD : DAVOL 04/13/2016 [id number] / [id number] / [id number] Cpx 4 Med Height Acquisition Consultant Implanted:Qty: 1 on 04/13/2016 [place] César Oro [place] [facility] [place] [facility] [place]: Breast M[employer]OR KEE 04/13/2016 [id number] / [id number] / [id number] Breast Implant Smooth Round Moderate Profile Implanted:Qty: 1 on 11/15/2016 by César Oro [place] [facility] [place] [facility] [place] 05/05/2021 [facility]-685 / [id number] / [id number] Port Power Mri W/8fr Cath - [id number] Implanted:Qty: 1 on 04/04/2018 by Janis Brito MD at OR [facility] Left: Chest CR BARD : PERIPHERAL VASCULAR 04/26/2019 [id number] / / [id number] Description:left subclavian documented as of this encounter [...] the patient have Health Care Power of Mortgage Loan Processing Clerk? No Code Status History Code Status Date Activated Date Inactivated Comments Full Code 11/15/2016 8:29 AM 11/16/2016 3:18 PM Question Answer Comments Discussion of Advance Directives occurred with: Not Discussed Full Code 04/13/2016 10:29 AM 04/15/2016 4:08 PM This order reflects the patients wishes and were consensually agreed upon. Care Teams Automotive General Sales Manager Relationship Specialty Start Date End Date Ozzie Ann DO [address] [place] [address] PCP - General Family Medicine 09/09/16 documented as of this encounter
--- OUTSIDE RECORDS SUMMARY | 2023-05-19 23:41 | External Medical Summary | Summary of Care ---
Author Name Unknown Organization [facility] Address [address] [place] [address] Phone [phone] Care Team Providers Care Wafer Slicer Name Role Phone Seth Ozzie Chang DO Primary Care Provider [phone] Reason for Visit * Reason Comments Outpatient Testing Encounter Details Date Type Department Care Team (Latest Contact Info) Description 03/06/2023 11:30 AM EST Laboratory Laboratory [facility] [address] [place] [address] [facility] [place] [address] Type 2 diabetes mellitus with stage 3a chronic kidney disease, without long-term current use of insulin (HCC); Pure hypercholesterolemia Allergies Active Allergy Reactions Criticality Noted Date Comments [place] Oil High 01/30/2019 Other reaction(s): STOMACH UPSET It is not corn oil--- Just plain [place] Ham High 02/13/2019 Other reaction(s): STOMACH UPSET Clopidogrel Bisulfate Rash 04/22/2009 Rash on Plavix-per Dr. Eldridge documented as of this encounter (statuses as of 03/06/2023) Medications Medication Sig Dispensed Refills Start Date [...] affected area. 15 g 5 9 Active fluticasone (FLONASE) 50 MCG/ACT nasal spray Administer 2 Sprays into each nostril daily. opp hand 1 Bottle 11 9 Active Docusate Sodium 100 MG Oral [...] , and Monday only. evenings 0 Active [place] Ultra 2 w/Device KitIndications:Diabetes mellitus without complication (HCC) Use to check blood sugar once daily. 1 Kit 0 2 Active Vitamin D3 50 MCG (2000 UT) Oral Capsule Take 1 Capsule by mouth daily with dinner. 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),HTN, goal below 140/90,Coronary artery disease involving [place] heart without angina pectoris, unspecified vessel or lesion type,Acute ST elevation myocardial infarction (STEMI) of anterolateral wall (HCC) Take 1 Tablet by mouth in the morning. 90 Tablet 3 3 Active Benzonatate 100 MG Oral CapsuleIndications:Acute non-recurrent [...] Oral Tablet (Norvasc)Indications:HTN, goal below 140/90,History of [place] (myocardial infarction),Acute ST elevation myocardial infarction (STEMI) of anterolateral wall (HCC),Coronary artery disease involving [place] heart without angina pectoris, unspecified vessel or lesion type Take 1 Tablet by mouth in the morning and 1 Tablet before bedtime. 180 Tablet 3 3 Active metFORMIN HCl ER 500 MG Oral Tablet Extended Release 24 Hour (Glucophage XR)Indications:Diabetes mellitus without complication (HCC) Take 1 Tablet by mouth in the morning. 90 Tablet 1 3 Active Additional Information Patient taking differently:500 mg OralDINNER, Reported on 10/13/2022 Amitriptyline HCl 25 MG Oral Tablet (Elavil)Indications:Anxie ty state Take 1 Tablet by mouth at bedtime. 90 Tablet 3 3 Active ElepagoTouch Ultra In Vitro Strip (Glucose Blood)Indications:Diabete s mellitus without complication (HCC) Use to test blood sugar once daily 100 Strip 3 3 Active OneTouch Delica Lancets 33GIndications:Diabetes mellitus without complication (HCC) Use to check blood sugar once daily. 100 Each 3 3 Active HYDROmorphone HCl 2 MG Oral Tablet (Dilaudid) Take 1 Tablet by mouth every 4 hours as needed for Pain, Moderate. 5 Tablet 0 3 Active Atorvastatin Calcium 40 MG Oral Tablet (Lipitor)Indications:Card iomyopathy, unspecified type (HCC),Pure hypercholesterolemia Take 1 Tablet by mouth in the morning. 90 Tablet 3 3 Active Entresto 24-26 MG Oral Tablet (sacubitril-valsartan 24-26 mg per tab)Indications:HTN, goal below 140/90,History of [place] (myocardial infarction) Take 1 Tablet by mouth [...] of 225mg/day.. 90 Tablet 1 3 Active Sodium Hyaluronate 60 MG/3ML Intra-articular Prefilled Syringe (Durolane) Inject 60mg into the joint of right knee once 3 mL 0 3 Active documented as of this encounter (statuses as of 03/06/2023) Active Problems Problem Noted Date Diagnosed Date Acute ST elevation myocardia l infarction (STEMI) of anterolateral wall 08/08/2022 Heart failure 05/09/2022 Type 2 diabetes mellitus wit h stage 3a chronic kidney disease, without long-term current use of insulin 05/09/2022 Ischemic cardiomyopathy 05/09/2022 Gastroesophageal reflux dise ase with esophagitis without hemorrhage 04/02/2021 Anxiety state 01/20/2021 Chronic kidney disease, stage 3a 09/08/2020 Overview: Per CKD protocol Type 2 diabetes mellitus wit h stage 3a chronic kidney disease 08/04/2020 Overview: Per CKD protocol Diabetes mellitus without complication 0 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 History of breast cancer 01/31/2019 Pure hypercholesterolemia 12/21/2017 History of [place] (myocardial infarction) 03/10/2017 Transient global amnesia 03/02/2016 HTN, goal below 140/90 12/16/2005 DIFFUS CYSTIC MASTOPATHY 10/10/2001 FIBROMYALGIA 04/04/1997 documented as of this encounter (statuses as of 03/06/2023) Resolved Problems Problem Noted Date Diagnosed Date Resolved Date Type 2 diabetes mellitus wit h stage 3a chronic kidney disease, without long-term current use of insulin 04/02/2021 04/08/2021 ST elevation myocardial infarction (STEMI) 04/02/2021 09/16/2021 Overview: H/O Diabetes mellitus with stage 3 chronic kidney disease 02/03/2020 08/06/2020 Overview: Per CKD protocol Recurrent breast cancer, right 04/12/2019 01/25/2022 Gastroesophageal reflux dise ase without esophagitis 04/12/2019 01/25/2022 Malignant neoplasm of lower- outer quadrant of right breast of female, estrogen receptor negative 03/30/2018 09/16/2021 Cancer Staging:Clinical stage from 05/29/2018:Stage IIA(cT2, cN0, cM0, G2, ER: Negative, [place]: Negative, HER2: Positive) - Signed by Jamil Marques MD on 05/29/2018 Overview: H/O 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 Goiter 06/06/2002 01/20/2021 PREMENSTRUAL TENSION 04/04/1997 019 documented as of this encounter (statuses as of 03/06/2023) Immunizations Name Administration Dates Next Due COVID-19 mRNA, LNP-s, No Pre serve, 2-Dose Series (Moderna) 01/22/2021,06/01/2020,04/28/2020 COVID-19, mRNA, LNP-s, PF, B ooster, 100mcg/0.5mg (Moderna) 10/08/2021 H1N1 2009 Influenza, IM 07/28/2009 Pneumococcal Conjugate Vacci ne, 20-valent ([id number]) 01/25/2022 Pneumococcal Polysaccharide PPV23 (Pneumovax) 07/20/2020,04/01/2009 SEASONAL INFLUENZA, PF, 6 M & Above, IM , (FLULAVAL or FLUZONE) 01/17/2020,12/24/2018,12/21/2017,03/10 Seasonal Influenza, Quadriva lent Hd (Fluzone [...] Care Team (Late st Contact Info) Description 03/08/2023 10:00 AM EST Office Visit Family Practice [facility] [address] [place] [address] Ozzie Ann, DO [address] [facility] [place] [address] 03/13/2023 9:00 AM EST Imaging Radiology [facility] [address] [place] [address] 04/06/2023 10:00 AM EST Office Visit [facility] [address] [facility] [place] [address] Janis Brito MD [address] [facility] [place] [address] 05/18/2023 2:00 PM EST Office Visit Hematology/Oncology [address] [place] [address] [facility], [place] [address] Martha Elizabeth CRNP [address] [place] [address] Pending Results Name Type Priority Associated Diagnoses Date /Time HEMOGLOBIN A1C Lab Routine Type 2 diabetes mellitus with stage 3a chronic kidney disease, without long-term current use of insulin (HCC) 03/06/2023 11:30 AM EST COMPREHENSIVE METABOLIC PANEL Lab Routine Type 2 diabetes mellitus with stage 3a chronic kidney disease, without long-term current use of insulin (HCC) Pure hypercholesterolemia 03/06/2023 11:30 AM EST Scheduled Procedures Name Priority Associated Diagnoses Date/Ti me COLONOSCOPY FLEXIBLE PROXIMA L DIAGNOSTIC Recall Family history of colon cancer History of breast cancer Health Maintenance Due Date Last Done Comments Hepatitis B (1 of 3 - Risk 3-dose series) 2015 Zoster Vaccines (2 of 3) 05/05/2017 03/10/2017 Depression Screening 04/12/2020 04/12/2019 Diabetic Eye Exam 04/01/2021 04/01/2020 CKD PHOS USE SMARTSET 94270 01/13/2022 01/13/2021, 0 10/10/2019 Diabetic Foot Exam 09/24/2022 09/24/2021 COVID-19 Vaccine ( season) 2022 10/08/2021, 01/22/2021, 06/01/2020, Additional history exists HbA1c 02/03/2023 08/03/2022, 12/26, 07/21/2021, Additional history exists CKD HGB USE SMARTSET 59574 05/18/202305/18, 05/18/2022, 06/04/2021, Additional history exists DXA Scan 05/26/2023 05/25/2016, 02/22/2011 Albumin/Creatinine Ratio 08/04/2023 023, 07/21/2021, 05/22/2020 B-12 08/04/2023 08/03/2022, 01/13/2021 GFR 08/08/2023 02/07/2023, 07/25, 05/18/2022, Additional history exists COLONOSCOPY-EVERY 5 YRS AGES [...] this encounter Medical Devices Implanted Type Area Community Arts Officer Device Identifier Shelf Expiration Date Model / Serial / Lot Cpx 4 Med Height Lumber Scaler Implanted:Qty: 1 on 04/13/2016 by César Oro MD at OR [facility] Right: Breast MENTOR KEE 04/13/2016 [id number] / [id number] / [id number] Breast Implant Smooth Round Moderate Profile Implanted:Qty: 1 on 11/15/2016 by César Oro MD at OR [facility] ALLERGAN 05/05/2021 [id number] / [id number] / [id number] Port Power Mri W/8fr Cath - [id number] Implanted:Qty: 1 on 04/04/2018 by Janis Brito MD at OR [facility] Left: Chest CR BARD : PERIPHERAL VASCULAR 04/26/2019 [id number] / / [id number] Description:left subclavian documented as of this encounter Visit Diagnoses Diagnosis Type 2 diabetes mellitus with stage 3a chronic kidney disease, without long-term current use of insulin (HCC) Pure hypercholesterolemia documented in this encounter Advance Directives Latest Code Status on File Code Status Date Activated Date Inactivated Comments Full Code 10/19/2022 7:58 AM 10/19/2022 4:37 PM This order reflects the patients wishes and were consensually agreed upon. Question Answer Comments Discussion of Advance Directives occurred with: Patient Does the patient have a Living Will? No Does the patient have Health Care Power of Rolling Machine Operator Automatic? No Code Status History Code Status Date Activated Date Inactivated Comments Full Code 11/15/2016 8:29 AM 11/16/2016 3:18 PM Question Answer Comments Discussion of Advance Directives occurred with: Not Discussed Full Code 04/13/2016 10:29 AM 04/15/2016 4:08 PM This order reflects the patients wishes and were consensually agreed upon. Care Teams Wafer Slicer Relationship Specialty Start Date End Date Ozzie Ann DO [address] [place] [address] PCP - General Family Medicine 09/09/16 documented as of this encounter
--- OUTSIDE RECORDS SUMMARY | 2023-05-19 23:41 | External Medical Summary | Summary of Care ---
Author Name Unknown Organization [facility] Address [address] [place] [address] Phone [phone] Care Team Providers Care Podiatry Professor Name Role Phone Ozzie Ann DO Primary Care Provider [phone] Reason for Visit * Reason Comments Re-Check Encounter Details Date Type Department Care Team (Late st Contact Info) Description 03/08/2023 10:00 AM EST Office Visit [facility] [address] [place] [address] Ozzie Ann DO [address] [place] [address] Routine medical exam*; Pure hypercholesterolemia; Diabetes mellitus without complication (HCC); HTN, goal below 140/90; Gastroesophageal reflux disease with esophagitis without hemorrhage; Chronic heart failure, unspecified heart failure type (HCC) Allergies Active Allergy Reactions Criticality Noted Date Comments Fillmore Oil High 01/30/2019 Other reaction(s): STOMACH UPSET It is not corn oil--- Just plain Fillmore Ham High 02/13/2019 Other reaction(s): STOMACH UPSET Clopidogrel Bisulfate Rash 04/22/2009 Rash on Plavix-per Dr. Eldridge documented as of this encounter (statuses as of 03/08/2023) Medications Medication Sig Dispensed Refills Start Date End Date Status ASPIRIN EC 81 MG PO TBECIndications:Acute anterolateral myocardial infarction (HCC) Take by mouth at bedtime. 100 3 0 Active Cyanocobalamin (B-12) 100 MCG TABS Take by mouth 1 Tablet daily . 0 6 Active triamcinolone acetonide (ARISTOCORT) 0.1 % ointmentIndications:Foll iculitis Apply topically to affected area 2 times a day. To affected area. 15 g 5 9 Active Docusate Sodium 100 MG Oral Capsule Take 1 Capsule by mouth at bedtime. 0 Active Ventolin HFA 108 (90 Base) MCG/ACT Inhalation Aerosol SolutionIndications:Coug h Inhale 2 Puffs by mouth 4 times [...] , and Monday only. evenings 0 Active Revelation Ultra 2 w/Device KitIndications:Diabetes mellitus without complication (HCC) Use to check blood sugar once daily. 1 Kit 0 2 Active Vitamin D3 50 MCG (1999 UT) Oral Capsule Take 1 Capsule by mouth daily with dinner. 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 90 Capsule 3 3 Active Spironolactone 25 MG Oral Tablet (Aldactone)Indications:H TN, goal below 140/90 Take 0.5 Tablets by mouth once a day on Monday, Monday, and Monday only. 45 Tablet 3 3 Active amLODIPine Besylate 2.5 MG Oral Tablet (Norvasc)Indications:HTN , goal below 140/90,History of MA (myocardial infarction),Acute ST elevation myocardial infarction (STEMI) of anterolateral wall (HCC),Coronary artery disease involving [place] heart without angina pectoris, unspecified vessel or lesion type Take 1 Tablet by mouth in the morning and 1 Tablet before bedtime. 180 Tablet 3 3 Active Amitriptyline HCl 25 MG Oral Tablet (Elavil)Indications:Anxi ety state Take 1 Tablet by mouth at bedtime. 90 Tablet 3 3 Active OneTouch Ultra In Vitro Strip (Glucose Blood)Indications:Diabet es mellitus without complication (HCC) Use to test blood sugar once daily 100 Strip 3 3 Active OneTouch Delica Lancets 33GIndications:Diabetes mellitus without complication (HCC) Use to check blood sugar once daily. 100 Each 3 3 Active Atorvastatin Calcium 40 MG Oral Tablet (Lipitor)Indications:Car diomyopathy, unspecified type (HCC),Pure hypercholesterolemia Take 1 Tablet by mouth in the morning. 90 Tablet 3 3 Active Entresto 24-26 MG Oral Tablet (sacubitril-valsartan 24-26 mg per tab)Indications:HTN, goal below 140/90,History of MA (myocardial infarction) Take 1 Tablet by mouth in the morning and 1 Tablet before bedtime. 180 Tablet 3 3 Active Empagliflozin 10 MG Oral Tablet (Jardiance) Take 1 Tablet by mouth in the morning. 90 Tablet 3 3 Active busPIRone HCl 15 MG Oral Tablet (Buspar)Indications:Anxi ety state Take 1 Tablet by mouth in the morning and 1 Tablet before bedtime. 180 Tablet 1 3 Active Metoprolol Succinate ER 25 MG Oral Tablet Extended Release 24 Hour (Toprol XL) Take 1 Tablet by mouth in the morning. Take in addition to 200mg tablet for total dose of 225mg/day.. 90 Tablet 1 3 Active fluticasone (FLONASE) 50 MCG/ACT nasal spray Administer 2 Sprays into each nostril daily. opp hand 1 Bottle 11 9 023 Discontin ued(Patie nt preferenc e/discont inuation) metFORMIN HCl ER 500 MG Oral Tablet Extended Release 24 Hour (Glucophage XR)Indications:Diabetes mellitus without complication (HCC) Take 1 Tablet by mouth in the morning. 90 Tablet 1 3 023 Discontin ued(Patie nt preferenc e/discont inuation) HYDROmorphone HCl 2 MG Oral Tablet (Dilaudid) Take 1 Tablet by mouth every 4 hours as needed for Pain, Moderate. 5 Tablet 0 3 023 Discontin ued(Patie nt preferenc e/discont inuation) Sodium Hyaluronate 60 MG/3ML Intra-articular Prefilled Syringe (CinemaNow) Inject 60mg into the joint of right knee once 3 mL 0 3 023 Discontin ued(Patie nt preferenc e/discont inuation) documented as of this encounter (statuses as of 03/08/2023) Active Problems Problem Noted Date Diagnosed Date Acute ST elevation myocardia l infarction (STEMI) of anterolateral wall 08/08/2022 Heart failure 05/09/2022 Ischemic cardiomyopathy 05/09/2022 Gastroesophageal reflux dise ase with esophagitis without hemorrhage 04/02/2021 Anxiety state 01/20/2021 Diabetes mellitus without complication 0 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 History of breast cancer 01/31/2019 Pure hypercholesterolemia 12/21/2017 History of MA (myocardial infarction) 03/10/2017 Transient global amnesia 03/02/2016 HTN, goal below 140/90 12/16/2005 DIFFUS CYSTIC MASTOPATHY 10/10/2001 FIBROMYALGIA 04/04/1997 documented as of this encounter (statuses as of 03/08/2023) Resolved Problems Problem Noted Date Diagnosed Date [...] 05/29/2018:Stage IIA(cT2, cN0, cM0, G2, ER: Negative, [place]: Negative, HER2: Positive) - Signed by Jamil Marques MD on 05/29/2018 Overview: H/O 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 Goiter 06/06/2002 01/20/2021 PREMENSTRUAL TENSION 04/04/1997 019 documented as of this encounter (statuses as of 03/08/2023) Immunizations Name Administration Dates Next Due COVID-19 mRNA, LNP-s, No Pre serve, 2-Dose Series (Moderna) 12/24/2022,01/22/2021,06/01/2020,04/28 COVID-19, mRNA, LNP-s, PF, B ooster, 100mcg/0.5mg (Moderna) 10/08/2021 COVID-19, mRNA, LNR-S, Bival ent, PF, 10mcg/0.2 ml (Moderna) 6m to 5 years 03/01/2022 H1N1 2009 Influenza, IM 07/28/2009 Pneumococcal Conjugate Vacci ne, 20-valent ([id number]) 01/25/2022 Pneumococcal Polysaccharide PPV23 (Pneumovax) 07/20/2020,04/01/2009 Seasonal [...] Date Smoking Tobacco: Never Smokeless Tobacco: Never Tobacco Cessation:Counseling Given: Not Answered Alcohol Use Standard Drinks/Week Comments No 0 [...] on file documented as of this encounter Last Filed Vital Signs Vital Sign Reading Time Taken Comments Blood Pressure 103/68 03/08/2023 10:02 AM EST Pulse 78 03/08/2023 10:02 AM EST Temperature 36.5 C (97.7 F) 03/08/2023 10:[address] Respiratory Rate 16 03/08/2023 10:02 AM EST Oxygen Saturation - - Inhaled Oxygen Concentration - - Weight 94.8 kg (209 lb) 03/08/2023 10:02 AM EST Height - - Body Mass Index 31.78 10/19/2022 8:10 AM EDT documented in this encounter Patient Instructions * Patient Instructions* Adali Martin RN - 03/08/2023 10:19 AM EST Diabetes: Keeping Feet Healthy Inspect your feet every day for signs of a problem. Diabetes can damage nerves in your feet and cause neuropathy. This condition makes it hard for you to feel injuries or sore spots. Diabetes can also change blood flow, making it harder for small problems, like a blister, to heal properly. In fact, minor injuries can quickly become serious infections that send you to the hospital. Practice self-care to protect your feet and keep them healthy. Take Special Care Inspect your feet daily for problems such as redness, blisters, cracks, dry skin, or numbness. Use a mirror to see the bottoms of your feet. Or, ask for help. Manage your diabetes. Monitor and control your blood sugar. Take all your medications as prescribed. Avoid walking barefoot, even indoors. Wash your feet with warm water and mild soap. Dry well, especially between toes. Dont treat corns or calluses yourself. Talk to your doctor or product development (a doctor who specializes in foot care) if you need assistance trimming your toenails. Use moisturizing cream or lotion if you have dry skin, but dont use it between toes. Dont use heating pads on your feet. If you have neuropathy, you could get a burn and not feel it. Stop smoking. Smoking restricts blood flow and can make it harder for wounds to heal. Have Regular Checkups Foot problems can develop quickly. So be sure to follow your healthcare teams schedule for regular checkups. During office visits, take off your shoes and socks as soon as you get in the exam room. Ask your healthcare provider to examine your feet for problems. This will make it easier to find and treat small skin irritations before they get worse. Regular checkups can also help keep track of the blood flow and feeling in your feet. If you have neuropathy, you may need to have checkups more often. Wear Proper Footwear Wearing proper footwear is very important. If areas of your feet have been damaged by too much pressure, your healthcare provider may recommend changing your footwear. In some cases, avoiding high heels or tight work boots may be all thats needed. Or, your healthcare provider may recommend special shoes or custom inserts. These help protect your feet and keep existing irritations from getting worse. If you need special footwear, ask your healthcare provider if you qualify for [employer] diabetic shoe program. Make Sure Shoes and Socks Fit Any pair of shoes--new or old--should feel comfortable as soon as you put them on. There shouldnt be any rubbing when you walk. Wear the right shoe for any activity. For instance, a running shoe is designed to keep your feet injury-free while jogging. Buy shoes at the end of the day, when your feet are larger. Make sure they provide support without feeling too loose. Make sure your socks fit, t oo. Wear soft, seamless, well-padded socks for activity. Cotton or microfiber socks are best to help to absorb sweat. To protect your feet, avoid shoes that are open-toed or open-heeled. If you have questions about what kinds of shoes and socks are best, talk to your healthcare team. Get Regular Exercise Regular exercise improves blood flow in your feet. It also increases foot strength and flexibility.Gentle exercises, like walking or riding a stationary bicycle, are best. You can also do special foot exercises. Just be sure to talk with your healthcare provider before starting any exercise program. Also mention if any exercise causes pain, redness, or other signs of foot problems. Note: If you have any kind of break in the skin of your foot or ankle, keep the area clean. Then call your doctor--especially if the area doesnt appear to be healing. [id number] [employer], [address] [place] [address], [place] [address]. All rights reserved. This information is not intended as a substitute for professional medical care. Always follow your healthcare professional's instructions. documented in this encounter Progress Notes * Ozzie Ann, DO - 03/08/2023 10:24 AM EST Subjective: Saloni Pablo is a 67 year old female. Chief Complaint Patient presents with Re-Check HPI: Pt here for a physical. PMHx, PSHx, SHx, FHx, Medications, and Allergies fully reviewed Surgery went well, no complications. Some discomfort when she touches it. Not near as uncomfortableas when she had the implant. BP excellent today. Switched from Metformin to Jardiance and A1C up from 6.8 to 7.4. Not exercising as much because of her R knee. She did PT and an injection. IT helped but still not great. She is using [facility]. Considering knee replacment. They found grants for Entresto and Jardiance. We discussed options of higher JArdiance, adding back on MEtformin or working on diet. She does notthink she had side effects on MEtformin. Wants to work on diet for now. She saw her numbers creeping up once she stopped exercising as much. Diet discussed. Planning to see the eye doctor soon. Flu shot done in late November. IT swelled some and got red with itchiness. Went away after weeks.Still some itch. Held off on shingles and RSV shot. 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 100 3 Cyanocobalamin (B-12) 100 MCG TABS Take by mouth 1 Tablet daily . triamcinolone acetonide (ARISTOCORT) 0.1 % ointment Apply topically to affected area 2 times a day.To affected area. 15 g 5 Docusate Sodium 100 MG Oral Capsule Take 1 Capsule by mouth at bedtime. Ventolin HFA 108 (90 Base) MCG/ACT Inhalation Aerosol Solution Inhale 2 Puffs by mouth 4 times a day as needed for Wheezing. 18 g 1 Nitroglycerin 0.4 MG Sublingual Tablet Sublingual (Nitrostat) One tablet under tongue if needed forchest pain. May repeat 3 times. If chest pain continues, call 911 (Patient not taking: Reported on 11/23/2022) 25 Tablet 11 Iron-Vitamin C 65-125 MG Oral Tablet Take 1 Tablet by mouth once a day on Monday, , and Monday only. evenings OneTouch Ultra 2 w/Device Kit Use to check blood sugar once daily. 1 Kit 0 Vitamin D3 50 MCG (1999 UT) Oral Capsule Take 1 Capsule by mouth daily with dinner. Metoprolol Succinate ER 200 MG Oral Tablet Extended Release 24 Hour Take 1 Tablet by mouth in the morning. 90 Tablet 3 Benzonatate 100 MG Oral Capsule Take 1 Capsule by mouth 3 times a day as needed for Cough. 30 Capsule 1 Omeprazole 20 MG Oral Capsule Delayed Release (PriLOSEC) Take 1 Capsule by mouth in the morning. 90Capsule 3 Spironolactone 25 MG Oral Tablet (Aldactone) Take 0.5 Tablets by mouth once a day on Monday, Monday, and Monday only. 45 Tablet 3 amLODIPine Besylate 2.5 MG Oral Tablet (Norvasc) Take 1 Tablet by mouth in the morning and 1 Tabletbefore bedtime. 180 Tablet 3 Amitriptyline HCl 25 MG Oral Tablet (Elavil) Take 1 Tablet by mouth at bedtime. 90 Tablet 3 CHORDTouch Ultra In Vitro Strip (Glucose Blood) Use to test blood sugar once daily 100 Strip 3 Rated Peopleuch Delica Lancets 33G Use to check blood sugar once daily. 100 Each 3 Atorvastatin Calcium 40 MG Oral Tablet (Lipitor) Take 1 Tablet by mouth in the morning. 90 Tablet 3 Entresto 24-26 MG Oral Tablet (sacubitril-valsartan 24-26 mg per tab) Take 1 Tablet by mouth in themorning and 1 Tablet before bedtime. 180 Tablet 3 Empagliflozin 10 MG Oral Tablet (Jardiance) Take 1 Tablet by mouth in the morning. 90 Tablet 3 busPIRone HCl 15 MG Oral Tablet (Buspar) Take 1 Tablet by mouth in the morning and 1 Tablet before bedtime. 180 Tablet 1 Metoprolol Succinate ER 25 MG Oral Tablet Extended Release 24 Hour (Toprol XL) Take 1 Tablet by mouth in the morning. Take in addition to 200mg tablet for total dose of 225mg/day.. 90 Tablet 1 No current facility-administered medications for this visit. Review of patient's allergies indicates: Allergen Reactions Fillmore Oil Other reaction(s): STOMACH UPSET It is not corn oil--- Just plain Fillmore Ham Other reaction(s): STOMACH UPSET Plavix [Clopidogrel Bisulfate] Rash Rash on Plavix-per Dr. Eldridge OBJECTIVE: BP 103/68 | Pulse 78 | Temp 36.5 C (97.7 F) | Resp 16 | Wt 94.8 kg (209 lb) | LMP 12/23/2000 | BMI 31.78 kg/m | BSA 2.13 m Estimated body mass index is 31.78 kg/m as calculated from the following: Height as of 10/19/22: 1.727 m (5' 8"). Weight as of this encounter: 94.8 kg (209 lb). BP Readings from Last 3 Encounters: 03/08/23 103/68 11/23/22 100/66 10/19/22 102/61 Wt Readings from Last 3 Encounters: 03/08/23 94.8 kg (209 lb) 11/23/22 95.4 kg (210 lb 6.4 oz) 10/19/22 95.3 kg (210 lb) ROS: General: No change in weight, No weakness, No fatigue and No fevers, sweats, or chills Head: No significant headache and No recent significant head injury Eyes: No recent significant change in vision, No eye pain, redness, discharge, or excessive tearing, No diplopia and No h/o cataracts or glaucoma Ears: No recent change in hearing, No tinnitus or vertigo, No ear pain and No ear discharge Nose: No h/o frequent colds or sinusitis, No nasal stuffiness, No h/o hay fever and No significant epistaxis Throat/Oropharynx: No teeth or gum problems, No bleeding gums, No tongue complaints, No sore throatand No recent change in voice or hoarseness Neck: No complaint of lumps in neck, No swollen glands, No recent swelling in thyroid area and No significant pain in neck Breast: No new breast lumps, No severe breast pain, No nipple discharge, No recent change in shape/contor and Patient does perform monthly self breast exam Respiratory: No cough, sputum, or hemoptysis, No wheezing, No shortness of breath and No recent change in breathing Cardiac: No chest pain, No shortness of breath, No dyspnea on exertion, No orthopnea, No paroxysmalnocturnal dyspnea, No edema, No palpitations and No syncope Gastrointestinal: Some occasional nausea Urinary: No urinary frequency, No dysuria, No hematuria, No urinary urgency, No polyuria, No nocturia, No incontinence, No hesitancy and No sensation of incomplete voiding Musculoskeletal: No joint pain or stiffness, No arthritis, No backache, No muscle pains or cramps and No joint swelling Hematologic: No anemia, No easy bruising or abnormal bleeding and No history of transfusion Neurologic: No fainting or blackouts, No seizures, No paralysis or focal weakness, No numbness or tingling, No tremors and No significant problems with memory PHYSICAL EXAM: General: alert, healthy and no distress Head: Normocephalic, No masses, lesions, tenderness or abnormalities Ears: External ears normal, Canals clear, TM's Normal Nose: no mucosal erythema, no mucosal edema, no purulent discharge Oropharynx: no exudate, no erythema, lips, buccal mucosa, and tongue normal and mucous membranes are moist Neck: supple, no adenopathy, no bruits, thyroid normal size, non-tender, without nodularity Heart: regular rate & rhythm, no murmurs and no gallops Lungs: chest symmetric with normal AP diameter, no chest deformities noted, no chest wall tenderness, lungs clear to auscultation Abdomen: abdomen soft, non-tender, normal bowel sounds and no masses or organomegaly Extremities: less than 2 second capillary refill, no joint deformities, effusion, or inflammation ASSESSMENT/Plan Routine medical exam (Primary) Pure hypercholesterolemia - LIPID PANEL WITH DIRECT LDL IF TG IS HIGH; Future; Expected date: 09/07/2023 Diabetes mellitus without complication (HCC) - HEMOGLOBIN A1C; Future; Expected date: 09/07/2023 - DIABETES FOOT EXAM HTN, goal below 140/90 Gastroesophageal reflux disease with esophagitis without hemorrhage Chronic heart failure, unspecified heart failure type (HCC) I spent a total of 30 minutes on the date of service in preparation, delivery, and documentation ofthe care provided to this patient, excluding any time spent on the performance of any procedure or separately billable services. Dental and sun care discussed along with weight. Mirella is not doing as well as Metformin for her thus far. Will work on diet in the new year butif no progress by May range will consider more Jardiance, adding back Metformin or seeing a brush polisher. The above was discussed and understanding was expressed. Ozzie Ann DO * Adali Martin RN - 03/08/2023 10:02 AM EST Pt will schedule eye exam for early next year.Socks and Shoes Removed for Annual Diabetic Foot Screening RIGHT FOOT: No Reddened, Cracking, Or Open Areas Noted. RIGHT Dorsalis Pedis Pulse: Palpable RIGHT Posterior Tibial Pulse: Palpable RIGHT Monofilament:Patient reports feeling monofilament pressure on plantar surface of foot LEFT FOOT: No Reddened, Cracking or Open Areas Noted. LEFT Dorsalis Pedis Pulse: Palpable LEFT Posterior Tibial Pulse: Palpable LEFT Monofilament:Patient reports feeling monofilament pressure on plantar surface of foot documented in this encounter Plan of Treatment Upcoming Encounters Date Type Department Care Team (Late st Contact Info) Description 03/13/2023 9:00 AM EST Imaging Radiology [address], [address] [address] 04/06/2023 10:00 AM EST Office Visit General Surgery, [facility] [address] [place] [address] Janis Brito MD [address] [place] [address] 05/18/2023 2:00 PM EST Office Visit Hematology/Oncology [facility] [address] [place] [address] Martha Elizabeth CRNP [address] [facility] [place] [address] 10/04/2023 10:20 AM EDT Office Visit Family Practice [facility] [address] [place] [address] Ozzie Ann, [address] [facility] [place] [address] Scheduled Orders Name Type Priority Associated Diagnoses Orde r Schedule HEMOGLOBIN A1C Lab Routine Diabetes mellitus without complication (HCC) Expected: 09/07/2023 (Approximate), Expires: 03/08/2024 LIPID PANEL WITH DIRECT LDL IF TG IS HIGH Lab Routine Pure hypercholesterolemia Expected: 09/07/2023, Expires: 03/08/2024 Scheduled Procedures Name Priority Associated Diagnoses Date/Ti [...] this encounter Medical Devices Implanted Type Area [employer] [address] Stenographer Device Identifier Shelf Expiration Date Model / Serial / Lot Cpx 4 Med Height Manager School Implanted:Qty: 1 on 04/13/2016 by César Oro MD at [place] [facility] Right: Breast [employer] 04/13/2016 [id number] / [id number] / [id number] Breast Implant Smooth Round Moderate Profile Implanted:Qty: 1 on 11/15/2016 by César Oro MD at [place] [facility] [place] 05/05/2021 [id number]-[id number] / [id number] / [id number] Port Power Mri W/8fr Cath - [id number] Implanted:Qty: 1 on 04/04/2018 by Janis Brito MD at [facility] Left: Chest CR BARD : PERIPHERAL VASCULAR 04/26/2019 [id number] / / [id number] Description:left subclavian documented as of this encounter Visit Diagnoses Diagnosis Routine medical exam- Primary Routine general medical examination at a health care facility Pure hypercholesterolemia Diabetes mellitus without complication (HCC) Type II or unspecified type diabetes mellitus without mention of complication, not stated as uncontrolled HTN, goal below 140/90 Unspecified essential hypertension Gastroesophageal reflux disease with esophagitis without hemorrhage Chronic heart failure, unspecified heart failure type (HCC) documented in this encounter Advance Directives Latest Code Status on File Code Status Date Activated Date Inactivated Comments Full Code 10/19/2022 7:58 AM 10/19/2022 4:37 PM This order reflects the patients wishes and were consensually agreed upon. Question Answer Comments Discussion of Advance Directives occurred with: Patient Does the patient have a Living Will? No Does the patient have Health Care Power of Drawing In Hand? No Code Status History Code Status Date Activated Date Inactivated Comments Full Code 11/15/2016 8:29 AM 11/16/2016 3:18 PM Question Answer Comments Discussion of Advance Directives occurred with: Not Discussed Full Code 04/13/2016 10:29 AM 04/15/2016 4:08 PM This order reflects the patients wishes and were consensually agreed upon. Care Teams Podiatry Professor Relationship Specialty Start Date End Date Ozzie Ann DO [address] [place], [place] [address] [address] PCP - General Family Medicine 09/09/16 documented as of this encounter
--- OUTSIDE RECORDS SUMMARY | 2023-05-19 23:41 | External Medical Summary ---
Author Name Unknown Address Unknown Organization [id number]:[facility] [place] [address] Laboratory Report Ordering Provider Test Date Status MACRINA LANDRY 03/06/2023 11:30:50 Final Observation Date Value Abnormality Reference (Units ) Status BUN 03/06/2023 11:30:50 15 6-20 (mg/dL) Final Creatinine 03/06/2023 11:30:50 0.8 0.5-1.0 (mg/dL) Final Glomerular filtration rate/1.73 sq M.predicted [Volume Rate/Area] in Serum, Plasma or Blood by Creatinine-based formula (CKD-EPI) 03/06/2023 11:30:50 80 >=60 (mL/min) Final eGFR is calculated based on the CKD-EPI 2020 equation SODIUM 03/06/2023 11:30:50 142 135-146 (m mol/L) Final Potassium 03/06/2023 11:30:50 3.9 3.5-5.1 (m mol/L) Final Cl 03/06/2023 11:30:50 105 98-107 (mm ol/L) Final CO2 03/06/2023 11:30:50 25 22-32 (mmo l/L) Final Anion gap 03/06/2023 11:30:50 12 7-15 (mmol /L) Final Glucose 03/06/2023 11:30:50 110 70-120 (mg /dL) Final Albumin 03/06/2023 11:30:50 4.3 3.8-5.0 (g /dL) Final AST (Aspartate aminotransferase) 03/06/2023 11:30:50 24 10-35 (U/L) Final Alk Phos 03/06/2023 11:30:50 123 35-130 (U/ L) Final Bilirubin, Total 03/06/2023 11:30:50 0.3 <=1 .2 (mg/dL) Final Calcium 03/06/2023 11:30:50 9.1 8.4-10.2 ( mg/dL) Final Protein 03/06/2023 11:30:50 6.3 6.0-8.3 (g /dL) Final ALT (Alanine aminotransferase) 03/06/2023 11:30:50 35 10-35 (U/L) Final Performing Location [facility] [address] [place] [address]
--- OUTSIDE RECORDS SUMMARY | 2023-05-19 23:41 | External Medical Summary | Summary of Care ---
Author Name Unknown Organization [facility] Address [address] [place] [address] Phone [phone] Care Team Providers Care Truck Driver Helper Name Role Phone Seth Ozzie Chang DO Primary Care Provider [phone] Encounter Details Date Type Department Care Team ([facility] st Contact Info) Description 02/28/2023 Specialty Pharmacy [facility] [address] Refill, [address] [address] Allergies Active Allergy Reactions Criticality Noted Date Comments [place] Oil High 01/30/2019 Other reaction(s): STOMACH UPSET It is not corn oil--- Just plain [place] Ham High 02/13/2019 Other reaction(s): STOMACH UPSET Clopidogrel Bisulfate Rash 04/22/2009 Rash on Plavix-per Dr. Eldridge documented as of this encounter (statuses as of 02/28/2023) Medications Medication Sig Dispensed Refills Start Date [...] , and Monday only. evenings 0 Active Airborne Mobile Ultra 2 w/Device KitIndications:Diabetes mellitus without complication (HCC) Use to check blood sugar once daily. 1 Kit 0 2 Active Vitamin D3 50 MCG (2000 UT) Oral Capsule Take 1 Capsule by mouth daily with dinner. 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),HTN, goal below 140/90,Coronary artery disease involving [place] heart without angina pectoris, unspecified vessel or [...] Oral Tablet (Norvasc)Indications:HTN, goal below 140/90,History of [place] (myocardial infarction),Acute ST elevation myocardial infarction (STEMI) of anterolateral wall (HCC),Coronary artery disease involving [place] heart without angina pectoris, unspecified vessel or [...] at bedtime. 90 Tablet 3 3 Active 5skillsTouch Ultra In Vitro Strip (Glucose Blood)Indications:Diabete s [...] mg per tab)Indications:HTN, goal below 140/90,History of [place] (myocardial infarction) Take 1 Tablet by mouth [...] as of this encounter (statuses as of 02/28/2023) Active Problems Problem Noted Date Diagnosed Date [...] cancer 01/31/2019 Pure hypercholesterolemia 12/21/2017 History of [place] (myocardial infarction) 03/10/2017 Transient global amnesia 03/02/2016 HTN, goal below 140/90 12/16/2005 DIFFUS CYSTIC MASTOPATHY 10/10/2001 FIBROMYALGIA 04/04/1997 documented as of this encounter (statuses as of 02/28/2023) Resolved Problems Problem Noted Date Diagnosed Date [...] 05/29/2018:Stage IIA(cT2, cN0, cM0, G2, ER: Negative, NC: Negative, HER2: Positive) - Signed by Jamil Marques MD on 05/29/2018 Overview: H/O 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 Goiter 06/06/2002 01/20/2021 PREMENSTRUAL TENSION 04/04/1997 019 documented as of this encounter (statuses as of 02/28/2023) Immunizations Name Administration Dates Next Due COVID-19 mRNA, LNP-s, No Pre serve, 2-Dose Series (Moderna) 01/22/2021,06/01/2020,04/28/2020 COVID-19, mRNA, LNP-s, PF, B ooster, 100mcg/0.5mg (Moderna) 10/08/2021 H1N1 2009 Influenza, IM 07/28/2009 Pneumococcal Conjugate Vacci ne, 20-valent ([id number]) 01/25/2022 Pneumococcal Polysaccharide PPV23 (Pneumovax) 07/20/2020,04/01/2009 SEASONAL [...] on file documented as of this encounter Progress Notes * Mago Vo property insurance agent - 02/28/2023 4:09 PM EST Durolane is a one time fill to office Mago Vo fisheries technician [facility] specialty pharmacy 02/28/2023 4:09 PM documented in this encounter Plan of Treatment Upcoming Encounters Date Type Department Care Team (Late st Contact Info) Description 03/08/2023 10:00 AM EST Office Visit Family [facility] [address] [place] [address] Ozzie Ann, [address] [place] [address] 03/13/2023 9:00 AM EST Imaging Radiology [address] [facility] [place] [address] 04/06/2023 10:00 AM EST Office Visit General Surgery, [facility] [address] [place] [address] Janis Brito MD [address] [place] [address] 05/18/2023 2:00 PM EST Office Visit Hematology/Oncology [facility] [address] [place], [place] [address] Martha Elizabeth CRNP [address] [place] [address] Scheduled Procedures Name Priority Associated Diagnoses Date/Ti me COLONOSCOPY FLEXIBLE PROXIMA L DIAGNOSTIC Recall Family history of colon cancer History of breast cancer Health Maintenance Due Date Last Done Comments Hepatitis B (1 of 3 - Risk 3-dose series) 2015 Zoster Vaccines (2 of 3) 05/05/2017 03/10/2017 Depression Screening 04/12/2020 04/12/2019 Diabetic Eye Exam 04/01/2021 04/01/2020 CKD PHOS USE SMARTSET 26860 01/13/2022 01/13/2021, 0 10/10/2019 Diabetic Foot Exam 09/24/2022 09/24/2021 COVID-19 Vaccine ( season) 2022 10/08/2021, 01/22/2021, 06/01/2020, Additional history exists HbA1c 02/03/2023 08/03/2022, 12/26, 07/21/2021, Additional history exists CKD HGB USE SMARTSET 76812 05/18/202305/18, 05/18/2022, 06/04/2021, Additional history exists DXA [...] this encounter Medical Devices Implanted Type Area Aircraft Magneto Mechanic Device Identifier Shelf Expiration Date Model / Serial / Lot Cpx 4 Med Height Digital Sales Planner Implanted:Qty: 1 on 04/13/2016 by César Oro MD at [place] [facility] Right: Breast MENTOR KEE 04/13/2016 [id number] / [id number] / [id number] Breast Implant Smooth Round Moderate Profile Implanted:Qty: 1 on 11/15/2016 by César Oro MD at [facility] 05/05/2021 SRM-685 / [id number] / [id number] Port Power Mri W/8fr Cath - [id number] Implanted:Qty: 1 on 04/04/2018 by Janis Brito MD at OR [facility] Left: Chest CR BARD : PERIPHERAL VASCULAR 04/26/2019 [id number] / / [id number] Description:left subclavian documented as of this encounter [...] the patient have Health Care Power of Multimedia Designer? No Code Status History Code Status Date Activated Date Inactivated Comments Full Code 11/15/2016 8:29 AM 11/16/2016 3:18 PM Question Answer Comments Discussion of Advance Directives occurred with: Not Discussed Full Code 04/13/2016 10:29 AM 04/15/2016 4:08 PM This order reflects the patients wishes and were consensually agreed upon. Care Teams Truck Driver Helper Relationship Specialty Start Date End Date Ozzie Ann DO [address] [place] [address] PCP - General Family Medicine 09/09/16 documented as of this encounter
--- OUTSIDE RECORDS SUMMARY | 2023-05-19 23:41 | External Medical Summary ---
Author Name Unknown Address Unknown Organization K01:[facility] [place] [address] [facility] [address] Laboratory Report Ordering Provider Test Date Status MACRINA LANDRY 03/06/2023 11:30:50 Final Observation Date Value Abnormality Reference (Units ) Status HbA1C 03/06/2023 11:30:50 7.4 Above high normal 4. 0-5.6 (%) Final The use of HbA1c to monitor glycemic status is based on normal hemoglobin and HbA composition. This test should not be used in patients with abnormal hemoglobin that affects the half life of the red blood cell or the in vivo glycation rates. Glucose, estimated average 03/06/2023 11:30:50 166 Above high normal <126 (mg/dL) Qasim dunn Performing Location [facility] [place] [address] [facility] [address]
--- OUTSIDE RECORDS SUMMARY | 2023-05-19 23:41 | External Medical Summary | Summary of Care ---
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 Eldridge documented as of this encounter (statuses as of 03/29/2023) Medications Medication Sig Dispensed Refills Start Date [...] , and Monday only. evenings 0 Active Appcelerator Ultra 2 w/Device KitIndications:Diabetes mellitus without complication [...] Tablet (Norvasc)Indications:HTN , goal below 140/90,History of [place] (myocardial infarction),Acute ST elevation myocardial infarction (STEMI) of anterolateral wall (HCC),Coronary artery disease involving [place] heart without angina pectoris, unspecified vessel or [...] mg per tab)Indications:HTN, goal below 140/90,History of [place] (myocardial infarction) Take 1 Tablet by mouth [...] (HCC),HTN, goal below 140/90,Coronary artery disease involving [place] heart without angina pectoris, unspecified vessel or lesion type,Acute ST elevation myocardial infarction (STEMI) of anterolateral wall (HCC) Take 1 Tablet by mouth in the morning. 90 Tablet 3 4 Active Metoprolol Succinate ER 200 MG Oral Tablet Extended Release 24 HourIndications:Cardiomy opathy secondary to drug (HCC),HTN, goal below 140/90,Coronary artery disease involving [place] heart without angina pectoris, unspecified vessel or lesion type,Acute ST elevation myocardial infarction (STEMI) of anterolateral wall (HCC) Take 1 Tablet by mouth in the morning. 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 History of breast cancer 01/31/2019 Pure hypercholesterolemia 12/21/2017 History of [place] (myocardial infarction) 03/10/2017 Transient global amnesia 03/02/2016 HTN, goal below 140/90 12/16/2005 DIFFUS CYSTIC MASTOPATHY 10/10/2001 FIBROMYALGIA 04/04/1997 documented as of this encounter (statuses as of 03/29/2023) Resolved Problems Problem Noted Date Diagnosed Date [...] 05/29/2018:Stage IIA(cT2, cN0, cM0, G2, ER: Negative, UT: Negative, HER2: Positive) - Signed by Jamil [...] as of this encounter (statuses as of 03/29/2023) Immunizations Name Administration Dates Next Due COVID-19 mRNA, LNP-s, No Pre serve, 2-Dose Series (Moderna) 12/24/2022,01/22/2021,06/01/2020,04/28 COVID-19, mRNA, LNP-s, PF, B ooster, 100mcg/0.5mg (Moderna) 10/08/2021 COVID-19, mRNA, LNR-S, Bival ent, PF, 10mcg/0.2 ml (Moderna) 6m to 5 years 03/01/2022 H1N1 2009 Influenza, IM 07/28/2009 Pneumococcal Conjugate Vacci ne, 20-valent ([id number]) 01/25/2022 Pneumococcal Polysaccharide PPV23 (Pneumovax) 07/20/2020,04/01/2009 Seasonal [...] encounter Miscellaneous Notes * Telephone Encounter - Loraine Gonzales CRNP - 03/29/2023 3:42 PM EST Signed Prescriptions: Disp Refills Metoprolol Succinate ER 200 MG Oral Tablet*90 Tab*3 Sig: Take 1 Tablet by mouth in the morning. Authorizing Provider: LORAINE GONZALES * Telephone Encounter - Eva Moreno LPN - 03/29/2023 3:19 PM ESTPending Prescriptions: Disp Refills Metoprolol Succinate ER 200 MG Oral Tablet*90 Tab*3 Sig: Take 1 Tablet by mouth in the morning. * Telephone Encounter - Eva Moreno LPN - 03/29/2023 3:19 PM EST Pending Prescriptions: Disp Refills Metoprolol Succinate ER 200 MG Oral Table*90 Tab*3 Sig: Take 1 Tablet by mouth in the morning. documented in this encounter Plan of Treatment Upcoming Encounters Date Type Department Care Team (Late st Contact Info) Description 04/06/2023 10:00 AM EST Office Visit General Surgery, [facility] [address] [facility] [place] [address] Janis Brito MD [address] [facility] [place] [address] 05/18/2023 2:00 PM EST Office Visit Hematology/Oncology [address] [place] [address] Martha Elizabeth CRNP [address] [facility] [place] [address] 10/04/2023 10:20 AM EDT Office Visit Family Practice [facility] [address] [facility] [place] [address] Ozzie Ann DO [address] [facility] [place] [address] Scheduled Procedures Name Priority Associated Diagnoses Date/Ti [...] this encounter Medical Devices Implanted Type Area Marine Steamfitter Device Identifier Shelf Expiration Date Model / Serial / Lot Cpx 4 Med Height Author'S Agent Implanted:Qty: 1 on 04/13/2016 by César Oro MD at OR [facility] [place] Right: Breast MENTOR KEE 04/13/2016 [id number] / [id number] / [id number] Breast Implant Smooth Round Moderate Profile Implanted:Qty: 1 on 11/15/2016 by César Oro MD at 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 No Code Status History Code Status Date Activated Date Inactivated Comments Full Code 11/15/2016 8:29 AM 11/16/2016 3:18 PM Question Answer Comments Discussion of Advance Directives occurred with: Not Discussed Full Code 04/13/2016 10:29 AM 04/15/2016 4:08 PM This order reflects the patients wishes and were consensually agreed upon. Care Teams Back Shoe Operator Relationship Specialty Start Date End Date Ozzie Ann DO [address] [place] [address] PCP - General Family Medicine 09/09/16 documented as of this encounter
--- OUTSIDE RECORDS SUMMARY | 2023-05-19 23:41 | External Medical Summary | Summary of Care ---
Author Name Unknown Organization [facility] Address [address] [address] Phone [phone] Care Team Providers Care Teaching Young Name Role Phone SethOzzie Bernardo ARMSTRONG Primary Care Provider [phone] Reason for Visit * Reason Comments Follow Up Hx of breast cancer Encounter Details Date Type Department Care Team (Late st Contact Info) Description 04/06/2023 10:00 AM EST Office Visit General Surgery, [facility] [address] [place] [id number] Janis Brito MD [address] [place] [id number] History of breast cancer*; Encounter for screening mammogram for breast cancer Allergies Active Allergy Reactions Criticality Noted Date Comments [place] Oil High 01/30/2019 Other reaction(s): STOMACH UPSET It is not corn oil--- Just plain [place] Ham High 02/13/2019 Other reaction(s): STOMACH UPSET Clopidogrel Bisulfate Rash 04/22/2009 Rash on Plavix-per Dr. Eldridge documented as of this encounter (statuses as of 04/06/2023) Medications Medication Sig Dispensed Refills Start Date [...] Oral Tablet (Norvasc)Indications:HTN, goal below 140/90,History of [place] (myocardial infarction),Acute ST elevation myocardial infarction (STEMI) of anterolateral wall (HCC),Coronary artery disease involving [place] heart without angina pectoris, unspecified vessel or lesion type Take 1 Tablet by mouth in the morning and 1 Tablet before bedtime. 180 Tablet 3 3 Active Amitriptyline HCl 25 MG Oral Tablet (Elavil)Indications:Anxie ty state Take 1 Tablet by mouth at bedtime. 90 Tablet 3 3 Active OneTouch Ultra In Vitro Strip (Glucose Blood)Indications:Diabete s mellitus without complication ([facility]) Use to test blood sugar once daily 100 Strip 3 3 Active OneTouch Delica Lancets 33GIndications:Diabetes mellitus without complication ([facility]) Use to check blood sugar once daily. 100 Each 3 3 Active Atorvastatin Calcium 40 MG Oral Tablet (Lipitor)Indications:Card iomyopathy, unspecified type ([facility]),Pure hypercholesterolemia Take 1 Tablet by mouth in [...] (HCC),HTN, goal below 140/90,Coronary artery disease involving [place] heart without angina pectoris, unspecified vessel or lesion type,Acute ST elevation myocardial infarction (STEMI) of anterolateral wall (HCC) Take 1 Tablet by mouth in the morning. 90 Tablet 3 4 Active documented as of this encounter (statuses as of 04/06/2023) Active Problems Problem Noted Date Diagnosed Date [...] as of this encounter (statuses as of 04/06/2023) Resolved Problems Problem Noted Date Diagnosed Date [...] right breast 03/07/2016 01/25/2022 Overview: Biopsy at [facility] 03/03/2016 ACUTE ANTEROLATERAL MYOCARDI AL INFARCTION- 03/31/2009 04/01/2009 03/10/2017 ADVANCE DIRECTIVE INFORMATION 08/27/2008 03/10/2017 Overview: No, Advance Directive brochure given to patient. Goiter 06/06/2002 01/20/2021 PREMENSTRUAL TENSION 04/04/1997 019 documented as of this encounter (statuses as of 04/06/2023) Immunizations Name Administration Dates Next Due COVID-19 mRNA, LNP-s, No Pre serve, 2-Dose Series (Moderna) 12/24/2022,01/22/2021,06/01/2020,04/28 COVID-19, mRNA, LNP-s, PF, B ooster, 100mcg/0.5mg (Moderna) 10/08/2021 COVID-19, mRNA, LNR-S, Bival ent, PF, 10mcg/0.2 ml (Moderna) 6m to 5 years 03/01/2022 H1N1 2009 Influenza, IM 07/28/2009 Pneumococcal Conjugate Vacci ne, 20-valent ([id number]) 01/25/2022 Pneumococcal Polysaccharide PPV23 (Pneumovax) 07/20/2020,04/01/2009 Seasonal [...] Sign Reading Time Taken Comments Blood Pressure 135/72 04/06/2023 10:09 AM EST Pulse 74 04/06/2023 10:09 AM EST Temperature 35.8 C (96.4 F) 04/06/2023 1 0:09 AM EST Respiratory Rate - - Oxygen Saturation - - Inhaled Oxygen Concentration - - Weight 95.2 kg (209 lb 12.8 oz) 024 10:09 AM EST Height - - Body Mass Index 31.9 10/19/2022 8:10 AM EDT documented in this encounter Progress Notes * Janis Brito MD - 04/06/2023 10:31 AM EST [facility] BREAST CLINIC NOTES SUBJECTIVE: Saloni Pablo is a 67 year old female with a history of right recurrent breast cancer following right mastectomy - now almost 4.5 yrs from recurrence. She is also s/p removal of her right implant andrevision of mastectomy on 10/19/22. Feels better without the implant but is noticing some thickeningunder the incision. Range of motion is good but does feel tight when she reaches a certain point. Notes that wearing the prosthetic can be uncomfortable at times but she likes how she looks the best with the prosthetic and mastectomy bra. She has a history of coronary artery disease - last hospitalization was at [facility] in Mar 2021 for coronary vasospasm. Follows with Dr Lemus - plans for continued medical therapy. Pathology: 10/19/22: A. Breast, Right, revision of right mastectomy- short stitch superior, long stitch lateral, reduction mammoplasty: Breast tissue with focal fibrosis and focal histiocytic reaction. Skin with focal seborrheic keratosis. B. Breast, Right, right breast explant, removal, gross only: Foreign body, right breast explant. 09/05/2018: wide local excision of recurrent right breast cancer following mastectomy. Underwent neoadjuvant chemotherapy prior to the surgery; final result showed pathologic complete response. Scalpcyst also removed. A. Skin, scalp cyst, excision: Pilar cyst. B. Right axilla, sentinel node #1, excisional biopsy: One lymph node, negative for metastatic carcinoma (0/1). C. Right breast, 6:00 oclock, wide local excision: Benign fibrofatty breast tissue with previous biopsy site changes and post- treatment changes. No evidence of residual invasive carcinoma identified. History: Date of treatment: 04/13/16, 09/05/18 (recurrent 2.6 cm er/pr neg, [id number] positive invasive cancer right 6:00 - treated with neoadjuvant chemo with path complete response Breast cancer treated: 04/12: a high grade non-invasive ductal Pathologic Stage 0 Carcinoma [place] nodes were negative x2, 08/2018: grade 2 no specific type invasive ca, path complete response after chemo, 1 sln negative Primary tumor: estrogen receptor and progesterone receptor positive. Tumor size multifocal and multicentric, span on imaging was 8.9x3.5x1.7 cm; Margins were negative. Pathology showed only a small amount of residual disease. 09/12: er/pr neg, [id number] positive Surgical procedure performed: Right simple masectomy and sentinel node biopsy; Skin sparing: Yes; Nipple sparing: No; Nipple reconstruction: No 09/12: wide local excision and sln biopsy - implant removed in September 2022 Radiation history: No radiation first time, with recurrence: 5130c cGY to reconstructed right breast, completed 11/09/2018 Chemotherapy history: Yes, hormonal therapy - tried exemestane (5 months) under the care of Dr. Marques. Stopped in Oct 2016. Second cancer was hormone negative. 11/15/2016: reduction on the left side and revision/ exchange of implant on the right with Dr. Oro 05/24/17: US guided core biopsies x 2 in the left breast - findings of fibrocystic change and a fibroadenoma. 02/2018: noticed a right breast mass - imaging showed a 2.6 cm mass worrisome for malignancy with skin thickening and questionable pec muscle involvement. US core biopsy done and shows a grade 2 no specific type invasive carcinoma at 6:00, measures 1.1 cm on biopsy, ER/[place] negative, [id number] positive. Treated with neoadjuvant chemotherapy- TCH x 6 cycels (Taxotere, cyclophosphamide, Herceptin) started on 04/17/2018 - pertuzumab not given because of ejection fraction 45%. Herceptin was stopped early (after 14 treatments) due to decrease in EF. Breast Imagin03/13/23 Result MAMMOGRAM SCREENING ROSELINE LEFT History History of breast cancer The patient has no documented relevant family history. Films Compared 03/11/2022 MAMMOGRAM SCREENING ROSELINE LEFT, 03/11/2021 MAMMOGRAM SCREENING ROSELINE LEFT, 03/02/2020 MAMMOGRAM DIAGNOSTIC ROSELINE LEFT, 02/27/2019 MAMMOGRAM DIAGNOSTIC ROSELINE LEFT, and 08/23/2018 MAMMOGRAM DIAGNOSTIC ROSELINE LEFT Findings The left breast has scattered areas of fibroglandular density. Tissue marker indicative of prior image guided biopsy with benign histology is unchanged. No new dominant mass or clustered microcalcifications suspicious for malignancy are identified. Impression No mammographic evidence of malignancy in the left breast. Prior right mastectomy for carcinoma. BI-RADS Category: 2 - Benign. Recommendation Screening mammogram in 1 year is recommended for the left breast. I personally viewed and interpreted the mammographic films and concur with the above. Past Medical History: Diagnosis Date Acute anterolateral myocardial infarction (HCC) 03/31/2009 Breast cancer ([facility]) 03/2016 Right breast DCIS and LCIS Breast cancer ([facility]) 02/2018 right breast invasive ductal carcinoma grade 2, at 6 o'clock, hormonal negative, Her2/Phu--> Positive Ductal carcinoma in situ (DCIS) of right breast 03/07/2016 Biopsy at [facility] 03/03/2016 Family history of malignant neoplasm of gastrointestinal tract Malignant neoplasm of lower-outer quadrant of right breast of female, estrogen receptor negative 03/30/2018 H/O Recurrent breast cancer, right ([facility]) 04/12/2019 ST elevation myocardial infarction (STEMI) ([facility]) 04/02/2021 H/O Past Surgical History: Procedure Laterality Date (EKG) TRACING ONLY BIOPSY OF BREAST, OPEN 1993 -- 1994 Bilat- benign BREAST LESION,OTHER,EXCISION Right 02/2016 BREAST LESION,OTHER,EXCISION Right 09/05/2018 EXCISION OF CYST OR TUMOR BREAST performed by Janis Brito MD at OR [facility] BREAST RECONSTRUCTION W/MALT HOUSE OPERATOR Right 04/13/2016 BREAST RECONSTRUCTION WITH TISSUE MALT HOUSE OPERATOR performed by César Oro MD at OR [facility] BX LYMPH NODE DEEP AXIL Right 04/13/2016 BIOPSY LYMPH NODE DEEP AXILLARY OPEN performed by Janis Brito MD at OR [facility] BX LYMPH NODE DEEP AXIL Right 09/05/2018 BIOPSY LYMPH NODE DEEP AXILLARY OPEN performed by Janis Brito MD at OR [facility] CARDIAC CATH-CARDIOLOGY ONLY 03/31/2009 EF- 55%; right dominant coronary with 30% occlusion mid segment; distal LAD with mild atheromata; circum flex- clear; no interventions CHEMOTHERAPY Right 04/17/18-08/01/18 6 cycles of TCH CHEMOTHERAPY 08/22/2018-12/26/2018 Herceptin maintenance every 3 weekly COLONOSCOPY, DIAGNOSTIC (RECTUM) 10/01/2003 [facility] by Dr. Jerez- negative- repeat in 5-10 years COLONOSCOPY, DIAGNOSTIC (RECTUM) 10/31/2008 repeat in 5 years COLONOSCOPY, DIAGNOSTIC (RECTUM) 11/27/2013 diverticulosis, repeat 5 yrs/COLONOSCOPY FLEXIBLE PROXIMAL DIAGNOSTIC performed by Radha Iqbal DO at ENDOSCOPY [facility] COLONOSCOPY, DIAGNOSTIC (RECTUM) 12/25/2019 diverticulosis, repeat 5 yrs / COLONOSCOPY FLEXIBLE PROXIMAL DIAGNOSTIC performed by Radha Iqbal DO at ENDOSCOPY [facility] EXCISE BENIGN LESION, TRUNK, ARM, LEG, 0.5 CM OR LESS Right 09/05/2018 EXCISION BENIGN LESION EXCEPT SKIN TAG TRUNK ARMS LEGS LESS THAN .5CM performed by Janis Brito MD at OR [facility] FACE/SCALP SUBQ TUMOR REMOVAL, 2 CM OR MORE Right 09/05/2018 EXCISION FACE/SCALP SUBQ TUMOR, 2 CM OR MORE performed by Janis Brito MD at OR [facility] IDENTIFY SENTINEL NODE, RADIOACTIVE TRACER Right 09/05/2018 INJECTION PROCEDURE FOR IDENTIFICATION SENTINEL NODE performed by Janis Brito MD at [facility] IMPLANT, BIOLOGIC, SOFT TISSUE REINFORCE Right 04/13/2016 IMPLANT, BIOLOGIC, SOFT TISSUE REINFORCE performed by César Oro MD at OR [facility] INSER TUNN ACC DEV;5 YRS/OLDER 04/04/2018 INSERT TUNNELED CENTRAL VENOUS ACCESS WITH SUBQ PORT performed by Janis Brito MD at OR [facility] MASTECTOMY, SIMPLE, COMPLETE Right 04/13/2016 MASTECTOMY SIMPLE COMPLETE performed by Janis Brito MD at OR [facility] RADIATION THERAPY Right 09/2018 REDUCTION OF BREAST Left 11/15/2016 REDUCTION MAMMOPLASTY performed by César Oro MD at [facility] REMOVAL OF BREAST IMPLANT Right 10/19/2022 REMOVAL OF INTACT BREAST IMPLANT performed by Jansi Brito MD at OR [facility] REPLACE TISSUE MALT HOUSE OPERATOR Right 11/15/2016 REPLACEMENT EXPANDERS WITH PERMANENT PROSTHESIS performed by César Oro MD at OR [facility] REVISION OF BREAST RECONSTRUCTION Right 11/15/2016 REVISION OF BREAST RECONSTRUCTION performed by César Oro MD at OR [facility] SENTINAL LYMPH NODE IDENTIFICATION, INTRAOP Right 04/13/2016 SENTINAL LYMPH NODE IDENTIFICATION, INTRAOP performed by Janis Brito MD at OR [facility] STEREOTACTIC BREAST BIOPSY PANEL Right 03/03/2016 03/03/2016 right stereotactic - - dx DCIS - [facility] TOTAL ABD HYSTERECTOMY W/WO REMOVAL OF TUBE(S) 2000 TOTAL HYSTERECTOMY 02/27/2001 ABIGAIL/BSO- Dr. Layne US GUIDED BREAST ASPIRATION RIGHT Right 03/15/2018 03/15/2018 right breast , 6:00 palpable mass, core biopsy [place] - dx; invasive carcinoma , no special l US GUIDED BREAST BIOPSY LEFT Left 05/18/2017 05/18/2017 ultrasounded left core biopsy [facility] - left breast 1 o'clock , ultrasound -guoided core bxa. fibrocystic change 2. negative for DCIS and invasive carcinoma B. left 1:30 , ultrasound bx dx fibroadenoma with associated microcalcification 2. focal foreign body giat cell reaction suggestive of previous surgery 3. negative for DCIS and invasive carcinoma Current Outpatient Medications Medication Sig Dispense Refill [...] as needed for Wheezing. 18 g 1 Iron-Vitamin C 65-125 MG Oral Tablet Take 1 Tablet by mouth once a day on Monday, , and Monday only. evenings OneTouch Ultra 2 w/Device Kit Use to check blood sugar once daily. 1 Kit 0 Vitamin D3 50 MCG (2000 UT) Oral Capsule Take 1 Capsule by mouth daily with dinner. Benzonatate 100 MG Oral Capsule Take 1 [...] by mouth at bedtime. 90 Tablet 3 [employer] Ultra In Vitro Strip (Glucose Blood) Use to test blood sugar once daily 100 Strip 3 [employer] Delica Lancets 33G Use to check blood [...] total dose of 225mg/day.. 90 Tablet 1 Metoprolol Succinate ER 200 MG Oral Tablet Extended Release 24 Hour Take 1 Tablet by mouth in the morning. 90 Tablet 3 Nitroglycerin 0.4 MG Sublingual Tablet Sublingual (Nitrostat) One tablet under tongue if needed forchest pain. May repeat 3 times. If chest pain continues, call 911 (Patient not taking: Reported on 11/23/2022) 25 Tablet 11 No current facility-administered medications for this visit. Allergies as of 04/06/2023 - Reviewed 04/06/2023 Allergen Reaction Noted [place] oil 01/30/2019 Ham 02/13/2019 Plavix [clopidogrel bisulfate] Rash 04/22/2009 Family History Problem Relation Age of Onset Hypertension Father Heart Disorder Father s/p 4 CABG- age 80 Stroke Father age 90- CVA Heart Disorder Mother CHF, age 87 Social History Tobacco Use Smoking status: Never Smokeless tobacco: Never Vaping Use Vaping Use: Never used Substance Use Topics Alcohol use: No Drug use: No ROS: GEN: no weight loss, fever, fatigue HEENT: no changes in vision or hearing, no sinus problems, no sore throat, no hoarseness RESPIRATORY: no cough, wheezing, change in SOB or change in breathing CARDIOVASCULAR: no chest pain at rest, no exertional chest pain, dyspnea, denies palpitations or angina GI: no melena, hemetemesis, no vomiting or diarrhea. : no dysuria, hematuria, frequency MUSCULOSKELETAL: no change in joint pains, no new arthritis PSYCHIATRIC: no significant anxiety or depression, unchanged sleep pattern HEME: no bleeding tendency, no clotting tendency NEURO: no significant headache, no seizures , no tremors SKIN: no new rashes, no itching PHYSICAL EXAMINATION: BP 135/72 | Pulse 74 | Temp 35.8 C (96.4 F) | Wt 95.2 kg (209 lb 12.8 oz) | LMP 12/23/2000 | BMI 31.90 kg/m | BSA 2.14 m Constitutional: alert, healthy Head: normocephalic, atraumatic Eyes: conjunctiva non-injected, sclera white Ears: pinna normal shape and color Neck: supple, no adenopathy Back: normal curvature, normal ROM Extremities: no edema, Neuro: alert, gait normal, motor normal BREAST EXAMINATION: Right Breast: Right breast is surgically absent. More tissue superiorly than inferiorly. Highly radiated skin has been removed. The scar itself is well healed. There is thickening consistent with scar tissue along and inferior to the scar. Skin: Skin retraction: No Peau d'orange: No Telangectasia: No Scar(s) present: yes, mastectomy scar Other changes: No Right Lymph Nodes: Arm edema: No Palpable axillary adenopathy: No Palpable supraclavicular adenopathy: No Previous axillary incision: Yes, well healed Left Breast: Left Breast: Masses noted: No Post XRT edema: No Post XRT erythema: No Other palpable abnormality: No Skin: Skin retraction: No Peau d'orange: No Telangectasia: No Scar(s) present: Yes, from reduction Other changes: No Left Nipple: Nipple inversion: No Pagets: No Nipple discharge: No Left Lymph Nodes: Arm edema: No Palpable axillary adenopathy: No Palpable supraclavicular adenopathy: No Previous axillary incision: No IMPRESSION: 67 yr old woman now almost 4.5 yrs out from treatment of recurrent right breast cancer following mastectomy for stage 0 disease initially - recurrence was hormone negative, [id number] positive, node negative treated with neoadjuvant chemotherapy with complete pathologic response at time ofresection, chest wall radiation therapy, and 14 cycles of herceptin (stopped due to decrease in cardiac function). Cardiac function has now stabilized with last EF of 40-45% in Mar 2021. She is now status post implant removal and overall doing well. She still notes anxiety regarding the possibility of recurrence. However, her clinical exam is stable and imaging on the left breast looks normal. She was reassured that the areas she is noticing are all consistent with scar tissue. Shehas been doing massage to the area and that does appear to be slowly helping. Next left mammogram ordered for 02/2024 Plan: Left mammogram 02/2024 - order placed. F/u 1 yr. Janis Brito M.D. 04/06/2023 12:01 PM documented in this encounter Nursing Notes * Cherry Stafford LPN - 04/06/2023 10:12 AM EST Chief Complaint Patient presents with Follow Up Hx of breast cancer Patient is here for check up, she gets some discomfort sometimes and she doesn't know what is scar tissue and what isnt. documented in this encounter Plan of Treatment Upcoming Encounters Date Type Department Care Team (Late st Contact Info) Description 05/18/2023 2:00 PM EST Office Visit Hematology/Oncology [facility] [address] [place] [address] Martha Elizabeth CRNP [address] [place] [address] 10/04/2023 10:20 AM EDT Office Visit Family Practice [facility] [address] [place] [address] Ozzie Ann DO [address] [facility] [place] [address] 04/01/2024 10:00 AM EST Imaging Radiology [address] [facility] [place] [address] Scheduled Orders Name Type Priority Associated Diagnoses Orde r Schedule MAMMOGRAM SCREENING ROSELINE LEFT Medical Imaging Routine Encounter for screening mammogram for breast cancer Expected: 03/14/2024 (Approximate), Expires: 05/07/2024 Scheduled Procedures Name Priority Associated Diagnoses Date/Ti [...] this encounter Medical Devices Implanted Type Area Clam Grower Device Identifier Shelf Expiration Date Model / Serial / Lot Cpx 4 Med Height Data Keyer Implanted:Qty: 1 on 04/13/2016 by César Oro MD at OR [facility] Right: Breast MENTOR KEE 04/13/2016 [id number] / [id number] / [id number] Breast Implant Smooth Round Moderate Profile Implanted:Qty: 1 on 11/15/2016 by César Oro MD at OR [facility] ALLERGAN 05/05/2021 [id number]-685 / [id number] / [id number] Port Power Mri W/8fr Cath - [id number] Implanted:Qty: 1 on 04/04/2018 by Janis Brito MD at OR [facility] Left: Chest CR BARD : PERIPHERAL VASCULAR 04/26/2019 [id number] / / [id number] Description:left subclavian documented as of this encounter Visit Diagnoses Diagnosis History of breast cancer- Primary Personal history of malignant neoplasm of breast Encounter for screening mammogram for breast cancer documented in this encounter Advance Directives Latest Code Status on File Code Status Date Activated Date Inactivated Comments Full Code 10/19/2022 7:58 AM 10/19/2022 4:37 PM This order reflects the patients wishes and were consensually agreed upon. Question Answer Comments Discussion of Advance Directives occurred with: Patient Does the patient have a Living Will? No Does the patient have Health Care Power of Poultry Husbandry Worker? No Code Status History Code Status Date Activated Date Inactivated Comments Full Code 11/15/2016 8:29 AM 11/16/2016 3:18 PM Question Answer Comments Discussion of Advance Directives occurred with: Not Discussed Full Code 04/13/2016 10:29 AM 04/15/2016 4:08 PM This order reflects the patients wishes and were consensually agreed upon. Care Teams Teaching Young Relationship Specialty Start Date End Date Ozzie Ann DO [address] [place] [address] PCP - General Family Medicine 09/09/16 documented as of this encounter"
--- OUTSIDE RECORDS SUMMARY | 2023-05-19 23:42 | External Medical Summary | Summary of Care ---
Author Name Unknown Organization [facility] Address [address] [place] [address] Phone [phone] Care Team Providers Care Moth Proofer Name Role Phone SethOzzie Bernardo ARMSTRONG Primary Care Provider [phone] Reason for Visit * Reason Comments Follow Up Encounter Details Date Type Department Care Team Description 11/23/2022 [facility] Visit [facility] [address] [facility] [place] [address] Loraine Jenkins CRNP [address] [facility] [address] Coronary artery disease involving rosebud heart without angina pectoris, unspecified vessel or lesion type*; Ischemic cardiomyopathy; HTN, goal below 140/90; Dyslipidemia, goal LDL below 70; Diabetes mellitus without complication (HCC) Allergies Active Allergy Reactions Severity Noted Date Comments [place] Oil High 01/30/2019 Other reaction(s): STOMACH UPSET It is not corn oil--- Just plain [place] Ham High 02/13/2019 Other reaction(s): STOMACH UPSET Clopidogrel Bisulfate Rash 04/22/2009 Rash on Plavix-per Dr. Eldridge documented as of this encounter (statuses as of 11/23/2022) Medications Medication Sig Dispensed Refills Start Date [...] , and Monday only. evenings 0 Active [employer] Ultra 2 w/Device KitIndications:Diabetes mellitus without complication (HCC) Use to check blood sugar once daily. 1 Kit 0 2 Active Vitamin D3 50 MCG (1999 UT) Oral Capsule Take 1 Capsule by mouth daily with dinner. 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),HTN, goal below 140/90,Coronary artery disease involving rosebud heart without angina pectoris, unspecified vessel or [...] Oral Tablet (Norvasc)Indications:HTN, goal below 140/90,History of RI (myocardial infarction),Acute ST elevation myocardial infarction (STEMI) of anterolateral wall (HCC),Coronary artery disease involving rosebud heart without angina pectoris, unspecified vessel or lesion type Take 1 Tablet by mouth in the morning and 1 Tablet before bedtime. 180 Tablet 3 3 Active busPIRone HCl 15 [...] of 225mg/day.. 90 Tablet 1 3 Active metFORMIN HCl ER 500 MG Oral Tablet Extended Release 24 Hour (Glucophage XR)Indications:Diabetes mellitus without complication (HCC) Take 1 Tablet by mouth in the morning. 90 Tablet 1 3 Active Additional Information Patient taking differently:500 mg OralDINNER, Reported on 10/13/2022 Amitriptyline HCl 25 MG Oral Tablet (Elavil)Indications:Anxie ty state Take 1 Tablet by mouth at bedtime. 90 Tablet 3 3 Active SecondHomeTouch Ultra In Vitro Strip (Glucose Blood)Indications:Diabete s mellitus without complication (HCC) Use to test blood sugar once daily 100 Strip 3 3 Active OneTouch Delica Lancets 33GIndications:Diabetes mellitus without complication (HCC) Use to check blood sugar once daily. 100 Each 3 3 Active Entresto 24-26 MG Oral Tablet (sacubitril-valsartan 24-26 mg per tab)Indications:HTN, goal below 140/90,History of RI (myocardial infarction) Take 1 Tablet by mouth in the morning and 1 Tablet before bedtime. 180 Tablet 3 3 Active HYDROmorphone HCl 2 MG Oral Tablet (Dilaudid) Take 1 Tablet by mouth every 4 hours as needed for Pain, Moderate. 5 Tablet 0 3 Active Atorvastatin Calcium 40 MG Oral Tablet (Lipitor)Indications:Card iomyopathy, unspecified type (HCC),Pure hypercholesterolemia Take 1 Tablet by mouth in the morning. 90 Tablet 3 3 Active documented as of this encounter (statuses as of 11/23/2022) Active Problems Problem Noted Date Acute ST elevation myocardial infarction (STEMI) of anterolateral wall 08/08/2022 Heart failure 05/09/2022 Type 2 diabetes mellitus wit h stage 3a chronic kidney disease, without long-term current use of insulin 05/09/2022 Ischemic cardiomyopathy 05/09/2022 Gastroesophageal reflux disease with eso phagitis without hemorrhage 04/02/2021 Anxiety state 01/20/2021 Chronic kidney disease, stage 3a 021 Overview: Per CKD protocol Type 2 diabetes mellitus with stage 3a c hronic kidney disease 08/04/2020 Overview: Per CKD protocol Diabetes mellitus without complication 0 08/29/2019 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 020 History of breast cancer 01/31/2019 Pure hypercholesterolemia 12/21/2017 History of RI (myocardial infarction) Transient global amnesia 03/02/2016 HTN, goal below 140/90 12/16/2005 DIFFUS CYSTIC MASTOPATHY 10/10/2001 FIBROMYALGIA 04/04/1997 documented as of this encounter (statuses as of 11/23/2022) Resolved Problems Problem Noted Date Resolved Date Type 2 diabetes mellitus wit h stage 3a chronic kidney disease, without long-term current use of insulin 04/02/202103/27 ST elevation myocardial infarction (STEMI) 04/0209/16/2021 Overview: H/O Diabetes mellitus with stage 3 chronic kidney di sease 02/03/2020 08/06/2020 Overview: Per CKD protocol Recurrent breast cancer, right 04/12/2019 1 03/27/2021 Gastroesophageal reflux disease without esophagi tis 04/12/2019 01/25/2022 Malignant neoplasm of lower- outer quadrant of right breast of female, estrogen receptor negative 03/30/2018 09/16/2021 Cancer Staging:Clinical stage from 05/29/2018:Stage IIA(cT2, cN0, cM0, G2, ER: Negative, VT: Negative, HER2: Positive) - Signed by Jamil Marques MD on 05/29/2018 Overview: H/O Ductal carcinoma in situ (DCIS) of right breast 03/07/2016 01/25/2022 Overview: Biopsy at [facility] 03/03/2016 ACUTE ANTEROLATERAL MYOCARDIAL INFARCTION- 010 04/01/2009 03/10/2017 ADVANCE DIRECTIVE INFORMATION 08/27/2008 Overview: No, Advance Directive brochure given to patient. Goiter 06/06/2002 01/20/2021 PREMENSTRUAL TENSION 04/04/1997 04/27/2018 documented as of this encounter (statuses as of 11/23/2022) Immunizations Name Administration Dates Next Due COVID-19 mRNA, LNP-s, No Pre serve, 2-Dose Series (Moderna) 01/22/2021,06/01/2020,04/28/2020 Covid-19 Mrna, Lnp-s, No Pre serve, Booster (Moderna) 10/08/2021 H1N1 2009 Influenza, IM 07/28/2009 Pneumococcal Conjugate Vacci ne, 20-valent ([id number]) 01/25/2022 Pneumococcal Polysaccharide PPV23 (Pneumovax) 07/20/2020,04/01/2009 Seasonal Influenza, PF, 6 mo ns & Above, IM , (Flulaval) 01/17/2020,12/24/2018,12/21/2017,03/10 Seasonal Influenza, Quadriva lent Hd (Fluzone Hd) 01/25/2022,12/30/2020 Seasonal Influenza, Quadriva lent, No Preserve, IM [...] drink = 0.6 oz pur e alcohol) Food Insecurity Answer Date Recorded Within the past 12 months, y ou worried that your food would run out before you got money to buy more. Never true 11/02/2018 Within the past 12 months, t he food you bought just didn't last and you didn't have money to get more. Never true 11/02/2018 Sex Assigned at Date Recorded Female 11/02/2018 3:27 PM E DT Job Start Date Occupation Industry Not on file Not on file Not on file documented as of this encounter Last Filed Vital Signs Vital Sign Reading Time Taken Comments Blood Pressure 100/66 11/23/2022 1:27 PM EDT Pulse 88 11/23/2022 1:27 PM EDT Temperature - - Respiratory Rate 18 11/23/2022 1:27 PM EDT Oxygen Saturation - - Inhaled Oxygen Concentration - - Weight 95.4 kg (210 lb 6.4 oz) 11/23/2022 1:27 P M EDT Height - - Body Mass Index 31.99 10/19/2022 8:10 AM EDT documented in this encounter Progress Notes * TOI Ambriz - 11/23/2022 1:30 PM EDT 11/23/2022 Cardiology Follow Up Primary Slot Ambassador: Dr. Lemus Cardiac Problems: ASCVD. History of anterior wall ST segment elevation myocardial infarction in March 2009. Cardiac catheterization by Dr. Eldridge revealed a subtotal occlusion of the distal LAD coronary artery. The vessel had been small and was not amenable to PCI. She was found to have nonobstructive disease elsewhere andmedical management was therefore pursued. March 2021 anterior RI, focal vasospasm noted on coronary angiography, perhaps a variant of stress-induced cardiomyopathy Ischemic cardiomyopathy with left ventricular ejection fraction 45-49%. , LVEF 39% CMRI Clopidogrel allergy, rash Difficult to control hypertension, longstanding, well controlled Dyslipidemia Type 2 diabetes mellitus History of recurrent breast carcinoma with right-sided reconstructive surgery HPI: Saloni Pablo is a 67 year old female presents for routine cardiology follow up. She presents feeling well today, offers no concerns and complaints. CAD: Denies any chest pain, pressure or angina equivilent. Denies any changes or decrease in functional capacity. Remains compliant on Toprol xl, Atorvastatin, ASA, Amlodipine. Ischemic cardiomyopathy: Recent echocardiogram stable. Shows EF 40% and mild mitral regurgitation, unchanged from prior. Denies any change in functional capacity, no shortness of breath, dyspnea on exertion and denies swelling of the lower extremities. Dyslipidemia: Most recent labs July 2022. Stable. Taking Atorvastatin. DM: Recent A1C 6.8%, currently on Metformin. Considering adding Jardiance. PACE/PACENET Prescription Assistance Program (Program of All-Inclusive Care for the Elderly) [facility] prescription assistance programs for older adults offer low-cost prescription medication to qualified residents, age 65 and older. This is a free program. There is no cost to apply. Call to apply. If you do not qualify, please reach out to our office so we can investigate other options for you. [employer] Income Limits: Single: $33,500 : $41,500 Patient advised that with income base plus assets that she would not qualify. REVIEW OF SYSTEMS: See HPI for pertinent positives. All others negative other than those noted in the HPI. CONSTITUTIONAL: No change in weight, No weakness, No fatigue and No fevers, No sweats or chills. PULMONARY: No cough, sputum, or hemoptysis, No wheezing, No shortness or breath and No recent change in breathing. CARDIOVASCULAR: No chest pain, No dyspnea on exertion, No edema, No palpitations and No syncope. GASTROINTESTINAL: No abdominal pain, No change in bowel habits, No significant heartburn, No nausea, No vomiting, No diarrhea, No constipation, No blood in stools or black tarry stools. No dysphagia. HEMATOLOGIC: No abnormal bleeding and No bruising. NEUROLOGICAL: Normal balance, No headaches and No weakness. Review of patient's allergies indicates: Allergen Reactions [place] Oil Other reaction(s): STOMACH UPSET It is not corn oil--- Just plain [place] Ham Other reaction(s): STOMACH UPSET Plavix [Clopidogrel Bisulfate] Rash Rash on Plavix-per Dr. Zoda Current Outpatient Medications Medication Sig Dispense Refill ASPIRIN EC 81 MG PO TBEC Take by mouth at bedtime. 100 3 Cyanocobalamin (B-12) 100 MCG TABS Take by mouth 1 Tablet daily . triamcinolone acetonide (ARISTOCORT) 0.1 % ointment Apply topically to affected area 2 times a day.To affected area. 15 g 5 fluticasone (FLONASE) 50 MCG/ACT nasal spray Administer 2 Sprays into each nostril daily. opp hand 1 Bottle 11 Docusate Sodium 100 MG Oral Capsule Take 1 Capsule by mouth at bedtime. Ventolin HFA 108 (90 Base) MCG/ACT Inhalation Aerosol Solution Inhale 2 Puffs by mouth 4 times a day as needed for Wheezing. 18 g 1 Iron-Vitamin C 65-125 MG Oral Tablet Take 1 Tablet by mouth once a day on Monday, , and Monday only. evenings [employer] Ultra 2 w/Device Kit Use to check [...] and 1 Tabletbefore bedtime. 180 Tablet 3 busPIRone HCl 15 MG Oral Tablet (Buspar) Take 1 Tablet by mouth in the morning and 1 Tablet before bedtime. 180 Tablet 1 Metoprolol Succinate ER 25 MG Oral Tablet Extended Release 24 Hour (Toprol XL) Take 1 Tablet by mouth in the morning. Take in addition to 200mg tablet for total dose of 225mg/day.. 90 Tablet 1 metFORMIN HCl ER 500 MG Oral Tablet Extended Release 24 Hour (Glucophage XR) Take 1 Tablet by mouthin the morning. (Patient taking differently: Take 1 Tablet by mouth daily with dinner.) 90 Tablet 1 Amitriptyline HCl 25 MG Oral Tablet (Elavil) Take 1 Tablet by mouth at bedtime. 90 Tablet 3 OneTouch Ultra In Vitro Strip (Glucose Blood) Use to test blood sugar once daily 100 Strip 3 OneTouch Delica Lancets 33G Use to check blood sugar once daily. 100 Each 3 Entresto 24-26 MG Oral Tablet (sacubitril-valsartan 24-26 mg per tab) Take 1 Tablet by mouth in themorning and 1 Tablet before bedtime. 180 Tablet 3 HYDROmorphone HCl 2 MG Oral Tablet (Dilaudid) Take 1 Tablet by mouth every 4 hours as needed for Pain, Moderate. 5 Tablet 0 Atorvastatin Calcium 40 MG Oral Tablet (Lipitor) Take 1 Tablet by mouth in the morning. 90 Tablet 3 Nitroglycerin 0.4 MG Sublingual Tablet Sublingual (Nitrostat) One tablet under tongue if needed forchest pain. May repeat 3 times. If chest pain continues, call 911 (Patient not taking: Reported on 11/23/2022) 25 Tablet 11 No current facility-administered medications for this visit. Past Medical History: Diagnosis Date Acute anterolateral myocardial infarction (HCC) 03/31/2009 Breast cancer ([facility]) 03/2016 Right breast DCIS and LCIS Breast cancer ([facility]) 02/2018 right breast invasive ductal carcinoma grade 2, at 6 o'clock, hormonal negative, Her2/Phu--> Positive Ductal carcinoma in situ (DCIS) of right breast 03/07/2016 Biopsy at [facility] 03/03/2016 Family history of malignant neoplasm of gastrointestinal tract Malignant neoplasm of lower-outer quadrant of right breast of female, estrogen receptor negative ([facility]) 03/30/2018 H/O Recurrent breast cancer, right ([facility]) 04/12/2019 ST elevation myocardial infarction (STEMI) ([facility]) 04/02/2021 H/O Family History Problem Relation Age of Onset Hypertension Father Heart Disorder Father s/p 4 CABG- age 80 Stroke Father age 90- CVA Heart Disorder Mother CHF, age 87 Social History Socioeconomic History Marital status: Spouse name: Alpesh Number of children: 3 Tobacco Use Smoking status: Never Smokeless tobacco: Never Vaping Use Vaping Use: Never used Substance and Sexual Activity Alcohol use: No Drug use: No Sexual activity: Yes OBJECTIVE/PHYSICAL EXAMINATION: BP 100/66 | Pulse 88 | Resp 18 | Wt 95.4 kg (210 lb 6.4 oz) | LMP 12/23/2000 | BMI 31.99 kg/m | BSA 2.14 m General: No acute distress. A+Ox3. HEENT: Normocephalic. Atraumatic. PERRL. EOMI. Conjunctiva and sclera clear. NECK: No carotid bruits. No JVD. Carotid upstrokes are brisk. Heart: RRR. S1 and S2 noted. No murmur. No rubs or gallops. PMI non displaced. Lungs: Clear to auscultation. No wheezes.No rhonchi. No rales. Abdomen: Normal bowel sounds. Soft. Nontender. No masses or organomegaly. No abdominal bruits. Extremities: No edema. No clubbing or cyanosis. Pulses: radial=2/4, posterior tibial=2/4, dorsalis pedis = 2/4. NEURO: No focal deficits. PSYCH: Appropriate affect and insight. DATA Labs & Imaging Reviewed Below: Echocardiogram 11/02/2022 The examination is adequate to evaluate the referral indication. The wall thickness is mildly increased in segments with normal wall motion. There is a moderate sized apical wall motion abnormality with akinesis of the segments. The left ventricular systolic function is mildly reduced. Qualitative LV ejection Fraction = 40%. The left ventricular diastolic function is mildly abnormal (grade I). Mild aortic valve sclerosis is present. Mild mitral regurgitation is present. There is no evidence of pulmonary hypertension. Compared to the prior study, there has been no significant change. EKG 08/11/2022 Normal sinus rhythm Anterolateral infarct , age undetermined Abnormal ECG Compared to the prior tracing dated March 30, 2021, the age undetermined anterolateral infarct is a chronic finding. Ventricular Rate: 67 EKG performed 03/30/2021, sinus rhythm at 91 beats per minute, age undetermined anterior infarct pattern. Summary of preliminary report, cardiac MRI 11/24/21: 1. Cardiac MRI findings of moderately reduced left ventricular systolic function. There is near transmural to transmural scar noted in the apical anterior, anteroseptum, infero septum, inferior and inferolateral wall and true apex suggestive of prior myocardial infarction. 2. The left ventricular systolic function is moderately reduced. The calculated LV ejection fraction is 39%. 3. The right ventricular systolic function is normal. The right ventricle is normal in size. The calculated RV ejection fraction is 55%. Summary of transthoracic echocardiogram performed 03/28/2021, amount any: There is septal akinesis There is apical akinesis LVEF 40-45% No significant valvular pathology. Summary of Zio patch monitor worn for 14 days September,: There were a patient triggered events that correlated with sinus rhythm ranging from 74 beats per minute to 91 beats per minute. Patient triggered events predominantly correlated with sinus rhythm with sensed premature ventricular contractions and sensed premature atrial contractions. On further analysis, the 16 beat run of wide complex tachycardia, has a morphology and rate consistent with supraventricular tachycardia with aberrant conduction. The 5 beat run of wide complex tachycardia has morphology consistent with ventricular tachycardia. Summary: Predominant rhythm is sinus rhythm. Brief asymptomatic episodes of supraventricular tachycardia observed. One 5 beat episode of wide complex tachycardia consistent with ventricular tachycardia. Patient triggered events correlate with premature atrial contractions and premature ventricular contractions. Patient triggered events were not associated with runs of supraventricular tachycardia or ventricular tachycardia. ASSESSMENT/PLAN: 67 year old year old female 1. Coronary artery disease involving rosebud heart without angina pectoris, unspecified vessel or lesion type - Remains asymptomatic. -Continue Atorvastatin 40mg QD, Toprol xl 225mg QD, ASA 81mg and Entresto 46/26mg QD 2. Ischemic cardiomyopathy -Recent echo stable. No change or decrease in functional capacity. -Continue HF regimen with [id number]/26, Toprol xl, Spironolactone 12.5mg QD 3. HTN, goal below 140/90 -At target. Continue Toprol xl, Entresto, Spironolactone, and Norvasc 2.5mg BID 4. Dyslipidemia, goal LDL below 70 -High risk s/t CAD and DM -Most recent labs stable. -Continue high intensity statin with Atorvastatin 5. Diabetes mellitus without complication (HCC) -Managed by PCP -Currently on metformin. Recommend adding Jardiance to her regimen. Expresses concern for UTI's, but more so with regards to cost. Will reach out to [facility] phamacy for insight. DISPOSITION: Follow up 6 months or if symptoms worsen/fail to improve. All questions were answered to the patients satisfaction. Patient advised to report to ED with any and all emergencies. The patient agrees to the above plan and will call with additional questions or concerns. TOI [facility], [address] [place] [address] I spent a total of 30 minutes on the date of service in preparation, delivery, and documentation ofthe care provided to Saloni Pablo excluding any time spent in the performance of separately billedservices. This chart was completed in part utilizing [employer] Speech Voice Recognition Software. Grammatical errors, random word insertions, pronoun errors, and incomplete sentences are an occasional consequence of this system due to software limitations, ambient noise, and hardware issues. Any formal questions or concerns about the content, text, or information contained within the body of this dictation should be directly addressed to the provider for clarification. documented in this encounter Nursing Notes * Daniella Salcedo LPN - 11/23/2022 1:27 PM EDT Examination Room: 7 Name: Saloni Pablo Date of : (1955) Reason for Visit: Follow up Interim Hospitalization(s): Denies Problems/Concerns: Denies Chest Pain/SOB: Denies My [facility] is a way you can talk to your provider online through e-mail. Would you like to sign up? I can activate it for you? ALREADY ACTIVE Patient was instructed to not get up on the exam table until directed and assisted by their provider; patient is to remain seated in the chair/ wheelchair/ exam table for fall prevention and safety reasons. Patient is aware to have assistance to step down off exam table with personnel. Patient voiced full comprehension of instructions. documented in this encounter Plan of Treatment Upcoming Encounters Date Type Specialty Care Team Description 03/08/2023 Office Visit Family Medicine Ozzie Ann, DO [address] [facility] [place] [address] 03/13/2023 Imaging Radiology 03/13/2023 Imaging Radiology 04/06/2023 Office Visit General Surgery Janis Brito MD [address] [facility] [place] [address] 05/18/2023 Office Visit Hematology Oncology Martha Elizabeth CRNP [address] [place] [address] Scheduled Procedures Name Priority Associated Diagnoses Date/Ti me COLONOSCOPY FLEXIBLE PROXIMA L DIAGNOSTIC Recall Family history of colon cancer History of breast cancer Health Maintenance Due Date Last Done Comments Zoster Vaccines (2 of 3) 05/05/2017 03/10/2017 Depression Screening, Annual for Pts 12 and Over 04/12/2020 04/12/2019 DIABETES-EYE EXAM 04/01/2021 04/01/2020 COVID-19 Vaccine (5 - Moderna series) 12/03/2021 10/08/2021, 01/22/2021, 06/01/2020, Additional history exists CKD PHOS USE SMARTSET 14860 01/13/2022 01/13/2021, 0 10/10/2019 DIABETES-FOOT EXAM 09/24/2022 09/24/2021 Influenza Vaccine (FLU shot) (#1) 2022 01/25/2022, 01/25/2022, 12/30/2020, Additional history exists GFR 02/03/2023 08/03/2022, 04/28, 11/09/2021, Additional history exists HbA1c 02/03/2023 08/03/2022, 12/26, 07/21/2021, Additional history exists CKD HGB USE SMARTSET 97656 05/18/202305/18, 05/18/2022, 06/04/2021, Additional history exists DXA Scan 05/26/2023 05/25/2016, 02/22/2011 Albumin/Creatinine Ratio 08/04/2023 023, 07/21/2021, 05/22/2020 B-12 08/04/2023 08/03/2022, 01/13/2021 COLONOSCOPY-EVERY 5 YRS AGES 18-100 12/24/2024 12/25/2019, 12/25/2019, 11/27/2013, Additional history exists DTaP,Tdap,and Td Vaccines (3 - Td or Tdap) 07/20/2030 07/20/2020, 02/04/2010, 08/26/2004, Additional history exists Pneumococcal Vaccine: 65+ Years Completed 01/25/2022, 07/20/2020, 04/01/2009 GARDASIL-HPV IMMUNIZATION SERIES Aged Out No longer eligible based on patient's age to complete this topic Hepatitis B Aged Out No longer eligi ble based on patient's age to complete this topic MENINGOCOCCAL (MENACTRA/MENVEO) Aged Out No longer eligible based on patient's age to complete this topic documented as of this encounter Medical Devices Implanted Type Area Bill Distributor Device Identifier Shelf Expiration Date Model / Serial / Lot Cpx 4 Med Height Granite Fabricator Implanted:Qty: 1 on 04/13/2016 by César [place] [facility] [place]: Breast MENTOR KEE 04/13/2016 [id number] / [id number] / [id number] Breast Implant Smooth Round Moderate Profile Implanted:Qty: 1 on 11/15/2016 by César Oro [place] [facility] [employer] 05/05/2021 [id number] / [id number] / [id number] Port Power Mri W/8fr Cath - [id number] Implanted:Qty: 1 on 04/04/2018 by Janis Brito MD at [place] [facility] Left: Chest CR BARD : PERIPHERAL VASCULAR 04/26/2019 [id number] / / [id number] Description:left subclavian documented as of this encounter Visit Diagnoses Diagnosis Coronary artery disease involving rosebud heart without angina pectoris, unspecified vessel or lesion type- Primary Ischemic cardiomyopathy Other specified forms of chronic ischemic heart disease HTN, goal below 140/90 Unspecified essential hypertension Dyslipidemia, goal LDL below 70 Other and unspecified hyperlipidemia Diabetes mellitus without complication (HCC) Type II or unspecified type diabetes mellitus without mention of complication, not stated as uncontrolled documented in this encounter Advance Directives Latest Code Status on File Code Status Date Activated Date Inactivated Comments Full Code 10/19/2022 7:58 AM 10/19/2022 4:37 PM This order reflects the patients wishes and were consensually agreed upon. Question Answer Comments Discussion of Advance Directives occurred with: Patient Does the patient have a Living Will? No Does the patient have Health Care Power of Processing Tech? No Code Status History Code Status Date Activated Date Inactivated Comments Full Code 11/15/2016 8:29 AM 11/16/2016 3:18 PM Question Answer Comments Discussion of Advance Directives occurred with: Not Discussed Full Code 04/13/2016 10:29 AM 04/15/2016 4:08 PM This order reflects the patients wishes and were consensually agreed upon. Care Teams Moth Proofer Relationship Specialty Start Date End Date Ozzie Ann, DO [address] [facility] [place] [address] PCP - General Family Medicine 09/09/16 documented as of this encounter"
--- OUTSIDE RECORDS SUMMARY | 2023-05-19 23:42 | External Medical Summary | Summary of Care ---
Author Name Unknown Organization [facility] Address [address] [place] [address] Phone [phone] Care Team Providers Care Manufacturing Planner Name Role Phone Seth Ozzie Bernardo ARMSTRONG Primary Care Provider [phone] Encounter Details Date Type Department Care Team ([facility] st Contact Info) Description 02/01/2023 Specialty Pharmacy [facility], [address] [address] Medication, [place] Specialty Refill, [address] [address] Allergies Active Allergy Reactions Criticality Noted Date Comments [place] Oil High 01/30/2019 Other reaction(s): STOMACH UPSET It is not corn oil--- Just plain [place] Ham High 02/13/2019 Other reaction(s): STOMACH UPSET Clopidogrel Bisulfate Rash 04/22/2009 Rash on Plavix-per Dr. Eldridge documented as of this encounter (statuses as of 02/01/2023) Medications Medication Sig Dispensed Refills Start Date [...] , and Monday only. evenings 0 Active XM Radio Ultra 2 w/Device KitIndications:Diabetes mellitus without complication (HCC) Use to check blood sugar once daily. 1 Kit 0 2 Active Vitamin D3 50 MCG (1999 UT) Oral Capsule Take 1 Capsule by mouth daily with dinner. 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 Goiter 06/06/2002 01/20/2021 PREMENSTRUAL TENSION 04/04/1997 019 documented as of this encounter (statuses as of 02/01/2023) Immunizations Name Administration Dates Next Due COVID-19 mRNA, LNP-s, No Pre serve, 2-Dose Series (Moderna) 01/22/2021,06/01/2020,04/28/2020 COVID-19, mRNA, LNP-s, PF, B ooster, 100mcg/0.5mg (Moderna) 10/08/2021 H1N1 2009 Influenza, IM 07/28/2009 Pneumococcal Conjugate Vacci ne, 20-valent ([id number]) 01/25/2022 Pneumococcal Polysaccharide PPV23 (Pneumovax) 07/20/2020,04/01/2009 SEASONAL [...] as of this encounter Progress Notes * Nabila Karimi CPhT - 02/01/2023 1:58 PM EST Prescribed medication: Medication: Durolane Shipment date: 02/02 Delivery method: Specialty Mail Location Medication Delivered too? OFFICE: [address] [place] [address], [place] [address] Nabila Karimi CPhT [facility] 02/01/2023,1:58 PM documented in this encounter Plan of Treatment Upcoming Encounters Date Type Department Care Team (Late st Contact Info) Description 03/08/2023 10:00 AM EST Office Visit Family Practice [facility] [place] [address] [place] [address] Ozzie Ann DO [address] [place] [address] 03/13/2023 9:00 AM EST Imaging Radiology [facility] [address] [place] [address] [address] [place] [address] 03/13/2023 10:30 AM EST Imaging Radiology [address] [facility] [place] [address] 04/06/2023 10:00 AM EST Office Visit General Surgery, Health system [address] [facility] [place] [address] Janis Brito MD [address] [facility] [place] [address] 05/18/2023 2:00 PM EST Office Visit Hematology/Oncology [facility] [address] [facility] [place] [address] Martha Elizabeth CRNP 400 [facility] [place] [address] Scheduled Procedures Name Priority Associated Diagnoses Date/Ti me COLONOSCOPY FLEXIBLE PROXIMA L DIAGNOSTIC Recall Family history of colon cancer History of breast cancer Health Maintenance Due Date Last Done Comments Hepatitis B (1 of 3 - Risk 3-dose series) 2015 Zoster Vaccines (2 of 3) 05/05/2017 03/10/2017 Depression Screening 04/12/2020 04/12/2019 Diabetic Eye Exam 04/01/2021 04/01/2020 CKD PHOS USE SMARTSET 87443 01/13/2022 01/13/2021, 0 10/10/2019 Diabetic Foot Exam 09/24/2022 09/24/2021 COVID-19 Vaccine ( season) 2022 10/08/2021, 01/22/2021, 06/01/2020, Additional history exists GFR 02/03/2023 08/03/2022, 04/28, 11/09/2021, Additional history exists HbA1c 02/03/2023 08/03/2022, 12/26, 07/21/2021, Additional history exists CKD HGB USE SMARTSET 42280 05/18/202305/18, 05/18/2022, 06/04/2021, Additional history exists DXA [...] this encounter Medical Devices Implanted Type Area Road Test Examiner Device Identifier Shelf Expiration Date Model / Serial / Lot Cpx 4 Med Height Employment Interviewer Implanted:Qty: 1 on 04/13/2016 by César Oro MD at OR [facility] Right: Breast MENTOR KEE 04/13/2016 [id number] / [id number] / [id number] Breast Implant Smooth Round Moderate Profile Implanted:Qty: 1 on 11/15/2016 by César Oro MD at OR [facility] [employer] 05/05/2021 SRM-685 / [id number] / [id number] Port Power Mri W/8fr Cath - [id number] Implanted:Qty: 1 on 04/04/2018 by Janis Brito MD at OR [facility] Left: Chest CR BARD : PERIPHERAL VASCULAR 04/26/2019 [id number] / / [id number] Description:left subclavian documented as of this encounter [...] the patient have Health Care Power of Sole Stapler [place]? No Code Status History Code Status Date Activated Date Inactivated Comments Full Code 11/15/2016 8:29 AM 11/16/2016 3:18 PM Question Answer Comments Discussion of Advance Directives occurred with: Not Discussed Full Code 04/13/2016 10:29 AM 04/15/2016 4:08 PM This order reflects the patients wishes and were consensually agreed upon. Care Teams Manufacturing Planner Relationship Specialty Start Date End Date Ozzie Ann DO [address] [place] [address] PCP - General Family Medicine 09/09/16 documented as of this encounter
--- OUTSIDE RECORDS SUMMARY | 2023-05-19 23:42 | External Medical Summary | Summary of Care ---
Author Name Unknown Organization [facility] Address [address] [place] [address] Phone [phone] Care Team Providers Care Pharmacist Manager Name Role Phone SethOzzie Bernardo ARMSTRONG Primary Care Provider [phone] Encounter Details Date Type Department Care Team Description 12/21/2022 Immunization Ancillary [facility] [address] [place] [address] Sp, Flu Shot Clinic [address] [place] [address] Arrived Allergies Active Allergy Reactions Severity Noted Date Comments [place] Oil High 01/30/2019 Other reaction(s): STOMACH UPSET It is not corn oil--- Just plain [place] Ham High 02/13/2019 Other reaction(s): STOMACH UPSET Clopidogrel Bisulfate Rash 04/22/2009 Rash on Plavix-per Dr. Eldridge documented as of this encounter (statuses as of 12/21/2022) Medications Medication Sig Dispensed Refills Start Date [...] , and Monday only. evenings 0 Active AGV Media Ultra 2 w/Device KitIndications:Diabetes mellitus without complication (HCC) Use to check blood sugar once daily. 1 Kit 0 2 Active Vitamin D3 50 MCG (1999 UT) Oral Capsule Take 1 Capsule by mouth daily with dinner. 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 180 Tablet 3 3 Active Empagliflozin 10 MG Oral Tablet (Jardiance) Take 1 Tablet by mouth in the morning. 90 Tablet 3 3 Active documented as of this encounter (statuses as of 12/21/2022) Active Problems Problem Noted Date Acute ST [...] cancer 01/31/2019 Pure hypercholesterolemia 12/21/2017 History of AR (myocardial infarction) Transient global amnesia 03/02/2016 HTN, goal below 140/90 12/16/2005 DIFFUS CYSTIC MASTOPATHY 10/10/2001 FIBROMYALGIA 04/04/1997 documented as of this encounter (statuses as of 12/21/2022) Resolved Problems Problem Noted Date Resolved Date [...] 05/29/2018:Stage IIA(cT2, cN0, cM0, G2, ER: Negative, DC: Negative, HER2: Positive) - Signed by Jamil Marques MD on 05/29/2018 Overview: H/O Ductal carcinoma in situ (DCIS) of right breast 03/07/2016 01/25/2022 Overview: Biopsy at [facility] 03/03/2016 ACUTE ANTEROLATERAL MYOCARDIAL INFARCTION- 010 04/01/2009 03/10/2017 ADVANCE DIRECTIVE INFORMATION 08/27/2008 Overview: No, Advance Directive brochure given to patient. Goiter 06/06/2002 01/20/2021 PREMENSTRUAL TENSION 04/04/1997 04/27/2018 documented as of this encounter (statuses as of 12/21/2022) Immunizations Name Administration Dates Next Due COVID-19 mRNA, LNP-s, No Pre serve, 2-Dose Series (Moderna) 01/22/2021,06/01/2020,04/28/2020 COVID-19, mRNA, LNP-s, PF, B ooster, 100mcg/0.5mg (Moderna) 10/08/2021 H1N1 2009 Influenza, IM 07/28/2009 Pneumococcal Conjugate Vacci ne, 20-valent ([id number]) 01/25/2022 Pneumococcal Polysaccharide PPV23 (Pneumovax) 07/20/2020,04/01/2009 Seasonal [...] Visit Family Medicine Ozzie Ann, DO 200 [place] [address] 03/13/2023 Imaging Radiology 03/13/2023 Imaging Radiology 04/06/2023 Office Visit General Surgery Janis Brito MD [address] [place] [address] 05/18/2023 Office Visit Hematology Oncology Martha Elizabeth CRNP [address] [place] [address] Scheduled Procedures Name Priority Associated Diagnoses Date/Ti me COLONOSCOPY FLEXIBLE PROXIMA L DIAGNOSTIC Recall Family history of colon cancer History of breast cancer Health Maintenance Due Date Last Done Comments Zoster Vaccines (2 of 3) 05/05/2017 03/10/2017 Depression Screening 04/12/2020 04/12/2019 DIABETES-EYE EXAM 04/01/2021 04/01/2020 COVID-19 Vaccine (5 - Moderna series) 12/03/2021 10/08/2021, 01/22/2021, 06/01/2020, Additional history exists CKD PHOS USE SMARTSET 07205 01/13/2022 01/13/2021, 0 10/10/2019 Diabetic Foot Exam 09/24/2022 09/24/2021 Influenza Vaccine (FLU shot) (#1) 2022 12/21/2022, 01/25/2022, 01/25/2022, Additional history exists GFR 02/03/2023 08/03/2022, 04/28, 11/09/2021, Additional history exists HbA1c 02/03/2023 08/03/2022, 12/26, 07/21/2021, Additional history exists CKD HGB USE SMARTSET 02569 05/18/202305/18, 05/18/2022, 06/04/2021, Additional history exists DXA [...] this encounter Medical Devices Implanted Type Area Wardrobe Mistress Device Identifier Shelf Expiration Date Model / Serial / Lot Cpx 4 Med Height Vice President Of Consulting Services Implanted:Qty: 1 on 04/13/2016 by César Oro MD at OR [facility] Right: Breast MENTOR KEE 04/13/2016 [id number] / [id number] / [id number] Breast Implant Smooth Round Moderate Profile Implanted:Qty: 1 on 11/15/2016 by César Oro MD at OR [facility] [employer]GAN 05/05/2021 [facility]-685 / [id number] / [id number] Port Power Mri W/8fr Cath - [id number] Implanted:Qty: 1 on 04/04/2018 by Janis Brito MD at OR [facility] Left: Chest CR BARD : PERIPHERAL VASCULAR 04/26/2019 [id number] / / [id number] Description:left subclavian documented as of this encounter [...] patient have Health Care Power of Senior Group Manager? No Code Status History Code Status Date Activated Date Inactivated Comments Full Code 11/15/2016 8:29 AM 11/16/2016 3:18 PM Question Answer Comments Discussion of Advance Directives occurred with: Not Discussed Full Code 04/13/2016 10:29 AM 04/15/2016 4:08 PM This order reflects the patients wishes and were consensually agreed upon. Care Teams Pharmacist Manager Relationship Specialty Start Date End Date Ozzie Ann, DO [address] [place] [address] PCP - General Family Medicine 09/09/16 documented as of this encounter
--- OUTSIDE RECORDS SUMMARY | 2023-05-19 23:42 | External Medical Summary | Summary of Care ---
Author Name Unknown Organization [facility] Address [address] [place] [address] Phone [phone] Care Team Providers Care Mixing Machine Feeder Name Role Phone GoodOzzie tellez Bernardo ARMSTRONG Primary Care Provider [phone] Reason for Visit * Reason Onset Date Comments Pre Op Discussion 10/11/2022 Encounter Details Date Type Department Care Team Description 10/11/2022 Telephone OR [facility], Operating Room [facility] [address] [place] [address] Janis Brito MD [address] [place] [address] Pre Op Discussion Allergies Active Allergy Reactions Severity Noted Date Comments [place] Oil High 01/30/2019 Other reaction(s): STOMACH UPSET It is not corn oil--- Just plain [place] Ham High 02/13/2019 Other reaction(s): STOMACH UPSET Clopidogrel Bisulfate Rash 04/22/2009 Rash on Plavix-per Dr. Eldridge documented as of this encounter (statuses as of 01/10/2023) Medications Medication Sig Dispensed Refills Start Date [...] , and Monday only. evenings 0 Active Findline Ultra 2 w/Device KitIndications:Diabetes mellitus without complication (HCC) Use to check blood sugar once daily. 1 Kit 0 2 Active Vitamin D3 50 MCG (1999 UT) Oral Capsule Take 1 Capsule by mouth daily with dinner. 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),HTN, goal below 140/90,Coronary artery disease involving [place] heart without angina pectoris, unspecified vessel or [...] Tablet (Norvasc)Indications:HTN , goal below 140/90,History of [place] (myocardial infarction),Acute ST elevation myocardial infarction (STEMI) of anterolateral wall (HCC),Coronary artery disease involving [place] heart without angina pectoris, unspecified vessel or [...] 10/13/2022 Amitriptyline HCl 25 MG Oral Tablet (Elavil)Indications:Anxi [...] (Lipitor)Indications:Car diomyopathy, unspecified type (HCC),Pure hypercholesterolemia Take by mouth 1 Tablet in the morning. 90 Tablet 3 2 023 Discontin ued(Refil l) Entresto 24-26 MG Oral Tablet (sacubitril-valsartan 24-26 mg per tab)Indications:HTN, goal below 140/90,History of [place] (myocardial infarction) Take 1 Tablet by mouth in the morning and 1 Tablet before bedtime. 180 Tablet 3 3 023 Discontin ued(Refil l) documented as of this encounter (statuses as of 01/10/2023) Active Problems Problem Noted Date Acute ST [...] hypercholesterolemia 12/21/2017 History of CO (myocardial infarction) Transient global amnesia 03/02/2016 HTN, goal below 140/90 12/16/2005 DIFFUS CYSTIC MASTOPATHY 10/10/2001 FIBROMYALGIA 04/04/1997 documented as of this encounter (statuses as of 01/10/2023) Resolved Problems Problem Noted Date Resolved Date [...] 05/29/2018:Stage IIA(cT2, cN0, cM0, G2, ER: Negative, [place]: Negative, HER2: Positive) - Signed by Jamil Marques MD on 05/29/2018 Overview: H/O Ductal carcinoma in situ (DCIS) of right breast 03/07/2016 01/25/2022 Overview: Biopsy at [facility] 03/03/2016 ACUTE ANTEROLATERAL MYOCARDIAL INFARCTION- 010 04/01/2009 03/10/2017 ADVANCE DIRECTIVE INFORMATION 08/27/2008 Overview: No, Advance Directive brochure given to patient. Goiter 06/06/2002 01/20/2021 PREMENSTRUAL TENSION 04/04/1997 04/27/2018 documented as of this encounter (statuses as of 01/10/2023) Immunizations Name Administration Dates Next Due COVID-19 mRNA, LNP-s, No Pre serve, 2-Dose Series (Moderna) 01/22/2021,06/01/2020,04/28/2020 COVID-19, mRNA, LNP-s, PF, B ooster, 100mcg/0.5mg (Moderna) 10/08/2021 H1N1 2009 Influenza, IM 07/28/2009 Pneumococcal Conjugate Vacci ne, 20-valent ([id number]) 01/25/2022 Pneumococcal Polysaccharide PPV23 (Pneumovax) 07/20/2020,04/01/2009 SEASONAL [...] Visit [facility] [address] 03/13[facility]2023 Imaging Radiology 03/13/2023 Imaging Radiology 04/06/2023 Office Visit General Surgery Janis Brito MD [address] [place] [address] 05/18/2023 Office Visit Hematology Oncology Martha Elizabeth CRNP [address] [place] [address] Scheduled Procedures Name Priority Associated Diagnoses Date/Ti me COLONOSCOPY FLEXIBLE PROXIMA L DIAGNOSTIC Recall Family history of colon cancer History of breast cancer Health Maintenance Due Date Last Done Comments Zoster Vaccines (2 of 3) 05/05/2017 03/10/2017 Depression Screening 04/12/2020 04/12/2019 DIABETES-EYE EXAM 04/01/2021 04/01/2020 CKD PHOS USE SMARTSET 04172 01/13/2022 01/13/2021, 0 10/10/2019 Diabetic Foot Exam 09/24/2022 09/24/2021 COVID-19 Vaccine ( season) 2022 10/08/2021, 01/22/2021, 06/01/2020, Additional history exists GFR 02/03/2023 08/03/2022, 04/28, 11/09/2021, Additional history exists HbA1c 02/03/2023 08/03/2022, 12/26, 07/21/2021, Additional history exists CKD HGB USE SMARTSET 98556 05/18/202305/18, 05/18/2022, 06/04/2021, Additional history exists DXA [...] this encounter Medical Devices Implanted Type Area Tree Faller Device Identifier Shelf Expiration Date Model / Serial / Lot Cpx 4 Med Height Castables Worker Implanted:Qty: 1 on 04/13/2016 by César Oro MD at [place] [facility] Right: Breast MENTOR KEE 04/13/2016 [id number] / [id number] / [id number] Breast Implant Smooth Round Moderate Profile Implanted:Qty: 1 on 11/15/2016 by César Oro MD at OR [facility] [place] 05/05/2021 [facility]-685 / [id number] / [id number] Port Power Mri W/8fr Cath - [id number] Implanted:Qty: 1 on 04/04/2018 by Janis Brito MD at OR [facility] Left: Chest CR BARD : PERIPHERAL VASCULAR 04/26/2019 [id number] / / [id number] Description:left subclavian documented as of this encounter [...] the patient have Health Care Power of Electric Locomotive Crane Operator? No Code Status History Code Status Date Activated Date Inactivated Comments Full Code 11/15/2016 8:29 AM 11/16/2016 3:18 PM Question Answer Comments Discussion of Advance Directives occurred with: Not Discussed Full Code 04/13/2016 10:29 AM 04/15/2016 4:08 PM This order reflects the patients wishes and were consensually agreed upon. Care Teams Mixing Machine Feeder Relationship Specialty Start Date End Date Ozzie Ann, DO [address] [place] [address] PCP - General Family Medicine 09/09/16 documented as of this encounter
--- OUTSIDE RECORDS SUMMARY | 2023-05-19 23:42 | External Medical Summary | Summary of Care ---
Author Name Unknown Organization [facility] Address [address] [place] [address] Phone [phone] Care Team Providers Care Protocol Officer Name Role Phone Farntz Schrader DO Primary Care Provider [phone] Reason for Visit * Reason Onset Date Comments Medication Refill 01/14/2023 Encounter Details Date Type Department Care Team (Late st Contact Info) Description 01/14/2023 Refill Family Practice [facility] [address] [facility] [place] [address] Frantz Schrader DO [address] [facility] [place] [address] Anxiety state Allergies Active Allergy Reactions Criticality Noted Date Comments Simpson Oil High 01/30/2019 Other reaction(s): STOMACH UPSET It is not corn oil--- Just plain Simpson Ham High 02/13/2019 Other reaction(s): STOMACH UPSET Clopidogrel Bisulfate Rash 04/22/2009 Rash on Plavix-per Dr. Eldridge documented as of this encounter (statuses as of 01/16/2023) Medications Medication Sig Dispensed Refills Start Date [...] , and Monday only. evenings 0 Active SolarBuddy Ultra 2 w/Device KitIndications:Diabetes mellitus without complication (HCC) Use to check blood sugar once daily. 1 Kit 0 2 Active Vitamin D3 50 MCG (1999 UT) Oral Capsule Take 1 Capsule by mouth daily with dinner. 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 90 Tablet 3 3 Active Allied Urological ServicesTouch Ultra In Vitro Strip (Glucose Blood)Indications:Diabet es [...] mg per tab)Indications:HTN, goal below 140/90,History of PA (myocardial infarction) Take 1 Tablet by mouth [...] of 225mg/day.. 90 Tablet 1 3 Active busPIRone HCl 15 MG Oral Tablet (Buspar)Indications:Anxi ety state Take 1 Tablet by mouth in the morning and 1 Tablet before bedtime. 180 Tablet 1 3 023 Discontin ued(Refil l) Metoprolol Succinate ER 25 MG Oral Tablet Extended Release 24 Hour (Toprol XL) Take 1 Tablet by mouth in the morning. Take in addition to 200mg tablet for total dose of 225mg/day.. 90 Tablet 1 3 023 Discontin ued(Refil l) documented as of this encounter (statuses as of 01/16/2023) Active Problems Problem Noted Date Diagnosed Date [...] cancer 01/31/2019 Pure hypercholesterolemia 12/21/2017 History of PA (myocardial infarction) 03/10/2017 Transient global amnesia 03/02/2016 HTN, goal below 140/90 12/16/2005 DIFFUS CYSTIC MASTOPATHY 10/10/2001 FIBROMYALGIA 04/04/1997 documented as of this encounter (statuses as of 01/16/2023) Resolved Problems Problem Noted Date Diagnosed Date [...] 05/29/2018:Stage IIA(cT2, cN0, cM0, G2, ER: Negative, MI: Negative, HER2: Positive) - Signed by Jamil Marques MD on 05/29/2018 Overview: H/O 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 03/03/2016 ACUTE ANTEROLATERAL MYOCARDI AL INFARCTION- 03/31/2009 04/01/2009 03/10/2017 ADVANCE DIRECTIVE INFORMATION 08/27/2008 03/10/2017 Overview: No, Advance Directive brochure given to patient. Goiter 06/06/2002 01/20/2021 PREMENSTRUAL TENSION 04/04/1997 019 documented as of this encounter (statuses as of 01/16/2023) Immunizations Name Administration Dates Next Due COVID-19 mRNA, LNP-s, No Pre serve, 2-Dose Series (Moderna) 01/22/2021,06/01/2020,04/28/2020 COVID-19, mRNA, LNP-s, PF, B ooster, 100mcg/0.5mg (Moderna) 10/08/2021 H1N1 2009 Influenza, IM 07/28/2009 Pneumococcal Conjugate Vacci ne, 20-valent ([id number]) 01/25/2022 Pneumococcal Polysaccharide PPV23 (Pneumovax) 07/20/2020,04/01/2009 SEASONAL [...] drink = 0.6 oz pur e alcohol) Sex and Gender Information Value Date Recorded Sex Assigned at Female 11/02/2018 3:27 PM EDT Gender Identity Female 11/02/2018 3:27 PM EDT Sexual Orientation Straight 11/02/2018 3: 27 PM EDT Job Start Date Occupation Industry Not on file Not on file Not on file documented as of this encounter Miscellaneous Notes * Telephone Encounter - Frantz Schrader DO - 01/16/2023 12:40 PM EDTSigned Prescriptions: Disp Refills busPIRone HCl 15 MG Oral Tablet (Buspar) 180 Ta*1 Sig: Take 1 Tablet by mouth in the morning and 1 Tablet before bedtime. Authorizing Provider: FRANTZ SCHRADER Metoprolol Succinate ER 25 MG Oral Tablet *90 Tab*1 Sig: Take 1 Tablet by mouth in the morning. Take in addition to 200mg tablet for total dose of 2 25mg/day.. Authorizing Provider: FRANTZ SCHRADER * Telephone Encounter - César Stewart [facility] - 01/15/2023 7:34 PM EDT Pending Prescriptions: Disp Refills busPIRone HCl 15 MG Oral Tablet (Buspar) 180 Ta*1 Sig: Take 1 Tablet by mouth in the morning and 1 Tablet before bedtime. Metoprolol Succinate ER 25 MG Oral Tablet *90 Tab*1 Sig: Take 1 Tablet by mouth in the morning. Take in addition to 200mg tablet for total do se of 225mg/day.. documented in this encounter Plan of Treatment Upcoming Encounters Date Type Department Care Team (Late st Contact Info) Description 03/08/2023 10:00 AM EST Office Visit Family Practice [facility] [address] [facility] [place] [address] Frantz Schrader DO [address] [facility] [place] [address] 03/13/2023 9:00 AM EST Imaging Radiology [address] [facility] [place] [address] 03/13/2023 10:30 AM EST Imaging Radiology [address] [facility] [place] [address] 04/06/2023 10:00 AM EST Office Visit General Surgery, [facility] [address] [facility] [place] [address] Janis Brito MD [address] [place] [address] 05/18/2023 2:00 PM EST Office Visit Hematology/Oncology [facility] [place] [address] [facility] [place] [address] Martha Elizabeth CRNP [address] [place] [address] Scheduled Procedures Name Priority Associated Diagnoses Date/Ti me COLONOSCOPY FLEXIBLE PROXIMA L DIAGNOSTIC Recall Family history of colon cancer History of breast cancer Health Maintenance Due Date Last Done Comments Zoster Vaccines (2 of 3) 05/05/2017 03/10/2017 Depression Screening 04/12/2020 04/12/2019 DIABETES-EYE EXAM 04/01/2021 04/01/2020 CKD PHOS USE SMARTSET 01187 01/13/2022 01/13/2021, 0 10/10/2019 Diabetic Foot Exam 09/24/2022 09/24/2021 COVID-19 Vaccine (2022- season) 2022 10/08/2021, 01/22/2021, 06/01/2020, Additional history exists GFR 02/03/2023 08/03/2022, 04/28, 11/09/2021, Additional history exists HbA1c 02/03/2023 08/03/2022, 12/26, 07/21/2021, Additional history exists CKD HGB USE SMARTSET 99568 05/18/202305/18, 05/18/2022, 06/04/2021, Additional history exists DXA [...] this encounter Medical Devices Implanted Type Area Two Needle Machine Operator Device Identifier Shelf Expiration Date Model / Serial / Lot Cpx 4 Med Height Wood Gouger Implanted:Qty: 1 on 04/13/2016 by César Oro MD at [facility] Right: Breast MENTOR KEE 04/13/2016 [id number] / [id number] / [id number] Breast Implant Smooth Round Moderate Profile Implanted:Qty: 1 on 11/15/2016 by César Oro MD at [facility] [employer] 05/05/2021 [id number]-685 / [id number] / [id number] Port Power Mri W/8fr Cath - [id number] Implanted:Qty: 1 on 04/04/2018 by Janis Brito MD at [facility] Left: Chest CR BARD : PERIPHERAL VASCULAR 04/26/2019 [id number] / / [id number] Description:left subclavian documented as of this encounter Visit Diagnoses Diagnosis Anxiety state Anxiety state, unspecified documented in this encounter Advance Directives Latest Code Status on File Code Status Date Activated Date Inactivated Comments Full Code 10/19/2022 7:58 AM 10/19/2022 4:37 PM This order reflects the patients wishes and were consensually agreed upon. Question Answer Comments Discussion of Advance Directives occurred with: Patient Does the patient have a Living Will? No Does the patient have Health Care Power of [place]? No Code Status History Code Status Date Activated Date Inactivated Comments Full Code 11/15/2016 8:29 AM 11/16/2016 3:18 PM Question Answer Comments Discussion of Advance Directives occurred with: Not Discussed Full Code 04/13/2016 10:29 AM 04/15/2016 4:08 PM This order reflects the patients wishes and were consensually agreed upon. Care Teams Protocol Officer Relationship Specialty Start Date End Date Frantz Schrader DO [address] [place] [address] PCP - General Family Medicine 09/09/16 documented as of this encounter
--- OUTSIDE RECORDS SUMMARY | 2023-05-19 23:42 | External Medical Summary | Summary of Care ---
Author Name Unknown Organization [facility] Address [address] [place] [address] Phone [phone] Care Team Providers Care Branch Banker Name Role Phone Ozzie Ann DO Primary Care Provider [phone] Reason for Visit * Reason Onset Date Comments Medication Refill 09/09/2022 Encounter Details Date Type Department Care Team Description 09/09/2022 Refill Family [facility] [address] [place] [address] Ozzie Ann DO [address] [place] [address] Allergies Active Allergy Reactions Severity Noted Date Comments Frohna Oil High 01/30/2019 Other reaction(s): STOMACH UPSET It is not corn oil--- Just plain Frohna Ham High 02/13/2019 Other reaction(s): STOMACH UPSET Clopidogrel Bisulfate Rash 04/22/2009 Rash on Plavix-per Dr. Eldridge documented as of this encounter (statuses as of 12/16/2022) Medications Medication Sig Dispensed Refills Start Date End Date Status ASPIRIN EC 81 MG PO TBECIndications:Acut e anterolateral myocardial infarction (HCC) Take by mouth at bedtime. 100 3 04/06/2009 Active Cyanocobalamin (B-12) 100 MCG TABS Take by mouth 1 Tablet daily . 0 06/18/2015 Active triamcinolone acetonide (ARISTOCORT) 0.1 % ointmentIndications: Folliculitis Apply topically to affected area 2 times a day. To affected area. 15 g 5 04/27/2018 Active fluticasone (FLONASE) 50 MCG/ACT nasal spray Administer 2 Sprays into each nostril daily. opp hand 1 Bottle 11 01/23/2019 Active Docusate Sodium 100 MG Oral Capsule Take 1 Capsule by mouth at bedtime. 0 Active Ventolin HFA 108 (90 Base) MCG/ACT Inhalation Aerosol SolutionIndications: Cough Inhale 2 Puffs by mouth 4 times a day as needed for Wheezing. 18 g 1 03/02/2021 Active Nitroglycerin 0.4 MG Sublingual Tablet Sublingual (Nitrostat) One tablet under tongue if needed for chest pain. May repeat 3 times. If chest pain continues, call [phone] 25 Tablet 11 03/30/2021 Active Additional Information Patient not taking.Reported on 11/23/2022 Iron-Vitamin C 65-125 MG Oral Tablet Take 1 Tablet by mouth once a day on Monday, , and Monday only. evenings 0 Active Serometrix Ultra 2 w/Device KitIndications:Diabe alise mellitus without complication (HCC) Use to check blood sugar once daily. 1 Kit 0 09/24/2021 Active Vitamin D3 50 MCG (2000 UT) Oral Capsule Take 1 Capsule by mouth daily with dinner. 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 90 Tablet 3 03/30/2022 Active Benzonatate 100 MG Oral CapsuleIndications:A cute non-recurrent maxillary sinusitis Take 1 Capsule by mouth 3 times a day as needed for Cough. 30 Capsule 1 05/09/2022 Active Omeprazole 20 MG Oral Capsule Delayed Release (PriLOSEC)Indication s:Gastroesophageal reflux disease with esophagitis without hemorrhage Take 1 Capsule by mouth in the morning. 90 Capsule 3 06/02/2022 Active Spironolactone 25 MG Oral Tablet (Aldactone)Indicatio ns:HTN, goal below 140/90 Take 0.5 Tablets by mouth once a day on Monday, Monday, and Monday only. 45 Tablet 3 06/06/2022 Active amLODIPine Besylate 2.5 MG Oral Tablet (Norvasc)Indications :HTN, goal below 140/90,History of MT (myocardial infarction),Acute ST elevation myocardial infarction (STEMI) of anterolateral wall (HCC),Coronary artery disease involving ruby heart without angina pectoris, unspecified vessel or lesion type Take 1 Tablet by mouth in the morning and 1 Tablet before bedtime. 180 Tablet 3 07/20/2022 Active busPIRone HCl 15 MG Oral Tablet (Buspar)Indications: Anxiety state Take 1 Tablet by mouth in the morning and 1 Tablet before bedtime. 180 Tablet 1 07/20/2022 Active Metoprolol Succinate ER 25 MG Oral Tablet Extended Release 24 Hour (Toprol XL) Take 1 Tablet by mouth in the morning. Take in addition to 200mg tablet for total dose of 225mg/day.. 90 Tablet 1 07/20/2022 Active metFORMIN HCl ER 500 MG Oral Tablet Extended Release 24 Hour (Glucophage XR)Indications:Diabe alise mellitus without complication (HCC) Take 1 Tablet by mouth in the morning. 90 Tablet 1 07/20/2022 Active Additional Information Patient taking differently:500 mg OralDINNER, Reported on 10/13/2022 Amitriptyline HCl 25 MG Oral Tablet (Elavil)Indications: Anxiety state Take 1 Tablet by mouth at bedtime. 90 Tablet 3 09/05/2022 Active documented as of this encounter (statuses as of 12/16/2022) Active Problems Problem Noted Date Acute ST [...] cancer 01/31/2019 Pure hypercholesterolemia 12/21/2017 History of MT (myocardial infarction) Transient global amnesia 03/02/2016 HTN, goal below 140/90 12/16/2005 DIFFUS CYSTIC MASTOPATHY 10/10/2001 FIBROMYALGIA 04/04/1997 documented as of this encounter (statuses as of 12/16/2022) Resolved Problems Problem Noted Date Resolved Date [...] right breast 03/07/2016 01/25/2022 Overview: Biopsy at [facility] 03/03/2016 ACUTE ANTEROLATERAL MYOCARDIAL INFARCTION- 010 04/01/2009 03/10/2017 ADVANCE DIRECTIVE INFORMATION 08/27/2008 Overview: No, Advance Directive brochure given to patient. Goiter 06/06/2002 01/20/2021 PREMENSTRUAL TENSION 04/04/1997 04/27/2018 documented as of this encounter (statuses as of 12/16/2022) Immunizations Name Administration Dates Next Due COVID-19 mRNA, LNP-s, No Pre serve, 2-Dose Series (Moderna) 01/22/2021,06/01/2020,04/28/2020 COVID-19, mRNA, LNP-s, PF, B ooster, 100mcg/0.5mg (Moderna) 10/08/2021 H1N1 2009 Influenza, IM 07/28/2009 Pneumococcal Conjugate Vacci ne, 20-valent ([id number]) 01/25/2022 Pneumococcal Polysaccharide PPV23 (Pneumovax) 07/20/2020,04/01/2009 Seasonal [...] Encounters Date Type Specialty Care Team Description 12/21/2022 Immunization Ancillary Sp, Flu Shot Clinic [address] [place] [address] 03/08/2023 Office Visit Family Medicine Ozzie Ann, DO [address] [place] [address] 03/13/2023 Imaging Radiology 03/13/2023 Imaging Radiology 04/06/2023 Office Visit General Surgery Janis Brito MD [address] [place] [address] 05/18/2023 Office Visit Hematology Oncology Martha Elizabeth CRNP [address] [place] [address] Scheduled Procedures Name Priority [...] Additional history exists CKD PHOS USE SMARTSET 46634 01/13/2022 01/13/2021, 0 10/10/2019 Diabetic Foot Exam 09/24/2022 09/24/2021 Influenza Vaccine (FLU shot) (#1) 2022 01/25/2022, 01/25/2022, 12/30/2020, Additional history exists GFR 02/03/2023 08/03/2022, 04/28, 11/09/2021, Additional history exists HbA1c 02/03/2023 08/03/2022, 12/26, 07/21/2021, Additional history exists CKD HGB USE SMARTSET 60200 05/18/202305/18, 05/18/2022, 06/04/2021, Additional history exists DXA [...] this encounter Medical Devices Implanted Type Area Die Sizer Device Identifier Shelf Expiration Date Model / Serial / Lot Cpx 4 Med Height Client Reporting Associate Implanted:Qty: 1 on 04/13/2016 by César Oro MD at [facility] Right: Breast MENTOR KEE 04/13/2016 [id number] / [id number] / [id number] Breast Implant Smooth Round Moderate Profile Implanted:Qty: 1 on 11/15/2016 by César Oro MD at [facility] [employer] 05/05/2021 SRM-685 / [id number] / [id number] Port Power Mri W/8fr Cath - [id number] Implanted:Qty: 1 on 04/04/2018 by Janis Brito MD at OR [facility] Left: Chest CR BARD : PERIPHERAL VASCULAR 04/26/2019 [id number] / / [id number] Description:left subclavian documented as of this encounter [...] the patient have Health Care Power of Squeak Rattle And Leak Repairer? No Code Status History Code Status Date Activated Date Inactivated Comments Full Code 11/15/2016 8:29 AM 11/16/2016 3:18 PM Question Answer Comments Discussion of Advance Directives occurred with: Not Discussed Full Code 04/13/2016 10:29 AM 04/15/2016 4:08 PM This order reflects the patients wishes and were consensually agreed upon. Care Teams Branch Banker Relationship Specialty Start Date End Date Ozzie Ann, DO [address] [facility] [place] [address] PCP - General Family Medicine 09/09/16 documented as of this encounter
--- OUTSIDE RECORDS SUMMARY | 2023-05-19 23:42 | External Medical Summary ---
Author Name Unknown Address Unknown Organization K09:[facility] [place] [address] Laboratory Report Ordering Provider Test Date Status CHRISTIAN MEDA 02/07/2023 15:10:57 Final Observation Date Value Abnormality Reference (Units ) Status BUN 02/07/2023 15:10:57 19 6-20 (mg/dL) Final Creatinine 02/07/2023 15:10:57 1.0 0.5-1.0 (mg/dL) Final Glomerular filtration rate/1.73 sq M.predicted [Volume Rate/Area] in Serum, Plasma or Blood by Creatinine-based formula (CKD-EPI) 02/07/2023 15:10:57 62 >=60 (mL/min) Final eGFR is calculated based on the CKD-EPI 2020 equation SODIUM 02/07/2023 15:10:57 137 135-146 (m mol/L) Final Potassium 02/07/2023 15:10:57 4.0 3.5-5.1 (m mol/L) Final Cl 02/07/2023 15:10:57 98 98-107 (mm ol/L) Final CO2 02/07/2023 15:10:57 27 22-32 (mmo l/L) Final Anion gap 02/07/2023 15:10:57 12 7-15 (mmol /L) Final Glucose 02/07/2023 15:10:57 120 70-120 (mg /dL) Final Calcium 02/07/2023 15:10:57 10.2 8.4-10.2 ( mg/dL) Final Performing Location [facility] [place] [address]
--- OUTSIDE RECORDS SUMMARY | 2023-05-19 23:42 | External Medical Summary | Summary of Care ---
Author Name Unknown Organization [facility] Address [address] [place] [address] Phone [phone] Care Team Providers Care Esthetician And Manager Medical Spa Name Role Phone Seth Ozzie Chang DO Primary Care Provider [phone] Reason for Visit * Reason Comments Outpatient Testing Encounter Details Date Type Department Care Team (Late st Contact Info) Description 02/07/2023 3:10 PM EST Laboratory Laboratory [facility] [address] [place] [address] [facility] [address] [place] [address] HTN, goal below 140/90 Allergies Active Allergy Reactions Criticality Noted Date Comments [place] Oil High 01/30/2019 Other reaction(s): STOMACH UPSET It is not corn oil--- Just plain [place] Ham High 02/13/2019 Other reaction(s): STOMACH UPSET Clopidogrel Bisulfate Rash 04/22/2009 Rash on Plavix-per Dr. Eldridge documented as of this encounter (statuses as of 02/07/2023) Medications Medication Sig Dispensed Refills Start Date [...] , and Monday only. evenings 0 Active [employer] Ultra 2 w/Device KitIndications:Diabetes mellitus without complication (HCC) Use to check blood sugar once daily. 1 Kit 0 2 Active Vitamin D3 50 MCG (2000 UT) Oral Capsule Take 1 Capsule by mouth daily with dinner. 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),HTN, goal below 140/90,Coronary artery disease involving q[place] heart without angina pectoris, unspecified vessel or [...] Oral Tablet (Norvasc)Indications:HTN, goal below 140/90,History of MS (myocardial infarction),Acute ST elevation myocardial infarction (STEMI) of anterolateral wall (HCC),Coronary artery disease involving [place] heart without angina pectoris, unspecified vessel or [...] mg per tab)Indications:HTN, goal below 140/90,History of MS (myocardial infarction) Take 1 Tablet by mouth [...] Sodium Hyaluronate 60 MG/3ML Intra-articular Prefilled Syringe (DurPeak Positioning Technologiesne) Inject 60mg into the joint of right knee once 3 mL 0 3 Active documented as of this encounter (statuses as of 02/07/2023) Active Problems Problem Noted Date Diagnosed Date [...] cancer 01/31/2019 Pure hypercholesterolemia 12/21/2017 History of MS (myocardial infarction) 03/10/2017 Transient global amnesia 03/02/2016 HTN, goal below 140/90 12/16/2005 DIFFUS CYSTIC MASTOPATHY 10/10/2001 FIBROMYALGIA 04/04/1997 documented as of this encounter (statuses as of 02/07/2023) Resolved Problems Problem Noted Date Diagnosed Date [...] 05/29/2018:Stage IIA(cT2, cN0, cM0, G2, ER: Negative, IN: Negative, HER2: Positive) - Signed by Jamil Marques MD on 05/29/2018 Overview: 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 Goiter 06/06/2002 01/20/2021 PREMENSTRUAL TENSION 04/04/1997 019 documented as of this encounter (statuses as of 02/07/2023) Immunizations Name Administration Dates Next Due COVID-19 mRNA, LNP-s, No Pre serve, 2-Dose Series (Moderna) 01/22/2021,06/01/2020,04/28/2020 COVID-19, mRNA, LNP-s, PF, B ooster, 100mcg/0.5mg (Moderna) 10/08/2021 H1N1 2009 Influenza, IM 07/28/2009 Pneumococcal Conjugate Vacci ne, 20-valent ([id number]) 01/25/2022 Pneumococcal Polysaccharide PPV23 (Pneumovax) 07/20/2020,04/01/2009 SEASONAL [...] 10:00 AM EST Office Visit Family Practice [facility] [address] [place] [address] Ozzie Ann, DO [address] [place] [address] 03/13/2023 9:00 AM EST Imaging Radiology [address] [facility] [place] [address] 03/13/2023 10:30 AM EST Imaging Radiology [address] [place] [address] 04/06/2023 10:00 AM EST Office Visit General Surgery, [facility] [address] [facility] [place] [address] Janis Brito MD [address] [place] [address] 05/18/2023 2:00 PM EST Office Visit Hematology/Oncology [address] [place] 200 [facility] [place] [address] Martha Elizabeth CRNP [address] [place] [address] Pending Results Name Type Priority Associated Diagnoses Date /Time BASIC METABOLIC PANEL Lab Routine HTN, goal below 140/90 02/07/2023 3:10 PM EST Scheduled Procedures Name Priority Associated Diagnoses Date/Ti me COLONOSCOPY FLEXIBLE PROXIMA L DIAGNOSTIC Recall Family history of colon cancer History of breast cancer Health Maintenance Due Date Last Done Comments Hepatitis B (1 of 3 - Risk 3-dose series) 2015 Zoster Vaccines (2 of 3) 05/05/2017 03/10/2017 Depression Screening 04/12/2020 04/12/2019 Diabetic Eye Exam 04/01/2021 04/01/2020 CKD PHOS USE SMARTSET 11119 01/13/2022 01/13/2021, 0 10/10/2019 Diabetic Foot Exam 09/24/2022 09/24/2021 COVID-19 Vaccine ( season) 2022 10/08/2021, 01/22/2021, 06/01/2020, Additional history exists GFR 02/03/2023 08/03/2022, 04/28, 11/09/2021, Additional history exists HbA1c 02/03/2023 08/03/2022, 12/26, 07/21/2021, Additional history exists CKD HGB USE SMARTSET 49282 05/18/202305/18, 05/18/2022, 06/04/2021, Additional history exists DXA [...] this encounter Medical Devices Implanted Type Area Subcontracts Manager Device Identifier Shelf Expiration Date Model / Serial / Lot Cpx 4 Med Height Ball Maker Implanted:Qty: 1 on 04/13/2016 by César Oro MD at [place] [facility] [place] Right: Breast MENTOR KEE 04/13/2016 [id number] / [id number] / [id number] Breast Implant Smooth Round Moderate Profile Implanted:Qty: 1 on 11/15/2016 by César Oro MD at [facility] [place] 05/05/2021 SRM-685 / [id number] / [id number] Port Power Mri W/8fr Cath - [id number] Implanted:Qty: 1 on 04/04/2018 by Janis Brito MD at OR [facility] Left: Chest CR BARD : PERIPHERAL VASCULAR 04/26/2019 [id number] / / [id number] Description:left subclavian documented as of this encounter Visit Diagnoses Diagnosis HTN, goal below 140/90 Unspecified essential hypertension documented in this encounter Advance Directives Latest Code Status on File Code Status Date Activated Date Inactivated Comments Full Code 10/19/2022 7:58 AM 10/19/2022 4:37 PM This order reflects the patients wishes and were consensually agreed upon. Question Answer Comments Discussion of Advance Directives occurred with: Patient Does the patient have a Living Will? No Does the patient have Health Care Power of Manager Gallery? No Code Status History Code Status Date Activated Date Inactivated Comments Full Code 11/15/2016 8:29 AM 11/16/2016 3:18 PM Question Answer Comments Discussion of Advance Directives occurred with: Not Discussed Full Code 04/13/2016 10:29 AM 04/15/2016 4:08 PM This order reflects the patients wishes and were consensually agreed upon. Care Teams Esthetician And Manager Medical Spa Relationship Specialty Start Date End Date Ozzie Ann DO [facility] [place] [address] PCP - General Family Medicine 09/09/16 documented as of this encounter
--- OUTSIDE RECORDS SUMMARY | 2023-05-19 23:42 | External Medical Summary | Summary of Care ---
Author Name Unknown Organization [facility] Address [address] [facility] [address] Phone [phone] Care Team Providers Care Jailkeeper Name Role Phone SethOzzie Bernardo ARMSTRONG Primary Care Provider [phone] Encounter Details Date Type Department Care Team Description 11/25/2022 Telephone Cardiology, [facility] [address] [facility] [place] [id number] [facility] [address] [facility] [place] [address] Allergies Active Allergy Reactions Severity Noted Date Comments [place] Oil High 01/30/2019 Other reaction(s): STOMACH UPSET It is not corn oil--- Just plain [place] Ham High 02/13/2019 Other reaction(s): STOMACH UPSET Clopidogrel Bisulfate Rash 04/22/2009 Rash on Plavix-per Dr. Eldridge documented as of this encounter (statuses as of 11/25/2022) Medications Medication Sig Dispensed Refills Start Date [...] , and Monday only. evenings 0 Active [email or web address] Ultra 2 w/Device KitIndications:Diabetes mellitus without complication (HCC) Use to check blood sugar once daily. 1 Kit 0 2 Active Vitamin D3 50 MCG (1999 UT) Oral Capsule Take 1 Capsule by mouth daily with dinner. 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 180 Tablet 3 3 Active Empagliflozin 10 MG Oral Tablet (Jardiance) Take 1 Tablet by mouth in the morning. 90 Tablet 3 3 Active Entresto 24-26 MG Oral Tablet (sacubitril-valsartan 24-26 mg per tab)Indications:HTN, goal below 140/90,History of HI (myocardial infarction) Take 1 Tablet by mouth in the morning and 1 Tablet before bedtime. 180 Tablet 3 3 023 Discontin ued(Refil l) documented as of this encounter (statuses as of 11/25/2022) Active Problems Problem Noted Date Acute ST [...] cancer 01/31/2019 Pure hypercholesterolemia 12/21/2017 History of HI (myocardial infarction) Transient global amnesia 03/02/2016 HTN, goal below 140/90 12/16/2005 DIFFUS CYSTIC MASTOPATHY 10/10/2001 FIBROMYALGIA 04/04/1997 documented as of this encounter (statuses as of 11/25/2022) Resolved Problems Problem Noted Date Resolved Date [...] 05/29/2018:Stage IIA(cT2, cN0, cM0, G2, ER: Negative, [place]: Negative, HER2: Positive) - Signed by Jamil Marques MD on 05/29/2018 Overview: H/O Ductal carcinoma in situ (DCIS) of right breast 03/07/2016 01/25/2022 Overview: Biopsy at [facility] [place] 03/03/2016 ACUTE ANTEROLATERAL MYOCARDIAL INFARCTION- 010 04/01/2009 03/10/2017 ADVANCE DIRECTIVE INFORMATION 08/27/2008 Overview: No, Advance Directive brochure given to patient. Goiter 06/06/2002 01/20/2021 PREMENSTRUAL TENSION 04/04/1997 04/27/2018 documented as of this encounter (statuses as of 11/25/2022) Immunizations Name Administration Dates Next Due COVID-19 mRNA, LNP-s, No Pre serve, 2-Dose Series (Moderna) 01/22/2021,06/01/2020,04/28/2020 Covid-19 Mrna, Lnp-s, No Pre serve, Booster (Moderna) 10/08/2021 H1N1 2009 Influenza, IM 07/28/2009 Pneumococcal Conjugate Vacci ne, 20-valent ([id number]) 01/25/2022 Pneumococcal Polysaccharide PPV23 (Pneumovax) 07/20/2020,04/01/2009 Seasonal [...] encounter Miscellaneous Notes * Telephone Encounter - Tamiko Rae RPh - 11/25/2022 3:32 PM EDT Patient approved for mickie to cover both Entresto and Jardiance [facility] [place] [id number] Card # [id number] [facility] [id number] N [employer] Group [id number] myG sent to patient making her aware. Rx for Entresto updated with mickie info. Rx for Jardiance 10 mg daily sent to mail order. I also placed an order for follow up BMP in 2 weeks. Loraine--- please see above. Let me know if this all okay! I placed the BMP on your behalf. Thanks! Tamiko Rae Pharm D Clinical Pharmacist Cardiology 11/25/2022,3:38 PM * Telephone Encounter - Tamiko Rae RPh - 11/25/2022 3:04 PM EDT Called patient to discuss. She has [facility] [employer] insurance. Over income for PACE/PACENET. Will refer to pharmacy reimbursement team. Please assess for health well cardiomyopathy mickie for Entresto (already prescribed) and Jardaince (planning to prescribe). Tamiko Rae Pharm D Clinical Pharmacist Cardiology 11/25/2022,3:07 PM * Telephone Encounter - Tamiko Rae RPh - 11/25/2022 3:03 PM EDT ----- Message from TOI Ambriz sent at 11/24/2022 10:39 AM EDT ----- Regarding: Mirella Morrison, I saw this patient yesterday for routine follow up. She is currently on only metformin for her DM, but also had a history of ischemic cardiomyopathy. We are trying to encourage her to start Jardiance. She is hesitent for 2 reasons, one being fear of UTI's, but the other most significantly is cost, especially since she is already paying for Entresto. Can you look at her chart and tell me if there is anything we can do to get the Jardiance covered? I did ask about PACE, but she says that in the past a case reviewer told her that with the combination of her income and assets that she is not approved. Let me know how I can assist! Thank you, Loraine documented in this encounter Plan of Treatment Upcoming Encounters Date Type Specialty Care Team Description 03/08/2023 Office Visit Family Medicine Ozzie Ann, DO [address] [facility] [place] [address] 03/13/2023 Imaging Radiology 03/13/2023 Imaging Radiology 04/06/2023 Office Visit General Surgery Janis Brito MD [address] [place] [address] 05/18/2023 Office Visit Hematology Oncology Martha Elizabeth CRNP [address] [place] [address] Scheduled Orders Name Type Priority Associated Diagnoses Orde r Schedule BASIC METABOLIC PANEL Lab Routine HTN, goal below 140/90 Expected: 12/09/2022, Expires: 11/26/2023 Scheduled Procedures Name Priority Associated Diagnoses Date/Ti [...] Additional history exists CKD PHOS USE SMARTSET 54918 01/13/2022 01/13/2021, 0 10/10/2019 DIABETES-FOOT EXAM 09/24/2022 09/24/2021 Influenza Vaccine (FLU shot) (#1) 2022 01/25/2022, 01/25/2022, 12/30/2020, Additional history exists GFR 02/03/2023 08/03/2022, 04/28, 11/09/2021, Additional history exists HbA1c 02/03/2023 08/03/2022, 12/26, 07/21/2021, Additional history exists CKD HGB USE SMARTSET 43046 05/18/202305/18, 05/18/2022, 06/04/2021, Additional history exists DXA [...] this encounter Medical Devices Implanted Type Area Centerless Grinder Device Identifier Shelf Expiration Date Model / Serial / Lot Cpx 4 Med Height Document Controller Implanted:Qty: 1 on 04/13/2016 [place]ar [place] [facility] [place] Breast MENTOR KEE 04/13/2016 [id number] / [id number] / [id number] Breast Implant Smooth Round Moderate Profile Implanted:Qty: 1 on 11/15/2016 [place] César Oro [place] [facility] [place] 05/05/2021 SRM-685 / [id number] / [id number] Port Power Mri W/8fr Cath - [id number] Implanted:Qty: 1 on 04/04/2018 by Janis Brito MD at OR [facility] Left: Chest CR BARD : PERIPHERAL VASCULAR 04/26/2019 [id number] / / [id number] Description:left subclavian documented as of this encounter Visit Diagnoses Diagnosis HTN, goal below 140/90 Unspecified essential hypertension History of HI (myocardial infarction) Old myocardial infarction documented in this encounter Advance Directives Latest Code Status on File Code Status Date Activated Date Inactivated Comments Full Code 10/19/2022 7:58 AM 10/19/2022 4:37 PM This order reflects the patients wishes and were consensually agreed upon. Question Answer Comments Discussion of Advance Directives occurred with: Patient Does the patient have a Living Will? No Does the patient have Health Care Power of Jingle Writer? No Code Status History Code Status Date Activated Date Inactivated Comments Full Code 11/15/2016 8:29 AM 11/16/2016 3:18 PM Question Answer Comments Discussion of Advance Directives occurred with: Not Discussed Full Code 04/13/2016 10:29 AM 04/15/2016 4:08 PM This order reflects the patients wishes and were consensually agreed upon. Care Teams Jailkeeper Relationship Specialty Start Date End Date Ozzie Ann, DO [address] [place] [address] PCP - General Family Medicine 09/09/16 documented as of this encounter
--- OUTSIDE RECORDS SUMMARY | 2023-05-19 23:42 | External Medical Summary | Summary of Care ---
Author Name Unknown Organization [facility] Address [address] [facility] [address] Phone [phone] Care Team Providers Care Foundry Superintendant Name Role Phone SethOzzie Bernardo ARMSTRONG Primary Care Provider [phone] Encounter Details Date Type Department Care Team Description 11/25/2022 Telephone Cardiology, [facility] [id number] [place] [address] Allergies Active Allergy Reactions Severity Noted Date Comments [place] Oil High 01/30/2019 Other reaction(s): STOMACH UPSET It is not corn oil--- Just plain [place] Ham High 02/13/2019 Other reaction(s): STOMACH UPSET Clopidogrel Bisulfate Rash 04/22/2009 Rash on Plavix-per Dr. Eldridge documented as of this encounter (statuses as of 11/29/2022) Medications Medication Sig Dispensed Refills Start Date [...] , and Monday only. evenings 0 Active [employer] Ultra 2 w/Device KitIndications:Diabetes mellitus without complication (HCC) Use to check blood sugar once daily. 1 Kit 0 2 Active Vitamin D3 50 MCG (1999 UT) Oral Capsule Take 1 Capsule by mouth daily with dinner. 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),HTN, goal below 140/90,Coronary artery disease involving [place] heart without angina pectoris, unspecified vessel or [...] anterolateral wall (HCC),Coronary artery disease involving [place] heart without angina pectoris, unspecified vessel or [...] as of this encounter (statuses as of 11/29/2022) Active Problems Problem Noted Date Acute ST [...] hypercholesterolemia 12/21/2017 History of PA (myocardial infarction) Transient global amnesia 03/02/2016 HTN, goal below 140/90 12/16/2005 DIFFUS CYSTIC MASTOPATHY 10/10/2001 FIBROMYALGIA 04/04/1997 documented as of this encounter (statuses as of 11/29/2022) Resolved Problems Problem Noted Date Resolved Date [...] breast 03/07/2016 01/25/2022 Overview: Biopsy at [facility] 03/03/2016 ACUTE ANTEROLATERAL MYOCARDIAL INFARCTION- 010 04/01/2009 03/10/2017 ADVANCE DIRECTIVE INFORMATION 08/27/2008 Overview: No, Advance Directive brochure given to patient. Goiter 06/06/2002 01/20/2021 PREMENSTRUAL TENSION 04/04/1997 04/27/2018 documented as of this encounter (statuses as of 11/29/2022) Immunizations Name Administration Dates Next Due COVID-19 mRNA, LNP-s, No Pre serve, 2-Dose Series (Moderna) 01/22/2021,06/01/2020,04/28/2020 Covid-19 Mrna, Lnp-s, No Pre serve, Booster (Moderna) 10/08/2021 Diptheria/Tetanus (Adult) 03/27/1994 H1N1 2009 Influenza, IM 07/28/2009 PPD 05/25/1998 Pneumococcal Conjugate Vacci ne, 20-valent ([id number]) 01/25/2022 Pneumococcal Polysaccharide PPV23 (Pneumovax) 07/20/2020,04/01/2009 Seasonal Influenza, PF, 6 mo ns & Above, IM , (Flulaval) 01/17/2020,12/24/2018,12/21/2017,03/10 Seasonal Influenza, Quadriva lent Hd (Fluzone Hd) 01/25/2022,12/30/2020 Seasonal Influenza, Quadriva lent, No Preserve, IM 03/02/2016 Seasonal Influenza, Split, I IV3, With Preserve, Inj 04/15/2014,03/08/2013,02/23/2012,02/07,02/04/2010 TD, Preservative Free 08/26/2004 TDAP (age 10 and older)(Boostrix) 07/20/2020 TDAP [...] encounter Miscellaneous Notes * Telephone Encounter - TOI Ambriz - 11/29/2022 10:59 AM EDT This is so exciting! Thank you for much for this Taimko! * Telephone Encounter - Tamiko Rae [facility] - 11/25/2022 3:32 PM EDT Patient approved for mickie to cover both Entresto and Jardiance [facility] [place] [id number] Card # [id number] BIN [id number] N [employer] Group [id number] myG sent to patient making her aware. Rx for Entresto updated with mickie info. Rx for Jardiance 10 mg daily sent to mail order. I also placed an order for follow up BMP in 2 weeks. Loraine--- please see above. Let me know if this all okay! I placed the BMP on your behalf. Thanks! Tamiko Rae Pharm Bernardo Clinical Pharmacist Cardiology 11/25/2022,3:38 PM * Telephone Encounter - Tamiko Rae RP - 11/25/2022 3:04 PM EDT Called patient to discuss. She has [employer] insurance. Over income for PACE/PACENET. Will refer to pharmacy reimbursement team. Please assess for health well cardiomyopathy mickie for Entresto (already prescribed) and Jardaince (planning to prescribe). Tamiko Rae Pharm Bernardo Clinical Pharmacist Cardiology 11/25/2022,3:07 PM * Telephone [...] she says that in the past a director of casework department told her that with the combination of her income and assets that she is not approved. Let me know how I can assist! Thank you, Loraine documented in this encounter Plan of Treatment Upcoming Encounters Date Type Specialty Care Team Description 03/08/2023 Office Visit Family Medicine Ozzie Ann, DO [address] [place] [address] 03/13/2023 Imaging Radiology 03/13/2023 Imaging Radiology 04/06/2023 Office Visit General Surgery Janis Brito MD [address] [place] [address] 05/18/2023 Office Visit Hematology Oncology Martha Elizabeth CRNP [address] [place] [address] Scheduled Orders Name Type [...] Additional history exists CKD PHOS USE SMARTSET 73492 01/13/2022 01/13/2021, 0 10/10/2019 DIABETES-FOOT EXAM 09/24/2022 09/24/2021 Influenza Vaccine (FLU shot) (#1) 2022 01/25/2022, 01/25/2022, 12/30/2020, Additional history exists GFR 02/03/2023 08/03/2022, 04/28, 11/09/2021, Additional history exists HbA1c 02/03/2023 08/03/2022, 12/26, 07/21/2021, Additional history exists CKD HGB USE SMARTSET 19688 05/18/202305/18, 05/18/2022, 06/04/2021, Additional history exists DXA [...] this encounter Medical Devices Implanted Type Area Campaign Management Specialist Device Identifier Shelf Expiration Date Model / Serial / Lot Cpx 4 Med Height Car Deliverer Implanted:Qty: 1 on 04/13/2016 by César Oro MD [place] [facility] [place]: Breast MENTOR KEE 04/13/2016 [id number] / [id number] / [id number] Breast Implant Smooth Round Moderate Profile Implanted:Qty: 1 on 11/15/2016 by César Oro MD [place] [facility] [place] 05/05/2021 SRM-685 / [id number] / [id number] Port Power Mri W/8fr Cath - [id number] Implanted:Qty: 1 on 04/04/2018 by Janis Brito MD at OR [facility] Left: Chest CR BARD : PERIPHERAL VASCULAR 04/26/2019 [id number] / / [id number] Description:left subclavian documented as of this encounter Visit Diagnoses Diagnosis HTN, goal below 140/90 Unspecified essential hypertension History of PA (myocardial infarction) Old myocardial infarction documented in [...] the patient have Health Care Power of Robotics Technologist? No Code Status History Code Status Date Activated Date Inactivated Comments Full Code 11/15/2016 8:29 AM 11/16/2016 3:18 PM Question Answer Comments Discussion of Advance Directives occurred with: Not Discussed Full Code 04/13/2016 10:29 AM 04/15/2016 4:08 PM This order reflects the patients wishes and were consensually agreed upon. Care Teams Foundry Superintendant Relationship Specialty Start Date End Date Ozzie Ann, DO [address] [facility] [place] [address] PCP - General Family Medicine 09/09/16 documented as of this encounter
[2023-05-20 05:46] VITALS: RESP 16
[2023-05-20 06:37] LABS: Hematocrit (blood only) 39.9 % (37.0-47.0); Hemoglobin 12.5 g/dl (12.0-16.0); Mean Corpuscular Hemoglobin 27.2 pg (25.0-34.0); Mean Corpuscular Hgb Conc 31.3 g/dL (32.0-36.0); Mean Corpuscular Volume 86.9 fL (80.0-100.0); Mean Platelet Volume 9.1 fL (9.4-12.4); Platelet Count 243 K/uL (130-400); RDW Coefficient of Variation 13.4 % (11.5-14.5); Red Blood Count 4.59 M/uL (4.20-5.40); White Blood Count 8.17 K/ul (4.8-10.8)
[2023-05-20 07:15] LABS: Albumin Globulin Ratio 1.7 (0.9-2); BUN Creatinine Ratio 25.3 (10-20); Bilirubin,Total 0.4 mg/dl (0.2-1.0); Calcium 9.3 mg/dl (8.6-10.3); Creatinine Clr Calc Pharmacy 78.9 ml/min; Est GFR (African American) 84.6 ml/min; Globulin 2.4 gm/dl (2.5-4.0); Magnesium 1.9 mg/dl (1.7-2.4); Potassium 4.4 mmol/L (3.5-5.1); Total Protein 6.4 gm/dl (6.0-8.3)
[2023-05-20 07:35] VITALS: BP 101/57; PULSE 74; TEMP 97.3
[2023-05-20 07:52] VITALS: O2SAT 94
--- NOTE | 2023-05-20 12:25 | Surgery Progress Note ---
Date of Service May 20, 2023 Assessment & Plan (1) S/P laparoscopic cholecystectomy: Plan: Saloni is POD #1 s/p Lap Sushma She is doing well and her pain is controlled with PRN Tylenol. She is tolerating diet and would like to advance to regular diet. Surgical dressings removed and incisions are intact with steri-strips in place. There are no signs of infection on exam. Ok for discharge from surgical standpoint. Primary team, Dr. Fields, made aware. Discharge instructions reviewed. she will follow-up with Dr. Burleson in the next 1-2 weeks. Return precautions reviewed. Admission and Anticipated Discharge Date Admission Date: May 19, 2023 Supervising Physician Co-Signing Physician Notes no abdominal findings trocar sites ss intact ok to d/c from surgial point of view f/u with Dr Burleson 1-2 weeks prn Subjective Saloni is resting in bed comfortably. She reports that she is doing well and pain is well-controlled with PRN tylenol. Review of Systems Constitutional: as per Subjective / HPI; no fever and no chills Gastrointestinal: + abdominal pain (expected at incision s ites. ); no bloating, no nausea and no vomiting Physical Exam Constitutional: WD/WN, vitals as above Gastrointestinal (Abdomen): Inspection/Auscultation: + abdominal surgical incision (dressings removed, incisions are intact with steri-strips in place.); abdomen not distended Psychiatric: A+Ox3, euthymic affect Results & Data Vital Signs (Past 12 Hours) Vital Signs Temp Pulse Resp BP Pulse Ox O2 Del Method O2 Flow Rate 05/20/23 07:51 94 Room Air 05/20/23 07:34 36.3 C L 74 16 101/57 L 97 Nasal Cannula 2 05/20/23 05:45 36.6 C 70 16 112/68 96 Room Air PG Care Time/CCT Total # of Minutes Spent Total Time Spent with Patient: Total time spent is greater than 50% in coordination of care (as documented) at patient's floor/unit and/or counseling patient: Coding Level of Care Code 24668 Post Operative Follow-Up Diagnoses S/P laparoscopic cholecystectomy Z90.49
--- NOTE | 2023-05-20 12:46 | Hospitalist Progress Note ---
Date of Service May 20, 2023 Assessment & Plan (1) Biliary colic: Plan: Symptomatic cholelithiasis Biliary colic --S/P laparoscopic cholecystectomy by Dr. York on 05/19/2023 --CT ABD: Showed cholelithiasis, no ductal dilatation, unremarkable liver, pa ncreas, spleen, adrenals, kidneys and ureters. Diverticulosis noted. Normal LFTs Pain control Appreciate surgery input Tolerated regular diet Needs follow-up with surgery on discharge Abnormal urinalysis UTI ruled out Urine culture negative Discontinue Rocephin Left-sided abdominal subcutaneous tumor Possible neuroma Follow-up as outpatient Chronic systolic heart failure EF 40%, TTE 2022 Patient euvolemic Continue metoprolol, Entresto Also on Jardiance Resume Aldactone as able Nonobstructive CAD Continue aspirin, statin, metoprolol Hypertension Continue home medications with holding parameters Monitor BP Hyperlipidemia on statin Recurrent R breast cancer S/P surgery/reconstruction/chemoradiation, currently in remission DM II Last HbA1c 7.4 Hold p.o. medications Continue insulin while hospitalized Monitor BGs Anxiety/mood disorder Continue home medication DVT Px: SCDs for now Code Status Full code Disposition Home Admission and Anticipated Discharge Date Admission Date: May 19, 2023 Subjective Patient is seen and examined at bedside Abdominal pain is controlled No bowel movement today Reports intermittent nausea but no vomiting Denies any chest pain, dyspnea, dizziness Plan to be discharged home today Discussed with surgery today Review of Systems Review of Systems: All systems reviewed & are unremarkable except as noted in Subjective Physical Exam Physical Exam: Physical Exam: Vitals signs as noted above General Appearance:Obese, no apparent distress Head: normocephalic, Atraumatic Eyes: normal inspection, EOMI Neck: supple, Trachea midline Respiratory/Chest: Normal breath sounds, CTA, No accessory muscle use Cardiovascular: S1, S2, No murmur Abdomen/GI:Soft, mild tender, protuberant, surgical scars, bowel sounds present Extremities/Musculoskeletal:normal inspection, Trace edema Neurologic/Psych:AAOX3, grossly no focal neurological deficits Skin: normal color, warm Results & Data Results & Data Vital Signs (Past 12 Hours) Vital Signs Temp Pulse Resp BP Pulse Ox O2 Del Method O2 Flow Rate 05/20/23 07:51 94 Room Air 05/20/23 07:34 36.3 C L 74 16 101/57 L 97 Nasal Cannula 2 05/20/23 05:45 36.6 C 70 16 112/68 96 Room Air Laboratory Results Short CBC 05/20/23 Range/Units 05:27 WBC 8.17 (4.8-10.8) K/ul Hgb 12.5 (12.0-16.0) g/dl Hct 39.9 (37.0-47.0) % Plt Count 243 (130-400) K/uL BMP 05/20/23 05:27 Sodium 139 Potassium 4.4 D Chloride 105 Carbon Dioxide 28 BUN 21 Creatinine 0.83 Glucose 111 H Calcium 9.3 Liver Function 05/20/23 Range/Units 05:27 Total Bilirubin 0.4 (0.2-1.0) mg/dl AST 37 (13-39) U/L ALT 38 (7-52) U/L Alkaline Phosphatase 85 (34-104) U/L Albumin 4.0 (3.4-5.0) gm/dl
--- NOTE | 2023-05-20 12:55 | Discharge Summary ---
Date of Service May 20, 2023 Admission HPI Per Admitting Provider History obtained from patient and records. Medical history significant for chronic systolic heart failure (EF 40%, TTE 2022), nonobstructive CAD, hypertension, hyperlipidemia, recurrent breast cancer right status post surgery/reconstruction/chemoradiation, DM 2 on oral medications, anxiety/mood disorder, fibromyalgia. Last confinement March 2021 for STEMI attributed to LAD vasospasm. Nonocclusive CAD on cardiac catheterization. EF 40 to 45% on echo. Patient noted a painful small lump on the left abdomen about 2 days ago. No recollection of trauma. No fever, no chills. No other symptoms. Patient mentioned left abdominal lump to [facility] Oncology provider on follow-up yesterday. Outpatient CT abdomen pelvis requested. Patient noted achy right-sided abdominal pain with nausea symptoms after a cheese sandwich and chips meal yesterday. No fever, no chills. No chest pain, no SOB. No prior episodes. Patient consulted ER for evaluation. 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 Admission Exam Per Admitting Provider GENERAL: Comfortable, obese, pleasant, no respiratory distress SKIN: Normal color, warm HEENT: [place] palpebral conjunctivae, no ptosis, dry buccal mucosa NECK : Supple, no tenderness CHEST : CTA, no tenderness HEART : RRR, no obvious murmurs ABDOMEN: Some distention, minimal right upper quadrant tenderness, tender movable nodule left upper quadrant EXTREMITIES : Bilateral LE swelling, no LE tenderness, no other conspicuous deformities noted NEUROLOGIC : Coherent, no facial asymmetry, no other gross focality Principal Diagnosis Symptomatic cholelithiasis Biliary colic Discharge Data Allergies Allergy/AdvReac Type Severity Reaction Status Date / Time clopidogrel Allergy Intermediate rash Verified 01/30/19 17:33 Pork/Porcine Containing AdvReac Intermediate ham causes Verified 05/19/23 01:15 Products GI upset codeine AdvReac Mild GI upset Verified 03/28/21 04:36 oxycodone AdvReac gi upset Verified 03/28/21 04:33 Consultations 05/19/23 02:59 Consult General Surgery Routine Procedures Performed Operation Date: 05/19/23 08:25 Actual Procedures p Laparoscopic Cholecystectomy(Not Applicable) - Gunnar Burleson MD Ordered Studies 05/18/23 23:12 CT Abd and Pelvis [CT abd pelvis IV con only] Stat Laboratory Results WBC 8.17 K/ul (4.8-10.8) 05/20/23 05:27 RBC 4.59 M/uL (4.20-5.40) 05/20/23 05:27 Hgb 12.5 g/dl (12.0-16.0) 05/20/23 05:27 Hct 39.9 % (37.0-47.0) 05/20/23 05:27 MCV 86.9 fL (80.0-100.0) 05/20/23 05:27 MCH 27.2 pg (25.0-34.0) 05/20/23 05:27 MCHC 31.3 g/dL (32.0-36.0) L 05/20/23 05:27 RDW Std Deviation 42.0 fL (36.4-46.3) 05/20/23 05:27 RDW Coeff of Renard 13.4 % (11.5-14.5) 05/20/23 05:27 Plt Count 243 K/uL (130-400) 05/20/23 05:27 MPV 9.1 fL (9.4-12.4) L 05/20/23 05:27 Immature Gran % (Auto) 0.3 % 05/19/23 06:56 Neut % (Auto) 59.1 % 05/19/23 06:56 Lymph % (Auto) 29.4 % 05/19/23 06:56 Ransom % (Auto) 7.7 % 05/19/23 06:56 Eos % (Auto) 3.1 % 05/19/23 06:56 Baso % (Auto) 0.4 % 05/19/23 06:56 Neut # (Auto) 4.56 K/uL (1.40-6.50) 05/19/23 06:56 Lymph # (Auto) 2.27 K/uL (1.20-3.40) 05/19/23 06:56 Ransom # (Auto) 0.59 K/uL (0.11-0.59) 05/19/23 06:56 Eos # (Auto) 0.24 K/uL (0.00-0.50) 05/19/23 06:56 Baso # (Auto) 0.03 K/uL (0.00-0.20) 05/19/23 06:56 Immature Gran # (Auto) 0.02 K/uL (0.01-0.20) 05/19/23 06:56 PT 10.1 Seconds (9.0-12.0) 05/18/23 20:39 INR 0.9 (0.9-1.1) 05/18/23 20:39 APTT 27 Seconds (21-31) 05/18/23 20:39 PTT Ratio 1.0 05/18/23 20:39 Sodium 139 mmol/L (136-145) 05/20/23 05:27 Potassium 4.4 mmol/L (3.5-5.1) D 05/20/23 05:27 Chloride 105 mmol/L (98-107) 05/20/23 05:27 Carbon Dioxide 28 mmol/L (21-32) 05/20/23 05:27 Anion Gap 6 (3-11) 05/20/23 05:27 BUN 21 mg/dl (6-23) 05/20/23 05:27 Creatinine 0.83 mg/dl (0.6-1.2) 05/20/23 05:27 Est Cr Clr Drug Dosing 78.9 ml/min 05/20/23 05:27 Est GFR ( Amer) 84.6 ml/min 05/20/23 05:27 Est GFR (Non-Af Amer) 73.0 ml/min 05/20/23 05:27 BUN/Creatinine Ratio 25.3 (10-20) H 05/20/23 05:27 Glucose 111 mg/dl (70-99(Fasting)) H 05/20/23 05:27 POC Glucose 115 mg/dl (70-99) H 05/20/23 11:50 Calcium 9.3 mg/dl (8.6-10.3) 05/20/23 05:27 Magnesium 1.9 mg/dl (1.7-2.4) 05/20/23 05:27 Total Bilirubin 0.4 mg/dl (0.2-1.0) 05/20/23 05:27 AST 37 U/L (13-39) 05/20/23 05:27 ALT 38 U/L (7-52) 05/20/23 05:27 Alkaline Phosphatase 85 U/L (34-104) 05/20/23 05:27 Troponin I High Sens 11.3 pg/ml (0-14) 05/18/23 20:39 Total Protein 6.4 gm/dl (6.0-8.3) 05/20/23 05:27 Albumin 4.0 gm/dl (3.4-5.0) 05/20/23 05:27 Globulin 2.4 gm/dl (2.5-4.0) L 05/20/23 05:27 Albumin/Globulin Ratio 1.7 (0.9-2) 05/20/23 05:27 Lipase 8 U/L (11-82) L 05/18/23 20:39 Urine Color Yellow 05/18/23 20:41 Urine Appearance Clear (Clear) 05/18/23 20:41 Urine pH 6.5 (4.5-7.5) 05/18/23 20:41 Ur Specific [place] 1.032 (1.000-1.030) H 05/18/23 20:41 Urine Protein Trace (Negative) H 05/18/23 20:41 Urine Glucose (UA) 3+ (Negative) H 05/18/23 20:41 Urine Ketones Trace (Negative) H 05/18/23 20:41 Urine Blood Trace (Negative) H 05/18/23 20:41 Urine Nitrite Negative (Negative) 05/18/23 20:41 Urine Bilirubin Negative (Negative) 05/18/23 20:41 Urine Urobilinogen Negative (Negative) 05/18/23 20:41 Ur Leukocyte Esterase Negative (Negative) 05/18/23 20:41 Urine WBC (Auto) 1-5 /hpf (0-5) 05/18/23 20:41 Urine RBC (Auto) 5-10 /hpf (0-4) H 05/18/23 20:41 U Hyaline Cast (Auto) 0 /lpf (0-5) 05/18/23 20:41 U Epithel Cells (Auto) 20-30 /lpf (0-5) H 05/18/23 20:41 Urine Bacteria (Auto) 1+ (Negative) H 05/18/23 20:41 Hepatitis C Ab (EIA) NON-REACTIVE (NON-REACTIVE) 05/19/23 06:56 Impressions Chest X-Ray 05/18/23 20:26 XR chest 1V portable CLINICAL HISTORY: Chest pain, nonspecific. COMPARISON STUDY: Chest CT January 20, 2019. Chest radiograph March 27, 2021. FINDINGS: Lung volumes are normal. Lungs are clear. There is no pneumothorax or pleural effusion. Cardiac size is normal. Mediastinal contours are normal. There is no evidence for pulmonary edema. IMPRESSION: No acute cardiopulmonary findings. ACT 112: Negative or not required by law. Electronically signed by: Armando Khanna M.D. 05/19/2023 7:06 AM Abdomen/Pelvis CT 05/18/23 23:12 Exam(s): CT ABDOMEN + PELVIS With Contrast IV Amt: 85 ML OPTIRAY 320 EXAM: CT Abdomen and Pelvis With Intravenous Contrast CLINICAL HISTORY: Upper Abdominal pain. TECHNIQUE: Axial computed tomography images of the abdomen and pelvis with intravenous contrast. CTDI is 27.14 mGy and DLP is 1405.55 mGy-cm. Automated exposure control was utilized for the study. A dose lowering technique was utilized adhering to the principles of ALARA. CONTRAST: Patient received 85 ML OPTIRAY 320 of IV contrast COMPARISON: CT abdomen and pelvis 04/05/2018 FINDINGS: Lung bases: Unremarkable. No mass. No consolidation. ABDOMEN: Liver: Unremarkable. No mass. Gallbladder and bile ducts: Cholelithiasis. No ductal dilation. Pancreas: Unremarkable. No mass. No ductal dilation. Spleen: Unremarkable. No splenomegaly. Adrenals: Unremarkable. No mass. Kidneys and ureters: Unremarkable. No solid mass. No hydronephrosis. Stomach and bowel: Diverticulosis. No obstruction. No mucosal thickening. PELVIS: Appendix: Normal appendix. Bladder: Unremarkable. No mass. Reproductive: Unremarkable as visualized. ABDOMEN and PELVIS: Intraperitoneal space: Unremarkable. No free air. No significant fluid collection. Bones/joints: There are degenerative changes of the spine. No acute fracture. No dislocation. Soft tissues: Unremarkable. Vasculature: Mild atherosclerosis. No abdominal aortic aneurysm. Lymph nodes: Unremarkable. No enlarged lymph nodes. IMPRESSION: Cholelithiasis. Electronically signed by: Trista Munguia MD 05/18/23 23:59 PM Hospital Course (1) Biliary colic: Symptomatic cholelithiasis Biliary colic --S/P laparoscopic cholecystectomy by Dr. York on 05/19/2023 --CT ABD: Showed cholelithiasis, no ductal dilatation, unremarkable liver, pancreas, spleen, adrenals, kidneys and ureters. Diverticulosis noted. Normal LFTs Pain control Appreciate surgery input Tolerated regular diet Needs follow-up with surgery on discharge Abnormal urinalysis UTI ruled out Urine culture negative Discontinue Rocephin Left-sided abdominal subcutaneous tumor Possible neuroma Follow-up as outpatient Chronic systolic heart failure EF 40%, TTE 2022 Patient euvolemic Continue metoprolol, Entresto Also on Jardiance Resume Aldactone as able Nonobstructive CAD Continue aspirin, statin, metoprolol Hypertension Continue home medications with holding parameters Monitor BP Hyperlipidemia on statin Recurrent R breast cancer S/P surgery/reconstruction/chemoradiation, currently in remission DM II Last HbA1c 7.4 Hold p.o. medications Continue insulin while hospitalized Monitor BGs Anxiety/mood disorder Continue home medication DVT Px: SCDs for now Code Status Full code Disposition Home Total Time Total Time Spent Total Time Spent (In Minutes): 56 minutes Discharge Plan Discharge Items Patient Disposition: Home - Self-Care Reason For Visit: ABD PAIN Discharge Diagnosis: Symptomatic cholelithiasis Biliary colic Condition on Discharge: Fair Activity: As commented below Lifting: No more than 10 pounds Bathing: No limitations Bathing Comment: Do not scrub your incisions. Keep steri-strips in place until they fall off Exercise/Sports: Wait until after follow-up appointment Non-emergency contact: Primary Care Provider and Surgeon Call non-emergency contact if: you have any medication questions, your pain is not controlled, your temperature is above 101.5 and your wound has increased drainage Follow-up/Referrals: Gunnar Burleson MD [Physician] - (Please call Dr. Burleson's office to schedule follow-up appointment. ) Ozzie Ann DO [Primary Care Provider] - (Date & Time 05/25/2023 1:00 PM Provider Cee Read PA-C Department [facility] ) Diet: Regular Addtl Attending Provider Instructions: You may use Tylenol for pain management. Please follow sock and stocking ironer's dosing instructions. Please call to schedule follow-up with Dr. Burleson. Addtl Technical Publications Manager Provider Instructions: Follow-up with your primary care physician Dr. Dykes on 05/25/2023 1:00 PM Follow-up with your surgeon Dr. Burleson as recommended Seek immediate medical attention if your symptoms reoccur or worsen Please take all medications as instructed on discharge list below. Please call if you have any questions or problems. You can reach a [facility] hospitalist on duty at [facility] 24 hours a day by calling [phone] Pending Studies at Discharge: Yes Studies:: Pathology report. Stand-Alone Forms: My [facility], Smoking Cessation Medications and DC Order Prescriptions: New tramadol 50 mg tablet 50 mg PO Q8H PRN (Reason: pain) Qty: 10 0RF Continued omeprazole 20 mg tablet,delayed release (DR/EC) 20 mg PO QAM Entresto 24-26 mg tablet 1 tab PO AMHS atorvastatin 40 mg Tablet 40 mg PO QAM amitriptyline 25 mg Tablet 25 mg PO HS buspirone 15 mg Tablet 15 mg PO AMHS aspirin 81 mg Tablet,Delayed Release (Dr/Ec) 81 mg PO HS nitroglycerin 0.4 mg Tablet, Sublingual 0.4 mg Sublingual DIRECTED PRN (Reason: Chest Pain) Rx Instructions: take 1 tab under the tongue as needed for chest pain may repeat x 3 if chest pain continues call 911 metoprolol succinate 200 mg tablet extended release 24 hr 200 mg PO QAM Rx Instructions: take in addition to 25 mg = 225 total dose metoprolol succinate 25 mg tablet extended release 24 hr 25 mg PO QAM Rx Instructions: take in addition to 200 mg = 225 mg total dose amlodipine 2.5 mg tablet 2.5 mg PO AMHS spironolactone 25 mg tablet 12.5 mg PO [id number] Rx Instructions: take 1/2 tablet once daily on MON/WED/FRI only Jardiance 10 mg tablet 10 mg PO QAM docusate sodium 100 mg Capsule 100 mg PO HS cholecalciferol (vitamin D3) [Vitamin D3] 50 mcg (2,000 unit) Tablet 50 mcg PO QDD cyanocobalamin (vitamin B-12) 100 mcg Tablet 100 mcg PO DAILY Vitron-C 65 mg iron- 125 mg Tablet,Delayed Release (Dr/Ec) 1 tab PO 3XWK Rx Instructions: take 1 tablet in the morning of //MON Discharge Orders: Discharge Order (Routine); Ordered 05/20/23 Ordered By: Taj Walker/Other Patient Handouts: Having Laparoscopic Cholecystectomy Admission Data Admit Date/Time: 05/19/23 01:35 Attending Provider: Taj Fields Admit Provider: Pietro Mendes Primary Care Provider: Ozzie Ann Other Providers: Gunnar Burleson
== END 2023-05-20 13:58 | disposition home or self-care (01) ==
LOC: ED 20:17 → 3W 20:17